=== PATIENT | female | born 1965 | race Caucasian/White ===

== ENCOUNTER → 2016-02-25 | Outpatient (CLI) | payer MEDICARE, MEDICAID ==
[~2016-02-25] MED LIST: /AMIT10TA PO; /AMIT25TA NG; /CLON1TA PO; /FEXO18TA OR; /MELO7TA PO; /METH500TA OR; ACET65TA OR; AMIT10TA PO; B COCAP5 PO; CALC600T10 OR; CLAR1TAB2 PO; CLOT10TR PO; CYCL10TA3 PO; CYMB1CAP5 PO; CYMB60CA3 PO; FISH1000 OR; FISH1000 PO; FLON0.054; FLUO10CA8 PO; IBUP60TA PO; IRON28TA OR; LEVO75TA2 OR; LEXA1TAB2 PO; MAGN250T OR; MAGN400C2 PO; MARI5CAP PO; MELOPOW OR; METH750T PO; METH75TA PO; MOBI15TA PO; MULTIVIT OR; MULTIVIT PO; OMEP20TA7 OR; PREG50CA OR; PROZ10CA7 PO; SENN8.6T5 OR; SOMA350T PO; SUDA30TA OR; TOPA25TA PO; TRAM50TA2 OR; TUMERIC PO; ULTRTA OR; VALI5TAB OR; VICO5TAB PO; VIT D 2000 OR; VITACAP31 PO; [UNRECOGNIZED DRUG - OTHER] PO; emla cream TOP; melatonin PO; osteo matrix PO; vit D2 PO
--- NOTE | 2016-03-18 00:55 | ECWPNPC ---
PATIENT NAME: PATRIZIA DICKEY : 1965 GENDER: FEMALE VISIT DATE: 02/25/2016 DISCHARGE DATE: 02/25/16 1046 VISIT LOCKED DATE TIME: PHYSICIAN: DARBY MCCLOUD PHYSICIAN PAGER NO: INACTIVE RESOURCE: DARBY MCCLOUD REASON FOR APPOINTMENT 1. BACK HISTORY OF PRESENT ILLNESS HISTORY OF PRESENT ILLNESS: PAIN THE PATIENT DESCRIBES THE PAIN... FALL RISK SCREENING: SCREENING :NO FALLS IN THE PAST YEAR TODAY'S VISIT: NOTES: RATES PAIN TODAY 6/10. HAS BEEN EXERCISING ON A DAILY BASIS. HAS NEEDED TO TAKE PAIN MEDS HAS FOUND THIS HELPFUL. IS SLEEPING BUT HAS BEEN HAVING VIVID DREAMS. IS HAVING NEAR DAILY HEADACHES. HEADACHE TENDS TO BE OCCIPITAL. STATES ON DATE OF INJECTION HAD MIGRAINE WHICH WAS GONE IMMEDIATELY AFTER TREATMENT. [place] HAS HAD NO MIGRAINES SINCE THE INJECTION BUT HAS HAD A PRESURE SENSE WHICH IS USUALLY PART OF THE MIGRAINE EXPERIENCE. DID HAVE TOOTH REMOVED AND THIS HAS BEEN VERY PAINFUL. BLADDER HAS CONTINUED TO EMPTY WELL AND IS HAVING SOME PAIN AT END OF URINATION WHICH IS GOING TO BE EVALUATED. . CURRENT MEDICATIONS TAKING ARIPIPRAZOLE 2 MG TABLET 1 TABLET ORALLY ONCE A DAY, NOTES: 2100 LAST NIGHT TAKING SENNA S 8.6-50 MG TABLET 1 TABLET IN THE EVENING NEEDED ORALLY ONCE A DAY NEEDED, NOTES: 2100 LAST NIGHT TAKING ABIGAIL ALLERGY 180 MG TABLET 1 TABLET ORALLY ONCE A DAY, NOTES: YESTERDAY AM TAKING MAGNESIUM 400 MG CAPSULE 1 TABLET WITH A MEAL ORALLY ONCE A DAY, NOTES: YESTERDAY AM TAKING FISH OIL 1200 MG CAPSULE 2 CAPSULES ORALLY ONCE A DAY, NOTES: YESTERDAY AM TAKING MULTIVITAMINS OTC TABLET 1 TAB(S) ORALLY DAILY, NOTES: YESTERDAY AM TAKING VITAMIN B COMPLEX OTC TABLET 1 TAB(S) ORALLY DAILY, NOTES: YESTERDAY AM TAKING CALCIUM 500 MG TABLET CHEWABLE 2 TABLET ORALLY ONCE A DAY, NOTES: YESTERDAY AM TAKING VITAMIN D-3 1000 UNITS TABLET 1 TAB(S) ORALLY DAILY, NOTES: YESTERDAY AM TAKING SYNTHROID 100 MCG TABLET 1 TABLET ON AN EMPTY STOMACH IN THE MORNING ORALLY ONCE A DAY (DR. PABLO), NOTES: 0730 TODAY TAKING PROZAC 10 40 MG TABLET 1 TAB(S) ORAL ONCE A DAY, NOTES: 2100 LAST NIGHT TAKING OSTEO COMPLEX CAPSULE 1 CAP(S) ORALLY DAILY, NOTES: YESTERDAY AM TAKING FLONASE 50 MCG/DOSE INHALER 1 SPRAY IN EACH NOSTRIL NASALLY ONCE A DAY, NOTES: 3 DAYS TAKING NORCO 5-325 MG TABLET 1 TABLET ORALLY EVERY 4 HRS PRN PAIN MDD=6 CHRONIC PAIN, NOTES: TODAY 0830 TAKING MAPROTILINE HCL 50 MG TABLET 1 TABLET ORALLY ONCE A DAY, NOTES: 2100 TAKING LYRICA 25 MG CAPSULE 1 CAPSULE ORALLY Q 8 HRS MDD=3, NOTES: 1500 YESTERDAY NOT-TAKING DIAZEPAM 5 MG TABLET 1 TABLET ORALLY ONCE A DAY NEEDED ([facility]), NOTES: 09-22-15 0845 NOT-TAKING METHOCARBAMOL 750 MG TABLET 2 TABLETS ORALLY EVERY 4 HRS ([facility]), NOTES: 09-21-152099 NOT-TAKING TURMERIC 1 TAB(S) ORALLY DAILY NOT-TAKING LIDOCAINE 5 % OINTMENT 1 APPLICATION TO AFFECTED AREA NEEDED EXTERNALLY FOUR TIMES A DAY TO PAINFUL AREAS OF NECK/SACRUM NOT-TAKING BENADRYL 25 MG CAPSULE 1 CAPSULE NEEDED ORALLY EVERY 6 HRS, NOTES: NONE NOT-TAKING SUDAFED 30 MG TABLET 1 TABLET NEEDED ORALLY EVERY 6 HRS, NOTES: NONE NOT-TAKING NASONEX 50 MCG/ACT SUSPENSION 2 SPRAYS IN EACH NOSTRIL NASALLY ONCE A DAY, NOTES: 2 DAYS NOT-TAKING CLONIDINE HCL 0.1 MG TABLET 1 TABLET ORALLY TID PRN, NOTES: NONE NOT-TAKING MARINOL 2.5 MG CAPSULE 1 CAPSULE ORALLY BID NOT-TAKING MOBIC 15 MG TABLET 1 TABLET ORALLY ONCE A DAY WITH FOOD NOT-TAKING LIDOCAINE 4 % CREAM DIRECTED EXTERNALLY APPLY TO PAINFUL AREA TAILBONE 4 X PER DAY NEEDED NOT-TAKING VICODIN HP 7.5-325 MG TABLET 1 TAB(S) ORALLY EVERY 4 HOURS NEEDED ([facility]) MEDICATION LIST REVIEWED AND RECONCILED WITH THE PATIENT PAST MEDICAL HISTORY CERVALGIA- C5-6 DISC HERNIATION WITH C6 IMPINGEMENT-DR DAY/ [facility]UF[facility]- DR PABLO SEASONAL ALLERGY/SINUSITIS ENDOMETRIAL POLYP- DR YBARRA DYSPHAGIA-ENT IN [place]- DR MORATAYA BASAL CELL TO RIGHT NOSE - DR. CASTAÑEDA SACRAL PAIN ALLERGIES NEURONTIN 300: DEPRESSION: SIDE EFFECTS BACLOFEN: HEAD ACHES: ALLERGY CYCLOBENZAPRINE HCL: DECREASED MENTAL ALERTNESS: ALLERGY GABAPENTIN: DEPRESSION: ALLERGY TIZANIDINE HCL: HEADACHES: ALLERGY TOPIRAMATE: ALTERED MENTAL STATUS: ALLERGY SOCIAL HISTORY GENERAL: TOBACCO USE ARE YOU A:NONSMOKER LEARNING BARRIERS / SPECIAL NEEDS ORIENTED TO PLAN OF CARE: PATIENT, PAIN MANAGEMENT PATIENT, ORIENTED TO PLAN OF CARE: PATIENT, PAIN MANAGEMENT PATIENT. NEW PATIENT PAIN DIARY TODAY'S VISITNOTES FROM 0-10, WHAT LEVEL IS YOUR PAIN TODAY?0 PAIN CLINIC PFS, CLERGY, PUBLIC HEALTH REFERRALS PFS REFERRAL NEEDED?NO CLERGY REFERRAL NEEDED?NO PUBLIC HEALTH REFERRAL NEEDED?NO WAS THE PROVIDER NOTIFIED OF ANY PERTINENT INFO?NO PFS REFERRAL NEEDED?NO CLERGY REFERRAL NEEDED?NO PUBLIC HEALTH REFERRAL NEEDED?NO WAS THE PROVIDER NOTIFIED OF ANY PERTINENT INFO?NO REVIEW OF SYSTEMS CONSTITUTIONAL: ANY CHANGE IN YOUR MEDICAL CONDITION? YES HEADACHES HAVE BECOME MORE FREQUENT . CHILLS NO . FEVER NO . INFECTION: DO YOU HAVE NEW INFECTIONS? NO . DO YOU HAVE HISTORY OF MRSA? NO . MUSCULOSKELETAL: ANY NEW PATTERNS OF PAIN OR NUMBNESS? NO . GASTROENTEROLOGY: ANY NEW CHANGE IN BOWEL CONTROL? NO . GENITOURINARY: ANY NEW CHANGE IN BLADDER CONTROL? NO . IS THERE A CHANCE YOU COULD BE ? NO . HEMATOLOGY/LYMPH: DO YOU TAKE ANY BLOOD THINNERS? (FOR EXAMPLE- COUMADIN, PLAVIX, AGGRENOX, PLATEL, PRADAXA, OR XARELTO) NO . WHEN WAS YOUR LAST DOSE? DATE: TIME: . NEUROLOGY: HAVE YOU FALLEN IN THE PAST 6 MONTHS? NO . ANY NEW EXTREMITY NUMBNESS OR WEAKNESS? NO . CARDIOLOGY: DO YOU HAVE A PACEMAKER OR DEFIBRILLATOR? NO . RESPIRATORY: HAVE YOU BEEN SICK IN THE PAST WEEK? NO . FEVER NO . FLU LIKE SYMPTOMS? NO . COUGH NO . INTEGUMENTARY: DO YOU HAVE ANY RASHES OR OPEN SORES? NO . ALLERGIC/IMMUNO: ARE YOU ALLERGIC TO SHELLFISH OR IV DYE? NO . ANY NEW ALLERGIES? NO . PSYCHIATRIC: DO YOU HAVE THOUGHTS OF HURTING YOURSELF OR SOMEONE ELSE? NO . ARE YOU ABUSED, NEGLECTED, OR IN AN UNSAFE ENVIRONMENT? NO . ENDOCRINOLOGY: ARE YOU DIABETIC? NO . OTHER: DO YOU NEED ANY PRESCRIPTIONS? NO . IF YES, PLEASE LIST: ____ . ANY NEW PROBLEMS WITH YOUR MEDICATIONS? NO . WHEN DID YOU LAST EAT? ____ . WHEN DID YOU LAST DRINK? ____ . WHAT DID YOU LAST DRINK? ____ . NAME OF PERSON DRIVING YOU HOME? ____ . DO YOU HAVE ANY OTHER QUESTIONS OR CONCERNS NO . REVIEWED BY: PROVIDER: DARBY DALE . VITAL SIGNS WT 165 LBS, HT 70 IN, BMI 23.67 INDEX, BP 114/69 MM HG, HR 98 /MIN, RR 18 /MIN, TEMP 96.7 F, OXYGEN SAT % 99, REVIEWED BY: AD. EXAMINATION GENERAL EXAMINATION: PSYCHALERT , ORIENTED X 3 , APPROPRIATE MOOD AND AFFECT STANDS THROUGHOUT VISIT TODAY. LUNGS:CLEAR TO AUSCULTATION BILATERALLY. HEART:HEART RATE REGULAR. MUSCULOSKELETAL:TENDER OVER TRAPEZIUS MUSCLES AND OVER CERVICAL PARASPINOUS MUSCLES. MILD TENDERNESS OVER SACRUM. POSTURE UPRIGHT, GAIT NONANTALGIC. POINT TENDERNESS OVER SACRUM AND NEAR COCCYX. SPECIFIC TENDERNESS TO PALPATION OVER BILATERAL SACRAL ILIAC JOINTS. POSITIVE SARWAT SIGN. ASSESSMENTS CERVICAL POST-LAMINECTOMY SYNDROME - M96.1 (PRIMARY) MYALGIA - M79.1 COCCYDYNIA - M53.3 TREATMENT CERVICAL POST-LAMINECTOMY SYNDROME INJECTION ANESTHETIC SACROILIAC JOINTDARBY MCCLOUD 02/25/2016 10:29:09 AM > LEFT NOTES: DO SHOULDER ROLLS. LOOK TO START PHYSICAL THERAPY. CONSIDER TRIGGER POINT INJECTION/OCCIPITAL BLOCKS IN THE FUTURE. PREVENTIVE MEDICINE PAIN CLINIC TEACHING: PROCEDURE TEACHING PAT. DECLINED PRINTED INFORMATION ON SIJ INJECTIONS DUE TO HAVING IT PREVIOUSLY. PRE-PROCEJURE INSTRUCTIONS REVIEWED WITH PAT.. PROCEDURE CODES FA211 ESTABILISHED PATIENT [facility] CHARGE G8783 BP SCR PRFRM RCMDD DEFIND SCR INTVL G8730 PAIN ASSESS POS TOOL F/U PLAN DOC 3016F PT SCRND UNHLTHY [place] USE 1123F ACP DISCUSS/DSCN MKR DOCD 1036F TOBACCO NON-USER 0518F FALL PLAN OF CARE DOCD G8427 DOC MEDS VERIFIED W/PT OR RE G8420 BMI<30 AND >=22 CALC & DOCU FOLLOW UP AFTER INJECTION (REASON: CHECK AUTH FOR SIJ) ELECTRONICALLY SIGNED BY LIZA MERINO ON 03/17/2016 AT 08:46 AM EST DISCLAIMER : THIS IS A VISIT SUMMARY EXTRACTED FROM THE [employer] CHART. IT IS NOT A COPY OF THE [employer] PROGRESS NOTE. MTDD
== END ==
LOC: M PAIN 10:00
PROVIDERS: ATTEND Nurse Practitioner Family
DX: M96.1 Postlaminectomy syndrome, not elsewhere classified (principal); M79.1 Myalgia; M53.3 Sacrococcygeal disorders, not elsewhere classified; Z79.891 Long term (current) use of opiate analgesic; E03.9 Hypothyroidism, unspecified; Z79.899 Other long term (current) drug therapy; Z88.8 Allergy status to other drugs, medicaments and biological substances; Z88.1 Allergy status to other antibiotic agents

== ENCOUNTER → 2016-03-10 | Outpatient (CLI) | payer MEDICARE, MEDICAID ==
[~2016-03-10] MED LIST changes: +BUPIVACAINE HCL 0.25% 30 ML VIAL As Ordered ONE; +ISOVUE-M 300 61% 15ML VIAL (Q9967) As Ordered ONE; +LIDOCAINE 1% SDV INJ 30 ML VIAL As Ordered ONE; +TRIAMCINOLONE ACETONIDE SUSP 40 MG/ML VIAL (J3301) As Ordered ONE; +diazePAM 5 MG TAB As Ordered ONE
--- NOTE | 2016-03-11 10:52 | REP ---
PARTIAL SI JOINT SERIES: Five views. HISTORY: Injection procedure for pain. 25 seconds of fluoroscopy time is reported. FINDINGS: A sequence of five fluoroscopically obtained intraprocedural spot radiographs of the SI joints document needle positions and contrast injections associated with SI joint injection procedure. Signed by Luis Vincent MD 03/11/2016 02:54 P
--- NOTE | 2016-03-16 00:39 | ECWPNPC ---
PATIENT NAME: PATRIZIA DICKEY : 1965 GENDER: FEMALE VISIT DATE: 03/10/2016 DISCHARGE DATE: 03/10/16 1144 VISIT LOCKED DATE TIME: PHYSICIAN: KEISHA ENCARNACION PHYSICIAN PAGER NO: INACTIVE RESOURCE: KEISHA ENCARNACION REASON FOR APPOINTMENT 1. SIJ HISTORY OF PRESENT ILLNESS HISTORY OF PRESENT ILLNESS: PAIN THE PATIENT DESCRIBES THE PAIN... FALL RISK SCREENING: SCREENING :NO FALLS IN THE PAST YEAR CURRENT MEDICATIONS TAKING ARIPIPRAZOLE 2 MG TABLET 1 TABLET ORALLY ONCE A DAY, NOTES: 03/09/16@1900 TAKING SENNA S 8.6-50 MG TABLET 1 TABLET IN THE EVENING NEEDED ORALLY ONCE A DAY NEEDED, NOTES: 03/09/16 TAKING ABIGAIL ALLERGY 180 MG TABLET 1 TABLET ORALLY ONCE A DAY, NOTES: 03/09/16 TAKING MAGNESIUM 400 MG CAPSULE 1 TABLET WITH A MEAL ORALLY ONCE A DAY, NOTES: 03/09/16 TAKING FISH OIL 1200 MG CAPSULE 2 CAPSULES ORALLY ONCE A DAY, NOTES: 03/09/16 TAKING MULTIVITAMINS OTC TABLET 1 TAB(S) ORALLY DAILY, NOTES: 03/09/16 TAKING VITAMIN B COMPLEX OTC TABLET 1 TAB(S) ORALLY DAILY, NOTES: 03/09/16 TAKING CALCIUM 500 MG TABLET CHEWABLE 2 TABLET ORALLY ONCE A DAY, NOTES: 03/09/16 TAKING VITAMIN D-3 1000 UNITS TABLET 1 TAB(S) ORALLY DAILY, NOTES: 03/09/16 TAKING SYNTHROID 100 MCG TABLET 1 TABLET ON AN EMPTY STOMACH IN THE MORNING ORALLY ONCE A DAY (DR. PABLO), NOTES: 03/10/16@0500 TAKING PROZAC 10 40 MG TABLET 1 TAB(S) ORAL ONCE A DAY, NOTES: 03/09/16@190 TAKING OSTEO COMPLEX CAPSULE 1 CAP(S) ORALLY DAILY, NOTES: 03/09/16 TAKING FLONASE 50 MCG/DOSE INHALER 1 SPRAY IN EACH NOSTRIL NASALLY ONCE A DAY, NOTES: 2 WEEKS AGO TAKING NORCO 5-325 MG TABLET 1 TABLET ORALLY EVERY 4 HRS PRN PAIN MDD=6 CHRONIC PAIN, NOTES: 03/10/16@0800 TAKING MAPROTILINE HCL 50 MG TABLET 1 TABLET ORALLY ONCE A DAY, NOTES: 03/09/16@1900 TAKING LYRICA 25 MG CAPSULE 1 CAPSULE ORALLY Q 8 HRS MDD=3, NOTES: 03/10/16@0500 NOT-TAKING DIAZEPAM 5 MG TABLET 1 TABLET ORALLY ONCE A DAY NEEDED ([facility]), NOTES: 09-22-15 0845 NOT-TAKING METHOCARBAMOL 750 MG TABLET 2 TABLETS ORALLY EVERY 4 HRS ([facility]), NOTES: 09-21-15 2100 NOT-TAKING TURMERIC 1 TAB(S) ORALLY DAILY NOT-TAKING LIDOCAINE 5 % OINTMENT 1 APPLICATION TO AFFECTED AREA NEEDED EXTERNALLY FOUR TIMES A DAY TO PAINFUL AREAS OF NECK/SACRUM NOT-TAKING BENADRYL 25 MG CAPSULE 1 CAPSULE NEEDED ORALLY EVERY 6 HRS, NOTES: NONE NOT-TAKING SUDAFED 30 MG TABLET 1 TABLET NEEDED ORALLY EVERY 6 HRS, NOTES: NONE NOT-TAKING NASONEX 50 MCG/ACT SUSPENSION 2 SPRAYS IN EACH NOSTRIL NASALLY ONCE A DAY, NOTES: 2 DAYS NOT-TAKING CLONIDINE HCL 0.1 MG TABLET 1 TABLET ORALLY TID PRN, NOTES: NONE NOT-TAKING MARINOL 2.5 MG CAPSULE 1 CAPSULE ORALLY BID NOT-TAKING MOBIC 15 MG TABLET 1 TABLET ORALLY ONCE A DAY WITH FOOD NOT-TAKING LIDOCAINE 4 % CREAM DIRECTED EXTERNALLY APPLY TO PAINFUL AREA TAILBONE 4 X PER DAY NEEDED NOT-TAKING VICODIN HP 7.5-325 MG TABLET 1 TAB(S) ORALLY EVERY 4 HOURS NEEDED ([facility]) MEDICATION LIST REVIEWED AND RECONCILED WITH THE PATIENT PAST MEDICAL HISTORY CERVALGIA- C5-6 DISC HERNIATION WITH C6 IMPINGEMENT-DR DAY/ DR YUSUF- [facility]- DR PABLO SEASONAL ALLERGY/SINUSITIS ENDOMETRIAL POLYP- DR YBARRA DYSPHAGIA-ENT IN [place]- DR MORATAYA BASAL CELL TO RIGHT NOSE - DR. CASTAÑEDA SACRAL PAIN ALLERGIES NEURONTIN 300: DEPRESSION: SIDE EFFECTS BACLOFEN: HEAD ACHES: ALLERGY CYCLOBENZAPRINE HCL: DECREASED MENTAL ALERTNESS: ALLERGY GABAPENTIN: DEPRESSION: ALLERGY TIZANIDINE HCL: HEADACHES: ALLERGY TOPIRAMATE: ALTERED MENTAL STATUS: ALLERGY SOCIAL HISTORY GENERAL: TOBACCO USE ARE YOU A:NONSMOKER LEARNING BARRIERS / SPECIAL NEEDS ORIENTED TO PLAN OF CARE: PATIENT, PAIN MANAGEMENT PATIENT, ORIENTED TO PLAN OF CARE: PATIENT, PAIN MANAGEMENT PATIENT. NEW PATIENT PAIN DIARY TODAY'S VISITNOTES FROM 0-10, WHAT LEVEL IS YOUR PAIN TODAY?0 PAIN CLINIC PFS, CLERGY, PUBLIC HEALTH REFERRALS PFS REFERRAL NEEDED?NO CLERGY REFERRAL NEEDED?NO PUBLIC HEALTH REFERRAL NEEDED?NO WAS THE PROVIDER NOTIFIED OF ANY PERTINENT INFO?NO PFS REFERRAL NEEDED?NO CLERGY REFERRAL NEEDED?NO PUBLIC HEALTH REFERRAL NEEDED?NO WAS THE PROVIDER NOTIFIED OF ANY PERTINENT INFO?NO REVIEW OF SYSTEMS CONSTITUTIONAL: ANY CHANGE IN YOUR MEDICAL CONDITION? NO . CHILLS NO . FEVER NO . INFECTION: DO YOU HAVE NEW INFECTIONS? NO . DO YOU HAVE HISTORY OF MRSA? NO . MUSCULOSKELETAL: ANY NEW PATTERNS OF PAIN OR NUMBNESS? NO . GASTROENTEROLOGY: ANY NEW CHANGE IN BOWEL CONTROL? NO . GENITOURINARY: ANY NEW CHANGE IN BLADDER CONTROL? NO . IS THERE A CHANCE YOU COULD BE ? NO . HEMATOLOGY/LYMPH: DO YOU TAKE ANY BLOOD THINNERS? (FOR EXAMPLE- COUMADIN, PLAVIX, AGGRENOX, PLATEL, PRADAXA, OR XARELTO) NO . WHEN WAS YOUR LAST DOSE? DATE: TIME: . NEUROLOGY: HAVE YOU FALLEN IN THE PAST 6 MONTHS? NO . ANY NEW EXTREMITY NUMBNESS OR WEAKNESS? NO . CARDIOLOGY: DO YOU HAVE A PACEMAKER OR DEFIBRILLATOR? NO . RESPIRATORY: HAVE YOU BEEN SICK IN THE PAST WEEK? NO . FEVER NO . FLU LIKE SYMPTOMS? NO . COUGH NO . INTEGUMENTARY: DO YOU HAVE ANY RASHES OR OPEN SORES? NO . ALLERGIC/IMMUNO: ARE YOU ALLERGIC TO SHELLFISH OR IV DYE? NO . ANY NEW ALLERGIES? NO . PSYCHIATRIC: DO YOU HAVE THOUGHTS OF HURTING YOURSELF OR SOMEONE ELSE? NO . ARE YOU ABUSED, NEGLECTED, OR IN AN UNSAFE ENVIRONMENT? NO . ENDOCRINOLOGY: ARE YOU DIABETIC? NO . OTHER: DO YOU NEED ANY PRESCRIPTIONS? NO . IF YES, PLEASE LIST: ____ . ANY NEW PROBLEMS WITH YOUR MEDICATIONS? NO . WHEN DID YOU LAST EAT? ____03/09/15@1700 <____02/27/15@1700> . WHEN DID YOU LAST DRINK? ____03/10/16@0800 . WHAT DID YOU LAST DRINK? ____WATER . NAME OF PERSON DRIVING YOU HOME? ____JEN CAM . DO YOU HAVE ANY OTHER QUESTIONS OR CONCERNS NO . REVIEWED BY: PROVIDER: . VITAL SIGNS WT 160 LBS, HT 70 IN, BMI 22.96 INDEX, BP 108/65 MM HG, HR 84 /MIN, RR 16 /MIN, TEMP 96.4 F, OXYGEN SAT % 98%, NA INITIALS SC 09:43, REVIEWED BY: ERIN. ASSESSMENTS SACROILIITIS, NOT ELSEWHERE CLASSIFIED - M46.1 (PRIMARY) PROCEDURES PN SI PRE PROCEDURE DIAGNOSIS SACROILIITIS, SACROILIAC JOINT DYSFUNCTION POST PROCEDURE DIAGNOSIS SACROILIITIS, SACROILIAC JOINT DYSFUNCTION PROCEDURE BILATERAL SACROILIAC JOINT BLOCK SURGEON DR. KEISHA ENCARNACION SENIOR JAVA UI DEVELOPER NONE ANESTHESIA LOCAL PRE PROCEDURE NOTE PATIENT WITH HISTORY OF CHRONIC LOW BACK PAIN. I EVALUATED THE PATIENT AND REVIEWED THE CHART. I WENT OVER THE RISKS, ALTERNATIVES, AND BENEFITS ASSOCIATED WITH THIS PROCEDURE. THE PATIENT WOULD LIKE TO PROCEED AND GAVE CONSENT TO PERFORM THE PROCEDURE. THE PATIENT DENIES UNEXPLAINABLE WEIGHT LOSS, FEVER, CHILLS, OR NEW CHANGES IN URINARY OR BOWEL CONTROL DESCRIPTION OF PROCEDURE THE PATIENT WAS BROUGHT TO THE PROCEDURE ROOM AND PLACED IN THE PRONE POSITION. THE LUMBOSACRAL AREA WAS CLEANED WITH CHLORAPREP SOLUTION AND DRAPED ASEPTICALLY. THE PROCEDURE WAS DONE UNDER STERILE CONDITIONS. I CHECKED LATERALITY AND THE LEVEL WHERE THE PROCEDURE WAS GOING TO BE PERFORMED WITH THE PATIENT AND THE SUPPORTING STAFF AT THE MOMENT OF THE TIME OUT IN THE PROCEDURE ROOM. UNDER FLUOROSCOPIC GUIDANCE, TARGET POINT WAS SELECTED AT THE LOWER BORDER OF THE RIGHT AND LEFT SACROILIAC JOINT. TARGET POINT WAS SELECTED AFTER MEDIAL ROTATION AND TILT OF THE MAGNIFIER OF THE C-ARM. LIDOCAINE WAS USED TO NUMB THE SKIN AND SUBCUTANEOUS TISSUE BELOW IT. A SPINAL NEEDLE, 22-GAUGE, WAS ADVANCED UNDER FLUOROSCOPIC GUIDANCE AND FOLLOWING PATIENT FEEDBACK UNTIL THE TARGET AREA WAS TOUCHED. THE POSITION OF THE NEEDLE WAS VERIFIED WITH AP AND LATERAL VIEWS. AFTER PROPER POSITION OF THE NEEDLE WAS ACHIEVED, ISOVUE M DYE 30%, 0.25 ML, WAS INJECTED SHOWING SPREAD OF THE DYE. THEN, A SOLUTION OF 20 MG OF KENALOG WAS INJECTED IN RIGHT JOINT WITH 3 ML OF BUPIVACAINE 0.125%. THERE WAS NO EVIDENCE OF BLOOD, PARESTHESIA OR CEREBROSPINAL FLUID DURING THE PROCEDURE. THE PATIENT WAS SENT TO THE RECOVERY ROOM. THE PATIENT WAS MOVING THE EXTREMITIES AND DOING WELL. THERE WAS NO COMPLICATION DURING THE PROCEDURE. FLUOROSCOPY TIME WAS 25 SECONDS POST PROCEDURE NOTE THE PATIENT WILL BE SEEN IN A FOLLOW UP IN THE NEXT FEW WEEKS. INSTRUCTIONS WERE GIVEN, QUESTIONS WERE ANSWERED, AND THE PATIENT EXPRESSED UNDERSTANDING AND AGREED WITH THE PLAN. I, MERCEDEZ HUNT, DOCUMENTED THE ABOVE INFORMATION ACTING A SCRIBE FOR DR. ENCARNACION. I, DR. ENCARNACION, HAVE REVIEWED THE ABOVE DOCUMENT, SCRIBED BY MERCEDEZ HUNT, AND I VERIFY THAT IT IS [facility] FLUORO GUIDANCE (PAIN)[id number] PROCEDURE CODES 99525 INJECT SACROILIAC JOINT 6045F RADXPS IN END [id number] PXD FOLLOW UP 3 WEEKS ELECTRONICALLY SIGNED BY KEISHA ENCARNACION MD ON 03/15/2016 AT 08:55 PM EST DISCLAIMER : THIS IS A VISIT SUMMARY EXTRACTED FROM THE [employer] CHART. IT IS NOT A COPY OF THE [employer] PROGRESS NOTE. MTDD
== END ==
LOC: M PAIN 09:40
PROVIDERS: ATTEND Anesthesiology
DX: G89.29 Other chronic pain (principal); M46.1 Sacroiliitis, not elsewhere classified; M53.88 Other specified dorsopathies, sacral and sacrococcygeal region; M50.222 Other cervical disc displacement at C5-C6 level; E03.9 Hypothyroidism, unspecified; J30.2 Other seasonal allergic rhinitis; R13.10 Dysphagia, unspecified; Z88.8 Allergy status to other drugs, medicaments and biological substances; Z79.891 Long term (current) use of opiate analgesic; Z79.899 Other long term (current) drug therapy
CPT/HCPCS: G0260; J3301; Q9967

== ENCOUNTER → 2016-03-31 | Outpatient (CLI) | payer MEDICARE, MEDICAID ==
[~2016-03-31] MED LIST changes: -BUPIVACAINE HCL 0.25% 30 ML VIAL As Ordered ONE; -ISOVUE-M 300 61% 15ML VIAL (Q9967) As Ordered ONE; -LIDOCAINE 1% SDV INJ 30 ML VIAL As Ordered ONE; -TRIAMCINOLONE ACETONIDE SUSP 40 MG/ML VIAL (J3301) As Ordered ONE; -diazePAM 5 MG TAB As Ordered ONE
--- NOTE | 2016-04-09 00:34 | ECWPNPC ---
PATIENT NAME: PATRIZIA DICKEY : 1965 GENDER: FEMALE VISIT DATE: 03/31/2016 DISCHARGE DATE: 03/31/16 0953 VISIT LOCKED DATE TIME: PHYSICIAN: DARBY MCCLOUD PHYSICIAN PAGER NO: INACTIVE RESOURCE: DARBY MCCLOUD REASON FOR APPOINTMENT 1. POST SIJ HISTORY OF PRESENT ILLNESS HISTORY OF PRESENT ILLNESS: PAIN THE PATIENT DESCRIBES THE PAIN... FALL RISK SCREENING: SCREENING :NO FALLS IN THE PAST YEAR TODAY'S VISIT: NOTES: STATUS POST BILATERAL SACROILIAC JOINT INJECTION COMPLETED ON 03/10/2016. IS NOTING THE LEFT SIDE SIJ NOT QUITE EFFECTIVE, BUT THAT OVERALL PAIN LEVEL HAS DECREASED BY AT LEAST 50%. REPORTS THAT SHE HAS BEEN ABLE TO SIT WITH SOME DEGREE OF COMFORT.. HAS BEEN DOING PHYSICAL ACTIVITY ON A DAILY BASIS. TAILBONE AREA IS TENDER. IS TO START PT 04/06/16. HAS BEEN WORKING ON DEEP BREATHS WHILE ON TREADMILL. . CURRENT MEDICATIONS TAKING ARIPIPRAZOLE 2 MG TABLET 1 TABLET ORALLY ONCE A DAY, NOTES: 03/09/16@1900 TAKING SENNA S 8.6-50 MG TABLET 1 TABLET IN THE EVENING NEEDED ORALLY ONCE A DAY NEEDED, NOTES: 03/09/16@1900 TAKING ABIGAIL ALLERGY 180 MG TABLET 1 TABLET ORALLY ONCE A DAY, NOTES: 03/09/16@1100 TAKING MAGNESIUM 400 MG CAPSULE 1 TABLET WITH A MEAL ORALLY ONCE A DAY, NOTES: 03/09/16 TAKING FISH OIL 1200 MG CAPSULE 2 CAPSULES ORALLY ONCE A DAY, NOTES: 03/09/16 TAKING MULTIVITAMINS OTC TABLET 1 TAB(S) ORALLY DAILY, NOTES: 03/09/16 TAKING VITAMIN B COMPLEX OTC TABLET 1 TAB(S) ORALLY DAILY, NOTES: 03/09/16 TAKING CALCIUM 500 MG TABLET CHEWABLE 2 TABLET ORALLY ONCE A DAY, NOTES: 03/09/16 TAKING VITAMIN D-3 1000 UNITS TABLET 1 TAB(S) ORALLY DAILY, NOTES: 03/09/161100 TAKING SYNTHROID 100 MCG TABLET 1 TABLET ON AN EMPTY STOMACH IN THE MORNING ORALLY ONCE A DAY (DR. PABLO), NOTES: 03/10/16@0500 TAKING PROZAC 10 40 MG TABLET 1 TAB(S) ORAL ONCE A DAY, NOTES: 03/09/16@1900 TAKING OSTEO COMPLEX CAPSULE 1 CAP(S) ORALLY DAILY, NOTES: 03/09/16@1100 TAKING FLONASE 50 MCG/DOSE INHALER 1 SPRAY IN EACH NOSTRIL NASALLY ONCE A DAY, NOTES: 2 WEEKS AGO TAKING NORCO 5-325 MG TABLET 1 TABLET ORALLY EVERY 4 HRS PRN PAIN MDD=6 CHRONIC PAIN, NOTES: 03/10/16@0800 TAKING MAPROTILINE HCL 50 MG TABLET 1 TABLET ORALLY ONCE A DAY, NOTES: 03/09/16@1900 TAKING LYRICA 25 MG CAPSULE 1 CAPSULE ORALLY Q 8 HRS MDD=3, NOTES: 03/10/16@0500 TAKING DIAZEPAM 5 MG TABLET 1 TABLET ORALLY ONCE A DAY NEEDED ([facility]), NOTES: 09-22-15 0845 TAKING METHOCARBAMOL 750 MG TABLET 2 TABLETS ORALLY EVERY 4 HRS ([facility]), NOTES: 09-21-15 2100 TAKING TURMERIC 1 TAB(S) ORALLY DAILY TAKING LIDOCAINE 5 % OINTMENT 1 APPLICATION TO AFFECTED AREA NEEDED EXTERNALLY FOUR TIMES A DAY TO PAINFUL AREAS OF NECK/SACRUM TAKING BENADRYL 25 MG CAPSULE 1 CAPSULE NEEDED ORALLY EVERY 6 HRS, NOTES: NONE TAKING SUDAFED 30 MG TABLET 1 TABLET NEEDED ORALLY EVERY 6 HRS, NOTES: NONE TAKING NASONEX 50 MCG/ACT SUSPENSION 2 SPRAYS IN EACH NOSTRIL NASALLY ONCE A DAY, NOTES: 2 DAYS TAKING CLONIDINE HCL 0.1 MG TABLET 1 TABLET ORALLY TID PRN, NOTES: NONE TAKING MARINOL 2.5 MG CAPSULE 1 CAPSULE ORALLY BID TAKING MOBIC 15 MG TABLET 1 TABLET ORALLY ONCE A DAY WITH FOOD TAKING LIDOCAINE 4 % CREAM DIRECTED EXTERNALLY APPLY TO PAINFUL AREA TAILBONE 4 X PER DAY NEEDED TAKING VICODIN HP 7.5-325 MG TABLET 1 TAB(S) ORALLY EVERY 4 HOURS NEEDED ([facility]) MEDICATION LIST REVIEWED AND RECONCILED WITH THE PATIENT PAST MEDICAL HISTORY CERVALGIA- C5-6 DISC HERNIATION WITH C6 IMPINGEMENT-DR DAY/ DR YUSUF- [facility] 2007- DR PABLO SEASONAL ALLERGY/SINUSITIS ENDOMETRIAL POLYP- DR YBARRA DYSPHAGIA-ENT IN [place]- DR MORATAYA BASAL CELL TO RIGHT NOSE - DR. CASTAÑEDA SACRAL PAIN ALLERGIES NEURONTIN 300: DEPRESSION: SIDE EFFECTS BACLOFEN: HEAD ACHES: ALLERGY CYCLOBENZAPRINE HCL: DECREASED MENTAL ALERTNESS: ALLERGY GABAPENTIN: DEPRESSION: ALLERGY TIZANIDINE HCL: HEADACHES: ALLERGY TOPIRAMATE: ALTERED MENTAL STATUS: ALLERGY SOCIAL HISTORY GENERAL: TOBACCO USE ARE YOU A:NONSMOKER LEARNING BARRIERS / SPECIAL NEEDS ORIENTED TO PLAN OF CARE: PATIENT, PAIN MANAGEMENT PATIENT, ORIENTED TO PLAN OF CARE: PATIENT, PAIN MANAGEMENT PATIENT. NEW PATIENT PAIN DIARY TODAY'S VISITNOTES FROM 0-10, WHAT LEVEL IS YOUR PAIN TODAY?0 PAIN CLINIC PFS, CLERGY, PUBLIC HEALTH REFERRALS PFS REFERRAL NEEDED?NO CLERGY REFERRAL NEEDED?NO PUBLIC HEALTH REFERRAL NEEDED?NO WAS THE PROVIDER NOTIFIED OF ANY PERTINENT INFO?NO PFS REFERRAL NEEDED?NO CLERGY REFERRAL NEEDED?NO PUBLIC HEALTH REFERRAL NEEDED?NO WAS THE PROVIDER NOTIFIED OF ANY PERTINENT INFO?NO REVIEW OF SYSTEMS CONSTITUTIONAL: ANY CHANGE IN YOUR MEDICAL CONDITION? NO . CHILLS NO . FEVER NO . INFECTION: DO YOU HAVE NEW INFECTIONS? NO . DO YOU HAVE HISTORY OF MRSA? NO . MUSCULOSKELETAL: ANY NEW PATTERNS OF PAIN OR NUMBNESS? NO . GASTROENTEROLOGY: ANY NEW CHANGE IN BOWEL CONTROL? NO . GENITOURINARY: ANY NEW CHANGE IN BLADDER CONTROL? NO . IS THERE A CHANCE YOU COULD BE ? NO . HEMATOLOGY/LYMPH: DO YOU TAKE ANY BLOOD THINNERS? (FOR EXAMPLE- COUMADIN, PLAVIX, AGGRENOX, PLATEL, PRADAXA, OR XARELTO) NO . WHEN WAS YOUR LAST DOSE? DATE: TIME: . NEUROLOGY: HAVE YOU FALLEN IN THE PAST 6 MONTHS? NO . ANY NEW EXTREMITY NUMBNESS OR WEAKNESS? NO . CARDIOLOGY: DO YOU HAVE A PACEMAKER OR DEFIBRILLATOR? NO . RESPIRATORY: HAVE YOU BEEN SICK IN THE PAST WEEK? NO . FEVER NO . FLU LIKE SYMPTOMS? NO . COUGH NO . INTEGUMENTARY: DO YOU HAVE ANY RASHES OR OPEN SORES? NO . ALLERGIC/IMMUNO: ARE YOU ALLERGIC TO SHELLFISH OR IV DYE? NO . ANY NEW ALLERGIES? NO . PSYCHIATRIC: DO YOU HAVE THOUGHTS OF HURTING YOURSELF OR SOMEONE ELSE? NO . ARE YOU ABUSED, NEGLECTED, OR IN AN UNSAFE ENVIRONMENT? NO . ENDOCRINOLOGY: ARE YOU DIABETIC? NO . OTHER: DO YOU NEED ANY PRESCRIPTIONS? YES . IF YES, PLEASE LIST: VICODIN, METHOCARBAMOL . ANY NEW PROBLEMS WITH YOUR MEDICATIONS? NO . WHEN DID YOU LAST EAT? ____ . WHEN DID YOU LAST DRINK? ____ . WHAT DID YOU LAST DRINK? ____ . NAME OF PERSON DRIVING YOU HOME? ____ . DO YOU HAVE ANY OTHER QUESTIONS OR CONCERNS NO . PSYCHOLOGY: SLEEP DISTURBANCES VERY FATIQUED BY 6 PM. NOTES SLEEP SOME IMPROVED OVERALL. . REVIEWED BY: PROVIDER: DARBY DALE . VITAL SIGNS WT 161 LBS, HT 70 IN, BMI 23.10 INDEX, BP 119/76 MM HG, HR 94 /MIN, RR 16 /MIN, TEMP 96.7 F, OXYGEN SAT % 97%, NA INITIALS SC 08:52, REVIEWED BY: CM. EXAMINATION GENERAL EXAMINATION: PSYCHALERT , ORIENTED X 3 , APPROPRIATE MOOD AND AFFECT STANDS THROUGHOUT VISIT TODAY. LUNGS:CLEAR TO AUSCULTATION BILATERALLY. HEART:HEART RATE REGULAR. MUSCULOSKELETAL:TENDER OVER TRAPEZIUS MUSCLES AND OVER CERVICAL PARASPINOUS MUSCLES. MILD TENDERNESS OVER SACRUM. POSTURE UPRIGHT, GAIT NONANTALGIC. MODERATE POINT TENDERNESS OVER SACRUM AND NEAR COCCYX. TRIGGER POINTS AND TIGHT FIBROUS BANDS IDENTIFIED OVER THE SACRUM. ASSESSMENTS SACROILIITIS, NOT ELSEWHERE CLASSIFIED - M46.1 (PRIMARY) MYALGIA - M79.1 COCCYDYNIA - M53.3 TREATMENT SACROILIITIS, NOT ELSEWHERE CLASSIFIED REFILL METHOCARBAMOL TABLET, 750 MG, 1 TAB, ORALLY, BID, 30 DAY(S), 60 TABLET, REFILLS 1 START NORCO TABLET, 5-325 MG, 1 TABLET NEEDED, ORALLY, EVERY 6 HRS PRN PAIN MDD=2, 30 DAY(S), 45, REFILLS 0 NOTES: DISCUSSED WITH PATIENT THAT WE WILL NOT BE USING OPIATES MORE THAT INTERMITTENTLY CONTINUE WITH EXERCISES STRETCHES AND USE OF TREADMILL. CONTINUE MINDFULNESS ACTIVITIES. CLINICAL NOTES: ISTOP REGISTRY REVIEWED AND DEMNOSTRATES COMPLLIANCE. BRINGS IN MEDICATIONS WHICH IS APPROPRIATE FOR WHAT WAS DISPENSED. RECENT URINE TOXICOLOGY REVIEWED. NO UNAUTHORIZED MEDICATIONS. NO ILLICIT SUBSTANCES AND PRESCRIBED MEDICATIONS WERE PRESENT. PROCEDURE CODES FA211 ESTABILISHED PATIENT [facility] CHARGE G8728 BP SCR PRFRM RCMDD DEFIND SCR INTVL G8730 PAIN ASSESS POS TOOL F/U PLAN DOC 3016F PT SCRND UNHLTHY OH USE 1123F ACP DISCUSS/DSCN MKR DOCD 1036F TOBACCO NON-USER G8427 DOC MEDS VERIFIED W/PT OR RE G8420 BMI<30 AND >=22 CALC & DOCU 3288F FALL RISK ASSESSMENT DOCD DISPOSITION & COMMUNICATION FOLLOW UP 1 MONTH ELECTRONICALLY SIGNED BY LIZA MERINO ON 04/08/2016 AT 08:42 AM EST DISCLAIMER : THIS IS A VISIT SUMMARY EXTRACTED FROM THE [employer] [facility] CHART. IT IS NOT A COPY OF THE [employer] PROGRESS NOTE. MARTA
== END ==
LOC: M PAIN 08:40
PROVIDERS: ATTEND Nurse Practitioner Family
DX: Z09 Encounter for follow-up examination after completed treatment for conditions other than malignant neoplasm (principal); G89.29 Other chronic pain; M46.1 Sacroiliitis, not elsewhere classified; M79.1 Myalgia; M53.3 Sacrococcygeal disorders, not elsewhere classified; E03.9 Hypothyroidism, unspecified; J30.2 Other seasonal allergic rhinitis; R13.10 Dysphagia, unspecified; Z88.8 Allergy status to other drugs, medicaments and biological substances; Z79.891 Long term (current) use of opiate analgesic; Z79.899 Other long term (current) drug therapy

== ENCOUNTER → 2016-04-23 | Outpatient (CLI) | payer MEDICARE, MEDICAID ==
[~2016-04-23] MED LIST changes: +BUPIVACAINE HCL 0.25% 30 ML VIAL As Ordered ONE; +ISOVUE-M 300 61% 15ML VIAL (Q9967) As Ordered ONE; +LIDOCAINE 1% SDV INJ 30 ML VIAL As Ordered ONE; +TRIAMCINOLONE ACETONIDE SUSP 40 MG/ML VIAL (J3301) As Ordered ONE; +diazePAM 5 MG TAB As Ordered ONE
--- NOTE | 2016-04-23 18:57 | REP ---
FLUOROSCOPIC GUIDANCE: REASON: Pain. Radiographic contrast material seen in the sacral region. Four images were obtained. Fluoroscopy time is 24 seconds. Signed by Reece Francis DO 04/23/2016 07:05 P
--- NOTE | 2016-05-01 23:17 | ECWPNPC ---
PATIENT NAME: PATRIZIA DICKEY : 1965 GENDER: FEMALE VISIT DATE: 04/23/2016 DISCHARGE DATE: 04/23/16 174 VISIT LOCKED DATE TIME: PHYSICIAN: KEISHA ENCARNACION PHYSICIAN PAGER NO: INACTIVE RESOURCE: KEISHA ENCARNACION REASON FOR APPOINTMENT 1. SACRALCOCCYGEAL HISTORY OF PRESENT ILLNESS HISTORY OF PRESENT ILLNESS: PAIN THE PATIENT DESCRIBES THE PAIN... FALL RISK SCREENING: SCREENING :NO FALLS IN THE PAST YEAR CURRENT MEDICATIONS TAKING METHOCARBAMOL 750 MG TABLET 1 TAB ORALLY BID, NOTES: 04-23-16599 TAKING NORCO 5-325 MG TABLET 1 TABLET NEEDED ORALLY EVERY 6 HRS PRN PAIN MDD=2, NOTES: 04-23-16599 TAKING ARIPIPRAZOLE 2 MG TABLET 1 TABLET ORALLY ONCE A DAY, NOTES: 04-22-161899 TAKING SENNA S 8.6-50 MG TABLET 1 TABLET IN THE EVENING NEEDED ORALLY ONCE A DAY NEEDED, NOTES: 04-22-16 TAKING ABIGAIL ALLERGY 180 MG TABLET 1 TABLET ORALLY ONCE A DAY, NOTES: 04-22-16 TAKING MAGNESIUM 400 MG CAPSULE 1 TABLET WITH A MEAL ORALLY ONCE A DAY, NOTES: 04-22-16899 TAKING FISH OIL 1200 MG CAPSULE 2 CAPSULES ORALLY ONCE A DAY, NOTES: 04-22-16899 TAKING MULTIVITAMINS OTC TABLET 1 TAB(S) ORALLY DAILY, NOTES: 04-22-16899 TAKING VITAMIN B COMPLEX OTC TABLET 1 TAB(S) ORALLY DAILY, NOTES: 04-22-16899 TAKING CALCIUM 500 MG TABLET CHEWABLE 2 TABLET ORALLY ONCE A DAY, NOTES: 04-22-16899 TAKING VITAMIN D-3 1000 UNITS TABLET 1 TAB(S) ORALLY DAILY, NOTES: 04-22-16899 TAKING SYNTHROID 100 MCG TABLET 1 TABLET ON AN EMPTY STOMACH IN THE MORNING ORALLY ONCE A DAY (DR. PABLO), NOTES: 04-23-16599 TAKING PROZAC 10 40 MG TABLET 1 TAB(S) ORAL ONCE A DAY, NOTES: 04-22-161899 TAKING OSTEO COMPLEX CAPSULE 1 CAP(S) ORALLY DAILY, NOTES: 04-22-16899 TAKING FLONASE 50 MCG/DOSE INHALER 1 SPRAY IN EACH NOSTRIL NASALLY ONCE A DAY, NOTES: 2 WEEKS AGO TAKING MAPROTILINE HCL 50 MG TABLET 1 TABLET ORALLY ONCE A DAY, NOTES: 04-22-16 1900 TAKING LYRICA 25 MG CAPSULE 1 CAPSULE ORALLY Q 8 HRS MDD=3, NOTES: 04-23-16 0900 TAKING BENADRYL 25 MG CAPSULE 1 CAPSULE NEEDED ORALLY EVERY 6 HRS, NOTES: NONE TAKING SUDAFED 30 MG TABLET 1 TABLET NEEDED ORALLY EVERY 6 HRS, NOTES: NONE TAKING NASONEX 50 MCG/ACT SUSPENSION 2 SPRAYS IN EACH NOSTRIL NASALLY ONCE A DAY, NOTES: 2 DAYS NOT-TAKING NORCO 5-325 MG TABLET 1 TABLET ORALLY EVERY 4 HRS PRN PAIN MDD=6 CHRONIC PAIN, NOTES: 03/10/16@0800 NOT-TAKING DIAZEPAM 5 MG TABLET 1 TABLET ORALLY ONCE A DAY NEEDED ([facility]), NOTES: 09-22-15 0845 NOT-TAKING TURMERIC 1 TAB(S) ORALLY DAILY NOT-TAKING LIDOCAINE 5 % OINTMENT 1 APPLICATION TO AFFECTED AREA NEEDED EXTERNALLY FOUR TIMES A DAY TO PAINFUL AREAS OF NECK/SACRUM NOT-TAKING CLONIDINE HCL 0.1 MG TABLET 1 TABLET ORALLY TID PRN, NOTES: NONE NOT-TAKING MARINOL 2.5 MG CAPSULE 1 CAPSULE ORALLY BID NOT-TAKING MOBIC 15 MG TABLET 1 TABLET ORALLY ONCE A DAY WITH FOOD NOT-TAKING LIDOCAINE 4 % CREAM DIRECTED EXTERNALLY APPLY TO PAINFUL AREA TAILBONE 4 X PER DAY NEEDED NOT-TAKING VICODIN HP 7.5-325 MG TABLET 1 TAB(S) ORALLY EVERY 4 HOURS NEEDED ([facility]) MEDICATION LIST REVIEWED AND RECONCILED WITH THE PATIENT PAST MEDICAL HISTORY CERVALGIA- C5-6 DISC HERNIATION WITH C6 IMPINGEMENT-DR DAY/ DR YUSUF- [facility]- [facility] 2007- DR PABLO SEASONAL ALLERGY/SINUSITIS ENDOMETRIAL POLYP- DR YBARRA DYSPHAGIA-ENT IN [place]- DR MORATAYA BASAL CELL TO RIGHT NOSE - DR. CASTAÑEDA SACRAL PAIN ALLERGIES NEURONTIN 300: DEPRESSION: SIDE EFFECTS BACLOFEN: HEAD ACHES: ALLERGY CYCLOBENZAPRINE HCL: DECREASED MENTAL ALERTNESS: ALLERGY GABAPENTIN: DEPRESSION: ALLERGY TIZANIDINE HCL: HEADACHES: ALLERGY TOPIRAMATE: ALTERED MENTAL STATUS: ALLERGY SOCIAL HISTORY GENERAL: TOBACCO USE ARE YOU A:NONSMOKER LEARNING BARRIERS / SPECIAL NEEDS ORIENTED TO PLAN OF CARE: PATIENT, PAIN MANAGEMENT PATIENT, ORIENTED TO PLAN OF CARE: PATIENT, PAIN MANAGEMENT PATIENT. NEW PATIENT PAIN DIARY TODAY'S VISITNOTES FROM 0-10, WHAT LEVEL IS YOUR PAIN TODAY?0 PAIN CLINIC PFS, CLERGY, PUBLIC HEALTH REFERRALS PFS REFERRAL NEEDED?NO CLERGY REFERRAL NEEDED?NO PUBLIC HEALTH REFERRAL NEEDED?NO WAS THE PROVIDER NOTIFIED OF ANY PERTINENT INFO?NO PFS REFERRAL NEEDED?NO CLERGY REFERRAL NEEDED?NO PUBLIC HEALTH REFERRAL NEEDED?NO WAS THE PROVIDER NOTIFIED OF ANY PERTINENT INFO?NO REVIEW OF SYSTEMS CONSTITUTIONAL: ANY CHANGE IN YOUR MEDICAL CONDITION? NO . CHILLS NO . FEVER NO . INFECTION: DO YOU HAVE NEW INFECTIONS? NO . DO YOU HAVE HISTORY OF MRSA? NO . MUSCULOSKELETAL: ANY NEW PATTERNS OF PAIN OR NUMBNESS? NO . GASTROENTEROLOGY: ANY NEW CHANGE IN BOWEL CONTROL? NO . GENITOURINARY: ANY NEW CHANGE IN BLADDER CONTROL? NO . IS THERE A CHANCE YOU COULD BE ? NO . HEMATOLOGY/LYMPH: DO YOU TAKE ANY BLOOD THINNERS? (FOR EXAMPLE- COUMADIN, PLAVIX, AGGRENOX, PLATEL, PRADAXA, OR XARELTO) NO . WHEN WAS YOUR LAST DOSE? DATE: TIME: . NEUROLOGY: HAVE YOU FALLEN IN THE PAST 6 MONTHS? NO . ANY NEW EXTREMITY NUMBNESS OR WEAKNESS? NO . CARDIOLOGY: DO YOU HAVE A PACEMAKER OR DEFIBRILLATOR? NO . RESPIRATORY: HAVE YOU BEEN SICK IN THE PAST WEEK? NO . FEVER NO . FLU LIKE SYMPTOMS? NO . COUGH NO . INTEGUMENTARY: DO YOU HAVE ANY RASHES OR OPEN SORES? NO . ALLERGIC/IMMUNO: ARE YOU ALLERGIC TO SHELLFISH OR IV DYE? NO . ANY NEW ALLERGIES? NO . PSYCHIATRIC: DO YOU HAVE THOUGHTS OF HURTING YOURSELF OR SOMEONE ELSE? NO . ARE YOU ABUSED, NEGLECTED, OR IN AN UNSAFE ENVIRONMENT? NO . ENDOCRINOLOGY: ARE YOU DIABETIC? NO . OTHER: DO YOU NEED ANY PRESCRIPTIONS? NO . IF YES, PLEASE LIST: ____ . ANY NEW PROBLEMS WITH YOUR MEDICATIONS? NO . WHEN DID YOU LAST EAT? ____0745 AM TODAY 04-23-16 . WHEN DID YOU LAST DRINK? ____1030 AM TODAY 04-23-16 . WHAT DID YOU LAST DRINK? ____WATER . NAME OF PERSON DRIVING YOU HOME? ____ . DO YOU HAVE ANY OTHER QUESTIONS OR CONCERNS NO . REVIEWED BY: PROVIDER: . VITAL SIGNS WT 160 LBS, HT 70 IN, BMI 22.96 INDEX, BP 133/77 MM HG, HR 74 /MIN, RR 16 /MIN, TEMP 97.4 F, OXYGEN SAT % 98, SAFE IN ENV? (Y/N) YES, NA INITIALS TL 1527, REVIEWED BY: KG. 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 COCCYDYNIA.POSTPROCEDURE DIAGNOSIS:INFLAMMATION OF THE SACROCOCCYGEAL LIGAMENT. COCCYDYNIA.PROCEDURE: INJECTION OF THE RIGHT AND LEFT SACROCOCCYGEAL LIGAMENT. SURGEON: DR. KEISHA ENCARNACIONSCOTLAND COUNTY MEM[facility]IAL [facility]ITALANESTHESIA: LOCAL.PREOPERATIVE NOTE: THE PATIENT HAS HISTORY OF LOW BACK PAIN. I EVALUATED THE PATIENT AND REVIEWED THE CHART. WE BOTH AGREE ON INJECTING OVER THE SACROCOCCYGEAL LIGAMENT. THE PATIENT IS AWARE OF THE POTENTIAL COMPLICATIONS WHICH INCLUDE INFECTIONS, VISCERAL PUNCTURE, INCLUDING RECTAL PUNCTURE AMONG OTHERS. I DISCUSSED ALTERNATIVES AND THE PATIENT EXPRESSED THAT SHE WOULD LIKE TO MOVE FORWARD. THE PATIENT DENIES UNEXPLAINABLE, WEIGHT LOSS, FEVER, CHILLS, OR CHANGES IN URINARY OR BOWEL CONTROL. DESCRIPTION OF PROCEDURE: AFTER CONSENT WAS TAKEN, THE PATIENT WAS BROUGHT TO THE PROCEDURE ROOM AND PLACED IN THE PRONE POSITION. THE LUMBOSACRAL AREA WAS CLEANED WITH CHLORAPREP SOLUTION AND DRAPED ASEPTICALLY. THE PROCEDURE WAS DONE UNDER STERILE CONDITIONS. UNDER FLUOROSCOPIC GUIDANCE, THE TARGET WAS SELECTED AT THE RIGHT AND LEFT SACROCOCCYGEAL LIGAMENT. LIDOCAINE WAS USED TO NUMB THE SKIN AND THE SUBCUTANEOUS TISSUE BELOW IT. A 25 NEEDLE WAS ADVANCED UNTIL WE REACHED THE RIGHT AND LEFT SACROCOCCYGEAL LIGAMENT. I DID AP AND LATERAL VIEWS. ISOVUE M DYE 30%, 1/4 ML, WAS INJECTED SHOWING ADEQUATE SPREAD OF THE DYE. THEN A SOLUTION OF 30 ML OF BUPIVACAINE 0.125% WITH KENALOG 30 MG WAS INJECTED OVER THE AFFECTED STRUCTURE. THERE WAS NO EVIDENCE OF BLOOD, PARESTHESIA OR CEREBROSPINAL FLUID. NO EVIDENCE OF VACUUM PHENOMENON OR VISCERAL PUNCTURE. THE PATIENT WAS SENT TO THE RECOVERY ROOM WHERE SHE WAS MOVING HER EXTREMITIES AND DOING WELL. THERE WERE NO COMPLICATIONS DURING THE PROCEDURE. FLUOROSCOPY TIME WAS 24 SECONDS.POSTOPERATIVE NOTE: I DISCUSSED ALTERNATIVES WITH THE PATIENT. I AM LOOKING FOR LONG LASTING PAIN RELIEF WITH THIS INTERVENTION. INSTRUCTIONS WERE GIVEN. QUESTIONS WERE ANSWERED. THE PATIENT REPORTS UNDERSTANDING AND AGREES WITH THE PLAN. THERE WERE NO COMPLICATIONS DURING THE PROCEDURE. INSTRUCTIONS WERE GIVEN, QUESTIONS WERE ANSWERED, PATIENT REPORTS UNDERSTANDING AND AGREES WITH THE PLAN. I, JAKUB RODAS, DOCUMENTED THE ABOVE INFORMATION ACTING A SCRIBE FOR DR. ENCARNACION. I HAVE REVIEWED THE ABOVE DOCUMENT, WRITTEN BY JAKUB RODAS SCRIBE AND I VERIFY THAT IT IS ACCURATE. [facility] FLUORO GUIDANCE (PAIN)[id number] PROCEDURE CODES 82472 INJ TENDON SHEATH/LIGAMENT 60217 FLUOROGUIDE FOR SPINE INJECT 6045F RADXPS IN END [id number] PXD DISPOSITION & COMMUNICATION FOLLOW UP 3 WEEKS ELECTRONICALLY SIGNED BY KEISHA ENCARNACION MD ON 05/01/2016 AT 08:49 PM EDT DISCLAIMER : THIS IS A VISIT SUMMARY EXTRACTED FROM THE [employer] CHART. IT IS NOT A COPY OF THE [employer] PROGRESS NOTE. MTDD
== END ==
LOC: M PAIN 14:20
PROVIDERS: ATTEND Anesthesiology
DX: M46.08 Spinal enthesopathy, sacral and sacrococcygeal region (principal); M54.5 Low back pain; M79.1 Myalgia; M46.1 Sacroiliitis, not elsewhere classified; M53.3 Sacrococcygeal disorders, not elsewhere classified; Z79.891 Long term (current) use of opiate analgesic; Z79.899 Other long term (current) drug therapy; E03.9 Hypothyroidism, unspecified; F41.9 Anxiety disorder, unspecified; Z88.6 Allergy status to analgesic agent; Z88.8 Allergy status to other drugs, medicaments and biological substances
CPT/HCPCS: 20550; 77002; J3301; Q9967

== ENCOUNTER → 2016-04-29 | Outpatient (CLI) | payer MEDICARE, MEDICAID ==
[~2016-04-29] MED LIST changes: -BUPIVACAINE HCL 0.25% 30 ML VIAL As Ordered ONE; -ISOVUE-M 300 61% 15ML VIAL (Q9967) As Ordered ONE; -LIDOCAINE 1% SDV INJ 30 ML VIAL As Ordered ONE; -TRIAMCINOLONE ACETONIDE SUSP 40 MG/ML VIAL (J3301) As Ordered ONE; -diazePAM 5 MG TAB As Ordered ONE
--- NOTE | 2016-05-03 23:33 | ECWPNPC ---
PATIENT NAME: PATRIZIA DICKEY : 1965 GENDER: FEMALE VISIT DATE: 04/29/2016 DISCHARGE DATE: 04/29/16 1045 VISIT LOCKED DATE TIME: PHYSICIAN: DARBY MCCLOUD PHYSICIAN PAGER NO: INACTIVE RESOURCE: DARBY MCCLOUD REASON FOR APPOINTMENT 1. TAILBONE/FOLLOW UP HISTORY OF PRESENT ILLNESS HISTORY OF PRESENT ILLNESS: PAIN THE PATIENT DESCRIBES THE PAIN... FALL RISK SCREENING: SCREENING :NO FALLS IN THE PAST YEAR TODAY'S VISIT: NOTES: RATES PAIN TODAY 6/10. WAS AT [facility] X 4 VISITS. THEY TRIED TREATMENTS WHICH INCREASED THE PELVIC PAIN. THEN HAD SACRALCOCCYGEAL LIGMENT INJECTION WHICH WAS PAINFUL BUT DID HELP THE TAILBONE AREA PAIN. PAIN LEVEL TODAY IN THIS AREA IS 2-3/10. HAS FOUND A NEW CHAIR WHICH CAN TAKE THE PRESSURE OFF THE COCCYX. . CURRENT MEDICATIONS TAKING METHOCARBAMOL 750 MG TABLET 1 TAB ORALLY BID, NOTES: 04-23-16599 TAKING NORCO 5-325 MG TABLET 1 TABLET NEEDED ORALLY EVERY 6 HRS PRN PAIN MDD=2, NOTES: 04-23-16599 TAKING ARIPIPRAZOLE 2 MG TABLET 1 TABLET ORALLY ONCE A DAY, NOTES: 04-22-161899 TAKING SENNA S 8.6-50 MG TABLET 1 TABLET IN THE EVENING NEEDED ORALLY ONCE A DAY NEEDED, NOTES: 04-22-16 TAKING ABIGAIL ALLERGY 180 MG TABLET 1 TABLET ORALLY ONCE A DAY, NOTES: 04-22-16 TAKING MAGNESIUM 400 MG CAPSULE 1 TABLET WITH A MEAL ORALLY ONCE A DAY, NOTES: 04-22-16899 TAKING FISH OIL 1200 MG CAPSULE 2 CAPSULES ORALLY ONCE A DAY, NOTES: 04-22-16899 TAKING MULTIVITAMINS OTC TABLET 1 TAB(S) ORALLY DAILY, NOTES: 04-22-16899 TAKING VITAMIN B COMPLEX OTC TABLET 1 TAB(S) ORALLY DAILY, NOTES: 04-22-16899 TAKING CALCIUM 500 MG TABLET CHEWABLE 2 TABLET ORALLY ONCE A DAY, NOTES: 04-22-16899 TAKING VITAMIN D-3 1000 UNITS TABLET 1 TAB(S) ORALLY DAILY, NOTES: 04-22-16899 TAKING SYNTHROID 100 MCG TABLET 1 TABLET ON AN EMPTY STOMACH IN THE MORNING ORALLY ONCE A DAY (DR. PABLO), NOTES: 3-10-17 0600 TAKING PROZAC 10 40 MG TABLET 1 TAB(S) ORAL ONCE A DAY, NOTES: 04-22-161899 TAKING OSTEO COMPLEX CAPSULE 1 CAP(S) ORALLY DAILY, NOTES: 04-22-16 09 TAKING FLONASE 50 MCG/DOSE INHALER 1 SPRAY IN EACH NOSTRIL NASALLY ONCE A DAY, NOTES: 2 WEEKS AGO TAKING MAPROTILINE HCL 50 MG TABLET 1 TABLET ORALLY ONCE A DAY, NOTES: 04-22-161899 TAKING LYRICA 25 MG CAPSULE 1 CAPSULE ORALLY Q8 HRS NEEDED, NOTES: 04-23-16 09 TAKING BENADRYL 25 MG CAPSULE 1 CAPSULE NEEDED ORALLY EVERY 6 HRS, NOTES: NONE TAKING SUDAFED 30 MG TABLET 1 TABLET NEEDED ORALLY EVERY 6 HRS, NOTES: NONE TAKING NASONEX 50 MCG/ACT SUSPENSION 2 SPRAYS IN EACH NOSTRIL NASALLY ONCE A DAY, NOTES: 2 DAYS NOT-TAKING NORCO 5-325 MG TABLET 1 TABLET ORALLY EVERY 4 HRS PRN PAIN MDD=6 CHRONIC PAIN, NOTES: 03/10/16@0800 NOT-TAKING DIAZEPAM 5 MG TABLET 1 TABLET ORALLY ONCE A DAY NEEDED ([facility]), NOTES: 09-22-15 0845 NOT-TAKING TURMERIC 1 TAB(S) ORALLY DAILY NOT-TAKING LIDOCAINE 5 % OINTMENT 1 APPLICATION TO AFFECTED AREA NEEDED EXTERNALLY FOUR TIMES A DAY TO PAINFUL AREAS OF NECK/SACRUM NOT-TAKING CLONIDINE HCL 0.1 MG TABLET 1 TABLET ORALLY TID PRN, NOTES: NONE NOT-TAKING MARINOL 2.5 MG CAPSULE 1 CAPSULE ORALLY BID NOT-TAKING MOBIC 15 MG TABLET 1 TABLET ORALLY ONCE A DAY WITH FOOD NOT-TAKING LIDOCAINE 4 % CREAM DIRECTED EXTERNALLY APPLY TO PAINFUL AREA TAILBONE 4 X PER DAY NEEDED NOT-TAKING VICODIN HP 7.5-325 MG TABLET 1 TAB(S) ORALLY EVERY 4 HOURS NEEDED ([facility]) MEDICATION LIST REVIEWED AND RECONCILED WITH THE PATIENT PAST MEDICAL HISTORY CERVALGIA- C5-6 DISC HERNIATION WITH C6 IMPINGEMENT-DR DAY/ DR YUSUF- [facility]- HYPOTHYROIDISM 2007- DR PABLO SEASONAL ALLERGY/SINUSITIS ENDOMETRIAL POLYP- DR YBARRA DYSPHAGIA-ENT IN [place]- DR MORATAYA BASAL CELL TO RIGHT NOSE - DR. CASTAÑEDA SACRAL PAIN ALLERGIES NEURONTIN 300: DEPRESSION: SIDE EFFECTS BACLOFEN: HEAD ACHES: ALLERGY CYCLOBENZAPRINE HCL: DECREASED MENTAL ALERTNESS: ALLERGY GABAPENTIN: DEPRESSION: ALLERGY TIZANIDINE HCL: HEADACHES: ALLERGY TOPIRAMATE: ALTERED MENTAL STATUS: ALLERGY SOCIAL HISTORY GENERAL: TOBACCO USE ARE YOU A:NONSMOKER LEARNING BARRIERS / SPECIAL NEEDS ORIENTED TO PLAN OF CARE: PATIENT, PAIN MANAGEMENT PATIENT, ORIENTED TO PLAN OF CARE: PATIENT, PAIN MANAGEMENT PATIENT. NEW PATIENT PAIN DIARY TODAY'S VISITNOTES FROM 0-10, WHAT LEVEL IS YOUR PAIN TODAY?0 PAIN CLINIC PFS, CLERGY, PUBLIC HEALTH REFERRALS PFS REFERRAL NEEDED?NO CLERGY REFERRAL NEEDED?NO PUBLIC HEALTH REFERRAL NEEDED?NO WAS THE PROVIDER NOTIFIED OF ANY PERTINENT INFO?NO PFS REFERRAL NEEDED?NO CLERGY REFERRAL NEEDED?NO PUBLIC HEALTH REFERRAL NEEDED?NO WAS THE PROVIDER NOTIFIED OF ANY PERTINENT INFO?NO REVIEW OF SYSTEMS CONSTITUTIONAL: ANY CHANGE IN YOUR MEDICAL CONDITION? NO . CHILLS NO . FEVER NO . INFECTION: DO YOU HAVE NEW INFECTIONS? NO . DO YOU HAVE HISTORY OF MRSA? NO . MUSCULOSKELETAL: ANY NEW PATTERNS OF PAIN OR NUMBNESS? NO . GASTROENTEROLOGY: ANY NEW CHANGE IN BOWEL CONTROL? NO . GENITOURINARY: ANY NEW CHANGE IN BLADDER CONTROL? NO . IS THERE A CHANCE YOU COULD BE ? NO . HEMATOLOGY/LYMPH: DO YOU TAKE ANY BLOOD THINNERS? (FOR EXAMPLE- COUMADIN, PLAVIX, AGGRENOX, PLATEL, PRADAXA, OR XARELTO) NO . WHEN WAS YOUR LAST DOSE? DATE: TIME: . NEUROLOGY: HAVE YOU FALLEN IN THE PAST 6 MONTHS? NO . ANY NEW EXTREMITY NUMBNESS OR WEAKNESS? NO . CARDIOLOGY: DO YOU HAVE A PACEMAKER OR DEFIBRILLATOR? NO . RESPIRATORY: HAVE YOU BEEN SICK IN THE PAST WEEK? NO . FEVER NO . FLU LIKE SYMPTOMS? NO . COUGH NO . INTEGUMENTARY: DO YOU HAVE ANY RASHES OR OPEN SORES? NO . ALLERGIC/IMMUNO: ARE YOU ALLERGIC TO SHELLFISH OR IV DYE? NO . ANY NEW ALLERGIES? NO . PSYCHIATRIC: DO YOU HAVE THOUGHTS OF HURTING YOURSELF OR SOMEONE ELSE? NO . ARE YOU ABUSED, NEGLECTED, OR IN AN UNSAFE ENVIRONMENT? NO . ENDOCRINOLOGY: ARE YOU DIABETIC? NO . OTHER: DO YOU NEED ANY PRESCRIPTIONS? YES VICODIN . IF YES, PLEASE LIST: ____ . ANY NEW PROBLEMS WITH YOUR MEDICATIONS? NO . WHEN DID YOU LAST EAT? ____ . WHEN DID YOU LAST DRINK? ____ . WHAT DID YOU LAST DRINK? ____ . NAME OF PERSON DRIVING YOU HOME? ____ . DO YOU HAVE ANY OTHER QUESTIONS OR CONCERNS NO . REVIEWED BY: PROVIDER: DARBY DALE . VITAL SIGNS WT 160 LBS, HT 70 IN, BMI 22.96 INDEX, BP 124/72 MM HG, HR 82 /MIN, RR 16 /MIN, TEMP 97.7 F, OXYGEN SAT % 99%, NA INITIALS SC 09:44, REVIEWED BY: MLF. EXAMINATION GENERAL EXAMINATION: PSYCHALERT , ORIENTED X 3 , APPROPRIATE MOOD AND AFFECT STANDS THROUGHOUT VISIT TODAY. LUNGS:CLEAR TO AUSCULTATION BILATERALLY. HEART:HEART RATE REGULAR. MUSCULOSKELETAL:TENDER OVER TRAPEZIUS MUSCLES AND OVER CERVICAL PARASPINOUS MUSCLES. MILD TENDERNESS OVER SACRUM. POSTURE UPRIGHT, GAIT NONANTALGIC. MODERATE POINT TENDERNESS OVER SACRUM AND NEAR COCCYX. TRIGGER POINTS AND TIGHT FIBROUS BANDS IDENTIFIED OVER THE SACRUM. ASSESSMENTS COCCYDYNIA - M53.3 (PRIMARY) MYALGIA - M79.1 SPINAL ENTHESOPATHY, SACRAL AND SACROCOCCYGEAL REGION - M46.08 TREATMENT COCCYDYNIA START NORCO TABLET, 5-325 MG, 1 TABLET NEEDED, ORALLY, EVERY 6 -8 HOURS PRN PAIN MDD=2, 30 DAY(S), 45, REFILLS 0 NOTES: HOT PACK TO PECTORAL MUSCLES FOR 5-10 MINUTES THEN DO SHOULDER ROLLS. KEEP WALKING AND BREATHING. CLINICAL NOTES: ISTOP REGISTRY REVIEWED AND DEMNOSTRATES COMPLLIANCE. BRINGS IN MEDICATIONS WHICH IS APPROPRIATE FOR WHAT WAS DISPENSED. RECENT URINE TOXICOLOGY REVIEWED. NO UNAUTHORIZED MEDICATIONS. NO ILLICIT SUBSTANCES AND PRESCRIBED MEDICATIONS WERE PRESENT. PROCEDURE CODES FA211 ESTABILISHED PATIENT [facility] FACILITY CHARGE G8730 PAIN ASSESS POS TOOL F/U PLAN DOC G8427 DOC MEDS VERIFIED W/PT OR RE DISPOSITION & COMMUNICATION FOLLOW UP 1 MONTH ELECTRONICALLY SIGNED BY LIZA MERINO ON 05/03/2016 AT 05:16 PM EDT DISCLAIMER : THIS IS A VISIT SUMMARY EXTRACTED FROM THE [employer] CHART. IT IS NOT A COPY OF THE [employer] PROGRESS NOTE. ACED
== END ==
LOC: M PAIN 09:40
PROVIDERS: ATTEND Nurse Practitioner Family
DX: Z09 Encounter for follow-up examination after completed treatment for conditions other than malignant neoplasm (principal); G89.29 Other chronic pain; M53.3 Sacrococcygeal disorders, not elsewhere classified; M79.1 Myalgia; M46.08 Spinal enthesopathy, sacral and sacrococcygeal region; E03.9 Hypothyroidism, unspecified; R13.10 Dysphagia, unspecified; J30.89 Other allergic rhinitis; Z88.8 Allergy status to other drugs, medicaments and biological substances; Z79.899 Other long term (current) drug therapy

== ENCOUNTER → 2016-05-27 | Outpatient (CLI) | payer MEDICARE, MEDICAID ==
--- NOTE | 2016-06-11 01:34 | ECWPNPC ---
PATIENT NAME: PATRIZIA DICKEY : 1965 GENDER: FEMALE VISIT DATE: 05/27/2016 DISCHARGE DATE: 05/27/16 1004 VISIT LOCKED DATE TIME: PHYSICIAN: DARBY MCCLOUD PHYSICIAN PAGER NO: INACTIVE RESOURCE: DABRY MCCLOUD REASON FOR APPOINTMENT 1. FOLLOWUP HISTORY OF PRESENT ILLNESS HISTORY OF PRESENT ILLNESS: PAIN THE PATIENT DESCRIBES THE PAIN... FALL RISK SCREENING: SCREENING :NO FALLS IN THE PAST YEAR TODAY'S VISIT: NOTES: S/P BILATERAL SACROCOCCYGEAL LIGAMENT BLOCK COMPLETED ON 04/1016 WITH EXCELLANT RELIEF OF PAIN. RTAES PAIN TODAY 7/10 WHICH INCLUDES ALL THE PAIN AREAS. NOTES PHYSICAL THERAPY /OMT TYPE HAS AGGRAVATED PAIN AREAS. HAS FOUND NEW CHAIRS WHICH ARE MUCH MORE COMFORTABLE. IS NOTING A SENSE OF WHOLE BODY TINGLING UPON AWAKENING. HAS NEEDED TO USE HER HYDROCODONE MORE FREQUENTLY AND THE VALIUM X 1. PAIN IS WORST AT NECK AND SHOULDERS AND IS HAVING FREQUENT HEADACHES. AT NIGHT HIPS JOIN IN. NO RECENT FALLS. . CURRENT MEDICATIONS TAKING METHOCARBAMOL 750 MG TABLET 1 TAB ORALLY BID, NOTES: 04-23-16599 TAKING NORCO 5-325 MG TABLET 1 TABLET NEEDED ORALLY EVERY 6 HRS PRN PAIN MDD=2, NOTES: 04-23-16599 TAKING ARIPIPRAZOLE 2 MG TABLET 1 TABLET ORALLY ONCE A DAY, NOTES: 04-22-161899 TAKING SENNA S 8.6-50 MG TABLET 1 TABLET IN THE EVENING NEEDED ORALLY ONCE A DAY NEEDED, NOTES: 04-22-16 TAKING ABIGAIL ALLERGY 180 MG TABLET 1 TABLET ORALLY ONCE A DAY, NOTES: 04-22-16 TAKING MAGNESIUM 400 MG CAPSULE 1 TABLET WITH A MEAL ORALLY ONCE A DAY, NOTES: 04-22-16899 TAKING FISH OIL 1200 MG CAPSULE 2 CAPSULES ORALLY ONCE A DAY, NOTES: 04-22-16899 TAKING MULTIVITAMINS OTC TABLET 1 TAB(S) ORALLY DAILY, NOTES: 04-22-16899 TAKING VITAMIN B COMPLEX OTC TABLET 1 TAB(S) ORALLY DAILY, NOTES: 04-22-16899 TAKING CALCIUM 500 MG TABLET CHEWABLE 2 TABLET ORALLY ONCE A DAY, NOTES: 04-22-16899 TAKING VITAMIN D-3 1000 UNITS TABLET 1 TAB(S) ORALLY DAILY, NOTES: 04-22-16899 TAKING SYNTHROID 100 MCG TABLET 1 TABLET ON AN EMPTY STOMACH IN THE MORNING ORALLY ONCE A DAY (DR. PABLO), NOTES: 04-23-16 06 TAKING PROZAC 10 40 MG TABLET 1 TAB(S) ORAL ONCE A DAY, NOTES: 04-22-161899 TAKING OSTEO COMPLEX CAPSULE 1 CAP(S) ORALLY DAILY, NOTES: 04-22-16899 TAKING FLONASE 50 MCG/DOSE INHALER 1 SPRAY IN EACH NOSTRIL NASALLY ONCE A DAY, NOTES: 2 WEEKS AGO TAKING MAPROTILINE HCL 50 MG TABLET 1 TABLET ORALLY ONCE A DAY, NOTES: 04-22-161899 TAKING LYRICA 25 MG CAPSULE 1 CAPSULE ORALLY Q8 HRS NEEDED, NOTES: 04-23-16899 TAKING BENADRYL 25 MG CAPSULE 1 CAPSULE NEEDED ORALLY EVERY 6 HRS, NOTES: NONE TAKING SUDAFED 30 MG TABLET 1 TABLET NEEDED ORALLY EVERY 6 HRS, NOTES: NONE TAKING NASONEX 50 MCG/ACT SUSPENSION 2 SPRAYS IN EACH NOSTRIL NASALLY ONCE A DAY, NOTES: 2 DAYS TAKING NORCO 5-325 MG TABLET 1 TABLET NEEDED ORALLY EVERY 6 -8 HOURS PRN PAIN MDD=2 TAKING DIAZEPAM 5 MG TABLET 1 TABLET ORALLY ONCE A DAY NEEDED ([facility]), NOTES: 09-22-15 0845 NOT-TAKING NORCO 5-325 MG TABLET 1 TABLET ORALLY EVERY 4 HRS PRN PAIN MDD=6 CHRONIC PAIN, NOTES: 03/10/16@0800 NOT-TAKING TURMERIC 1 TAB(S) ORALLY DAILY NOT-TAKING LIDOCAINE 5 % OINTMENT 1 APPLICATION TO AFFECTED AREA NEEDED EXTERNALLY FOUR TIMES A DAY TO PAINFUL AREAS OF NECK/SACRUM NOT-TAKING CLONIDINE HCL 0.1 MG TABLET 1 TABLET ORALLY TID PRN, NOTES: NONE NOT-TAKING MARINOL 2.5 MG CAPSULE 1 CAPSULE ORALLY BID NOT-TAKING MOBIC 15 MG TABLET 1 TABLET ORALLY ONCE A DAY WITH FOOD NOT-TAKING LIDOCAINE 4 % CREAM DIRECTED EXTERNALLY APPLY TO PAINFUL AREA TAILBONE 4 X PER DAY NEEDED NOT-TAKING VICODIN HP 7.5-325 MG TABLET 1 TAB(S) ORALLY EVERY 4 HOURS NEEDED ([facility]) MEDICATION LIST REVIEWED AND RECONCILED WITH THE PATIENT PAST MEDICAL HISTORY CERVALGIA- C5-6 DISC HERNIATION WITH C6 [facility] DR PABLO SEASONAL ALLERGY/SINUSITIS ENDOMETRIAL POLYP- DR YBARRA DYSPHAGIA-ENT IN [place]- DR MORATAYA BASAL CELL TO RIGHT NOSE - DR. CASTAÑEDA SACRAL PAIN ALLERGIES NEURONTIN 300: DEPRESSION: SIDE EFFECTS BACLOFEN: HEAD ACHES: ALLERGY CYCLOBENZAPRINE HCL: DECREASED MENTAL ALERTNESS: ALLERGY GABAPENTIN: DEPRESSION: ALLERGY TIZANIDINE HCL: HEADACHES: ALLERGY TOPIRAMATE: ALTERED MENTAL STATUS: ALLERGY SOCIAL HISTORY GENERAL: PAIN CLINIC PFS, CLERGY, PUBLIC HEALTH REFERRALS CLERGY REFERRAL NEEDED?NO WAS THE PROVIDER NOTIFIED OF ANY PERTINENT INFO?NO PFS REFERRAL NEEDED?NO PUBLIC HEALTH REFERRAL NEEDED?NO PATIENT: ____. REVIEW OF SYSTEMS CONSTITUTIONAL: ANY CHANGE IN YOUR MEDICAL CONDITION? NO . CHILLS NO . FEVER NO . INFECTION: DO YOU HAVE NEW INFECTIONS? NO . DO YOU HAVE HISTORY OF MRSA? NO . MUSCULOSKELETAL: ANY NEW PATTERNS OF PAIN OR NUMBNESS? NO . GASTROENTEROLOGY: ANY NEW CHANGE IN BOWEL CONTROL? NO . GENITOURINARY: ANY NEW CHANGE IN BLADDER CONTROL? NO . IS THERE A CHANCE YOU COULD BE ? NO . HEMATOLOGY/LYMPH: DO YOU TAKE ANY BLOOD THINNERS? (FOR EXAMPLE- COUMADIN, PLAVIX, AGGRENOX, PLATEL, PRADAXA, OR XARELTO) NO . WHEN WAS YOUR LAST DOSE? DATE: TIME: . NEUROLOGY: HAVE YOU FALLEN IN THE PAST 6 MONTHS? NO . ANY NEW EXTREMITY NUMBNESS OR WEAKNESS? NO . CARDIOLOGY: DO YOU HAVE A PACEMAKER OR DEFIBRILLATOR? NO . RESPIRATORY: HAVE YOU BEEN SICK IN THE PAST WEEK? NO . FEVER NO . FLU LIKE SYMPTOMS? NO . COUGH NO . INTEGUMENTARY: DO YOU HAVE ANY RASHES OR OPEN SORES? NO . ALLERGIC/IMMUNO: ARE YOU ALLERGIC TO SHELLFISH OR IV DYE? NO . ANY NEW ALLERGIES? NO . PSYCHIATRIC: DO YOU HAVE THOUGHTS OF HURTING YOURSELF OR SOMEONE ELSE? NO . ARE YOU ABUSED, NEGLECTED, OR IN AN UNSAFE ENVIRONMENT? NO . ENDOCRINOLOGY: ARE YOU DIABETIC? NO . OTHER: DO YOU NEED ANY PRESCRIPTIONS? YES . IF YES, PLEASE LIST: ____VICODIN . ANY NEW PROBLEMS WITH YOUR MEDICATIONS? NO . WHEN DID YOU LAST EAT? ____ . WHEN DID YOU LAST DRINK? ____ . WHAT DID YOU LAST DRINK? ____ . NAME OF PERSON DRIVING YOU HOME? ____ . DO YOU HAVE ANY OTHER QUESTIONS OR CONCERNS NO . REVIEWED BY: PROVIDER: DARBY DALE . VITAL SIGNS WT 163.4 LBS, HT 70 IN, BMI 23.44 INDEX, BP 124/74 MM HG, HR 88 /MIN, RR 16 /MIN, TEMP 97.4 F, OXYGEN SAT % 98%, SAFE IN ENV? (Y/N) YES, NA INITIALS AW 0921, REVIEWED BY: COLE. EXAMINATION GENERAL EXAMINATION: PSYCHALERT , ORIENTED X 3 , APPROPRIATE MOOD AND AFFECT STANDS THROUGHOUT VISIT TODAY. LUNGS:CLEAR TO AUSCULTATION BILATERALLY. HEART:HEART RATE REGULAR. MUSCULOSKELETAL:TENDER OVER TRAPEZIUS MUSCLES AND OVER CERVICAL PARASPINOUS MUSCLES. MILD TENDERNESS OVER SACRUM. POSTURE UPRIGHT, GAIT NONANTALGIC. MINIMAL POINT TENDERNESS OVER SACRUM AND NEAR COCCYX. . ASSESSMENTS COCCYDYNIA - M53.3 (PRIMARY) MYALGIA - M79.1 SPINAL ENTHESOPATHY, SACRAL AND SACROCOCCYGEAL REGION - M46.08 TREATMENT COCCYDYNIA START BUSPIRONE HCL TABLET, 5 MG, 1 TABLET, ORALLY, BID, 30 DAY(S), 60 TABLET, REFILLS 1 REFILL NORCO TABLET, 5-325 MG, 1 TABLET NEEDED, ORALLY, EVERY 6 HRS PRN PAIN MDD=2, 30 DAY(S), 45, REFILLS 0 NOTES: CONTINUE WALKING, DOING EXERCISES AND STRETCHES. PROCEDURE CODES FA211 ESTABILISHED PATIENT [facility] CHARGE G8730 PAIN ASSESS POS TOOL F/U PLAN DOC G8427 DOC MEDS VERIFIED W/PT OR RE DISPOSITION & COMMUNICATION FOLLOW UP 1 MONTH ELECTRONICALLY SIGNED BY LIZA MERINO ON 06/10/2016 AT 08:47 AM EDT DISCLAIMER : THIS IS A VISIT SUMMARY EXTRACTED FROM THE [employer] CHART. IT IS NOT A COPY OF THE [employer] PROGRESS NOTE. MARTA
== END ==
LOC: M PAIN 09:20
PROVIDERS: ATTEND Nurse Practitioner Family
DX: M53.3 Sacrococcygeal disorders, not elsewhere classified (principal); M79.1 Myalgia; M46.08 Spinal enthesopathy, sacral and sacrococcygeal region; Z79.891 Long term (current) use of opiate analgesic; Z79.899 Other long term (current) drug therapy; E03.9 Hypothyroidism, unspecified

== ENCOUNTER → 2016-06-24 | Outpatient (CLI) | payer MEDICARE, MEDICAID ==
--- NOTE | 2016-07-07 02:49 | ECWPNPC ---
PATIENT NAME: PATRIZIA DICKEY : 1965 GENDER: FEMALE VISIT DATE: 06/24/2016 DISCHARGE DATE: 06/24/16 1034 VISIT LOCKED DATE TIME: PHYSICIAN: DARBY MCCLOUD PHYSICIAN PAGER NO: INACTIVE RESOURCE: DARBY MCCLOUD REASON FOR APPOINTMENT 1. FOLLOWUP HISTORY OF PRESENT ILLNESS HISTORY OF PRESENT ILLNESS: PAIN THE PATIENT DESCRIBES THE PAIN... FALL RISK SCREENING: SCREENING :NO FALLS IN THE PAST YEAR TODAY'S VISIT: NOTES: RATES PAIN TODAY 6/10. DESCRIBES PAIN CONSTANT, ACHING, BURNING, TENDER, THROBBING, AND SORE. NOTES PAIN CENTERED ACROSS THE NECK AND SHOULDERS. HAS SOME SOME DISCOMFORT ACROSS SACRUM. NOTES TAILBONE AREA QUITE COMFORTABLE.. CURRENT MEDICATIONS TAKING METHOCARBAMOL 750 MG TABLET 1 TAB ORALLY BID, NOTES: 04-23-16599 TAKING ARIPIPRAZOLE 2 MG TABLET 1 TABLET ORALLY ONCE A DAY, NOTES: 04-22-161899 TAKING SENNA S 8.6-50 MG TABLET 1 TABLET IN THE EVENING NEEDED ORALLY ONCE A DAY NEEDED, NOTES: 04-22-16 TAKING ABIGAIL ALLERGY 180 MG TABLET 1 TABLET ORALLY ONCE A DAY, NOTES: 04-22-16 TAKING MAGNESIUM 400 MG CAPSULE 1 TABLET WITH A MEAL ORALLY ONCE A DAY, NOTES: 04-22-16899 TAKING FISH OIL 1200 MG CAPSULE 2 CAPSULES ORALLY ONCE A DAY, NOTES: 04-22-16899 TAKING MULTIVITAMINS OTC TABLET 1 TAB(S) ORALLY DAILY, NOTES: 04-22-16899 TAKING VITAMIN B COMPLEX OTC TABLET 1 TAB(S) ORALLY DAILY, NOTES: 04-22-16899 TAKING CALCIUM 500 MG TABLET CHEWABLE 2 TABLET ORALLY ONCE A DAY, NOTES: 04-22-16899 TAKING VITAMIN D-3 1000 UNITS TABLET 1 TAB(S) ORALLY DAILY, NOTES: 04-22-16899 TAKING SYNTHROID 100 MCG TABLET 1 TABLET ON AN EMPTY STOMACH IN THE MORNING ORALLY ONCE A DAY (DR. PABLO), NOTES: 04-23-16599 TAKING PROZAC 10 40 MG TABLET 1 TAB(S) ORAL ONCE A DAY, NOTES: 04-22-161899 TAKING OSTEO COMPLEX CAPSULE 1 CAP(S) ORALLY DAILY, NOTES: 3-9-17 0900 TAKING FLONASE 50 MCG/DOSE INHALER 1 SPRAY IN EACH NOSTRIL NASALLY ONCE A DAY, NOTES: 2 WEEKS AGO TAKING MAPROTILINE HCL 50 MG TABLET 1 TABLET ORALLY ONCE A DAY, NOTES: 04-22-16 1900 TAKING LYRICA 25 MG CAPSULE 1 CAPSULE ORALLY Q8 HRS NEEDED, NOTES: 04-23-16 0900 TAKING BENADRYL 25 MG CAPSULE 1 CAPSULE NEEDED ORALLY EVERY 6 HRS, NOTES: NONE TAKING SUDAFED 30 MG TABLET 1 TABLET NEEDED ORALLY EVERY 6 HRS, NOTES: NONE TAKING NASONEX 50 MCG/ACT SUSPENSION 2 SPRAYS IN EACH NOSTRIL NASALLY ONCE A DAY, NOTES: 2 DAYS TAKING NORCO 5-325 MG TABLET 1 TABLET NEEDED ORALLY EVERY 6 -8 HOURS PRN PAIN MDD=2 TAKING DIAZEPAM 5 MG TABLET 1 TABLET ORALLY ONCE A DAY NEEDED ([facility]), NOTES: 09-22-15 0845 TAKING BUSPIRONE HCL 5 MG TABLET 1 TABLET ORALLY BID NOT-TAKING NORCO 5-325 MG TABLET 1 TABLET ORALLY EVERY 4 HRS PRN PAIN MDD=6 CHRONIC PAIN, NOTES: 03/10/16@0800 NOT-TAKING TURMERIC 1 TAB(S) ORALLY DAILY NOT-TAKING LIDOCAINE 5 % OINTMENT 1 APPLICATION TO AFFECTED AREA NEEDED EXTERNALLY FOUR TIMES A DAY TO PAINFUL AREAS OF NECK/SACRUM NOT-TAKING CLONIDINE HCL 0.1 MG TABLET 1 TABLET ORALLY TID PRN, NOTES: NONE NOT-TAKING MARINOL 2.5 MG CAPSULE 1 CAPSULE ORALLY BID NOT-TAKING MOBIC 15 MG TABLET 1 TABLET ORALLY ONCE A DAY WITH FOOD NOT-TAKING LIDOCAINE 4 % CREAM DIRECTED EXTERNALLY APPLY TO PAINFUL AREA TAILBONE 4 X PER DAY NEEDED NOT-TAKING VICODIN HP 7.5-325 MG TABLET 1 TAB(S) ORALLY EVERY 4 HOURS NEEDED ([facility]) DISCONTINUED NORCO 5-325 MG TABLET 1 TABLET NEEDED ORALLY EVERY 6 HRS PRN PAIN MDD=2 MEDICATION LIST REVIEWED AND RECONCILED WITH THE PATIENT PAST MEDICAL HISTORY CERVALGIA- C5-6 DISC HERNIATION WITH C6 IMPINGEMENT-DR DAY/ DR YUSUF- [facility]- HYPOTHYROIDISM 2007- DR PABLO SEASONAL ALLERGY/SINUSITIS ENDOMETRIAL POLYP- DR YBARRA DYSPHAGIA-ENT IN [place]- DR MORATAYA BASAL CELL TO RIGHT NOSE - DR. CASTAÑEDA SACRAL PAIN ALLERGIES NEURONTIN 300: DEPRESSION: SIDE EFFECTS BACLOFEN: HEAD ACHES: ALLERGY CYCLOBENZAPRINE HCL: DECREASED MENTAL ALERTNESS: ALLERGY GABAPENTIN: DEPRESSION: ALLERGY TIZANIDINE HCL: HEADACHES: ALLERGY TOPIRAMATE: ALTERED MENTAL STATUS: ALLERGY SURGICAL HISTORY NO PERSONAL OR FHX OF SEVERE REACTION TO ANESTHESIA POLYPECTOMY 2010 ANT CERVI 2011 C-SPINE FUSION _ 03/2011 SKIN CANCER REMOVED FROM NOSE AUGUST 2015 HOSPITALIZATION/MAJOR DIAGNOSTIC PROCEDURE SURGERY RELATED REVIEW OF SYSTEMS CONSTITUTIONAL: ANY CHANGE IN YOUR MEDICAL CONDITION? NO. PT STATES PAIN 6/10. PT STATES SHE HAD INJECTIONS TO SACRAL AREA WHICH HELPED WITH PAIN, BROUGHT PAIN DOWN TO 3/10. PT STATES SHE GETS INJECTIONS EVERY 3 MONTHS. . CHILLS NO . FEVER NO . INFECTION: DO YOU HAVE NEW INFECTIONS? NO . DO YOU HAVE HISTORY OF MRSA? NO . MUSCULOSKELETAL: ANY NEW PATTERNS OF PAIN OR NUMBNESS? NO . GASTROENTEROLOGY: ANY NEW CHANGE IN BOWEL CONTROL? NO . GENITOURINARY: ANY NEW CHANGE IN BLADDER CONTROL? NO . IS THERE A CHANCE YOU COULD BE ? NO . HEMATOLOGY/LYMPH: DO YOU TAKE ANY BLOOD THINNERS? (FOR EXAMPLE- COUMADIN, PLAVIX, AGGRENOX, PLATEL, PRADAXA, OR XARELTO) NO . WHEN WAS YOUR LAST DOSE? DATE: TIME: . NEUROLOGY: HAVE YOU FALLEN IN THE PAST 6 MONTHS? NO . ANY NEW EXTREMITY NUMBNESS OR WEAKNESS? NO . CARDIOLOGY: DO YOU HAVE A PACEMAKER OR DEFIBRILLATOR? NO . RESPIRATORY: HAVE YOU BEEN SICK IN THE PAST WEEK? NO . FEVER NO . FLU LIKE SYMPTOMS? NO . COUGH NO . INTEGUMENTARY: DO YOU HAVE ANY RASHES OR OPEN SORES? NO . ALLERGIC/IMMUNO: ARE YOU ALLERGIC TO SHELLFISH OR IV DYE? NO . ANY NEW ALLERGIES? NO . PSYCHIATRIC: DO YOU HAVE THOUGHTS OF HURTING YOURSELF OR SOMEONE ELSE? NO . ARE YOU ABUSED, NEGLECTED, OR IN AN UNSAFE ENVIRONMENT? NO . ENDOCRINOLOGY: ARE YOU DIABETIC? NO . OTHER: DO YOU NEED ANY PRESCRIPTIONS? NO . IF YES, PLEASE LIST: ____ . ANY NEW PROBLEMS WITH YOUR MEDICATIONS? NO . WHEN DID YOU LAST EAT? ____ . WHEN DID YOU LAST DRINK? ____ . WHAT DID YOU LAST DRINK? ____ . NAME OF PERSON DRIVING YOU HOME? ____ . DO YOU HAVE ANY OTHER QUESTIONS OR CONCERNS NO . REVIEWED BY: PROVIDER: DARBY DALE . VITAL SIGNS WT 163.4 LBS, HT 70 IN, BMI 23.44 INDEX, BP 115/75 MM HG, HR 81 /MIN, RR 16 /MIN, TEMP 98.3 F, OXYGEN SAT % 97%, SAFE IN ENV? (Y/N) Y, NA INITIALS AR 09:01, REVIEWED BY: EM. EXAMINATION GENERAL EXAMINATION: PSYCHALERT , ORIENTED X 3 , APPROPRIATE MOOD AND AFFECT STANDS THROUGHOUT VISIT TODAY. LUNGS:CLEAR TO AUSCULTATION BILATERALLY. HEART:HEART RATE REGULAR. MUSCULOSKELETAL:TENDER OVER TRAPEZIUS MUSCLES AND OVER CERVICAL PARASPINOUS MUSCLES. MILD TENDERNESS OVER SACRUM. POSTURE UPRIGHT, GAIT NONANTALGIC. MINIMAL POINT TENDERNESS OVER SACRUM AND NEAR COCCYX. . 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 RESEARCH MEDICAL MARIJUANA. UTOX TODAY. UPDATE NARCOTIC AGREEMENT. CONTINUE CURRENT MEDS. CLINICAL NOTES: ISTOP REGISTRY REVIEWED AND DEMNOSTRATES COMPLLIANCE. BRINGS IN MEDICATIONS WHICH IS APPROPRIATE FOR WHAT WAS DISPENSED. RECENT URINE TOXICOLOGY REVIEWED. NO UNAUTHORIZED MEDICATIONS. NO ILLICIT SUBSTANCES AND PRESCRIBED MEDICATIONS WERE PRESENT. CERVICAL POST-LAMINECTOMY SYNDROME [facility] MRI SPINE, CERVICAL WITH [id number] PROCEDURE CODES FA211 ESTABILISHED PATIENT [facility] FACILITY CHARGE G8730 PAIN ASSESS POS TOOL F/U PLAN DOC G8427 DOC MEDS VERIFIED W/PT OR RE DISPOSITION & COMMUNICATION FOLLOW UP 1 MONTH FOR MED MANAGEMENT (REASON: CHECK AUTH ON MRI) ELECTRONICALLY SIGNED BY LIZA MERINO ON 07/06/2016 AT 08:45 AM EDT DISCLAIMER : THIS IS A VISIT SUMMARY EXTRACTED FROM THE [employer] CHART. IT IS NOT A COPY OF THE [employer] PROGRESS NOTE. MTDD
== END ==
LOC: M PAIN 09:00
PROVIDERS: ATTEND Nurse Practitioner Family
DX: G89.29 Other chronic pain (principal); M53.3 Sacrococcygeal disorders, not elsewhere classified; M79.1 Myalgia; M46.08 Spinal enthesopathy, sacral and sacrococcygeal region; M96.1 Postlaminectomy syndrome, not elsewhere classified; M54.2 Cervicalgia; E03.9 Hypothyroidism, unspecified; J30.2 Other seasonal allergic rhinitis; R13.10 Dysphagia, unspecified; Z88.8 Allergy status to other drugs, medicaments and biological substances; Z79.899 Other long term (current) drug therapy

== ENCOUNTER → 2016-07-02 | Outpatient (CLI) | payer MEDICARE, MEDICAID ==
--- NOTE | 2016-07-02 15:14 | REP ---
MRI CERVICAL SPINE WITHOUT AND WITH CONTRAST: 07/02/2016. Comparison: MRI without contrast 07/21/2012, x-ray 05/19/2011. Clinical history: Post cervical fusion syndrome. Patient with neck and bilateral shoulder pain radiating down arms with tingling. Technique: Sagittal T1, T2, STIR images with axial T1 and T2 sequences. After infusion of 14 mL of ProHance, axial and sagittal T1 sequences were then performed. Findings: Sagittal images show slight loss of the cervical lordosis. Anterior cervical plate and fusion hardware with discectomy changes from C4-C6 again seen. I do not see prevertebral swelling. No marrow edema at C2, C3 or C7. The upper thoracic levels were grossly intact as well. Minimal degenerative disc change with some loss of disc water signal at most levels and slight narrowing of those discs at C2-3, C3-4, C6-7 and C7-T1. There is no intrinsic cord signal abnormality, syrinx, atrophy or mass. At C2-3, there is no disc bulge or herniation and no spinal or foraminal stenosis. At C3-4, there is a mild broad-based disc bulge thinning ventral subarachnoid space, but not causing any significant spinal or foraminal stenosis. At C4-5 and C5-6, no disc bulge or herniation, spinal or foraminal stenosis. At C6-7, minimal disc bulge without central canal stenosis. Foramina ample. At C7-T1 and at T12, there is no disc bulge or herniation and no spinal or foraminal stenosis. Craniocervical junction shows ample subarachnoid space without cerebellar tonsillar ectopia. No myelomalacia, syrinx, atrophy or cervical cord mass. After infusion of gadolinium, sagittal and axial T1 images show no evidence of abnormal enhancement of the dura, vertebral bodies, cord or any other visible structures. Impression: 1. Status post C4-C6 anterior cervical discectomy and fusion. Hardware grossly intact. 2. No other significant finding. Signed by Orlin Power MD 07/02/2016 03:42 P
== END ==
LOC: M PLARAD 12:40
PROVIDERS: ATTEND Nurse Practitioner Family
DX: M96.1 Postlaminectomy syndrome, not elsewhere classified (principal); Z96.9 Presence of functional implant, unspecified
CPT/HCPCS: 72156; A9576

== ENCOUNTER → 2016-07-07 | Outpatient (REF) | payer MEDICARE, MEDICAID ==
[2016-07-07 12:50] LABS: ALBUMIN 3.7 GM/DL (3.2-5.2); ANION GAP 7 MEQ/L (8-16); BLOOD UREA NITROGEN 10 MG/DL (7-18); CALCIUM LEVEL 8.8 MG/DL (8.5-10.1); CARBON DIOXIDE LEVEL 28 MEQ/L (21-32); CHLORIDE LEVEL 104 MEQ/L (98-107); CREATININE FOR GFR 0.72 MG/DL (0.55-1.02); GLOMERULAR FILTRATION RATE > 60.0 (>51); GLUCOSE, FASTING 91 MG/DL (70-105); PHOSPHORUS LEVEL 3.6 MG/DL (2.5-4.9); SODIUM LEVEL 139 MEQ/L (136-145)
== END ==
LOC: M LABDRWAD 12:16
PROVIDERS: ATTEND Nurse Practitioner Family
DX: M53.3 Sacrococcygeal disorders, not elsewhere classified (principal)

== ENCOUNTER → 2016-07-08 | Outpatient (CLI) | payer MEDICARE, MEDICAID ==
[~2016-07-08] MED LIST changes: +BUPIVACAINE HCL 0.25% 30 ML VIAL As Ordered ONE; +ISOVUE-M 300 61% 15ML VIAL (Q9967) As Ordered ONE; +LIDOCAINE 1% SDV INJ 30 ML VIAL As Ordered ONE; +TRIAMCINOLONE ACETONIDE SUSP 40 MG/ML VIAL (J3301) As Ordered ONE; +diazePAM 5 MG TAB As Ordered ONE
--- NOTE | 2016-07-08 13:28 | REP ---
Bilateral SI joint series: Three views. History: Bilateral SI joint injection for pain. 22 seconds of fluoroscopy time is reported. Findings: A sequence of three fluoroscopically obtained intraprocedural spot radiographs of the SI joints document various needle positions and contrast injections associated with SI joint injection procedure. Signed by Luis Vincent MD 07/08/2016 02:50 P
--- NOTE | 2016-07-08 23:36 | ECWPNPC ---
PATIENT NAME: PATRIZIA DICKEY : 1965 GENDER: FEMALE VISIT DATE: 07/08/2016 DISCHARGE DATE: 07/08/16 153 VISIT LOCKED DATE TIME: PHYSICIAN: KEISHA ENCARNACION PHYSICIAN PAGER NO: INACTIVE RESOURCE: KEISHA ENCARNACION REASON FOR APPOINTMENT 1. SIJ BILATERAL HISTORY OF PRESENT ILLNESS HISTORY OF PRESENT ILLNESS: PAIN THE PATIENT DESCRIBES THE PAIN... FALL RISK SCREENING: SCREENING :NO FALLS IN THE PAST YEAR CURRENT MEDICATIONS TAKING ARIPIPRAZOLE 2 MG TABLET 1 TABLET ORALLY ONCE A DAY, NOTES: 07-07-16 7PM TAKING SENNA S 8.6-50 MG TABLET 1 TABLET IN THE EVENING NEEDED ORALLY ONCE A DAY NEEDED, NOTES: 07-07-16 1100 PM TAKING ABIGAIL ALLERGY 180 MG TABLET 1 TABLET ORALLY ONCE A DAY, NOTES: 07-07-16 0900 TAKING MAGNESIUM 400 MG CAPSULE 1 TABLET WITH A MEAL ORALLY ONCE A DAY, NOTES: 07-07-16899 TAKING FISH OIL 1200 MG CAPSULE 2 CAPSULES ORALLY ONCE A DAY, NOTES: 07-07-16899 TAKING MULTIVITAMINS OTC TABLET 1 TAB(S) ORALLY DAILY, NOTES: 07-07-16899 TAKING VITAMIN B COMPLEX OTC TABLET 1 TAB(S) ORALLY DAILY, NOTES: 07-07-16899 TAKING CALCIUM 500 MG TABLET CHEWABLE 2 TABLET ORALLY ONCE A DAY, NOTES: 07-07-16899 TAKING VITAMIN D-3 1000 UNITS TABLET 1 TAB(S) ORALLY DAILY, NOTES: 07-07-16899 TAKING SYNTHROID 100 MCG TABLET 1 TABLET ON AN EMPTY STOMACH IN THE MORNING ORALLY ONCE A DAY (DR. PABLO), NOTES: 07-08-16 0400 TAKING PROZAC 10 40 MG TABLET 1 TAB(S) ORAL ONCE A DAY, NOTES: 07-07-16 7 PM TAKING OSTEO COMPLEX CAPSULE 1 CAP(S) ORALLY DAILY, NOTES: 07-07-16 0900 TAKING FLONASE 50 MCG/DOSE INHALER 1 SPRAY IN EACH NOSTRIL NASALLY ONCE A DAY, NOTES: 07-07-16 090 TAKING MAPROTILINE HCL 50 MG TABLET 1 TABLET ORALLY ONCE A DAY, NOTES: 07-07-16 7 PM TAKING BENADRYL 25 MG CAPSULE 1 CAPSULE NEEDED ORALLY EVERY 6 HRS, NOTES: NONE TAKING SUDAFED 30 MG TABLET 1 TABLET NEEDED ORALLY EVERY 6 HRS, NOTES: NONE TAKING NORCO 5-325 MG TABLET 1 TABLET NEEDED ORALLY EVERY 6 -8 HOURS PRN PAIN MDD=2, NOTES: 07-08-16 0930 TAKING DIAZEPAM 5 MG TABLET 1 TABLET ORALLY ONCE A DAY NEEDED ([facility]), NOTES: WEEK AGO TAKING BUSPIRONE HCL 5 MG TABLET 1 TABLET ORALLY BID, NOTES: 07-07-16 7 PM TAKING METHOCARBAMOL 750 MG TABLET 1 TAB ORALLY BID, NOTES: 07-07-16 7 PM NOT-TAKING LYRICA 25 MG CAPSULE 1 CAPSULE ORALLY Q8 HRS NEEDED, NOTES: NONE NOT-TAKING NASONEX 50 MCG/ACT SUSPENSION 2 SPRAYS IN EACH NOSTRIL NASALLY ONCE A DAY NOT-TAKING NORCO 5-325 MG TABLET 1 TABLET ORALLY EVERY 4 HRS PRN PAIN MDD=6 CHRONIC PAIN, NOTES: 03/10/16@0800 NOT-TAKING TURMERIC 1 TAB(S) ORALLY DAILY NOT-TAKING LIDOCAINE 5 % OINTMENT 1 APPLICATION TO AFFECTED AREA NEEDED EXTERNALLY FOUR TIMES A DAY TO PAINFUL AREAS OF NECK/SACRUM NOT-TAKING CLONIDINE HCL 0.1 MG TABLET 1 TABLET ORALLY TID PRN, NOTES: NONE NOT-TAKING MARINOL 2.5 MG CAPSULE 1 CAPSULE ORALLY BID NOT-TAKING MOBIC 15 MG TABLET 1 TABLET ORALLY ONCE A DAY WITH FOOD NOT-TAKING LIDOCAINE 4 % CREAM DIRECTED EXTERNALLY APPLY TO PAINFUL AREA TAILBONE 4 X PER DAY NEEDED NOT-TAKING VICODIN HP 7.5-325 MG TABLET 1 TAB(S) ORALLY EVERY 4 HOURS NEEDED ([facility]) DISCONTINUED NORCO 5-325 MG TABLET 1 TABLET NEEDED ORALLY EVERY 6 HRSPRN PAIN MDD=2 MEDICATION LIST REVIEWED AND RECONCILED WITH THE PATIENT PAST MEDICAL HISTORY CERVALGIA- C5-6 DISC HERNIATION WITH C6 IMPINGEMENT-DR DAY/ DR YUSUF- [facility]- HYPOTHYROIDISM 2007- DR PABLO SEASONAL ALLERGY/SINUSITIS ENDOMETRIAL POLYP- DR YBARRA DYSPHAGIA-ENT IN [place]- DR MORATAYA BASAL CELL TO RIGHT NOSE - DR. CASTAÑEDA SACRAL PAIN ALLERGIES NEURONTIN 300: DEPRESSION: SIDE EFFECTS BACLOFEN: HEAD ACHES: ALLERGY CYCLOBENZAPRINE HCL: DECREASED MENTAL ALERTNESS: ALLERGY GABAPENTIN: DEPRESSION: ALLERGY TIZANIDINE HCL: HEADACHES: ALLERGY TOPIRAMATE: ALTERED MENTAL STATUS: ALLERGY REVIEW OF SYSTEMS CONSTITUTIONAL: ANY CHANGE IN YOUR MEDICAL CONDITION? NO . CHILLS NO . FEVER NO . INFECTION: DO YOU HAVE NEW INFECTIONS? NO . DO YOU HAVE HISTORY OF MRSA? NO . MUSCULOSKELETAL: ANY NEW PATTERNS OF PAIN OR NUMBNESS? NO . GASTROENTEROLOGY: ANY NEW CHANGE IN BOWEL CONTROL? NO . GENITOURINARY: ANY NEW CHANGE IN BLADDER CONTROL? NO . IS THERE A CHANCE YOU COULD BE ? NO . HEMATOLOGY/LYMPH: DO YOU TAKE ANY BLOOD THINNERS? (FOR EXAMPLE- COUMADIN, PLAVIX, AGGRENOX, PLATEL, PRADAXA, OR XARELTO) NO . WHEN WAS YOUR LAST DOSE? DATE: TIME: . NEUROLOGY: HAVE YOU FALLEN IN THE PAST 6 MONTHS? NO . ANY NEW EXTREMITY NUMBNESS OR WEAKNESS? NO . CARDIOLOGY: DO YOU HAVE A PACEMAKER OR DEFIBRILLATOR? NO . RESPIRATORY: HAVE YOU BEEN SICK IN THE PAST WEEK? NO . FEVER NO . FLU LIKE SYMPTOMS? NO . COUGH NO . INTEGUMENTARY: DO YOU HAVE ANY RASHES OR OPEN SORES? NO . ALLERGIC/IMMUNO: ARE YOU ALLERGIC TO SHELLFISH OR IV DYE? NO . ANY NEW ALLERGIES? NO . PSYCHIATRIC: DO YOU HAVE THOUGHTS OF HURTING YOURSELF OR SOMEONE ELSE? NO . ARE YOU ABUSED, NEGLECTED, OR IN AN UNSAFE ENVIRONMENT? NO . ENDOCRINOLOGY: ARE YOU DIABETIC? NO . OTHER: DO YOU NEED ANY PRESCRIPTIONS? NO . IF YES, PLEASE LIST: ____ . ANY NEW PROBLEMS WITH YOUR MEDICATIONS? NO . WHEN DID YOU LAST EAT? 07-08-16 0500 . WHEN DID YOU LAST DRINK? 0950 07-08-16 . WHAT DID YOU LAST DRINK? WATER . NAME OF PERSON DRIVING YOU HOME? SISTER . DO YOU HAVE ANY OTHER QUESTIONS OR CONCERNS NO . REVIEWED BY: PROVIDER: . VITAL SIGNS WT 163.0 LBS, HT 70 IN, BMI 23.39 INDEX, BP 126/70 MM HG, HR 82 /MIN, RR 16 /MIN, TEMP 97.8 F, OXYGEN SAT % 98%, NA INITIALS TL 1146, REVIEWED BY: CM. ASSESSMENTS SACROILIITIS, NOT ELSEWHERE CLASSIFIED - M46.1 (PRIMARY) PROCEDURES PN SI PRE PROCEDURE DIAGNOSIS SACROILIITIS, SACROILIAC JOINT DYSFUNCTION POST PROCEDURE DIAGNOSIS SACROILIITIS, SACROILIAC JOINT DYSFUNCTION PROCEDURE BILATERAL SACROILIAC JOINT BLOCK SURGEON DR. KEISHA ENCARNACION EVIDENCE SPECIALIST NONE ANESTHESIA LOCAL PRE PROCEDURE NOTE PATIENT WITH HISTORY OF CHRONIC LOW BACK PAIN. I EVALUATED THE PATIENT AND REVIEWED THE CHART. I WENT OVER THE RISKS, ALTERNATIVES, AND BENEFITS ASSOCIATED WITH THIS PROCEDURE. THE PATIENT WOULD LIKE TO PROCEED AND GAVE CONSENT TO PERFORM THE PROCEDURE. THE PATIENT DENIES UNEXPLAINABLE WEIGHT LOSS, FEVER, CHILLS, OR NEW CHANGES IN URINARY OR BOWEL CONTROL DESCRIPTION OF PROCEDURE THE PATIENT WAS BROUGHT TO THE PROCEDURE ROOM AND PLACED IN THE PRONE POSITION. THE LUMBOSACRAL AREA WAS CLEANED WITH CHLORAPREP SOLUTION AND DRAPED ASEPTICALLY. THE PROCEDURE WAS DONE UNDER STERILE CONDITIONS. I CHECKED LATERALITY AND THE LEVEL WHERE THE PROCEDURE WAS GOING TO BE PERFORMED WITH THE PATIENT AND THE SUPPORTING STAFF AT THE MOMENT OF THE TIME OUT IN THE PROCEDURE ROOM. UNDER FLUOROSCOPIC GUIDANCE, TARGET POINT WAS SELECTED AT THE LOWER BORDER OF THE RIGHT AND LEFT SACROILIAC JOINT. TARGET POINT WAS SELECTED AFTER MEDIAL ROTATION AND TILT OF THE MAGNIFIER OF THE C-ARM. LIDOCAINE WAS USED TO NUMB THE SKIN AND SUBCUTANEOUS TISSUE BELOW IT. A SPINAL NEEDLE, 22-GAUGE, WAS ADVANCED UNDER FLUOROSCOPIC GUIDANCE AND FOLLOWING PATIENT FEEDBACK UNTIL THE TARGET AREA WAS TOUCHED. THE POSITION OF THE NEEDLE WAS VERIFIED WITH AP AND LATERAL VIEWS. AFTER PROPER POSITION OF THE NEEDLE WAS ACHIEVED, ISOVUE M DYE 30%, 0.25 ML, WAS INJECTED SHOWING SPREAD OF THE DYE. THEN, A SOLUTION OF 20 MG OF KENALOG WAS INJECTED IN RIGHT JOINT WITH 3 ML OF BUPIVACAINE 0.125%. THERE WAS NO EVIDENCE OF BLOOD, PARESTHESIA OR CEREBROSPINAL FLUID DURING THE PROCEDURE. THE PATIENT WAS SENT TO THE RECOVERY ROOM. THE PATIENT WAS MOVING THE EXTREMITIES AND DOING WELL. THERE WAS NO COMPLICATION DURING THE PROCEDURE. FLUOROSCOPY TIME WAS 22 SECONDS POST PROCEDURE NOTE THE PATIENT WILL BE SEEN IN A FOLLOW UP IN THE NEXT FEW WEEKS. INSTRUCTIONS WERE GIVEN, QUESTIONS WERE ANSWERED, AND THE PATIENT EXPRESSED UNDERSTANDING AND AGREED WITH THE PLAN. I, JAKUB RODAS, DOCUMENTED THE ABOVE INFORMATION ACTING A SCRIBE FOR DR. ENCARNACION. I HAVE REVIEWED THE ABOVE DOCUMENT, WRITTEN BY JAKUB RODAS SCRIBAnnabelle AND I VERIFY THAT IT IS ACCURATE. DIAGNOSTIC IMAGING [facility] FLUORO GUIDANCE (PAIN)[id number] PROCEDURE CODES 77695 INJECT SACROILIAC JOINT 6045F RADXPS IN END [id number] PXD DISPOSITION & COMMUNICATION FOLLOW UP 3 WEEKS ELECTRONICALLY SIGNED BY KEISHA ENCARNACION MD ON 07/08/2016 AT 08:05 PM EDT DISCLAIMER : THIS IS A VISIT SUMMARY EXTRACTED FROM THE [employer] CHART. IT IS NOT A COPY OF THE [employer] PROGRESS NOTE. MARTA
== END ==
LOC: M PAIN 11:40
PROVIDERS: ATTEND Anesthesiology
DX: G89.29 Other chronic pain (principal); M46.1 Sacroiliitis, not elsewhere classified; M54.5 Low back pain; Z79.891 Long term (current) use of opiate analgesic; Z79.899 Other long term (current) drug therapy; Z88.8 Allergy status to other drugs, medicaments and biological substances; Z88.5 Allergy status to narcotic agent
CPT/HCPCS: G0260; J3301; Q9967

== ENCOUNTER → 2016-07-22 | Outpatient (CLI) | payer MEDICARE, MEDICAID ==
[~2016-07-22] MED LIST changes: -BUPIVACAINE HCL 0.25% 30 ML VIAL As Ordered ONE; -ISOVUE-M 300 61% 15ML VIAL (Q9967) As Ordered ONE; -LIDOCAINE 1% SDV INJ 30 ML VIAL As Ordered ONE; -TRIAMCINOLONE ACETONIDE SUSP 40 MG/ML VIAL (J3301) As Ordered ONE; -diazePAM 5 MG TAB As Ordered ONE
--- NOTE | 2016-08-11 01:44 | ECWPNPC ---
PATIENT NAME: PATRIZIA DICKEY : 1965 GENDER: FEMALE VISIT DATE: 07/22/2016 DISCHARGE DATE: 07/22/16 1112 VISIT LOCKED DATE TIME: PHYSICIAN: DARBY MCCLOUD PHYSICIAN PAGER NO: INACTIVE RESOURCE: DARBY MCCLOUD REASON FOR APPOINTMENT 1. MEDS HISTORY OF PRESENT ILLNESS HISTORY OF PRESENT ILLNESS: PAIN THE PATIENT DESCRIBES THE PAIN... FALL RISK SCREENING: SCREENING :NO FALLS IN THE PAST YEAR TODAY'S VISIT: NOTES: RATES PAIN LEVEL TODAY 06/23. IS S/P BILATERAL SIJ INJECTION ON 07/08/16. NOTES A 60-75% IMPROVEMENT IN PAIN AND FUNCTION. NOTES SOME DISCOMFORT ON LEFT SIDE WHEN LYING ON THE AREA.. CURRENT MEDICATIONS TAKING ARIPIPRAZOLE 2 MG TABLET 1 TABLET ORALLY ONCE A DAY TAKING SENNA S 8.6-50 MG TABLET 1 TABLET IN THE EVENING NEEDED ORALLY ONCE A DAY NEEDED TAKING ABIGAIL ALLERGY 180 MG TABLET 1 TABLET ORALLY ONCE A DAY TAKING MAGNESIUM 400 MG CAPSULE 1 TABLET WITH A MEAL ORALLY ONCE A DAY TAKING FISH OIL 1200 MG CAPSULE 2 CAPSULES ORALLY ONCE A DAY TAKING MULTIVITAMINS OTC TABLET 1 TAB(S) ORALLY DAILY TAKING VITAMIN B COMPLEX OTC TABLET 1 TAB(S) ORALLY DAILY TAKING CALCIUM 500 MG TABLET CHEWABLE 2 TABLET ORALLY ONCE A DAY TAKING VITAMIN D-3 1000 UNITS TABLET 1 TAB(S) ORALLY DAILY TAKING SYNTHROID 100 MCG TABLET 1 TABLET ON AN EMPTY STOMACH IN THE MORNING ORALLY ONCE A DAY (DR. PABLO) TAKING PROZAC 10 40 MG TABLET 1 TAB(S) ORAL ONCE A DAY TAKING OSTEO COMPLEX CAPSULE 1 CAP(S) ORALLY DAILY TAKING FLONASE 50 MCG/DOSE INHALER 1 SPRAY IN EACH NOSTRIL NASALLY ONCE A DAY TAKING MAPROTILINE HCL 50 MG TABLET 1 TABLET ORALLY ONCE A DAY TAKING BENADRYL 25 MG CAPSULE 1 CAPSULE NEEDED ORALLY EVERY 6 HRS, NOTES: NONE TAKING SUDAFED 30 MG TABLET 1 TABLET NEEDED ORALLY EVERY 6 HRS, NOTES: NONE TAKING NORCO 5-325 MG TABLET 1 TABLET NEEDED ORALLY EVERY 6 -8 HOURS PRN PAIN MDD=2 TAKING DIAZEPAM 5 MG TABLET 1 TABLET ORALLY ONCE A DAY NEEDED ([facility]), NOTES: WEEK AGO TAKING BUSPIRONE HCL 5 MG TABLET 1 TABLET ORALLY BID TAKING METHOCARBAMOL 750 MG TABLET 1 TAB ORALLY BID NOT-TAKING LYRICA 25 MG CAPSULE 1 CAPSULE ORALLY Q8 HRS NEEDED, NOTES: NONE NOT-TAKING NASONEX 50 MCG/ACT SUSPENSION 2 SPRAYS IN EACH NOSTRIL NASALLY ONCE A DAY NOT-TAKING NORCO 5-325 MG TABLET 1 TABLET ORALLY EVERY 4 HRS PRN PAIN MDD=6 CHRONIC PAIN, NOTES: 03/10/16@0800 NOT-TAKING TURMERIC 1 TAB(S) ORALLY DAILY NOT-TAKING LIDOCAINE 5 % OINTMENT 1 APPLICATION TO AFFECTED AREA NEEDED EXTERNALLY FOUR TIMES A DAY TO PAINFUL AREAS OF NECK/SACRUM NOT-TAKING CLONIDINE HCL 0.1 MG TABLET 1 TABLET ORALLY TID PRN, NOTES: NONE NOT-TAKING MARINOL 2.5 MG CAPSULE 1 CAPSULE ORALLY BID NOT-TAKING MOBIC 15 MG TABLET 1 TABLET ORALLY ONCE A DAY WITH FOOD NOT-TAKING LIDOCAINE 4 % CREAM DIRECTED EXTERNALLY APPLY TO PAINFUL AREA TAILBONE 4 X PER DAY NEEDED NOT-TAKING VICODIN HP 7.5-325 MG TABLET 1 TAB(S) ORALLY EVERY 4 HOURS NEEDED ([facility]) MEDICATION LIST REVIEWED AND RECONCILED WITH THE PATIENT PAST MEDICAL HISTORY CERVALGIA- C5-6 DISC HERNIATION WITH C6 IMPINGEMENT-DR DAY/ [facility]USUF- [facility]- DR PABLO SEASONAL ALLERGY/SINUSITIS ENDOMETRIAL POLYP- DR YBARRA DYSPHAGIA-ENT IN [place]- DR MORATAYA BASAL CELL TO RIGHT NOSE - DR. CASTAÑEDA SACRAL PAIN ALLERGIES NEURONTIN 300: DEPRESSION: SIDE EFFECTS BACLOFEN: HEAD ACHES: ALLERGY CYCLOBENZAPRINE HCL: DECREASED MENTAL ALERTNESS: ALLERGY GABAPENTIN: DEPRESSION: ALLERGY TIZANIDINE HCL: HEADACHES: ALLERGY TOPIRAMATE: ALTERED MENTAL STATUS: ALLERGY REVIEW OF SYSTEMS REVIEWED BY: PROVIDER: DARBY DALE . CONSTITUTIONAL: ANY CHANGE IN YOUR MEDICAL CONDITION? NO . CHILLS NO . FEVER NO . INFECTION: DO YOU HAVE NEW INFECTIONS? NO . DO YOU HAVE HISTORY OF MRSA? NO . MUSCULOSKELETAL: ANY NEW PATTERNS OF PAIN OR NUMBNESS? NO . GASTROENTEROLOGY: ANY NEW CHANGE IN BOWEL CONTROL? NO . GENITOURINARY: ANY NEW CHANGE IN BLADDER CONTROL? NO . IS THERE A CHANCE YOU COULD BE ? NO . HEMATOLOGY/LYMPH: DO YOU TAKE ANY BLOOD THINNERS? (FOR EXAMPLE- COUMADIN, PLAVIX, AGGRENOX, PLATEL, PRADAXA, OR XARELTO) NO . WHEN WAS YOUR LAST DOSE? DATE: TIME: . NEUROLOGY: HAVE YOU FALLEN IN THE PAST 6 MONTHS? NO . ANY NEW EXTREMITY NUMBNESS OR WEAKNESS? NO . CARDIOLOGY: DO YOU HAVE A PACEMAKER OR DEFIBRILLATOR? NO . RESPIRATORY: HAVE YOU BEEN SICK IN THE PAST WEEK? NO . FEVER NO . FLU LIKE SYMPTOMS? NO . COUGH NO . INTEGUMENTARY: DO YOU HAVE ANY RASHES OR OPEN SORES? NO . ALLERGIC/IMMUNO: ARE YOU ALLERGIC TO SHELLFISH OR IV DYE? NO . ANY NEW ALLERGIES? NO . PSYCHIATRIC: DO YOU HAVE THOUGHTS OF HURTING YOURSELF OR SOMEONE ELSE? NO . ARE YOU ABUSED, NEGLECTED, OR IN AN UNSAFE ENVIRONMENT? NO . ENDOCRINOLOGY: ARE YOU DIABETIC? NO . OTHER: DO YOU NEED ANY PRESCRIPTIONS? YES . IF YES, PLEASE LIST: VICODIN . ANY NEW PROBLEMS WITH YOUR MEDICATIONS? NO . WHEN DID YOU LAST EAT? ____ . WHEN DID YOU LAST DRINK? ____ . WHAT DID YOU LAST DRINK? ____ . NAME OF PERSON DRIVING YOU HOME? ____ . DO YOU HAVE ANY OTHER QUESTIONS OR CONCERNS NO . VITAL SIGNS WT 165.6 LBS, HT 70 IN, BMI 23.76 INDEX, BP 139/74 MM HG, HR 96 /MIN, RR 16 /MIN, TEMP 97.5 F, OXYGEN SAT % 97%, NA INITIALS TL 1013, REVIEWED BY: AD. EXAMINATION GENERAL EXAMINATION: PSYCHALERT , ORIENTED X 3 , GOOD EYE CONTACT. LUNGS:CLEAR TO AUSCULTATION BILATERALLY. HEART:HEART RATE REGULAR. MUSCULOSKELETAL:TRIGGER POINTS AND TIGHT FIBROUS BANDS OVER TRAP AND LEFT SACRUM/SIJ. POINT TENDERNESS OVER COCCYX AND LOWERR SACRUM. POSTURE UPRIGHT, STIFF . 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 PROCEDURE CODES FA211 ESTABILISHED PATIENT [facility] CHARGE G8730 PAIN ASSESS POS TOOL F/U PLAN DOC G8427 DOC MEDS VERIFIED W/PT OR RE DISPOSITION & COMMUNICATION FOLLOW UP SCHEDULE FOR INJECTION EARLY AUGUST AND MED FOLLOWUP WITH ME IN 4-6 WEEKS (REASON: CHECK AUTH FOR SACCRALCOCCYGEAL LIGAMENT INJECTION) ELECTRONICALLY SIGNED BY LIZA MERINO ON 08/10/2016 AT 05:32 PM EDT DISCLAIMER : THIS IS A VISIT SUMMARY EXTRACTED FROM THE [employer] CHART. IT IS NOT A COPY OF THE [employer] PROGRESS NOTE. ACED
== END ==
LOC: M PAIN 10:00
PROVIDERS: ATTEND Nurse Practitioner Family
DX: M46.08 Spinal enthesopathy, sacral and sacrococcygeal region (principal); M53.3 Sacrococcygeal disorders, not elsewhere classified; M79.1 Myalgia; M96.1 Postlaminectomy syndrome, not elsewhere classified; Z79.899 Other long term (current) drug therapy; Z88.5 Allergy status to narcotic agent; Z88.8 Allergy status to other drugs, medicaments and biological substances

== ENCOUNTER → 2016-08-13 | Outpatient (CLI) | payer MEDICARE, MEDICAID ==
[~2016-08-13] MED LIST changes: +BRIN1TAB3; +BUPIVACAINE HCL 0.25% 30 ML VIAL As Ordered ONE; +ISOVUE-M 300 61% 15ML VIAL (Q9967) As Ordered ONE; +LIDOCAINE 1% SDV INJ 30 ML VIAL As Ordered ONE; +NORCOTAB PO; +TRIAMCINOLONE ACETONIDE SUSP 40 MG/ML VIAL (J3301) As Ordered ONE; +diazePAM 5 MG TAB As Ordered ONE
--- NOTE | 2016-08-13 17:24 | REP ---
Limited sacral coccygeal views: Two views. History: Joint block for pain. 16 seconds of fluoroscopy time is reported. Findings: A sequence of two fluoroscopically obtained last image hold spot radiographs of the coccyx document needle position and contrast injection associated with injection procedure. Signed by Luis Vincent MD 08/18/2016 10:08 A
--- NOTE | 2016-08-22 23:59 | ECWPNPC ---
PATIENT NAME: PATRIZIA DICKEY : 1965 GENDER: FEMALE VISIT DATE: 08/13/2016 DISCHARGE DATE: 08/13/16 1356 VISIT LOCKED DATE TIME: PHYSICIAN: KEISHA ENCARNACION PHYSICIAN PAGER NO: INACTIVE RESOURCE: KEISHA ENCARNACION REASON FOR APPOINTMENT 1. SACRAL COCCYGEAL LIGAMENT INJ HISTORY OF PRESENT ILLNESS HISTORY OF PRESENT ILLNESS: PAIN THE PATIENT DESCRIBES THE PAIN... FALL RISK SCREENING: SCREENING :NO FALLS IN THE PAST YEAR CURRENT MEDICATIONS TAKING ARIPIPRAZOLE 2 MG TABLET 1 TABLET ORALLY ONCE A DAY, NOTES: 08-12-16 7PM TAKING SENNA S 8.6-50 MG TABLET 1 TABLET IN THE EVENING NEEDED ORALLY ONCE A DAY NEEDED, NOTES: 08-12-16 7PM TAKING ABIGAIL ALLERGY 180 MG TABLET 1 TABLET ORALLY ONCE A DAY, NOTES: 08-12-16 0900 TAKING MAGNESIUM 400 MG CAPSULE 1 TABLET WITH A MEAL ORALLY ONCE A DAY, NOTES: 08-12-16 0900 TAKING FISH OIL 1200 MG CAPSULE 2 CAPSULES ORALLY ONCE A DAY, NOTES: 08-12-16 09 TAKING MULTIVITAMINS OTC TABLET 1 TAB(S) ORALLY DAILY, NOTES: 08-12-16899 TAKING VITAMIN B COMPLEX OTC TABLET 1 TAB(S) ORALLY DAILY, NOTES: 08-12-16 0900 TAKING CALCIUM 500 MG TABLET CHEWABLE 2 TABLET ORALLY ONCE A DAY, NOTES: 08-12-16 09 TAKING VITAMIN D-3 1000 UNITS TABLET 1 TAB(S) ORALLY DAILY, NOTES: 08-12-16 090 TAKING SYNTHROID 100 MCG TABLET 1 TABLET ON AN EMPTY STOMACH IN THE MORNING ORALLY ONCE A DAY (DR. PABLO), NOTES: 08-13-16 0400 TAKING PROZAC 10 40 MG TABLET 1 TAB(S) ORAL ONCE A DAY, NOTES: 08-12-16 7PM TAKING OSTEO COMPLEX CAPSULE 1 CAP(S) ORALLY DAILY, NOTES: 08-12-16 0900 TAKING FLONASE 50 MCG/DOSE INHALER 1 SPRAY IN EACH NOSTRIL NASALLY ONCE A DAY, NOTES: 08-13-16 TAKING MAPROTILINE HCL 50 MG TABLET 1 TABLET ORALLY ONCE A DAY, NOTES: 08-12-16 7 PM TAKING BENADRYL 25 MG CAPSULE 1 CAPSULE NEEDED ORALLY EVERY 6 HRS, NOTES: NONE TAKING SUDAFED 30 MG TABLET 1 TABLET NEEDED ORALLY EVERY 6 HRS, NOTES: NONE TAKING DIAZEPAM 5 MG TABLET 1 TABLET ORALLY ONCE A DAY NEEDED ([facility]), NOTES: WEEK AGO TAKING BUSPIRONE HCL 5 MG TABLET 1 TABLET ORALLY BID, NOTES: NONE TAKING METHOCARBAMOL 750 MG TABLET 1 TAB ORALLY BID, NOTES: 08-13-16929 TAKING NORCO 5-325 MG TABLET 1 TABLET NEEDED ORALLY EVERY 6 -8 HOURS PRN PAIN MDD=2, NOTES: 08-13-16929 NOT-TAKING NASONEX 50 MCG/ACT SUSPENSION 2 SPRAYS IN EACH NOSTRIL NASALLY ONCE A DAY NOT-TAKING NORCO 5-325 MG TABLET 1 TABLET ORALLY EVERY 4 HRS PRN PAIN MDD=6 CHRONIC PAIN, NOTES: 03/10/16@0800 NOT-TAKING TURMERIC 1 TAB(S) ORALLY DAILY NOT-TAKING LIDOCAINE 5 % OINTMENT 1 APPLICATION TO AFFECTED AREA NEEDED EXTERNALLY FOUR TIMES A DAY TO PAINFUL AREAS OF NECK/SACRUM NOT-TAKING CLONIDINE HCL 0.1 MG TABLET 1 TABLET ORALLY TID PRN, NOTES: NONE NOT-TAKING MARINOL 2.5 MG CAPSULE 1 CAPSULE ORALLY BID NOT-TAKING MOBIC 15 MG TABLET 1 TABLET ORALLY ONCE A DAY WITH FOOD NOT-TAKING LIDOCAINE 4 % CREAM DIRECTED EXTERNALLY APPLY TO PAINFUL AREA TAILBONE 4 X PER DAY NEEDED NOT-TAKING VICODIN HP 7.5-325 MG TABLET 1 TAB(S) ORALLY EVERY 4 HOURS NEEDED ([facility]) DISCONTINUED LYRICA 25 MG CAPSULE 1 CAPSULE ORALLY Q8 HRS NEEDED, NOTES: NONE MEDICATION LIST REVIEWED AND RECONCILED WITH THE PATIENT PAST MEDICAL HISTORY CERVALGIA- C5-6 DISC HERNIATION WITH C6 IMPINGEMENT-DR DAY/ DR YUSUF- [facility]- HYPOTHYROIDISM 2007- DR PABLO SEASONAL ALLERGY/SINUSITIS ENDOMETRIAL POLYP- DR YBARRA DYSPHAGIA-ENT IN [place]- DR MORATAYA BASAL CELL TO RIGHT NOSE - DR. CASTAÑEDA SACRAL PAIN ALLERGIES NEURONTIN 300: DEPRESSION: SIDE EFFECTS BACLOFEN: HEAD ACHES: ALLERGY CYCLOBENZAPRINE HCL: DECREASED MENTAL ALERTNESS: ALLERGY GABAPENTIN: DEPRESSION: ALLERGY TIZANIDINE HCL: HEADACHES: ALLERGY TOPIRAMATE: ALTERED MENTAL STATUS: ALLERGY REVIEW OF SYSTEMS REVIEWED BY: PROVIDER: . CONSTITUTIONAL: ANY CHANGE IN YOUR MEDICAL CONDITION? NO . CHILLS NO . FEVER NO . INFECTION: DO YOU HAVE NEW INFECTIONS? NO . DO YOU HAVE HISTORY OF MRSA? NO . MUSCULOSKELETAL: ANY NEW PATTERNS OF PAIN OR NUMBNESS? NO . GASTROENTEROLOGY: ANY NEW CHANGE IN BOWEL CONTROL? NO . GENITOURINARY: ANY NEW CHANGE IN BLADDER CONTROL? NO . IS THERE A CHANCE YOU COULD BE ? NO . HEMATOLOGY/LYMPH: DO YOU TAKE ANY BLOOD THINNERS? (FOR EXAMPLE- COUMADIN, PLAVIX, AGGRENOX, PLATEL, PRADAXA, OR XARELTO) NO . WHEN WAS YOUR LAST DOSE? DATE: TIME: . NEUROLOGY: HAVE YOU FALLEN IN THE PAST 6 MONTHS? NO . ANY NEW EXTREMITY NUMBNESS OR WEAKNESS? NO . CARDIOLOGY: DO YOU HAVE A PACEMAKER OR DEFIBRILLATOR? NO . RESPIRATORY: HAVE YOU BEEN SICK IN THE PAST WEEK? NO . FEVER NO . FLU LIKE SYMPTOMS? NO . COUGH NO . INTEGUMENTARY: DO YOU HAVE ANY RASHES OR OPEN SORES? NO . ALLERGIC/IMMUNO: ARE YOU ALLERGIC TO SHELLFISH OR IV DYE? NO . ANY NEW ALLERGIES? NO . PSYCHIATRIC: DO YOU HAVE THOUGHTS OF HURTING YOURSELF OR SOMEONE ELSE? NO . ARE YOU ABUSED, NEGLECTED, OR IN AN UNSAFE ENVIRONMENT? NO . ENDOCRINOLOGY: ARE YOU DIABETIC? NO . OTHER: DO YOU NEED ANY PRESCRIPTIONS? NO . IF YES, PLEASE LIST: ____ . ANY NEW PROBLEMS WITH YOUR MEDICATIONS? NO . WHEN DID YOU LAST EAT? 08-13-16 0500 . WHEN DID YOU LAST DRINK? 08-13-16 0930 . WHAT DID YOU LAST DRINK? WATER . NAME OF PERSON DRIVING YOU HOME? JAHAIRA WADE . DO YOU HAVE ANY OTHER QUESTIONS OR CONCERNS NO . VITAL SIGNS WT 165.0 LBS, HT 70 IN, BMI 23.67 INDEX, BP 127/70 MM HG, HR 81 /MIN, RR 16 /MIN, TEMP 98.0 F, OXYGEN SAT % 99%, NA INITIALS TL 1134, REVIEWED BY: CM. ASSESSMENTS SPINAL ENTHESOPATHY, SACRAL AND SACROCOCCYGEAL REGION - M46.08 (PRIMARY) TREATMENT OTHERS NOTES: PREPROCEDURE DIAGNOSIS:INFLAMMATION OF THE SACROCOCCYGEAL LIGAMENT.COCCYDYNIA.POSTPROCEDURE DIAGNOSIS:INFLAMMATION OF THE SACROCOCCYGEAL LIGAMENT.COCCYDYNIA.PROCEDURE: INJECTION OF THE RIGHT AND LEFT SACROCOCCYGEAL LIGAMENT. SURGEON: DR. KEISHA ENCARNACION-OTANOANESTHESIA: LOCAL.PREOPERATIVE NOTE: THE PATIENT HAS HISTORY OF LOW BACK PAIN. I EVALUATED THE PATIENT AND REVIEWED THE CHART. WE BOTH AGREE ON INJECTING OVER THE SACROCOCCYGEAL LIGAMENT. THE PATIENT IS AWARE OF THE POTENTIAL COMPLICATIONS WHICH INCLUDE INFECTIONS, VISCERAL PUNCTURE, INCLUDING RECTAL PUNCTURE AMONG OTHERS. I DISCUSSED ALTERNATIVES AND THE PATIENT EXPRESSED THAT SHE WOULD LIKE TO MOVE FORWARD. THE PATIENT DENIES UNEXPLAINABLE, WEIGHT LOSS, FEVER, CHILLS, OR CHANGES IN URINARY OR BOWEL CONTROL. DESCRIPTION OF PROCEDURE: AFTER CONSENT WAS TAKEN, THE PATIENT WAS BROUGHT TO THE PROCEDURE ROOM AND PLACED IN THE PRONE POSITION. THE LUMBOSACRAL AREA WAS CLEANED WITH CHLORAPREP SOLUTION AND DRAPED ASEPTICALLY. THE PROCEDURE WAS DONE UNDER STERILE CONDITIONS. UNDER FLUOROSCOPIC GUIDANCE, THE TARGET WAS SELECTED AT THE RIGHT AND LEFT SACROCOCCYGEAL LIGAMENT. LIDOCAINE WAS USED TO NUMB THE SKIN AND THE SUBCUTANEOUS TISSUE BELOW IT. A 25 NEEDLE WAS ADVANCED UNTIL WE REACHED THE RIGHT AND LEFT SACROCOCCYGEAL LIGAMENT. I DID AP AND LATERAL VIEWS. ISOVUE M DYE 30%, 1/4 ML, WAS INJECTED SHOWING ADEQUATE SPREAD OF THE DYE. THEN A SOLUTION OF 30 ML OF BUPIVACAINE 0.125% WITH KENALOG 30 MG WAS INJECTED OVER THE AFFECTED STRUCTURE. THERE WAS NO EVIDENCE OF BLOOD, PARESTHESIA OR CEREBROSPINAL FLUID. NO EVIDENCE OF VACUUM PHENOMENON OR VISCERAL PUNCTURE. THE PATIENT WAS SENT TO THE RECOVERY ROOM WHERE SHE WAS MOVING HER EXTREMITIES AND DOING WELL. THERE WERE NO COMPLICATIONS DURING THE PROCEDURE. FLUOROSCOPY TIME WAS 16 SECONDS. POSTOPERATIVE NOTE: I DISCUSSED ALTERNATIVES WITH THE PATIENT. I AM LOOKING FOR LONG LASTING PAIN RELIEF WITH THIS INTERVENTION. INSTRUCTIONS WERE GIVEN. QUESTIONS WERE ANSWERED. THE PATIENT REPORTS UNDERSTANDING AND AGREES WITH THE PLAN. THERE WERE NO COMPLICATIONS DURING THE PROCEDURE. I, MERCEDEZ HUNT, DOCUMENTED THE ABOVE INFORMATION ACTING A SCRIBE FOR DR. ENCARNACION. I HAVE REVIEWED THE ABOVE DOCUMENT, WRITTEN BY MERCEDEZ RENEE AND I VERIFY THAT IT IS ACCURATE. DIAGNOSTIC IMAGING [facility] FLUORO GUIDANCE (PAIN)[id number] PROCEDURE CODES 79746 INJ TENDON SHEATH/LIGAMENT 6045F RADXPS IN END [id number] PXD 43631 FLUOROGUIDE FOR SPINE INJECT DISPOSITION & COMMUNICATION FOLLOW UP 3 WEEKS ELECTRONICALLY SIGNED BY KEISHA ENCARNACION MD ON 08/22/2016 AT 07:57 PM EDT DISCLAIMER : THIS IS A VISIT SUMMARY EXTRACTED FROM THE [employer] CHART. IT IS NOT A COPY OF THE [facility] PRO[facility]ESS [facility]. MTDD
== END ==
LOC: M PAIN 11:40
PROVIDERS: ATTEND Anesthesiology
DX: G89.29 Other chronic pain (principal); M46.08 Spinal enthesopathy, sacral and sacrococcygeal region; M54.5 Low back pain; Z79.891 Long term (current) use of opiate analgesic; Z79.899 Other long term (current) drug therapy; Z88.6 Allergy status to analgesic agent; Z88.8 Allergy status to other drugs, medicaments and biological substances
CPT/HCPCS: 20550; 77002; J3301; Q9967

== ENCOUNTER → 2016-08-23 | Outpatient (CLI) | payer MEDICARE, MEDICAID ==
[~2016-08-23] MED LIST changes: -BUPIVACAINE HCL 0.25% 30 ML VIAL As Ordered ONE; -ISOVUE-M 300 61% 15ML VIAL (Q9967) As Ordered ONE; -LIDOCAINE 1% SDV INJ 30 ML VIAL As Ordered ONE; -TRIAMCINOLONE ACETONIDE SUSP 40 MG/ML VIAL (J3301) As Ordered ONE; -diazePAM 5 MG TAB As Ordered ONE
--- NOTE | 2016-09-17 01:07 | ECWPNPC ---
PATIENT NAME: PATRIZIA DICKEY : 1965 GENDER: FEMALE VISIT DATE: 08/23/2016 DISCHARGE DATE: 08/23/16 0932 VISIT LOCKED DATE TIME: PHYSICIAN: DARBY MCCLOUD PHYSICIAN PAGER NO: INACTIVE RESOURCE: DARBY MCCLOUD REASON FOR APPOINTMENT 1. POST PROCEDURE HISTORY OF PRESENT ILLNESS HISTORY OF PRESENT ILLNESS: PAIN THE PATIENT DESCRIBES THE PAIN... FALL RISK SCREENING: SCREENING :NO FALLS IN THE PAST YEAR TODAY'S VISIT: NOTES: S/P BILATERAL SACCROCOCCYGEAL LIGAMENT BLOCK COMPLETED ON 08/13/16. PAIN LEVEL PRIOR 07/24, POST - WITH LEVEL AT 3/10 ON RTC TODAY. STARTED ON MEDICAL MARIJUANA 0N 08/19/16. ACTUALLY SLEPT WELL LAST NIGHT. . CURRENT MEDICATIONS TAKING ARIPIPRAZOLE 2 MG TABLET 1 TABLET ORALLY ONCE A DAY TAKING SENNA S 8.6-50 MG TABLET 1 TABLET IN THE EVENING NEEDED ORALLY ONCE A DAY NEEDED TAKING ABIGAIL ALLERGY 180 MG TABLET 1 TABLET ORALLY ONCE A DAY TAKING MAGNESIUM 400 MG CAPSULE 1 TABLET WITH A MEAL ORALLY ONCE A DAY TAKING FISH OIL 1200 MG CAPSULE 2 CAPSULES ORALLY ONCE A DAY TAKING MULTIVITAMINS OTC TABLET 1 TAB(S) ORALLY DAILY TAKING VITAMIN B COMPLEX OTC TABLET 1 TAB(S) ORALLY DAILY TAKING CALCIUM 500 MG TABLET CHEWABLE 2 TABLET ORALLY ONCE A DAY TAKING VITAMIN D-3 1000 UNITS TABLET 1 TAB(S) ORALLY DAILY TAKING SYNTHROID 100 MCG TABLET 1 TABLET ON AN EMPTY STOMACH IN THE MORNING ORALLY ONCE A DAY (DR. PABLO) TAKING PROZAC 10 40 MG TABLET 1 TAB(S) ORAL ONCE A DAY TAKING OSTEO COMPLEX CAPSULE 1 CAP(S) ORALLY DAILY TAKING FLONASE 50 MCG/DOSE INHALER 1 SPRAY IN EACH NOSTRIL NASALLY ONCE A DAY TAKING MAPROTILINE HCL 50 MG TABLET 1 TABLET ORALLY ONCE A DAY TAKING BENADRYL 25 MG CAPSULE 1 CAPSULE NEEDED ORALLY EVERY 6 HRS, NOTES: NONE TAKING SUDAFED 30 MG TABLET 1 TABLET NEEDED ORALLY EVERY 6 HRS, NOTES: NONE TAKING DIAZEPAM 5 MG TABLET 1 TABLET ORALLY ONCE A DAY NEEDED ([facility]) TAKING BUSPIRONE HCL 5 MG TABLET 1 TABLET ORALLY BID TAKING METHOCARBAMOL 750 MG TABLET 1 TAB ORALLY BID TAKING NORCO 5-325 MG TABLET 1 TABLET NEEDED ORALLY EVERY 6 -8 HOURS PRN PAIN MDD=2 NOT-TAKING NASONEX 50 MCG/ACT SUSPENSION 2 SPRAYS IN EACH NOSTRIL NASALLY ONCE A DAY NOT-TAKING NORCO 5-325 MG TABLET 1 TABLET ORALLY EVERY 4 HRS PRN PAIN MDD=6 CHRONIC PAIN, NOTES: 03/10/16@0800 NOT-TAKING TURMERIC 1 TAB(S) ORALLY DAILY NOT-TAKING LIDOCAINE 5 % OINTMENT 1 APPLICATION TO AFFECTED AREA NEEDED EXTERNALLY FOUR TIMES A DAY TO PAINFUL AREAS OF NECK/SACRUM NOT-TAKING CLONIDINE HCL 0.1 MG TABLET 1 TABLET ORALLY TID PRN, NOTES: NONE NOT-TAKING MARINOL 2.5 MG CAPSULE 1 CAPSULE ORALLY BID NOT-TAKING MOBIC 15 MG TABLET 1 TABLET ORALLY ONCE A DAY WITH FOOD NOT-TAKING LIDOCAINE 4 % CREAM DIRECTED EXTERNALLY APPLY TO PAINFUL AREA TAILBONE 4 X PER DAY NEEDED NOT-TAKING VICODIN HP 7.5-325 MG TABLET 1 TAB(S) ORALLY EVERY 4 HOURS NEEDED ([facility]) PAST MEDICAL HISTORY CERVALGIA- C5-6 DISC HERNIATION WITH C6 IMPINGEMENT-DR DAY/ DR YUSUF- [facility]- HYPOTHYROIDISM 2007- DR PABLO SEASONAL ALLERGY/SINUSITIS ENDOMETRIAL POLYP- DR YBARRA DYSPHAGIA-ENT IN [place]- DR MORATAYA BASAL CELL TO RIGHT NOSE - DR. CASTAÑEDA SACRAL PAIN ALLERGIES NEURONTIN 300: DEPRESSION: SIDE EFFECTS BACLOFEN: HEAD ACHES: ALLERGY CYCLOBENZAPRINE HCL: DECREASED MENTAL ALERTNESS: ALLERGY GABAPENTIN: DEPRESSION: ALLERGY TIZANIDINE HCL: HEADACHES: ALLERGY TOPIRAMATE: ALTERED MENTAL STATUS: ALLERGY REVIEW OF SYSTEMS REVIEWED BY: PROVIDER: DARBY DALE . CONSTITUTIONAL: ANY CHANGE IN YOUR MEDICAL CONDITION? NO . CHILLS NO . FEVER NO . INFECTION: DO YOU HAVE NEW INFECTIONS? NO . DO YOU HAVE HISTORY OF MRSA? NO . MUSCULOSKELETAL: ANY NEW PATTERNS OF PAIN OR NUMBNESS? NO . GASTROENTEROLOGY: ANY NEW CHANGE IN BOWEL CONTROL? NO . GENITOURINARY: ANY NEW CHANGE IN BLADDER CONTROL? NO . IS THERE A CHANCE YOU COULD BE ? NO . HEMATOLOGY/LYMPH: DO YOU TAKE ANY BLOOD THINNERS? (FOR EXAMPLE- COUMADIN, PLAVIX, AGGRENOX, PLATEL, PRADAXA, OR XARELTO) NO . WHEN WAS YOUR LAST DOSE? DATE: TIME: . NEUROLOGY: HAVE YOU FALLEN IN THE PAST 6 MONTHS? NO . ANY NEW EXTREMITY NUMBNESS OR WEAKNESS? NO . CARDIOLOGY: DO YOU HAVE A PACEMAKER OR DEFIBRILLATOR? NO . RESPIRATORY: HAVE YOU BEEN SICK IN THE PAST WEEK? NO . FEVER NO . FLU LIKE SYMPTOMS? NO . COUGH NO . INTEGUMENTARY: DO YOU HAVE ANY RASHES OR OPEN SORES? NO . ALLERGIC/IMMUNO: ARE YOU ALLERGIC TO SHELLFISH OR IV DYE? NO . ANY NEW ALLERGIES? NO . PSYCHIATRIC: DO YOU HAVE THOUGHTS OF HURTING YOURSELF OR SOMEONE ELSE? NO . ARE YOU ABUSED, NEGLECTED, OR IN AN UNSAFE ENVIRONMENT? NO . ENDOCRINOLOGY: ARE YOU DIABETIC? NO . OTHER: DO YOU NEED ANY PRESCRIPTIONS? YES . IF YES, PLEASE LIST: VICODIN . ANY NEW PROBLEMS WITH YOUR MEDICATIONS? NO . WHEN DID YOU LAST EAT? ____ . WHEN DID YOU LAST DRINK? ____ . WHAT DID YOU LAST DRINK? ____ . NAME OF PERSON DRIVING YOU HOME? ____ . DO YOU HAVE ANY OTHER QUESTIONS OR CONCERNS NO . VITAL SIGNS WT 165.0 LBS, HT 70 IN, BMI 23.67 INDEX, BP 128/71 MM HG, HR 82 /MIN, RR 16 /MIN, TEMP 97.4 F, OXYGEN SAT % 99%, NA INITIALS TL 0847, REVIEWED BY: CS. EXAMINATION GENERAL EXAMINATION: PSYCHALERT , ORIENTED X 3 , GOOD EYE CONTACT. LUNGS:CLEAR TO AUSCULTATION BILATERALLY. HEART:HEART RATE REGULAR. MUSCULOSKELETAL:TRIGGER POINTS AND TIGHT FIBROUS BANDS OVER TRAP AND LEFT SACRUM/SIJ. POINT TENDERNESS OVER COCCYX AND LOWERR SACRUM. . ASSESSMENTS SPINAL ENTHESOPATHY, SACRAL AND SACROCOCCYGEAL REGION - M46.08 (PRIMARY) COCCYDYNIA - M53.3 MYALGIA - M79.1 CERVICAL POST-LAMINECTOMY SYNDROME - M96.1 TREATMENT SPINAL ENTHESOPATHY, SACRAL AND SACROCOCCYGEAL REGION REFILL NORCO TABLET, 5-325 MG, 1 TABLET NEEDED, ORALLY, EVERY 6 -8 HOURS PRN PAIN MDD=2, 30 DAY(S), 45, REFILLS 0 NOTES: CONTINUE CURRENT MEDS. CLINICAL NOTES: ISTOP REGISTRY REVIEWED AND DEMNOSTRATES COMPLLIANCE. BRINGS IN MEDICATIONS WHICH IS APPROPRIATE FOR WHAT WAS DISPENSED. RECENT URINE TOXICOLOGY REVIEWED. NO UNAUTHORIZED MEDICATIONS. NO ILLICIT SUBSTANCES AND PRESCRIBED MEDICATIONS WERE PRESENT. PROCEDURE CODES FA211 ESTABILISHED PATIENT [facility] CHARGE G8730 PAIN ASSESS POS TOOL F/U PLAN DOC G8427 DOC MEDS VERIFIED W/PT OR RE DISPOSITION & COMMUNICATION FOLLOW UP 1 MONTH (REASON: COCCYX PAIN) ELECTRONICALLY SIGNED BY LIZA MERINO ON 09/16/2016 AT 09:01 AM EDT DISCLAIMER : THIS IS A VISIT SUMMARY EXTRACTED FROM THE [employer] CHART. IT IS NOT A COPY OF THE [employer] PROGRESS NOTE. MTDD
== END ==
LOC: M PAIN 08:40
PROVIDERS: ATTEND Nurse Practitioner Family
DX: M46.08 Spinal enthesopathy, sacral and sacrococcygeal region (principal); M53.3 Sacrococcygeal disorders, not elsewhere classified; M79.1 Myalgia; M96.1 Postlaminectomy syndrome, not elsewhere classified; Z79.891 Long term (current) use of opiate analgesic; Z79.899 Other long term (current) drug therapy; Z88.8 Allergy status to other drugs, medicaments and biological substances

== ENCOUNTER → 2016-09-20 | Outpatient (CLI) | payer MEDICARE, MEDICAID ==
--- NOTE | 2016-10-09 23:34 | ECWPNPC ---
PATIENT NAME: PATRIZIA DICKEY : 1965 GENDER: FEMALE VISIT DATE: 09/20/2016 DISCHARGE DATE: 09/20/16 1008 VISIT LOCKED DATE TIME: PHYSICIAN: DARBY MCCLOUD PHYSICIAN PAGER NO: INACTIVE RESOURCE: DARBY MCCLOUD REASON FOR APPOINTMENT 1. COCCYX PAIN HISTORY OF PRESENT ILLNESS HISTORY OF PRESENT ILLNESS: PAIN THE PATIENT DESCRIBES THE PAIN... FALL RISK SCREENING: SCREENING :NO FALLS IN THE PAST YEAR TODAY'S VISIT: NOTES: S/P BILATERAL SACCRALCOCCYGEAL LIGAMENT BLOCK COMPLETED ON 08/13/16. RATES PAIN TODAY CONSTANT, ACHING, TENDER AND SORE AND OCCASIONALLY THROBBING. HAS NOTED A RETUN OF THE COCCYX AREA PAIN. HAS CONTINUED WITH MEDICAL MARIJUANA BUT NEEDS A FURTHER ADJUSTMENT. SLEEP HAS NOT SIGNIFICANTLY IMPROVED YET - STILL AWAKE 3-4 TIMES PER NITE. IS EXPECTING AN ADJUSTMENT. CURRENT MEDICATIONS TAKING ARIPIPRAZOLE 2 MG TABLET 1 TABLET ORALLY ONCE A DAY TAKING SENNA S 8.6-50 MG TABLET 1 TABLET IN THE EVENING NEEDED ORALLY ONCE A DAY NEEDED TAKING ABIGAIL ALLERGY 180 MG TABLET 1 TABLET ORALLY ONCE A DAY TAKING MAGNESIUM 400 MG CAPSULE 1 TABLET WITH A MEAL ORALLY ONCE A DAY TAKING FISH OIL 1200 MG CAPSULE 2 CAPSULES ORALLY ONCE A DAY TAKING MULTIVITAMINS OTC TABLET 1 TAB(S) ORALLY DAILY TAKING VITAMIN B COMPLEX OTC TABLET 1 TAB(S) ORALLY DAILY TAKING CALCIUM 500 MG TABLET CHEWABLE 2 TABLET ORALLY ONCE A DAY TAKING VITAMIN D-3 1000 UNITS TABLET 1 TAB(S) ORALLY DAILY TAKING SYNTHROID 100 MCG TABLET 1 TABLET ON AN EMPTY STOMACH IN THE MORNING ORALLY ONCE A DAY (DR. PABLO) TAKING PROZAC 10 40 MG TABLET 1 TAB(S) ORAL ONCE A DAY TAKING OSTEO COMPLEX CAPSULE 1 CAP(S) ORALLY DAILY TAKING FLONASE 50 MCG/DOSE INHALER 1 SPRAY IN EACH NOSTRIL NASALLY ONCE A DAY TAKING MAPROTILINE HCL 50 MG TABLET 1 TABLET ORALLY ONCE A DAY TAKING BENADRYL 25 MG CAPSULE 1 CAPSULE NEEDED ORALLY EVERY 6 HRS, NOTES: NONE TAKING SUDAFED 30 MG TABLET 1 TABLET NEEDED ORALLY EVERY 6 HRS, NOTES: NONE TAKING DIAZEPAM 5 MG TABLET 1 TABLET ORALLY ONCE A DAY NEEDED ([facility]) TAKING BUSPIRONE HCL 5 MG TABLET 1 TABLET ORALLY BID TAKING METHOCARBAMOL 750 MG TABLET 1 TAB ORALLY BID TAKING NORCO 5-325 MG TABLET 1 TABLET NEEDED ORALLY EVERY 6 -8 HOURS PRN PAIN MDD=2 NOT-TAKING NASONEX 50 MCG/ACT SUSPENSION 2 SPRAYS IN EACH NOSTRIL NASALLY ONCE A DAY NOT-TAKING NORCO 5-325 MG TABLET 1 TABLET ORALLY EVERY 4 HRS PRN PAIN MDD=6 CHRONIC PAIN, NOTES: 03/10/16@0800 NOT-TAKING TURMERIC 1 TAB(S) ORALLY DAILY NOT-TAKING LIDOCAINE 5 % OINTMENT 1 APPLICATION TO AFFECTED AREA NEEDED EXTERNALLY FOUR TIMES A DAY TO PAINFUL AREAS OF NECK/SACRUM NOT-TAKING CLONIDINE HCL 0.1 MG TABLET 1 TABLET ORALLY TID PRN, NOTES: NONE NOT-TAKING MARINOL 2.5 MG CAPSULE 1 CAPSULE ORALLY BID NOT-TAKING MOBIC 15 MG TABLET 1 TABLET ORALLY ONCE A DAY WITH FOOD NOT-TAKING LIDOCAINE 4 % CREAM DIRECTED EXTERNALLY APPLY TO PAINFUL AREA TAILBONE 4 X PER DAY NEEDED NOT-TAKING VICODIN HP 7.5-325 MG TABLET 1 TAB(S) ORALLY EVERY 4 HOURS NEEDED ([facility]) MEDICATION LIST REVIEWED AND RECONCILED WITH THE PATIENT PAST MEDICAL HISTORY CERVALGIA- C5-6 DISC HERNIATION WITH C6 IMPINGEMENT-DR DAY/ DR YUSUF- [facility]- HYPOTHYROIDISM 2007- DR PABLO SEASONAL ALLERGY/SINUSITIS ENDOMETRIAL POLYP- DR YBARRA DYSPHAGIA-ENT IN [place]- DR MORATAYA BASAL CELL TO RIGHT NOSE - DR. CASTAÑEDA SACRAL PAIN ALLERGIES NEURONTIN 300: DEPRESSION: SIDE EFFECTS BACLOFEN: HEAD ACHES: ALLERGY CYCLOBENZAPRINE HCL: DECREASED MENTAL ALERTNESS: ALLERGY GABAPENTIN: DEPRESSION: ALLERGY TIZANIDINE HCL: HEADACHES: ALLERGY TOPIRAMATE: ALTERED MENTAL STATUS: ALLERGY SURGICAL HISTORY NO PERSONAL OR FHX OF SEVERE REACTION TO ANESTHESIA POLYPECTOMY 2010 ANT CERVI 2011 C-SPINE FUSION _ 03/2011 SKIN CANCER REMOVED FROM NOSE AUGUST 2015 HOSPITALIZATION/MAJOR DIAGNOSTIC PROCEDURE SURGERY RELATED REVIEW OF SYSTEMS REVIEWED BY: PROVIDER: DARBY DALE . CONSTITUTIONAL: ANY CHANGE IN YOUR MEDICAL CONDITION? NO . CHILLS NO . FEVER NO . INFECTION: DO YOU HAVE NEW INFECTIONS? NO . DO YOU HAVE HISTORY OF MRSA? NO . MUSCULOSKELETAL: ANY NEW PATTERNS OF PAIN OR NUMBNESS? NO . GASTROENTEROLOGY: ANY NEW CHANGE IN BOWEL CONTROL? NO . GENITOURINARY: ANY NEW CHANGE IN BLADDER CONTROL? NO . IS THERE A CHANCE YOU COULD BE ? NO . HEMATOLOGY/LYMPH: DO YOU TAKE ANY BLOOD THINNERS? (FOR EXAMPLE- COUMADIN, PLAVIX, AGGRENOX, PLATEL, PRADAXA, OR XARELTO) NO . WHEN WAS YOUR LAST DOSE? DATE: TIME: . NEUROLOGY: HAVE YOU FALLEN IN THE PAST 6 MONTHS? NO . ANY NEW EXTREMITY NUMBNESS OR WEAKNESS? NO . CARDIOLOGY: DO YOU HAVE A PACEMAKER OR DEFIBRILLATOR? NO . RESPIRATORY: HAVE YOU BEEN SICK IN THE PAST WEEK? NO . FEVER NO . FLU LIKE SYMPTOMS? NO . COUGH NO . INTEGUMENTARY: DO YOU HAVE ANY RASHES OR OPEN SORES? NO . ALLERGIC/IMMUNO: ARE YOU ALLERGIC TO SHELLFISH OR IV DYE? NO . ANY NEW ALLERGIES? NO . PSYCHIATRIC: DO YOU HAVE THOUGHTS OF HURTING YOURSELF OR SOMEONE ELSE? NO . ARE YOU ABUSED, NEGLECTED, OR IN AN UNSAFE ENVIRONMENT? NO . ENDOCRINOLOGY: ARE YOU DIABETIC? NO . OTHER: DO YOU NEED ANY PRESCRIPTIONS? YES, METHOCARBAMOL, VICODIN . IF YES, PLEASE LIST: ____ . ANY NEW PROBLEMS WITH YOUR MEDICATIONS? NO . WHEN DID YOU LAST EAT? ____ . WHEN DID YOU LAST DRINK? ____ . WHAT DID YOU LAST DRINK? ____ . NAME OF PERSON DRIVING YOU HOME? ____ . DO YOU HAVE ANY OTHER QUESTIONS OR CONCERNS NO . VITAL SIGNS WT 170 LBS, HT 70 IN, BMI 24.39 INDEX, BP 122/71 MM HG, HR 95 /MIN, RR 16 /MIN, TEMP 98.4 F, OXYGEN SAT % 96%, NA INITIALS SC 09:29, REVIEWED BY: EM. EXAMINATION GENERAL EXAMINATION: PSYCHALERT , ORIENTED X 3 , GOOD EYE CONTACT. LUNGS:CLEAR TO AUSCULTATION BILATERALLY. HEART:HEART RATE REGULAR. MUSCULOSKELETAL:TRIGGER POINTS AND TIGHT FIBROUS BANDS OVER TRAP AND LEFT SACRUM/SIJ. POINT TENDERNESS OVER COCCYX AND LOWERR SACRUM. . ASSESSMENTS SPINAL ENTHESOPATHY, SACRAL AND SACROCOCCYGEAL REGION - M46.08 (PRIMARY) COCCYDYNIA - M53.3 MYALGIA - M79.1 CERVICAL POST-LAMINECTOMY SYNDROME - M96.1 TREATMENT SPINAL ENTHESOPATHY, SACRAL AND SACROCOCCYGEAL REGION REFILL NORCO TABLET, 5-325 MG, 1 TABLET NEEDED, ORALLY, EVERY 6 -8 HOURS PRN PAIN MDD=2, 30 DAY(S), 45, REFILLS 0 REFILL METHOCARBAMOL TABLET, 750 MG, 1 TAB, ORALLY, BID, 30 DAY(S), 60 TABLET, REFILLS 1 NOTES: GANGLION IMPAIR BLOCK TO COCCYXCONTINUE WITH DR CISNEROSDISCUSSED THAT GOAL IS TO WEAN AND DISCONTINUE OPIATES. CLINICAL NOTES: ISTOP REGISTRY REVIEWED AND DEMNOSTRATES COMPLLIANCE. BRINGS IN MEDICATIONS WHICH IS APPROPRIATE FOR WHAT WAS DISPENSED. RECENT URINE TOXICOLOGY REVIEWED. NO UNAUTHORIZED MEDICATIONS. NO ILLICIT SUBSTANCES AND PRESCRIBED MEDICATIONS WERE PRESENT. PROCEDURE CODES [id number] ESTABILISHED PATIENT [facility] FACILITY CHARGE [id number] PAIN ASSESS POS TOOL F/U PLAN DOC [id number] DOC MEDS VERIFIED W/PT OR RE DISPOSITION & COMMUNICATION FOLLOW UP AFTER INJECTION (REASON: CHECK AUTH GANGLION IMPAIR BLOCK TO COCCYX) ELECTRONICALLY SIGNED BY LIZA MERINO ON 10/09/2016 AT 03:06 PM EDT DISCLAIMER : THIS IS A VISIT SUMMARY EXTRACTED FROM THE [employer] CHART. IT IS NOT A COPY OF THE [employer] PROGRESS NOTE. MTDD
== END ==
LOC: M PAIN 09:20
PROVIDERS: ATTEND Nurse Practitioner Family
DX: M46.08 Spinal enthesopathy, sacral and sacrococcygeal region (principal); M53.3 Sacrococcygeal disorders, not elsewhere classified; M79.1 Myalgia; M96.1 Postlaminectomy syndrome, not elsewhere classified; Z79.891 Long term (current) use of opiate analgesic; Z79.899 Other long term (current) drug therapy; Z88.8 Allergy status to other drugs, medicaments and biological substances

== ENCOUNTER → 2016-10-04 | Outpatient (CLI) | payer MEDICARE, MEDICAID ==
[~2016-10-04] MED LIST changes: +BUPIVACAINE HCL 0.25% 30 ML VIAL As Ordered ONE; +ISOVUE-M 300 61% 15ML VIAL (Q9967) As Ordered ONE; +LIDOCAINE 1% SDV INJ 30 ML VIAL As Ordered ONE; +TRIAMCINOLONE ACETONIDE SUSP 40 MG/ML VIAL (J3301) As Ordered ONE; +diazePAM 5 MG TAB As Ordered ONE
--- NOTE | 2016-10-04 13:08 | REP ---
Partial sacrum and coccyx series: Five views. History: Ganglion block for pain. 36 seconds of fluoroscopy time is reported. Findings: A sequence of five last image hold fluoroscopic spot radiographs of the coccyx document needle positions and contrast injections associated with injection procedure. Signed by Luis Vincent MD 10/04/2016 03:02 P
--- NOTE | 2016-10-18 23:37 | ECWPNPC ---
PATIENT NAME: PATRIZIA DICKEY : 1965 GENDER: FEMALE VISIT DATE: 10/04/2016 DISCHARGE DATE: 10/04/16 1233 VISIT LOCKED DATE TIME: PHYSICIAN: KEISHA ENCARNACION PHYSICIAN PAGER NO: INACTIVE RESOURCE: KEISHA ENCARNACION REASON FOR APPOINTMENT 1. GANG IMPAR INJECTION HISTORY OF PRESENT ILLNESS HISTORY OF PRESENT ILLNESS: PAIN THE PATIENT DESCRIBES THE PAIN... FALL RISK SCREENING: SCREENING :NO FALLS IN THE PAST YEAR CURRENT MEDICATIONS TAKING ARIPIPRAZOLE 2 MG TABLET 1 TABLET ORALLY ONCE A DAY, NOTES: 10-03-162099 TAKING SENNA S 8.6-50 MG TABLET 1 TABLET IN THE EVENING NEEDED ORALLY ONCE A DAY NEEDED, NOTES: 10-03-162099 TAKING ABIGAIL ALLERGY 180 MG TABLET 1 TABLET ORALLY ONCE A DAY, NOTES: 10-03-16799 TAKING MAGNESIUM 400 MG CAPSULE 1 TABLET WITH A MEAL ORALLY ONCE A DAY, NOTES: 10-03-16899 TAKING FISH OIL 1200 MG CAPSULE 2 CAPSULES ORALLY ONCE A DAY, NOTES: 10-03-16899 TAKING MULTIVITAMINS OTC TABLET 1 TAB(S) ORALLY DAILY, NOTES: 10-03-16899 TAKING VITAMIN B COMPLEX OTC TABLET 1 TAB(S) ORALLY DAILY, NOTES: 10-03-16899 TAKING CALCIUM 500 MG TABLET CHEWABLE 2 TABLET ORALLY ONCE A DAY, NOTES: 10-03-16899 TAKING VITAMIN D-3 1000 UNITS TABLET 1 TAB(S) ORALLY DAILY, NOTES: 10-03-16899 TAKING SYNTHROID 100 MCG TABLET 1 TABLET ON AN EMPTY STOMACH IN THE MORNING ORALLY ONCE A DAY (DR. PABLO), NOTES: 10-04-16299 TAKING PROZAC 10 40 MG TABLET 1 TAB(S) ORAL ONCE A DAY, NOTES: 10-03-162099 TAKING OSTEO COMPLEX CAPSULE 1 CAP(S) ORALLY DAILY, NOTES: 10-03-16899 TAKING FLONASE 50 MCG/DOSE INHALER 1 SPRAY IN EACH NOSTRIL NASALLY ONCE A DAY, NOTES: 10-04-16299 TAKING MAPROTILINE HCL 50 MG TABLET 1 TABLET ORALLY ONCE A DAY, NOTES: 2099 TAKING BENADRYL 25 MG CAPSULE 1 CAPSULE NEEDED ORALLY EVERY 6 HRS, NOTES: NOT LATEL TAKING SUDAFED 30 MG TABLET 1 TABLET NEEDED ORALLY EVERY 6 HRS, NOTES: NOT LATELY TAKING DIAZEPAM 5 MG TABLET 1 TABLET ORALLY ONCE A DAY NEEDED ([facility]), NOTES: NOT LATELY TAKING NORCO 5-325 MG TABLET 1 TABLET NEEDED ORALLY EVERY 6 -8 HOURS PRN PAIN MDD=2, NOTES: 1000 TAKING METHOCARBAMOL 750 MG TABLET 1 TAB ORALLY BID, NOTES: 10-03-16 2100 NOT-TAKING BUSPIRONE HCL 5 MG TABLET 1 TABLET ORALLY BID NOT-TAKING NASONEX 50 MCG/ACT SUSPENSION 2 SPRAYS IN EACH NOSTRIL NASALLY ONCE A DAY NOT-TAKING NORCO 5-325 MG TABLET 1 TABLET ORALLY EVERY 4 HRS PRN PAIN MDD=6 CHRONIC PAIN, NOTES: 03/10/16@0800 NOT-TAKING TURMERIC 1 TAB(S) ORALLY DAILY NOT-TAKING LIDOCAINE 5 % OINTMENT 1 APPLICATION TO AFFECTED AREA NEEDED EXTERNALLY FOUR TIMES A DAY TO PAINFUL AREAS OF NECK/SACRUM NOT-TAKING CLONIDINE HCL 0.1 MG TABLET 1 TABLET ORALLY TID PRN, NOTES: NONE NOT-TAKING MARINOL 2.5 MG CAPSULE 1 CAPSULE ORALLY BID NOT-TAKING MOBIC 15 MG TABLET 1 TABLET ORALLY ONCE A DAY WITH FOOD NOT-TAKING LIDOCAINE 4 % CREAM DIRECTED EXTERNALLY APPLY TO PAINFUL AREA TAILBONE 4 X PER DAY NEEDED NOT-TAKING VICODIN HP 7.5-325 MG TABLET 1 TAB(S) ORALLY EVERY 4 HOURS NEEDED ([facility]) MEDICATION LIST REVIEWED AND RECONCILED WITH THE PATIENT PAST MEDICAL HISTORY CERVALGIA- C5-6 DISC HERNIATION WITH C6 IMPINGEMENT-DR DAY/ DR YUSUF- [facility]- HYPOTHYROIDISM 2007- DR PABLO SEASONAL ALLERGY/SINUSITIS ENDOMETRIAL POLYP- DR YBARRA DYSPHAGIA-ENT IN [place]- DR MORATAYA BASAL CELL TO RIGHT NOSE - DR. CASTAÑEDA SACRAL PAIN ALLERGIES NEURONTIN 300: DEPRESSION: SIDE EFFECTS BACLOFEN: HEAD ACHES: ALLERGY CYCLOBENZAPRINE HCL: DECREASED MENTAL ALERTNESS: ALLERGY GABAPENTIN: DEPRESSION: ALLERGY TIZANIDINE HCL: HEADACHES: ALLERGY TOPIRAMATE: ALTERED MENTAL STATUS: ALLERGY REVIEW OF SYSTEMS REVIEWED BY: PROVIDER: . CONSTITUTIONAL: ANY CHANGE IN YOUR MEDICAL CONDITION? NO . CHILLS NO . FEVER NO . INFECTION: DO YOU HAVE NEW INFECTIONS? NO . DO YOU HAVE HISTORY OF MRSA? NO . MUSCULOSKELETAL: ANY NEW PATTERNS OF PAIN OR NUMBNESS? NO . GASTROENTEROLOGY: ANY NEW CHANGE IN BOWEL CONTROL? NO . GENITOURINARY: ANY NEW CHANGE IN BLADDER CONTROL? NO . IS THERE A CHANCE YOU COULD BE ? NO . HEMATOLOGY/LYMPH: DO YOU TAKE ANY BLOOD THINNERS? (FOR EXAMPLE- COUMADIN, PLAVIX, AGGRENOX, PLATEL, PRADAXA, OR XARELTO) NO . WHEN WAS YOUR LAST DOSE? DATE: TIME: . NEUROLOGY: HAVE YOU FALLEN IN THE PAST 6 MONTHS? NO . ANY NEW EXTREMITY NUMBNESS OR WEAKNESS? NO . CARDIOLOGY: DO YOU HAVE A PACEMAKER OR DEFIBRILLATOR? NO . RESPIRATORY: HAVE YOU BEEN SICK IN THE PAST WEEK? NO . FEVER NO . FLU LIKE SYMPTOMS? NO . COUGH NO . INTEGUMENTARY: DO YOU HAVE ANY RASHES OR OPEN SORES? NO . ALLERGIC/IMMUNO: ARE YOU ALLERGIC TO SHELLFISH OR IV DYE? NO . ANY NEW ALLERGIES? NO . PSYCHIATRIC: DO YOU HAVE THOUGHTS OF HURTING YOURSELF OR SOMEONE ELSE? NO . ARE YOU ABUSED, NEGLECTED, OR IN AN UNSAFE ENVIRONMENT? NO . ENDOCRINOLOGY: ARE YOU DIABETIC? NO . OTHER: DO YOU NEED ANY PRESCRIPTIONS? NO . IF YES, PLEASE LIST: ____ . ANY NEW PROBLEMS WITH YOUR MEDICATIONS? NO . WHEN DID YOU LAST EAT? ____445 THIS MORNING . WHEN DID YOU LAST DRINK? ____10 1M THIS MORNING . WHAT DID YOU LAST DRINK? ____SIP OF WATER FOR MED . NAME OF PERSON DRIVING YOU HOME? ____RUSSELL CAMPONINGS . DO YOU HAVE ANY OTHER QUESTIONS OR CONCERNS NO . VITAL SIGNS WT 170 LBS, HT 70 IN, BMI 24.39 INDEX, BP 117/67 MM HG, HR 81 /MIN, RR 16 /MIN, TEMP 98.5 F, OXYGEN SAT % 96%, NA INITIALS SC 11:19, REVIEWED BY: KG. ASSESSMENTS NEURALGIA AND NEURITIS, UNSPECIFIED - M79.2 (PRIMARY) PELVIC NEURALGIA. TREATMENT OTHERS NOTES: PRE-PROCEDURE DIAGNOSIS: PELVIC PAIN, PELVIC NEURALGIAPOST-PROCEDURE DIAGNOSIS: PELVIC PAIN, PELVIC NEURALGIAPROCEDURE: GANGLION IMPAR BLOCK WITH FLUOROSCOPIC GUIDANCESURGEON: KEISHA ENCARNACION MDANESTHESIA: LOCALCOMPLICATIONS: NONEPRE-PROCEDURE NOTE: THE PATIENT HAS BEEN SUFFERING OF PELVIC PAIN. WE HAVE USE MEDICATIONS AND OTHER MODALITIES AND THE PAIN HAS PERSISTED. AFTER DISCUSSING ALTERNATIVES WE HAVE AGREED ON DOING A GANGLION IMPAR BLOCK LOOKING FOR LONG LASTING PAIN RELIEF. PROCEDURE NOTE: AFTER CONSENT WAS REVIEWED WITH THE PATIENT WE TOOK THE PATIENT TO THE PROCEDURE ROOM AND PLACED IT IN THE PRONE POSITION. LUMBOSACRAL AREA WAS CLEANED WITH BETHADINE SOLUTION AND DRAPED ASEPTICALLY. PROCEDURE WAS DONE UNDER STERILE CONDITIONS. THE SACRAL AREA WAS IDENTIFIED UNDER FLUOROSCOPY. THEN THE SACROCOCCYGEAL LIGAMENT WAS IDENTIFIED IN AP AND LATERAL VIEWS. THEN USING A 22 G NEEDLE WE ADVANCED THROUGH THE LIGAMENT SLOWLY UNTIL THE ANTERIOR BORDER OF THE LIGAMENT WAS REACHED. THE NEEDLE WAS ADVANCED SLOWLY WITH A LOSS OF RESISTANCE TECHNIQUE AND MULTIPLE LATERAL VIEWS. ISOVIEW DYE 30% 0.25 CC WAS INJECTED SHOWING ADEQUATE SPREAD OF THE DYE. THEN A SOLUTION OF 5 CC OF BUPIVACAINE .125% WITH KENALOG 30 MG WAS INJECTED. THERE WAS NO EVIDENCE OF VISCERAL OR BLADDER PUNCTURE. THERE WAS NO EVIDENCE OF PARESTHESIA OR VASCULAR UPTAKE. THE PATIENT WAS SEND TO THE RECOVERY ROOM. THERE WERE NO COMPLICATIONS. FLUORO TIME WAS 36 SECONDSPOST-PROCEDURE NOTE: THE PATIENT WILL BE SEEN IN A FOLLOW UP IN THE NEXT FEW WEEKS. THERE WERE NO COMPLICATIONS.I, MERCEDEZ HUNT, DOCUMENTED THE ABOVE INFORMATION ACTING A SCRIBE FOR DR. ENCARNACION.I, DR. ENCARNACION, HAVE REVIEWED THE ABOVE DOCUMENT, SCRIBED BY MERCEDEZ HUNT, AND I VERIFY THAT IT IS ACCURATE. DIAGNOSTIC IMAGING [facility] FLUORO GUIDANCE (PAIN)[id number] PROCEDURE CODES 78052 NERVOUS SYSTEM SURGERY 6045F RADXPS IN END [id number] PXD 73914 NEEDLE LOCALIZATION BY XRAY DISPOSITION & COMMUNICATION FOLLOW UP 3 WEEKS ELECTRONICALLY SIGNED BY KEISHA ENCARNACION MD ON 10/18/2016 AT 08:22 PM EDT DISCLAIMER : THIS IS A VISIT SUMMARY EXTRACTED FROM THE [employer] CHART. IT IS NOT A COPY OF THE [employer] PROGRESS NOTE. MARTA
== END ==
LOC: M PAIN 11:00
PROVIDERS: ATTEND Anesthesiology
DX: M79.2 Neuralgia and neuritis, unspecified (principal); G89.29 Other chronic pain; M54.2 Cervicalgia; F41.9 Anxiety disorder, unspecified; F32.9 Major depressive disorder, single episode, unspecified; Z79.891 Long term (current) use of opiate analgesic; Z79.899 Other long term (current) drug therapy; Z88.8 Allergy status to other drugs, medicaments and biological substances
CPT/HCPCS: 64520; 77003; J3301; Q9967

== ENCOUNTER → 2016-10-20 | Outpatient (CLI) | payer MEDICARE, MEDICAID ==
[~2016-10-20] MED LIST changes: -BUPIVACAINE HCL 0.25% 30 ML VIAL As Ordered ONE; -ISOVUE-M 300 61% 15ML VIAL (Q9967) As Ordered ONE; -LIDOCAINE 1% SDV INJ 30 ML VIAL As Ordered ONE; -TRIAMCINOLONE ACETONIDE SUSP 40 MG/ML VIAL (J3301) As Ordered ONE; -diazePAM 5 MG TAB As Ordered ONE
--- NOTE | 2016-11-09 02:10 | ECWPNPC ---
PATIENT NAME: PATRIZIA DICKEY : 1965 GENDER: FEMALE VISIT DATE: 10/20/2016 DISCHARGE DATE: 10/20/16932 VISIT LOCKED DATE TIME: PHYSICIAN: DARBY MCCLOUD PHYSICIAN PAGER NO: INACTIVE RESOURCE: DARBY MCCLOUD REASON FOR APPOINTMENT 1. POST GANG IMPAR HISTORY OF PRESENT ILLNESS HISTORY OF PRESENT ILLNESS: PAIN THE PATIENT DESCRIBES THE PAIN... FALL RISK SCREENING: SCREENING :NO FALLS IN THE PAST YEAR TODAY'S VISIT: NOTES: S/P IMPAIR GANGLION BLOCK COMPLETED ON 10/04/16. PAIN LEVEL PRIOR TO TREATMENT 6/10 - IN THE IMMEDIATE POST TREATMENT PERIOD OF THE 1ST DAY PAIN LEVEL AT 0/10 AND THEN RETURNED TO 5/10. NOTES INTENSE DISCOMFORT OVER TOP OF THE COCCYX, AND HAS GOOD RELIEF ON THE UNDER SIDE OF THE COCCYX. CURRENTLY HAVING INCREASED SIJ PAIN BILATERALLY. CURRENT MEDICATIONS TAKING ARIPIPRAZOLE 2 MG TABLET 1 TABLET ORALLY ONCE A DAY TAKING SENNA S 8.6-50 MG TABLET 1 TABLET IN THE EVENING NEEDED ORALLY ONCE A DAY NEEDED TAKING ABIGAIL ALLERGY 180 MG TABLET 1 TABLET ORALLY ONCE A DAY TAKING MAGNESIUM 400 MG CAPSULE 1 TABLET WITH A MEAL ORALLY ONCE A DAY TAKING FISH OIL 1200 MG CAPSULE 2 CAPSULES ORALLY ONCE A DAY TAKING MULTIVITAMINS OTC TABLET 1 TAB(S) ORALLY DAILY TAKING VITAMIN B COMPLEX OTC TABLET 1 TAB(S) ORALLY DAILY TAKING CALCIUM 500 MG TABLET CHEWABLE 2 TABLET ORALLY ONCE A DAY TAKING VITAMIN D-3 1000 UNITS TABLET 1 TAB(S) ORALLY DAILY TAKING SYNTHROID 100 MCG TABLET 1 TABLET ON AN EMPTY STOMACH IN THE MORNING ORALLY ONCE A DAY (DR. PABLO) TAKING PROZAC 10 40 MG TABLET 1 TAB(S) ORAL ONCE A DAY TAKING OSTEO COMPLEX CAPSULE 1 CAP(S) ORALLY DAILY TAKING FLONASE 50 MCG/DOSE INHALER 1 SPRAY IN EACH NOSTRIL NASALLY ONCE A DAY TAKING MAPROTILINE HCL 50 MG TABLET 1 TABLET ORALLY ONCE A DAY TAKING BENADRYL 25 MG CAPSULE 1 CAPSULE NEEDED ORALLY EVERY 6 HRS TAKING SUDAFED 30 MG TABLET 1 TABLET NEEDED ORALLY EVERY 6 HRS TAKING DIAZEPAM 5 MG TABLET 1 TABLET ORALLY ONCE A DAY NEEDED ([facility]) TAKING NORCO 5-325 MG TABLET 1 TABLET NEEDED ORALLY EVERY 6 -8 HOURS PRN PAIN MDD=2 TAKING METHOCARBAMOL 750 MG TABLET 1 TAB ORALLY BID NOT-TAKING BUSPIRONE HCL 5 MG TABLET 1 TABLET ORALLY BID NOT-TAKING NASONEX 50 MCG/ACT SUSPENSION 2 SPRAYS IN EACH NOSTRIL NASALLY ONCE A DAY NOT-TAKING NORCO 5-325 MG TABLET 1 TABLET ORALLY EVERY 4 HRS PRN PAIN MDD=6 CHRONIC PAIN, NOTES: 03/10/16@0800 NOT-TAKING TURMERIC 1 TAB(S) ORALLY DAILY NOT-TAKING LIDOCAINE 5 % OINTMENT 1 APPLICATION TO AFFECTED AREA NEEDED EXTERNALLY FOUR TIMES A DAY TO PAINFUL AREAS OF NECK/SACRUM NOT-TAKING CLONIDINE HCL 0.1 MG TABLET 1 TABLET ORALLY TID PRN, NOTES: NONE NOT-TAKING MARINOL 2.5 MG CAPSULE 1 CAPSULE ORALLY BID NOT-TAKING MOBIC 15 MG TABLET 1 TABLET ORALLY ONCE A DAY WITH FOOD NOT-TAKING LIDOCAINE 4 % CREAM DIRECTED EXTERNALLY APPLY TO PAINFUL AREA TAILBONE 4 X PER DAY NEEDED NOT-TAKING VICODIN HP 7.5-325 MG TABLET 1 TAB(S) ORALLY EVERY 4 HOURS NEEDED ([facility]) MEDICATION LIST REVIEWED AND RECONCILED WITH THE PATIENT PAST MEDICAL HISTORY CERVALGIA- C5-6 DISC HERNIATION WITH C6 IMPINGEMENT-DR DAY/ DR YUSUF- [facility]- HYPOTHYROIDISM 2007- DR PABLO SEASONAL ALLERGY/SINUSITIS ENDOMETRIAL POLYP- DR YBARRA DYSPHAGIA-ENT IN [place]- DR MORATAYA BASAL CELL TO RIGHT NOSE - DR. CASTAÑEDA SACRAL PAIN ALLERGIES NEURONTIN 300: DEPRESSION: SIDE EFFECTS BACLOFEN: HEAD ACHES: ALLERGY CYCLOBENZAPRINE HCL: DECREASED MENTAL ALERTNESS: ALLERGY GABAPENTIN: DEPRESSION: ALLERGY TIZANIDINE HCL: HEADACHES: ALLERGY TOPIRAMATE: ALTERED MENTAL STATUS: ALLERGY REVIEW OF SYSTEMS REVIEWED BY: PROVIDER: DARBY DALE . CONSTITUTIONAL: ANY CHANGE IN YOUR MEDICAL CONDITION? NO . CHILLS NO . FEVER NO . INFECTION: DO YOU HAVE NEW INFECTIONS? NO . DO YOU HAVE HISTORY OF MRSA? NO . MUSCULOSKELETAL: ANY NEW PATTERNS OF PAIN OR NUMBNESS? NO . GASTROENTEROLOGY: ANY NEW CHANGE IN BOWEL CONTROL? NO . GENITOURINARY: ANY NEW CHANGE IN BLADDER CONTROL? NO . IS THERE A CHANCE YOU COULD BE ? NO . HEMATOLOGY/LYMPH: DO YOU TAKE ANY BLOOD THINNERS? (FOR EXAMPLE- COUMADIN, PLAVIX, AGGRENOX, PLATEL, PRADAXA, OR XARELTO) NO . WHEN WAS YOUR LAST DOSE? DATE: TIME: . NEUROLOGY: HAVE YOU FALLEN IN THE PAST 6 MONTHS? NO . ANY NEW EXTREMITY NUMBNESS OR WEAKNESS? NO . CARDIOLOGY: DO YOU HAVE A PACEMAKER OR DEFIBRILLATOR? NO . RESPIRATORY: HAVE YOU BEEN SICK IN THE PAST WEEK? NO . FEVER NO . FLU LIKE SYMPTOMS? NO . COUGH NO . INTEGUMENTARY: DO YOU HAVE ANY RASHES OR OPEN SORES? NO . ALLERGIC/IMMUNO: ARE YOU ALLERGIC TO SHELLFISH OR IV DYE? NO . ANY NEW ALLERGIES? NO . PSYCHIATRIC: DO YOU HAVE THOUGHTS OF HURTING YOURSELF OR SOMEONE ELSE? NO . ARE YOU ABUSED, NEGLECTED, OR IN AN UNSAFE ENVIRONMENT? NO . ENDOCRINOLOGY: ARE YOU DIABETIC? NO . OTHER: DO YOU NEED ANY PRESCRIPTIONS? YES . IF YES, PLEASE LIST: VICODIN . ANY NEW PROBLEMS WITH YOUR MEDICATIONS? NO . WHEN DID YOU LAST EAT? ____ . WHEN DID YOU LAST DRINK? ____ . WHAT DID YOU LAST DRINK? ____ . NAME OF PERSON DRIVING YOU HOME? ____ . DO YOU HAVE ANY OTHER QUESTIONS OR CONCERNS NO . VITAL SIGNS WT 170 LBS, HT 70 IN, BMI 24.39 INDEX, BP 116/69 MM HG, HR 82 /MIN, RR 16 /MIN, TEMP 97 F,7 F, OXYGEN SAT % 97, REVIEWED BY: NL. EXAMINATION GENERAL EXAMINATION: PSYCHALERT , ORIENTED X 3 , GOOD EYE CONTACT. LUNGS:CLEAR TO AUSCULTATION BILATERALLY. HEART:HEART RATE REGULAR. MUSCULOSKELETAL:TRIGGER POINTS AND TIGHT FIBROUS BANDS OVER TRAP AND LEFT SACRUM/SIJ. POINT TENDERNESS OVER COCCYX AND LOWERR SACRUM. POINT TENDERNESS OF=JUDAH BILATERAL SACRAL ILIAC JOINTS. POSITIVE SARWAT SIGN BILATERALLY. SLOW TO RISE TO STANDING POSITION. POSTURE STIFF. ASSESSMENTS SPINAL ENTHESOPATHY, SACRAL AND SACROCOCCYGEAL REGION - M46.08 (PRIMARY) COCCYDYNIA - M53.3 MYALGIA - M79.1 CERVICAL POST-LAMINECTOMY SYNDROME - M96.1 SACROILIITIS - M46.1 TREATMENT SPINAL ENTHESOPATHY, SACRAL AND SACROCOCCYGEAL REGION REFILL NORCO TABLET, 5-325 MG, 1 TABLET NEEDED, ORALLY, EVERY 6 -8 HOURS PRN PAIN MDD=2, 30 DAY(S), 45, REFILLS 0 INJECTION ANESTHETIC SACROILIAC JOINTDARBY MCCLOUD 10/20/2016 9:19:10 AM > BILATERAL NOTES: TALK TO PRIMARY ABOUT BEING TESTED FOR SLEEP APNEA . CLINICAL NOTES: ISTOP REGISTRY REVIEWED AND DEMNOSTRATES COMPLLIANCE. (#[id number]) BRINGS IN MEDICATIONS WHICH IS APPROPRIATE FOR WHAT WAS DISPENSED. RECENT URINE TOXICOLOGY REVIEWED. NO UNAUTHORIZED MEDICATIONS. NO ILLICIT SUBSTANCES AND PRESCRIBED MEDICATIONS WERE PRESENT. PREVENTIVE MEDICINE DISCUSSED PROCEDURE AND PRE PROCEDURE CARE WITH UNDERSTANDING EXPRESSED. PROCEDURE CODES FA211 ESTABILISHED PATIENT [facility] FACILITY CHARGE G8730 PAIN ASSESS POS TOOL F/U PLAN DOC G8427 DOC MEDS VERIFIED W/PT OR RE DISPOSITION & COMMUNICATION FOLLOW UP AFTER INJECTION (REASON: CHECK AUTH FOR [facility]) ELECTRONICALLY SIGNED BY LIZA MERINO ON 11/08/2016 AT 07:25 PM EDT DISCLAIMER : THIS IS A VISIT SUMMARY EXTRACTED FROM THE [employer] CHART. IT IS NOT A COPY OF THE [employer] PROGRESS NOTE. [facility]
== END ==
LOC: M PAIN 08:30
PROVIDERS: ATTEND Nurse Practitioner Family
DX: M46.08 Spinal enthesopathy, sacral and sacrococcygeal region (principal); M53.3 Sacrococcygeal disorders, not elsewhere classified; M79.1 Myalgia; M96.1 Postlaminectomy syndrome, not elsewhere classified; M46.1 Sacroiliitis, not elsewhere classified; Z79.891 Long term (current) use of opiate analgesic; Z79.899 Other long term (current) drug therapy; Z88.5 Allergy status to narcotic agent; Z88.8 Allergy status to other drugs, medicaments and biological substances

== ENCOUNTER → 2016-11-01 | Outpatient (CLI) | payer MEDICARE, MEDICAID ==
[~2016-11-01] MED LIST changes: +BUPIVACAINE HCL 0.25% 30 ML VIAL As Ordered ONE; +ISOVUE-M 300 61% 15ML VIAL (Q9967) As Ordered ONE; +LIDOCAINE 1% SDV INJ 30 ML VIAL As Ordered ONE; +TRIAMCINOLONE ACETONIDE SUSP 40 MG/ML VIAL (J3301) As Ordered ONE; +diazePAM 5 MG TAB As Ordered ONE
== END ==
LOC: M PAIN 14:15
PROVIDERS: ATTEND Anesthesiology
DX: Z53.29 Procedure and treatment not carried out because of patient's decision for other reasons (principal)

== ENCOUNTER → 2016-11-03 | Outpatient (CLI) | payer MEDICARE, MEDICAID ==
[~2016-11-03] MED LIST changes: -BUPIVACAINE HCL 0.25% 30 ML VIAL As Ordered ONE; -ISOVUE-M 300 61% 15ML VIAL (Q9967) As Ordered ONE; -LIDOCAINE 1% SDV INJ 30 ML VIAL As Ordered ONE; -TRIAMCINOLONE ACETONIDE SUSP 40 MG/ML VIAL (J3301) As Ordered ONE; -diazePAM 5 MG TAB As Ordered ONE
== END ==
LOC: M PAIN 11:07
PROVIDERS: ATTEND Anesthesiology
DX: Z53.8 Procedure and treatment not carried out for other reasons (principal)

== ENCOUNTER → 2016-11-03 | Outpatient (CLI) | payer MEDICARE, MEDICAID ==
--- NOTE | 2016-11-03 13:31 | REP ---
Partial SI joint series: Two views. History: Injection procedure for pain. 22 seconds of fluoroscopy time is reported. Findings: A sequence of two last image hold fluoroscopic spot radiographs of the SI joints document needle position and contrast injection associated with SI joint injection procedure. Signed by Luis Vincent MD 11/03/2016 05:24 P
--- NOTE | 2016-11-03 23:02 | ECWPNPC ---
PATIENT NAME: PATRIZIA DICKEY : 1965 GENDER: FEMALE VISIT DATE: 11/03/2016 DISCHARGE DATE: 11/03/16 1121 VISIT LOCKED DATE TIME: PHYSICIAN: KEISHA ENCARNACION PHYSICIAN PAGER NO: INACTIVE RESOURCE: KEISHA ENCARNACION REASON FOR APPOINTMENT 1. MALCOM SIJ HISTORY OF PRESENT ILLNESS HISTORY OF PRESENT ILLNESS: PAIN THE PATIENT DESCRIBES THE PAIN... FALL RISK SCREENING: SCREENING :NO FALLS IN THE PAST YEAR CURRENT MEDICATIONS TAKING ARIPIPRAZOLE 2 MG TABLET 1 TABLET ORALLY ONCE A DAY, NOTES: 11/02/16@1899 TAKING SENNA S 8.6-50 MG TABLET 1 TABLET IN THE EVENING NEEDED ORALLY ONCE A DAY NEEDED, NOTES: 11/02/16@2099 TAKING ABIGAIL ALLERGY 180 MG TABLET 1 TABLET ORALLY ONCE A DAY, NOTES: 11/02/16 TAKING MAGNESIUM 400 MG CAPSULE 1 TABLET WITH A MEAL ORALLY ONCE A DAY, NOTES: 11/02/16 TAKING FISH OIL 1200 MG CAPSULE 2 CAPSULES ORALLY ONCE A DAY, NOTES: 11/02/16 TAKING MULTIVITAMINS OTC TABLET 1 TAB(S) ORALLY DAILY, NOTES: 11/02/16 TAKING VITAMIN B COMPLEX OTC TABLET 1 TAB(S) ORALLY DAILY, NOTES: 11/02/16 TAKING CALCIUM 500 MG TABLET CHEWABLE 2 TABLET ORALLY ONCE A DAY, NOTES: 11/02/16 TAKING VITAMIN D-3 1000 UNITS TABLET 1 TAB(S) ORALLY DAILY, NOTES: 11/02/16 TAKING SYNTHROID 100 MCG TABLET 1 TABLET ON AN EMPTY STOMACH IN THE MORNING ORALLY ONCE A DAY (DR. PABLO), NOTES: 644 TAKING PROZAC 10 40 MG TABLET 1 TAB(S) ORAL ONCE A DAY, NOTES: TAKING OSTEO COMPLEX CAPSULE 1 CAP(S) ORALLY DAILY, NOTES: 11/02/18 TAKING FLONASE 50 MCG/DOSE INHALER 1 SPRAY IN EACH NOSTRIL NASALLY ONCE A DAY, NOTES: 0645 TAKING MAPROTILINE HCL 50 MG TABLET 1 TABLET ORALLY ONCE A DAY, NOTES: 11/02/160 TAKING BENADRYL 25 MG CAPSULE 1 CAPSULE NEEDED ORALLY EVERY 6 HRS, NOTES: 1 MONTH AGO TAKING SUDAFED 30 MG TABLET 1 TABLET NEEDED ORALLY EVERY 6 HRS, NOTES: 1 MONTH AGO TAKING DIAZEPAM 5 MG TABLET 1 TABLET ORALLY ONCE A DAY NEEDED ([facility]), NOTES: 2 WEEKS AGO TAKING METHOCARBAMOL 750 MG TABLET 1 TAB ORALLY BID, NOTES: 11/02/16@1900 TAKING NORCO 5-325 MG TABLET 1 TABLET NEEDED ORALLY EVERY 6 -8 HOURS PRN PAIN MDD=2, NOTES: 0645 NOT-TAKING BUSPIRONE HCL 5 MG TABLET 1 TABLET ORALLY BID NOT-TAKING NASONEX 50 MCG/ACT SUSPENSION 2 SPRAYS IN EACH NOSTRIL NASALLY ONCE A DAY NOT-TAKING NORCO 5-325 MG TABLET 1 TABLET ORALLY EVERY 4 HRS PRN PAIN MDD=6 CHRONIC PAIN, NOTES: 03/10/16@0800 NOT-TAKING TURMERIC 1 TAB(S) ORALLY DAILY NOT-TAKING LIDOCAINE 5 % OINTMENT 1 APPLICATION TO AFFECTED AREA NEEDED EXTERNALLY FOUR TIMES A DAY TO PAINFUL AREAS OF NECK/SACRUM NOT-TAKING CLONIDINE HCL 0.1 MG TABLET 1 TABLET ORALLY TID PRN, NOTES: NONE NOT-TAKING MARINOL 2.5 MG CAPSULE 1 CAPSULE ORALLY BID NOT-TAKING MOBIC 15 MG TABLET 1 TABLET ORALLY ONCE A DAY WITH FOOD NOT-TAKING LIDOCAINE 4 % CREAM DIRECTED EXTERNALLY APPLY TO PAINFUL AREA TAILBONE 4 X PER DAY NEEDED NOT-TAKING VICODIN HP 7.5-325 MG TABLET 1 TAB(S) ORALLY EVERY 4 HOURS NEEDED ([facility]) MEDICATION LIST REVIEWED AND RECONCILED WITH THE PATIENT PAST MEDICAL HISTORY CERVALGIA- C5-6 DISC HERNIATION WITH C6 IMPINGEMENT-DR DAY/ DR YUSUF- [facility] 2007- DR PABLO SEASONAL ALLERGY/SINUSITIS ENDOMETRIAL POLYP- DR YBARRA DYSPHAGIA-ENT IN [place]- DR MORATAYA BASAL CELL TO RIGHT NOSE - DR. CASTAÑEDA SACRAL PAIN ALLERGIES NEURONTIN 300: DEPRESSION: SIDE EFFECTS BACLOFEN: HEAD ACHES: ALLERGY CYCLOBENZAPRINE HCL: DECREASED MENTAL ALERTNESS: ALLERGY GABAPENTIN: DEPRESSION: ALLERGY TIZANIDINE HCL: HEADACHES: ALLERGY TOPIRAMATE: ALTERED MENTAL STATUS: ALLERGY SOCIAL HISTORY GENERAL: PAIN CLINIC PFS, CLERGY, PUBLIC HEALTH REFERRALS PFS REFERRAL NEEDED?NO CLERGY REFERRAL NEEDED?NO PUBLIC HEALTH REFERRAL NEEDED?NO WAS THE PROVIDER NOTIFIED OF ANY PERTINENT INFO?NO HAS THE PATIENT BEEN EDUCATED REGARDING HIS/HER PLAN OF CARE?YES HAS THE PATIENT BEEN EDUCATED REGARDING PAIN, THE RISK FOR PAIN, THE IMPORTANCE OF EFFECTIVE PAIN MANAGEMENT, AND THE PAIN ASSESSMENT PROCESS?YES PATIENT: ____. REVIEW OF SYSTEMS REVIEWED BY: PROVIDER: . CONSTITUTIONAL: ANY CHANGE IN YOUR MEDICAL CONDITION? NO . CHILLS NO . FEVER NO . INFECTION: DO YOU HAVE NEW INFECTIONS? NO . DO YOU HAVE HISTORY OF MRSA? NO . MUSCULOSKELETAL: ANY NEW PATTERNS OF PAIN OR NUMBNESS? NO . GASTROENTEROLOGY: ANY NEW CHANGE IN BOWEL CONTROL? NO . GENITOURINARY: ANY NEW CHANGE IN BLADDER CONTROL? NO . IS THERE A CHANCE YOU COULD BE ? NO . HEMATOLOGY/LYMPH: DO YOU TAKE ANY BLOOD THINNERS? (FOR EXAMPLE- COUMADIN, PLAVIX, AGGRENOX, PLATEL, PRADAXA, OR XARELTO) NO . WHEN WAS YOUR LAST DOSE? DATE: TIME: . NEUROLOGY: HAVE YOU FALLEN IN THE PAST 6 MONTHS? NO . ANY NEW EXTREMITY NUMBNESS OR WEAKNESS? NO . CARDIOLOGY: DO YOU HAVE A PACEMAKER OR DEFIBRILLATOR? NO . RESPIRATORY: HAVE YOU BEEN SICK IN THE PAST WEEK? NO . FEVER NO . FLU LIKE SYMPTOMS? NO . COUGH NO . INTEGUMENTARY: DO YOU HAVE ANY RASHES OR OPEN SORES? NO . ALLERGIC/IMMUNO: ARE YOU ALLERGIC TO SHELLFISH OR IV DYE? NO . ANY NEW ALLERGIES? NO . PSYCHIATRIC: DO YOU HAVE THOUGHTS OF HURTING YOURSELF OR SOMEONE ELSE? NO . ARE YOU ABUSED, NEGLECTED, OR IN AN UNSAFE ENVIRONMENT? NO . ENDOCRINOLOGY: ARE YOU DIABETIC? NO . OTHER: DO YOU NEED ANY PRESCRIPTIONS? NO . IF YES, PLEASE LIST: ____ . ANY NEW PROBLEMS WITH YOUR MEDICATIONS? NO . WHEN DID YOU LAST EAT? ____11/02/16 . WHEN DID YOU LAST DRINK? ____0645 . WHAT DID YOU LAST DRINK? ____WATER . NAME OF PERSON DRIVING YOU HOME? ____RUSSELL DICKEY . DO YOU HAVE ANY OTHER QUESTIONS OR CONCERNS NO . VITAL SIGNS WT 170 LBS, HT 70 IN, BMI 24.39 INDEX, BP 112/75 MM HG, HR 72 /MIN, RR 16 /MIN, TEMP 97.3 F, OXYGEN SAT % 98%, NA INITIALS SC 09:00, REVIEWED BY: [employer]. ASSESSMENTS SACROILIITIS, NOT ELSEWHERE CLASSIFIED - M46.1 (PRIMARY) PROCEDURES PN SI PRE PROCEDURE DIAGNOSIS SACROILIITIS, SACROILIAC JOINT DYSFUNCTION POST PROCEDURE DIAGNOSIS SACROILIITIS, SACROILIAC JOINT DYSFUNCTION PROCEDURE BILATERAL SACROILIAC JOINT BLOCK SURGEON DR. KEISHA ENCARNACION WARRANT SERVER NONE ANESTHESIA LOCAL PRE PROCEDURE NOTE PATIENT WITH HISTORY OF CHRONIC LOW BACK PAIN. I EVALUATED THE PATIENT AND REVIEWED THE CHART. I WENT OVER THE RISKS, ALTERNATIVES, AND BENEFITS ASSOCIATED WITH THIS PROCEDURE. THE PATIENT WOULD LIKE TO PROCEED AND GAVE CONSENT TO PERFORM THE PROCEDURE. THE PATIENT DENIES UNEXPLAINABLE WEIGHT LOSS, FEVER, CHILLS, OR NEW CHANGES IN URINARY OR BOWEL CONTROL DESCRIPTION OF PROCEDURE THE PATIENT WAS BROUGHT TO THE PROCEDURE ROOM AND PLACED IN THE PRONE POSITION. THE LUMBOSACRAL AREA WAS CLEANED WITH CHLORAPREP SOLUTION AND DRAPED ASEPTICALLY. THE PROCEDURE WAS DONE UNDER STERILE CONDITIONS. I CHECKED LATERALITY AND THE LEVEL WHERE THE PROCEDURE WAS GOING TO BE PERFORMED WITH THE PATIENT AND THE SUPPORTING STAFF AT THE MOMENT OF THE TIME OUT IN THE PROCEDURE ROOM. UNDER FLUOROSCOPIC GUIDANCE, TARGET POINT WAS SELECTED AT THE LOWER BORDER OF THE RIGHT AND LEFT SACROILIAC JOINT. TARGET POINT WAS SELECTED AFTER MEDIAL ROTATION AND TILT OF THE MAGNIFIER OF THE C-ARM. LIDOCAINE WAS USED TO NUMB THE SKIN AND SUBCUTANEOUS TISSUE BELOW IT. A SPINAL NEEDLE, 22-GAUGE, WAS ADVANCED UNDER FLUOROSCOPIC GUIDANCE AND FOLLOWING PATIENT FEEDBACK UNTIL THE TARGET AREA WAS TOUCHED. THE POSITION OF THE NEEDLE WAS VERIFIED WITH AP AND LATERAL VIEWS. AFTER PROPER POSITION OF THE NEEDLE WAS ACHIEVED, ISOVUE M DYE 30%, 0.25 ML, WAS INJECTED SHOWING SPREAD OF THE DYE. THEN, A SOLUTION OF 20 MG OF KENALOG WAS INJECTED IN RIGHT JOINT WITH 3 ML OF BUPIVACAINE 0.125%. THERE WAS NO EVIDENCE OF BLOOD, PARESTHESIA OR CEREBROSPINAL FLUID DURING THE PROCEDURE. THE PATIENT WAS SENT TO THE RECOVERY ROOM. THE PATIENT WAS MOVING THE EXTREMITIES AND DOING WELL. THERE WAS NO COMPLICATION DURING THE PROCEDURE. FLUOROSCOPY TIME WAS 22 SECONDS POST PROCEDURE NOTE THE PATIENT WILL BE SEEN IN A FOLLOW UP IN THE NEXT FEW WEEKS. INSTRUCTIONS WERE GIVEN, QUESTIONS WERE ANSWERED, AND THE PATIENT EXPRESSED UNDERSTANDING AND AGREED WITH THE PLAN. I, MERCEDEZ HUNT, DOCUMENTED THE ABOVE INFORMATION ACTING A SCRIBE FOR DR. ENCARNACION. I HAVE REVIEWED THE ABOVE DOCUMENT, WRITTEN BY MERCEDEZ RENEE AND I VERIFY THAT IT IS ACCURATE DIAGNOSTIC IMAGING [facility] FLUORO GUIDANCE (PAIN)[id number] PROCEDURE CODES 78364 INJECT SACROILIAC JOINT 6045F RADXPS IN END [id number] PXD DISPOSITION & COMMUNICATION FOLLOW UP 3 WEEKS ELECTRONICALLY SIGNED BY KEISHA ENCARNACION MD ON 11/03/2016 AT 12:55 PM EDT DISCLAIMER : THIS IS A VISIT SUMMARY EXTRACTED FROM THE [employer] CHART. IT IS NOT A COPY OF THE [employer] PROGRESS NOTE. MARTA
== END ==
LOC: M PAIN 08:30
PROVIDERS: ATTEND Anesthesiology
DX: G89.29 Other chronic pain (principal); M46.1 Sacroiliitis, not elsewhere classified; Z79.891 Long term (current) use of opiate analgesic; Z79.899 Other long term (current) drug therapy; Z88.8 Allergy status to other drugs, medicaments and biological substances
CPT/HCPCS: G0260; J3301; Q9967

== ENCOUNTER 2016-12-05 14:44 | Emergency (ER) | payer MEDICARE, MEDICAID ==
[~2016-12-05] VITALS: Ht 177.8 cm; Wt 79.5 kg
[~2016-12-05 14:44] MED LIST changes: -BRIN1TAB3; -NORCOTAB PO
[2016-12-05] MEDS ORDERED: BRIN1TAB3 (14:54)
[2016-12-05] MEDS ORDERED: MORPHINE 4 MG/ML 1ML SYRINGE IM ONE (19:15)
[2016-12-05] MEDS ORDERED: ONDANSETRON 4 MG ORAL DISINTEGRATING TAB (S0181) PO ONE (19:15)
--- NOTE | 2016-12-05 19:20 | REPUSA ---
CLINICAL HISTORY: Headaches. TECHNIQUE: Multiple axial brain CT scan sections were obtained from base to vertex without contrast a dministration. COMMENTS: The study shows normal configuration of sella turcica. There are no intra or extra-axial collections. There is no mass effect or midline shift. There is no evidence of hematoma formation. No hydrocephal us is present. No abnormal calcifications are noted. No significant abnormalities are seen either in the posterior fossa or supratentorial compartment. The sinuses and mastoid air cells are patent. IMPRESSION: No evidence of acute intracranial pathology. Thank you for your kind referral of this patient.
--- NOTE | 2016-12-05 19:40 | REPUSA ---
CLINICAL HISTORY: Neck pain. TECHNIQUE: Multiple axial images were obtained through the cervical spine. Images were also reconstru cted in coronal and sagittal planes. The study was performed without IV contrast. COMMENTS: Patient is status post anterior cervical fusion at C4-C6. Interbody fusion cages are present at both levels There is no fracture or spondylolisthesis visualized. The paraspinal soft tissues are unremarkable. T here are no lytic or blastic lesions. Straightening of cervical lordosis is seen, suggesting muscular spasm. There is evidence of minimal m ultilevel disk disease, demonstrated by minimal osteophytosis and endplate sclerosis. No significant disk herniation is noted at any level. Canal and foramina remain patent. IMPRESSION: 1. No fracture or spondylolisthesis. 2. Straightening of cervical lordosis is seen, suggesting muscular spasm. 3. Multilevel spondylosis. 4. Status post anterior cervical fusion at C4-C6. Thank you for your kind referral of this patient.
[2016-12-05] MEDS ORDERED: NORCOTAB PO (20:00)
[2016-12-05 20:05] VITALS: BP 149/86
== END 2016-12-05 20:15 | disposition home or self-care (01) ==
LOC: M ED 14:44
DX: S16.1XXA Strain of muscle, fascia and tendon at neck level, initial encounter (principal); X58.XXXA Exposure to other specified factors, initial encounter; Y92.89 Other specified places as the place of occurrence of the external cause; Y93.89 Activity, other specified; Y99.9 Unspecified external cause status

== ENCOUNTER → 2016-12-13 | Outpatient (CLI) | payer MEDICARE, MEDICAID ==
[~2016-12-13] MED LIST changes: +BRIN1TAB3; +NORCOTAB PO
--- NOTE | 2016-12-14 01:01 | ECWPNPC ---
PATIENT NAME: PATRIZIA DICKEY : 1965 GENDER: FEMALE VISIT DATE: 12/13/2016 DISCHARGE DATE: 12/13/16 1109 VISIT LOCKED DATE TIME: PHYSICIAN: DARBY MCCLOUD PHYSICIAN PAGER NO: INACTIVE RESOURCE: DARBY MCCLOUD REASON FOR APPOINTMENT 1. BACK HISTORY OF PRESENT ILLNESS HISTORY OF PRESENT ILLNESS: PAIN THE PATIENT DESCRIBES THE PAIN... FALL RISK SCREENING: SCREENING :NO FALLS IN THE PAST YEAR TODAY'S VISIT: NOTES: RATES PAIN LEVEL TODAY 7/10. HAD EPISODE OF SEVERE NECK AND HEAD PAIN ONE WEEK AGO WHICH TOOK HER TO THE ER. IMAGING WAS DONE. STILL HAS THIS HEADACHE. IS S/P BILATERAL SIJ INJECTIONS COMPLETED ON 11/03/16 AND GANGLIAN IMPAIN BLOCK COMLETED 10/03/16. NOTES THE LATTER DECREASED PAIN IN TAILBONE BUTTUCK AREA BU 50% AND THE SIJ INJECTIONS BY 75%. HAD TERRIBLE MONTH. WAS WEANED OFF ABILIFY, AND SWITCHED OFF PROZAC AND STARTED ON TRINTILLEX. . CURRENT MEDICATIONS TAKING TRINTELLIX 20 MG TABLET 1 TABLET ORALLY ONCE A DAY TAKING SENNA S 8.6-50 MG TABLET 1 TABLET IN THE EVENING NEEDED ORALLY ONCE A DAY NEEDED TAKING ABIGAIL ALLERGY 180 MG TABLET 1 TABLET ORALLY ONCE A DAY TAKING MAGNESIUM 400 MG CAPSULE 1 TABLET WITH A MEAL ORALLY ONCE A DAY TAKING FISH OIL 1200 MG CAPSULE 2 CAPSULES ORALLY ONCE A DAY TAKING MULTIVITAMINS OTC TABLET 1 TAB(S) ORALLY DAILY TAKING VITAMIN B COMPLEX OTC TABLET 1 TAB(S) ORALLY DAILY TAKING CALCIUM 500 MG TABLET CHEWABLE 2 TABLET ORALLY ONCE A DAY TAKING VITAMIN D-3 1000 UNITS TABLET 1 TAB(S) ORALLY DAILY TAKING OSTEO COMPLEX CAPSULE 1 CAP(S) ORALLY DAILY TAKING FLONASE 50 MCG/DOSE INHALER 1 SPRAY IN EACH NOSTRIL NASALLY ONCE A DAY TAKING MAPROTILINE HCL 50 MG TABLET 1 TABLET ORALLY ONCE A DAY TAKING BENADRYL 25 MG CAPSULE 1 CAPSULE NEEDED ORALLY EVERY 6 HRS TAKING SUDAFED 30 MG TABLET 1 TABLET NEEDED ORALLY EVERY 6 HRS TAKING DIAZEPAM 5 MG TABLET 1 TABLET ORALLY ONCE A DAY NEEDED ([facility]) TAKING METHOCARBAMOL 750 MG TABLET 1 TAB ORALLY BID TAKING NORCO 5-325 MG TABLET 1 TABLET NEEDED ORALLY EVERY 6 -8 HOURS PRN PAIN MDD=2 TAKING NASONEX 50 MCG/ACT SUSPENSION 2 SPRAYS IN EACH NOSTRIL NASALLY ONCE A DAY NOT-TAKING LIDOCAINE 5 % OINTMENT 1 APPLICATION TO AFFECTED AREA NEEDED EXTERNALLY FOUR TIMES A DAY TO PAINFUL AREAS OF NECK/SACRUM NOT-TAKING CLONIDINE HCL 0.1 MG TABLET 1 TABLET ORALLY TID PRN, NOTES: NONE DISCONTINUED ARIPIPRAZOLE 2 MG TABLET 1 TABLET ORALLY ONCE A DAY DISCONTINUED PROZAC 10 40 MG TABLET 1 TAB(S) ORAL ONCE A DAY, NOTES: 11/02@1900 DISCONTINUED BUSPIRONE HCL 5 MG TABLET 1 TABLET ORALLY BID DISCONTINUED NORCO 5-325 MG TABLET 1 TABLET ORALLY EVERY 4 HRS PRN PAIN MDD=6 CHRONIC PAIN, NOTES: 03/10/16@0800 DISCONTINUED TURMERIC 1 TAB(S) ORALLY DAILY DISCONTINUED MARINOL 2.5 MG CAPSULE 1 CAPSULE ORALLY BID DISCONTINUED MOBIC 15 MG TABLET 1 TABLET ORALLY ONCE A DAY WITH FOOD DISCONTINUED LIDOCAINE 4 % CREAM DIRECTED EXTERNALLY APPLY TO PAINFUL AREA TAILBONE 4 X PER DAY NEEDED DISCONTINUED VICODIN HP 7.5-325 MG TABLET 1 TAB(S) ORALLY EVERY 4 HOURS NEEDED ([facility]) UNKNOWN SYNTHROID 100 MCG TABLET 1 TABLET ON AN EMPTY STOMACH IN THE MORNING ORALLY ONCE A DAY (DR. PABLO) MEDICATION LIST REVIEWED AND RECONCILED WITH THE PATIENT PAST MEDICAL HISTORY CERVALGIA- C5-6 DISC HERNIATION WITH C6 IMPINGEMENT-DR DAY/ DR YUSUF- [facility]- HYPOTHYROIDISM 2007- DR PABLO SEASONAL ALLERGY/SINUSITIS ENDOMETRIAL POLYP- DR YBARRA DYSPHAGIA-ENT IN [place]- DR MORATAYA BASAL CELL TO RIGHT NOSE - DR. CASTAÑEDA SACRAL PAIN ALLERGIES NEURONTIN 300: DEPRESSION: SIDE EFFECTS BACLOFEN: HEAD ACHES: ALLERGY CYCLOBENZAPRINE HCL: DECREASED MENTAL ALERTNESS: ALLERGY GABAPENTIN: DEPRESSION: ALLERGY TIZANIDINE HCL: HEADACHES: ALLERGY TOPIRAMATE: ALTERED MENTAL STATUS: ALLERGY SOCIAL HISTORY GENERAL: TOBACCO USE ARE YOU A:NONSMOKER ALCOHOL SCREENING POINTS0 INTERPRETATIONNEGATIVE RECREATIONAL DRUG USE DRUG USE?NO PATIENT IS PERSCRIBED MEDICAL MARIJUANA CAFFEINE CAFFEINE USE?YES HOW OFTEN AND HOW MUCH? DAILY BASIS LEARNING BARRIERS / SPECIAL NEEDS BARRIERS TO LEARNING?NO HEARING IMPAIRED?NO VISION IMPAIRED?YES : CORRECTIVE LENSES READINESS TO LEARN?YES LEARNING PREFERENCES?NO SPECIAL DEVICES?NO PAIN CLINIC PFS, CLERGY, PUBLIC HEALTH REFERRALS PFS REFERRAL NEEDED?NO CLERGY REFERRAL NEEDED?NO PUBLIC HEALTH REFERRAL NEEDED?NO WAS THE PROVIDER NOTIFIED OF ANY PERTINENT INFO?NO HAS THE PATIENT BEEN EDUCATED REGARDING HIS/HER PLAN OF CARE?YES HAS THE PATIENT BEEN EDUCATED REGARDING PAIN, THE RISK FOR PAIN, THE IMPORTANCE OF EFFECTIVE PAIN MANAGEMENT, AND THE PAIN ASSESSMENT PROCESS?YES PATIENT: ____. ADVANCE DIRECTIVES HEALTH CARE PROXY?YES REVIEW OF SYSTEMS REVIEWED BY: PROVIDER: DARBY DALE . CONSTITUTIONAL: ANY CHANGE IN YOUR MEDICAL CONDITION? NO . CHILLS NO . FEVER NO . INFECTION: DO YOU HAVE NEW INFECTIONS? NO . DO YOU HAVE HISTORY OF MRSA? NO . MUSCULOSKELETAL: ANY NEW PATTERNS OF PAIN OR NUMBNESS? YES, PAST WEEK, GETS SHARP PAIN IN HER NECK, SHOT INTO HER HEAD, ENDED UP IN ED. LAST TUESDAY. HAD CT SCAN. GOT PAIN MEDS AND DISCHARGED HOME. PAIN IS NOT THE SAME. HAS A HEADACHE STILL. MOSTLY ON THE RIGHT SIDE. . GASTROENTEROLOGY: ANY NEW CHANGE IN BOWEL CONTROL? NO . GENITOURINARY: ANY NEW CHANGE IN BLADDER CONTROL? NO . IS THERE A CHANCE YOU COULD BE ? NO . HEMATOLOGY/LYMPH: DO YOU TAKE ANY BLOOD THINNERS? (FOR EXAMPLE- COUMADIN, PLAVIX, AGGRENOX, PLATEL, PRADAXA, OR XARELTO) NO . WHEN WAS YOUR LAST DOSE? DATE: TIME: . NEUROLOGY: HAVE YOU FALLEN IN THE PAST 6 MONTHS? NO . ANY NEW EXTREMITY NUMBNESS OR WEAKNESS? NO . CARDIOLOGY: DO YOU HAVE A PACEMAKER OR DEFIBRILLATOR? NO . RESPIRATORY: HAVE YOU BEEN SICK IN THE PAST WEEK? NO . FEVER NO . FLU LIKE SYMPTOMS? NO . COUGH NO . INTEGUMENTARY: DO YOU HAVE ANY RASHES OR OPEN SORES? NO . ALLERGIC/IMMUNO: ARE YOU ALLERGIC TO SHELLFISH OR IV DYE? NO . ANY NEW ALLERGIES? NO . PSYCHIATRIC: DO YOU HAVE THOUGHTS OF HURTING YOURSELF OR SOMEONE ELSE? NO . ARE YOU ABUSED, NEGLECTED, OR IN AN UNSAFE ENVIRONMENT? NO . ENDOCRINOLOGY: ARE YOU DIABETIC? NO . OTHER: DO YOU NEED ANY PRESCRIPTIONS? YES, METHOCARBAMOL, VICODIN . IF YES, PLEASE LIST: ____ . ANY NEW PROBLEMS WITH YOUR MEDICATIONS? NO . WHEN DID YOU LAST EAT? ____ . WHEN DID YOU LAST DRINK? ____ . WHAT DID YOU LAST DRINK? ____ . NAME OF PERSON DRIVING YOU HOME? ____ . DO YOU HAVE ANY OTHER QUESTIONS OR CONCERNS NO . VITAL SIGNS WT 175.0 LBS, HT 70 IN, BMI 25.11 INDEX, BP 135/80 MM HG, HR 97 /MIN, RR 16 /MIN, TEMP 97.4 F, OXYGEN SAT % 99%, NA INITIALS TL 1004, REVIEWED BY: SHAY. EXAMINATION GENERAL EXAMINATION: PSYCHALERT , ORIENTED X 3 , [facility] CONTACT. APPEARS SAD. . HEENT:TENDER RIGHT TMJ AND ALONG RIGHT ANTERIOR CERVICAL LYMPH NODE TRACT. NO SPECIFIC LYMPH NODES PALPATED. LUNGS:CLEAR TO AUSCULTATION BILATERALLY . HEART:HEART RATE REGULAR . MUSCULOSKELETAL:TRIGGER POINTS AND TIGHT FIBROUS BANDS OVER TRAPEZIUS MUSCLES AND LEFT > RIGHT OCCIPITAL NERVES. DECREASED ROM WITH NECK FLEXION/EXTENSION AND ROTATION. TENDER OVER LUMBOSACRAL AXIS. RISES EASILY TO STANDING POSITION . ASSESSMENTS CERVICAL POST-LAMINECTOMY SYNDROME - M96.1 (PRIMARY) SACROILIITIS - M46.1 FACET ARTHROPATHY, CERVICAL - M12.88 CHRONIC PRESCRIPTION OPIATE USE - Z79.891 TREATMENT OTHERS REFILL METHOCARBAMOL TABLET, 750 MG, 1 TAB, ORALLY, BID, 30 DAY(S), 60 TABLET, REFILLS 1 REFILL NORCO TABLET, 5-325 MG, 1 TABLET NEEDED, ORALLY, EVERY 6 -8 HOURS PRN PAIN MDD=2, 30 DAY(S), 45, REFILLS 0 NOTES: FACET JOINT INJECTION MATERIAL WAS PRINTED. PROCEDURE CODES FA211 ESTABILISHED PATIENT [facility] FACILITY CHARGE G8730 PAIN ASSESS POS TOOL F/U PLAN DOC G8427 DOC MEDS VERIFIED W/PT OR RE DISPOSITION & COMMUNICATION FOLLOW UP 1 MONTH (REASON: NECK/BACK PAIN RIGHT CERRVICAL FACET BLOCK) ELECTRONICALLY SIGNED BY LIZA MERINO ON 12/13/2016 AT 10:26 PM EDT DISCLAIMER : THIS IS A VISIT SUMMARY EXTRACTED FROM THE [facility] CHART. IT IS NOT A COPY OF THE [facility] PROGRESS NOTE. MARTA
== END ==
LOC: M PAIN 09:45
PROVIDERS: ATTEND Nurse Practitioner Family
DX: M96.1 Postlaminectomy syndrome, not elsewhere classified (principal); M46.1 Sacroiliitis, not elsewhere classified; M12.88 Other specific arthropathies, not elsewhere classified, other specified site; E03.9 Hypothyroidism, unspecified; J30.2 Other seasonal allergic rhinitis; Z88.8 Allergy status to other drugs, medicaments and biological substances; Z79.899 Other long term (current) drug therapy

== ENCOUNTER → 2016-12-21 | Outpatient (CLI) | payer MEDICARE, MEDICAID ==
[~2016-12-21] MED LIST changes: +BUPIVACAINE HCL 0.25% 30 ML VIAL As Ordered ONE; +ISOVUE-M 300 61% 15ML VIAL (Q9967) As Ordered ONE; +LIDOCAINE 1% SDV INJ 30 ML VIAL As Ordered ONE; +TRIAMCINOLONE ACETONIDE SUSP 40 MG/ML VIAL (J3301) As Ordered ONE; +diazePAM 5 MG TAB As Ordered ONE; +oxyCODONE 5MG TAB As Ordered ONE
--- NOTE | 2016-12-21 12:00 | REP ---
FLUOROSCOPIC GUIDANCE FOR CERVICAL FACET BLOCK: 12/21/2016. Clinical history: Neck pain. Findings: Fluoroscopic guidance provided to Dr. Cantor of the pain clinic for bilateral cervical facet injections. Two images from that study were provided. Steward are seen on each side with both needles showing contrast adjacent to them at the facets. There is a plate and screw fixation from cervical discectomy C5-C7. Fluoroscopy time: 10 seconds. Signed by Orlin Power MD 12/21/2016 01:12 P
--- NOTE | 2016-12-28 00:05 | ECWPNPC ---
PATIENT NAME: PATRIZIA DICKEY : 1965 GENDER: FEMALE VISIT DATE: 12/21/2016 DISCHARGE DATE: 12/21/16 1046 VISIT LOCKED DATE TIME: PHYSICIAN: KEISHA ENCARNACION PHYSICIAN PAGER NO: INACTIVE RESOURCE: KEISHA ENCARNACION REASON FOR APPOINTMENT 1. CERVICAL FACET- WITH SEDATION HISTORY OF PRESENT ILLNESS HISTORY OF PRESENT ILLNESS: PAIN THE PATIENT DESCRIBES THE PAIN... FALL RISK SCREENING: SCREENING :NO FALLS IN THE PAST YEAR CURRENT MEDICATIONS TAKING TRINTELLIX 20 MG TABLET 1 TABLET ORALLY ONCE A DAY, NOTES: 12/20 1899 TAKING SENNA S 8.6-50 MG TABLET 1 TABLET IN THE EVENING NEEDED ORALLY ONCE A DAY NEEDED, NOTES: 12/20 1899 TAKING ABIGAIL ALLERGY 180 MG TABLET 1 TABLET ORALLY ONCE A DAY, NOTES: 12/21 1199 TAKING MAGNESIUM 400 MG CAPSULE 1 TABLET WITH A MEAL ORALLY ONCE A DAY, NOTES: 12/21 1199 TAKING FISH OIL 1200 MG CAPSULE 2 CAPSULES ORALLY ONCE A DAY, NOTES: 12/21 1199 TAKING MULTIVITAMINS OTC TABLET 1 TAB(S) ORALLY DAILY, NOTES: 12/20 TAKING VITAMIN B COMPLEX OTC TABLET 1 TAB(S) ORALLY DAILY, NOTES: 12/21 1199 TAKING MAPROTILINE HCL 50 MG TABLET 1 TABLET ORALLY ONCE A DAY, NOTES: 12/20 1899 TAKING CALCIUM 500 MG TABLET CHEWABLE 2 TABLET ORALLY ONCE A DAY, NOTES: 12/21 1199 TAKING VITAMIN D-3 1000 UNITS TABLET 1 TAB(S) ORALLY DAILY, NOTES: 12/21 1199 TAKING OSTEO COMPLEX CAPSULE 1 CAP(S) ORALLY DAILY, NOTES: 12/21 1199 TAKING FLONASE 50 MCG/DOSE INHALER 1 SPRAY IN EACH NOSTRIL NASALLY ONCE A DAY, NOTES: NONE RECENT TAKING BENADRYL 25 MG CAPSULE 1 CAPSULE NEEDED ORALLY EVERY 6 HRS, NOTES: NONE RECNT TAKING SUDAFED 30 MG TABLET 1 TABLET NEEDED ORALLY EVERY 6 HRS, NOTES: NONE RECENT TAKING DIAZEPAM 5 MG TABLET 1 TABLET ORALLY ONCE A DAY NEEDED ([facility]), NOTES: 12/18 TAKING NASONEX 50 MCG/ACT SUSPENSION 2 SPRAYS IN EACH NOSTRIL NASALLY ONCE A DAY, NOTES: NONE RECENT TAKING METHOCARBAMOL 750 MG TABLET 1 TAB ORALLY BID, NOTES: 12/21 714 TAKING NORCO 5-325 MG TABLET 1 TABLET NEEDED ORALLY EVERY 6 -8 HOURS PRN PAIN MDD=2, NOTES: 12/21 714 TAKING SYNTHROID 100 MCG TABLET 1 TABLET ON AN EMPTY STOMACH IN THE MORNING ORALLY ONCE A DAY (DR. PABLO), NOTES: 12/21 714 TAKING LIDOCAINE 5 % OINTMENT 1 APPLICATION TO AFFECTED AREA NEEDED EXTERNALLY FOUR TIMES A DAY TO PAINFUL AREAS OF NECK/SACRUM, NOTES: NONE RECENT TAKING CLONIDINE HCL 0.1 MG TABLET 1 TABLET ORALLY TID PRN, NOTES: NONE RECENT MEDICATION LIST REVIEWED AND RECONCILED WITH THE PATIENT PAST MEDICAL HISTORY CERVALGIA- C5-6 DISC HERNIATION WITH C6 IMPINGEMENT-DR DAY/ DR YUSUF- [facility]- HYPOTHYROIDISM 2008- DR PABLO SEASONAL ALLERGY/SINUSITIS ENDOMETRIAL POLYP- DR YBARRA DYSPHAGIA-ENT IN [place]- DR MORATAYA BASAL CELL TO RIGHT NOSE - DR. CASTAÑEDA SACRAL PAIN ALLERGIES NEURONTIN 300: DEPRESSION: SIDE EFFECTS BACLOFEN: HEAD ACHES: ALLERGY CYCLOBENZAPRINE HCL: DECREASED MENTAL ALERTNESS: ALLERGY GABAPENTIN: DEPRESSION: ALLERGY TIZANIDINE HCL: HEADACHES: ALLERGY TOPIRAMATE: ALTERED MENTAL STATUS: ALLERGY SOCIAL HISTORY GENERAL: TOBACCO USE ARE YOU A:NONSMOKER ALCOHOL SCREENING DID YOU HAVE A DRINK CONTAINING ALCOHOL IN THE PAST YEAR?NO POINTS0 INTERPRETATIONNEGATIVE RECREATIONAL DRUG USE DRUG USE?NO PATIENT IS PERSCRIBED MEDICAL MARIJUANA CAFFEINE CAFFEINE USE?YES HOW OFTEN AND HOW MUCH? DAILY BASIS UATSDIN [id number] HOAHAOISM LANGUAGE LANGUAGES SPOKEN:KYRGYZ LEARNING BARRIERS / SPECIAL NEEDS BARRIERS TO LEARNING?NO HEARING IMPAIRED?NO VISION IMPAIRED?YES : CORRECTIVE LENSES READINESS TO LEARN?YES LEARNING PREFERENCES?NO SPECIAL DEVICES?NO PAIN CLINIC PFS, CLERGY, PUBLIC HEALTH REFERRALS PFS REFERRAL NEEDED?NO CLERGY REFERRAL NEEDED?NO PUBLIC HEALTH REFERRAL NEEDED?NO WAS THE PROVIDER NOTIFIED OF ANY PERTINENT INFO?NO HAS THE PATIENT BEEN EDUCATED REGARDING HIS/HER PLAN OF CARE?YES HAS THE PATIENT BEEN EDUCATED REGARDING PAIN, THE RISK FOR PAIN, THE IMPORTANCE OF EFFECTIVE PAIN MANAGEMENT, AND THE PAIN ASSESSMENT PROCESS?YES PATIENT: ____. ADVANCE DIRECTIVES HEALTH CARE PROXY?YES NAME OF HCP SISTER--[facility] CONTACT # FOR HCP [phone] (C) DOMESTIC VIOLENCE DO YOU FEEL SAFE IN YOUR ENVIRONMENT?YES REVIEW OF SYSTEMS REVIEWED BY: PROVIDER: . CONSTITUTIONAL: ANY CHANGE IN YOUR MEDICAL CONDITION? NO . CHILLS NO . FEVER NO . INFECTION: DO YOU HAVE NEW INFECTIONS? NO . DO YOU HAVE HISTORY OF MRSA? NO . MUSCULOSKELETAL: ANY NEW PATTERNS OF PAIN OR NUMBNESS? NO . GASTROENTEROLOGY: ANY NEW CHANGE IN BOWEL CONTROL? NO . GENITOURINARY: ANY NEW CHANGE IN BLADDER CONTROL? NO . IS THERE A CHANCE YOU COULD BE ? NO . HEMATOLOGY/LYMPH: DO YOU TAKE ANY BLOOD THINNERS? (FOR EXAMPLE- COUMADIN, PLAVIX, AGGRENOX, PLATEL, PRADAXA, OR XARELTO) NO . WHEN WAS YOUR LAST DOSE? DATE: TIME: . NEUROLOGY: HAVE YOU FALLEN IN THE PAST 6 MONTHS? NO . ANY NEW EXTREMITY NUMBNESS OR WEAKNESS? NO . CARDIOLOGY: DO YOU HAVE A PACEMAKER OR DEFIBRILLATOR? NO . RESPIRATORY: HAVE YOU BEEN SICK IN THE PAST WEEK? NO . FEVER NO . FLU LIKE SYMPTOMS? NO . COUGH NO . INTEGUMENTARY: DO YOU HAVE ANY RASHES OR OPEN SORES? NO . ALLERGIC/IMMUNO: ARE YOU ALLERGIC TO SHELLFISH OR IV DYE? NO . ANY NEW ALLERGIES? NO . PSYCHIATRIC: DO YOU HAVE THOUGHTS OF HURTING YOURSELF OR SOMEONE ELSE? NO . ARE YOU ABUSED, NEGLECTED, OR IN AN UNSAFE ENVIRONMENT? NO . ENDOCRINOLOGY: ARE YOU DIABETIC? NO . OTHER: DO YOU NEED ANY PRESCRIPTIONS? NO . IF YES, PLEASE LIST: ____ . ANY NEW PROBLEMS WITH YOUR MEDICATIONS? NO . WHEN DID YOU LAST EAT? 12/210 . WHEN DID YOU LAST DRINK? 12/21 07 . WHAT DID YOU LAST DRINK? WATER . NAME OF PERSON DRIVING YOU HOME? MOM, RUSSELL . DO YOU HAVE ANY OTHER QUESTIONS OR CONCERNS NO . VITAL SIGNS WT 175.0 LBS, HT 70 IN, BMI 25.11 INDEX, BP 128/74 MM HG, HR 90 /MIN, RR 16 /MIN, TEMP 97.4 F, OXYGEN SAT % 98%, SAFE IN ENV? (Y/N) Y, NA INITIALS TL 6143, REVIEWED BY: AD. ASSESSMENTS SPONDYLOSIS OF CERVICAL REGION WITHOUT MYELOPATHY OR RADICULOPATHY - M47.812 (PRIMARY) PROCEDURES PN CERVICAL FACET BLOCK LOW BILATERAL CERVICAL PRE PROCEDURE DIAGNOSIS CERVICAL SPONDYLOSIS POST PROCEDURE DIAGNOSIS CERVICAL SPONDYLOSIS, PROCEDURE BILATERAL C3-C4 AND BILATERAL C4-C5 CERVICAL FACET BLOCK SURGEON DR. KEISHA ENCARNACION PIPE AND TEST SUPERVISOR NONE ANESTHESIA LOCAL PRE PROCEDURE NOTE THE PATIENT HAS HISTORY OF CHRONIC CERVICAL PAIN. I EVALUATE THE PATIENT AND REVIEWED THE CHART. I WENT OVER THE RISKS, ALTERNATIVES, AND BENEFITS ASSOCIATED WITH THIS PROCEDURE. THE PATIENT WOULD LIKE TO PROCEED AND GIVE CONSENT TO PERFORMED THE PROCEDURE. THE PATIENT DENIES UNEXPLAINABLE WEIGHT LOSS, FEVER, CHILLS, OR NEW CHANGES IN URINARY OR BOWEL CONTROL. DESCRIPTION OF PROCEDURE THE PATIENT WAS BROUGHT TO THE PROCEDURE ROOM AND PLACED IN THE PRONE POSITION. THE CERVICOTHORACIC AREA WAS CLEANED WITH CHLORAPREP SOLUTION AND DRAPED ASEPTICALLY. THE PROCEDURE WAS DONE UNDER STERILE CONDITIONS. I CHECKED LATERALITY AND THE LEVEL WHERE THE PROCEDURE WAS GOING TO BE PERFORMED WITH THE PATIENT AND THE SUPPORTING STAFF AT THE MOMENT OF THE TIME OUT IN THE PROCEDURE ROOM. UNDER FLUOROSCOPIC GUIDANCE, TARGET POINT WAS SELECTED AT THE RIGHT AND LEFT C3-C4 AND RIGHT AND LEFT C4-C5 CERVICAL FACET JOINT. TARGET POINTS WERE SELECTED AFTER LATERAL ROTATION AND TILT OF THE MAGNIFIER OF THE C-ARM. LIDOCAINE 0.5% WAS USED TO NUMB THE SKIN AND THE SUBCUTANEOUS TISSUE BELOW IT. SPINAL NEEDLES, 22-GAUGE, WERE ADVANCED UNDER FLUOROSCOPIC GUIDANCE AND FOLLOWING PATIENT FEEDBACK UNTIL THE TARGETS WERE TOUCHED. THE POSITION OF THE NEEDLES WAS VERIFIED WITH AP AND LATERAL VIEWS. AFTER PROPER POSITION OF THE NEEDLES WAS ACHIEVED, ISOVUE M DYE 30, 0.1 ML WAS INJECTED SHOWING SPREAD OF THE DYE. THEN A SOLUTION OF 0.9 ML OF BUPIVACAINE 0.125% AND KENALOG 10 MG WAS INJECTED AT EACH SITE. THERE WAS NO EVIDENCE OF BLOOD, PARESTHESIA OR CEREBROSPINAL FLUID DURING THE PROCEDURE. THE PATIENT WAS SENT TO THE RECOVERY ROOM. THE PATIENT WAS MOVING THE EXTREMITIES AND DOING WELL. THERE WAS NO COMPLICATION DURING THE PROCEDURE. FLUOROSCOPY TIME WAS 10 SECONDS POST PROCEDURE NOTE THE PATIENT WILL BE SEEN IN A FOLLOW UP IN THE NEXT FEW WEEKS. INSTRUCTIONS WERE GIVEN, QUESTIONS WERE ANSWERED, AND THE PATIENT EXPRESSED UNDERSTANDING AND AGREES WITH THE PLAN. I, MERCEDEZ HUNT, DOCUMENTED THE ABOVE INFORMATION ACTING A SCRIBE FOR DR. ENCARNACION. I HAVE REVIEWED THE ABOVE DOCUMENT, WRITTEN BY MERCEDEZ RENEE AND I VERIFY THAT IT IS [facility] FACET BLOCK (PAIN)[id number] PROCEDURE CODES 21645 INJ PARAVERT F JNT C/T 1 LEV, MODIFIERS: 50 [id number] INJ PARAVERT F JNT C/T 2 LEV, MODIFIERS: 50 [id number] RADXPS IN END [id number] PXD DISPOSITION & COMMUNICATION FOLLOW UP 3 WEEKS ELECTRONICALLY SIGNED BY KEISHA ENCARNACION MD ON 12/27/2016 AT 09:43 AM EST DISCLAIMER : THIS IS A VISIT SUMMARY EXTRACTED FROM THE [place] [employer] CHART. IT IS NOT A COPY OF THE [place] [employer] PROGRESS NOTE. MTDD
== END ==
LOC: M PAIN 08:45
PROVIDERS: ATTEND Anesthesiology
DX: G89.29 Other chronic pain (principal); M47.812 Spondylosis without myelopathy or radiculopathy, cervical region; E03.9 Hypothyroidism, unspecified; J30.2 Other seasonal allergic rhinitis; Z88.8 Allergy status to other drugs, medicaments and biological substances; Z79.899 Other long term (current) drug therapy
CPT/HCPCS: 64490; 64491; J3301; Q9967

== ENCOUNTER → 2016-12-29 | Outpatient (REF) | payer MEDICARE, MEDICAID ==
[~2016-12-29] MED LIST changes: -BUPIVACAINE HCL 0.25% 30 ML VIAL As Ordered ONE; -ISOVUE-M 300 61% 15ML VIAL (Q9967) As Ordered ONE; -LIDOCAINE 1% SDV INJ 30 ML VIAL As Ordered ONE; -TRIAMCINOLONE ACETONIDE SUSP 40 MG/ML VIAL (J3301) As Ordered ONE; -diazePAM 5 MG TAB As Ordered ONE; -oxyCODONE 5MG TAB As Ordered ONE
[2016-12-29 14:12] LABS: BASO % 0.6 % (0.0-1.0); EOS # 0.1 10^3/uL (0.0-0.50); EOS % 1.6 % (0.0-3.0); IMMATURE GRANULOCYTE % 1.6 % (0-0); LYMPH # 1.8 10^3/uL (1.5-4.5); LYMPH % 28.3 % (24.0-44.0); MEAN CORPUSCULAR HEMOGLOBIN 31.3 pg (27.0-33.0); MEAN CORPUSCULAR HGB CONC 33.2 g/dl (32.0-36.5); MEAN CORPUSCULAR VOLUME 94.3 fl (80.0-96.0); MONO # 0.5 10^3/uL (0.0-0.8); NEUTROPHILS # 3.8 10^3/uL (1.8-7.7); NEUTROPHILS % 59.9 % (36.0-66.0); PLATELET COUNT, AUTOMATED 369 10^3/uL (150-450); RED CELL DISTRIBUTION WIDTH 13.5 % (11.5-14.5); WHITE BLOOD COUNT 6.4 10^3/uL (4.0-10.0)
[2016-12-29 14:26] LABS: ALBUMIN 3.7 GM/DL (3.2-5.2); ALKALINE PHOSPHATASE 59 U/L (45-117); ALT/SGPT 34 U/L (12-78); ANION GAP 6 MEQ/L (8-16); AST/SGOT 22 U/L (7-37); BILIRUBIN,TOTAL 0.4 MG/DL (0.2-1.0); BLOOD UREA NITROGEN 11 MG/DL (7-18); CARBON DIOXIDE LEVEL 31 MEQ/L (21-32); CHLORIDE LEVEL 103 MEQ/L (98-107); CHOLESTEROL LEVEL 389 MG/DL (<200); CREATININE FOR GFR 0.72 MG/DL (0.55-1.02); GLOMERULAR FILTRATION RATE > 60.0 (>51); GLUCOSE, FASTING 92 MG/DL (70-105); POTASSIUM SERUM 4.2 MEQ/L (3.5-5.1); SODIUM LEVEL 140 MEQ/L (136-145); TOTAL PROTEIN 7.4 GM/DL (6.4-8.2); TRIGLYCERIDES LEVEL 88 MG/DL (<150)
== END ==
LOC: M LAB REF 13:06
PROVIDERS: ATTEND Family Medicine
DX: Z13.29 Encounter for screening for other suspected endocrine disorder (principal); Z13.220 Encounter for screening for lipoid disorders; Z13.0 Encounter for screening for diseases of the blood and blood-forming organs and certain disorders involving the immune mechanism; Z79.899 Other long term (current) drug therapy

== ENCOUNTER → 2017-01-10 | Outpatient (CLI) | payer MEDICARE, MEDICAID ==
--- NOTE | 2017-01-29 00:41 | ECWPNPC ---
PATIENT NAME: PATRIZIA DICKEY : 1965 GENDER: FEMALE VISIT DATE: 01/10/2017 DISCHARGE DATE: 01/10/17 1153 VISIT LOCKED DATE TIME: PHYSICIAN: DARBY MCCLOUD PHYSICIAN PAGER NO: INACTIVE RESOURCE: DARBY MCCLOUD REASON FOR APPOINTMENT 1. NECK/BACK PAIN HISTORY OF PRESENT ILLNESS HISTORY OF PRESENT ILLNESS: PAIN THE PATIENT DESCRIBES THE PAIN... FALL RISK SCREENING: SCREENING :NO FALLS IN THE PAST YEAR TODAY'S VISIT: NOTES: RATES PAIN TODAY 07/24.IS S/P 12/21/16 CERVICAL THERAPEUTIC FACET WITH SOME DECREASE IN PAIN AND HEAACHE INTENSITY BUT ALSO NOTES INCREASE IN LOWER NECK AND SHOULDER PAIN. DID HAVE ONE OCCULAR MIGRAINE WITH DIZINESS, N/V AND DIAPHORESIS. DURATION WAS ABOUT 3 HOURS. . CURRENT MEDICATIONS TAKING TRINTELLIX 20 MG TABLET 1 TABLET ORALLY ONCE A DAY TAKING SENNA S 8.6-50 MG TABLET 1 TABLET IN THE EVENING NEEDED ORALLY ONCE A DAY NEEDED TAKING ABIGAIL ALLERGY 180 MG TABLET 1 TABLET ORALLY ONCE A DAY TAKING MAGNESIUM 400 MG CAPSULE 1 TABLET WITH A MEAL ORALLY ONCE A DAY TAKING FISH OIL 1200 MG CAPSULE 2 CAPSULES ORALLY ONCE A DAY TAKING MULTIVITAMINS OTC TABLET 1 TAB(S) ORALLY DAILY TAKING VITAMIN B COMPLEX OTC TABLET 1 TAB(S) ORALLY DAILY TAKING MAPROTILINE HCL 50 MG TABLET 1 TABLET ORALLY ONCE A DAY TAKING CALCIUM 500 MG TABLET CHEWABLE 2 TABLET ORALLY ONCE A DAY TAKING VITAMIN D-3 1000 UNITS TABLET 1 TAB(S) ORALLY DAILY TAKING OSTEO COMPLEX CAPSULE 1 CAP(S) ORALLY DAILY TAKING FLONASE 50 MCG/DOSE INHALER 1 SPRAY IN EACH NOSTRIL NASALLY ONCE A DAY, NOTES: NONE RECENT TAKING BENADRYL 25 MG CAPSULE 1 CAPSULE NEEDED ORALLY EVERY 6 HRS, NOTES: NONE RECNT TAKING SUDAFED 30 MG TABLET 1 TABLET NEEDED ORALLY EVERY 6 HRS, NOTES: NONE RECENT TAKING DIAZEPAM 5 MG TABLET 1 TABLET ORALLY ONCE A DAY NEEDED ([facility]) TAKING NASONEX 50 MCG/ACT SUSPENSION 2 SPRAYS IN EACH NOSTRIL NASALLY ONCE A DAY, NOTES: NONE RECENT TAKING METHOCARBAMOL 750 MG TABLET 1 TAB ORALLY BID TAKING NORCO 5-325 MG TABLET 1 TABLET NEEDED ORALLY EVERY 6 -8 HOURS PRN PAIN MDD=2 TAKING SYNTHROID 100 MCG TABLET 1 TABLET ON AN EMPTY STOMACH IN THE MORNING ORALLY ONCE A DAY (DR. PABLO) TAKING LIDOCAINE 5 % OINTMENT 1 APPLICATION TO AFFECTED AREA NEEDED EXTERNALLY FOUR TIMES A DAY TO PAINFUL AREAS OF NECK/SACRUM, NOTES: NONE RECENT TAKING CLONIDINE HCL 0.1 MG TABLET 1 TABLET ORALLY TID PRN, NOTES: NONE RECENT MEDICATION LIST REVIEWED AND RECONCILED WITH THE PATIENT PAST MEDICAL HISTORY CERVALGIA- C5-6 DISC HERNIATION WITH C6 IMPINGEMENT-DR DAY/ DR YUSUF- [facility]- HYPOTHYROIDISM 2007- DR PABLO SEASONAL ALLERGY/SINUSITIS ENDOMETRIAL POLYP- DR YBARRA DYSPHAGIA-ENT IN [place]- DR MORATAYA BASAL CELL TO RIGHT NOSE - DR. CASTAÑEDA SACRAL PAIN ALLERGIES NEURONTIN 300: DEPRESSION: SIDE EFFECTS BACLOFEN: HEAD ACHES: ALLERGY CYCLOBENZAPRINE HCL: DECREASED MENTAL ALERTNESS: ALLERGY GABAPENTIN: DEPRESSION: ALLERGY TIZANIDINE HCL: HEADACHES: ALLERGY TOPIRAMATE: ALTERED MENTAL STATUS: ALLERGY SOCIAL HISTORY GENERAL: TOBACCO USE ARE YOU A:NONSMOKER ALCOHOL SCREENING DID YOU HAVE A DRINK CONTAINING ALCOHOL IN THE PAST YEAR?NO POINTS0 INTERPRETATIONNEGATIVE RECREATIONAL DRUG USE DRUG USE?NO PATIENT IS PERSCRIBED MEDICAL MARIJUA[employer] CAFFEINE CAFFEINE USE?YES HOW OFTEN AND HOW MUCH? DAILY BASIS EVANGELICAL [id number] [employer]TH[employer]OX LANGUAGE LANGUAGES SPOKEN:TURKMEN LEARNING BARRIERS / SPECIAL NEEDS BARRIERS TO LEARNING?NO HEARING IMPAIRED?NO VISION IMPAIRED?YES : CORRECTIVE LENSES READINESS TO LEARN?YES LEARNING PREFERENCES?NO SPECIAL DEVICES?NO PAIN CLINIC PFS, CLERGY, PUBLIC HEALTH REFERRALS PFS REFERRAL NEEDED?NO CLERGY REFERRAL NEEDED?NO PUBLIC HEALTH REFERRAL NEEDED?NO WAS THE PROVIDER NOTIFIED OF ANY PERTINENT INFO?NO HAS THE PATIENT BEEN EDUCATED REGARDING HIS/HER PLAN OF CARE?YES HAS THE PATIENT BEEN EDUCATED REGARDING PAIN, THE RISK FOR PAIN, THE IMPORTANCE OF EFFECTIVE PAIN MANAGEMENT, AND THE PAIN ASSESSMENT PROCESS?YES PATIENT: ____. ADVANCE DIRECTIVES HEALTH CARE PROXY?YES NAME OF HCP SISTER--[facility] CONTACT # FOR HCP [phone] (C) DOMESTIC VIOLENCE DO YOU FEEL SAFE IN YOUR ENVIRONMENT?YES REVIEW OF SYSTEMS REVIEWED BY: PROVIDER: . CONSTITUTIONAL: ANY CHANGE IN YOUR MEDICAL CONDITION? NO . CHILLS NO . FEVER NO . INFECTION: DO YOU HAVE NEW INFECTIONS? NO . DO YOU HAVE HISTORY OF MRSA? NO . MUSCULOSKELETAL: ANY NEW PATTERNS OF PAIN OR NUMBNESS? NO . GASTROENTEROLOGY: ANY NEW CHANGE IN BOWEL CONTROL? NO . GENITOURINARY: ANY NEW CHANGE IN BLADDER CONTROL? NO . IS THERE A CHANCE YOU COULD BE ? NO . HEMATOLOGY/LYMPH: DO YOU TAKE ANY BLOOD THINNERS? (FOR EXAMPLE- COUMADIN, PLAVIX, AGGRENOX, PLATEL, PRADAXA, OR XARELTO) NO . WHEN WAS YOUR LAST DOSE? DATE: TIME: . NEUROLOGY: HAVE YOU FALLEN IN THE PAST 6 MONTHS? NO . ANY NEW EXTREMITY NUMBNESS OR WEAKNESS? NO . CARDIOLOGY: DO YOU HAVE A PACEMAKER OR DEFIBRILLATOR? NO . RESPIRATORY: HAVE YOU BEEN SICK IN THE PAST WEEK? NO . FEVER NO . FLU LIKE SYMPTOMS? NO . COUGH NO . INTEGUMENTARY: DO YOU HAVE ANY RASHES OR OPEN SORES? NO . ALLERGIC/IMMUNO: ARE YOU ALLERGIC TO SHELLFISH OR IV DYE? NO . ANY NEW ALLERGIES? NO . PSYCHIATRIC: DO YOU HAVE THOUGHTS OF HURTING YOURSELF OR SOMEONE ELSE? NO . ARE YOU ABUSED, NEGLECTED, OR IN AN UNSAFE ENVIRONMENT? NO . ENDOCRINOLOGY: ARE YOU DIABETIC? NO . OTHER: DO YOU NEED ANY PRESCRIPTIONS? YES . IF YES, PLEASE LIST: VICODIN . ANY NEW PROBLEMS WITH YOUR MEDICATIONS? NO . WHEN DID YOU LAST EAT? ____ . WHEN DID YOU LAST DRINK? ____ . WHAT DID YOU LAST DRINK? ____ . NAME OF PERSON DRIVING YOU HOME? ____ . DO YOU HAVE ANY OTHER QUESTIONS OR CONCERNS NO . VITAL SIGNS WT 175 LBS, HT 70 IN, BMI 25.11 INDEX, BP 148/75 MM HG, HR 97 /MIN, RR 16 /MIN, TEMP 97.8 F, OXYGEN SAT % 98%, NA INITIALS SC 10:56, REVIEWED BY: NL. EXAMINATION GENERAL EXAMINATION: PSYCHALERT , ORIENTED X 3 , [facility] CONTACT. APPEARS SAD. . HEENT:TENDER RIGHT TMJ AND ALONG RIGHT ANTERIOR CERVICAL LYMPH NODE TRACT. NO SPECIFIC LYMPH NODES PALPATED. LUNGS:CLEAR TO AUSCULTATION BILATERALLY . HEART:HEART RATE REGULAR . MUSCULOSKELETAL:TRIGGER POINTS AND TIGHT FIBROUS BANDS OVER TRAPEZIUS MUSCLES AND LEFT > RIGHT OCCIPITAL NERVES. DECREASED ROM WITH NECK FLEXION/EXTENSION AND ROTATION. TENDER OVER LUMBOSACRAL AXIS. RISES EASILY TO STANDING POSITION . ASSESSMENTS SPONDYLOSIS OF CERVICAL REGION WITHOUT MYELOPATHY OR RADICULOPATHY - M47.812 (PRIMARY) CERVICAL POST-LAMINECTOMY SYNDROME - M96.1 (PRIMARY) CHRONIC PRESCRIPTION OPIATE USE - Z79.891 MYALGIA - M79.1 TREATMENT SPONDYLOSIS OF CERVICAL REGION WITHOUT MYELOPATHY OR RADICULOPATHY REFILL NORCO TABLET, 5-325 MG, 1 TABLET NEEDED, ORALLY, EVERY 6 -8 HOURS PRN PAIN MDD=3, 30 DAY(S), 90, REFILLS 0 TRIGGER POINT 3 + DARBY SMALL 01/10/2017 11:29:39 AM > NECK AND SHOULDERS NOTES: WILL CONSIDER BOTOX AFTER VACATIONDO HEADACHE DIARY. PROCEDURE CODES FA211 ESTABILISHED PATIENT [facility] CHARGE G8730 PAIN ASSESS POS TOOL F/U PLAN DOC G8427 DOC MEDS VERIFIED W/PT OR RE DISPOSITION & COMMUNICATION FOLLOW UP AFTER INJECTION (REASON: CHECK AUTH FOR TPI/DO THIS WEEK) ELECTRONICALLY SIGNED BY LIZA MERINO ON 01/28/2017 AT 07:33 PM EST DISCLAIMER : THIS IS A VISIT SUMMARY EXTRACTED FROM THE [employer] CHART. IT IS NOT A COPY OF THE [employer] PROGRESS NOTE. MARTA
== END ==
LOC: M PAIN 10:30
PROVIDERS: ATTEND Nurse Practitioner Family
DX: M96.1 Postlaminectomy syndrome, not elsewhere classified (principal); M47.812 Spondylosis without myelopathy or radiculopathy, cervical region; M79.1 Myalgia; E03.9 Hypothyroidism, unspecified; J30.2 Other seasonal allergic rhinitis; Z88.8 Allergy status to other drugs, medicaments and biological substances; Z79.891 Long term (current) use of opiate analgesic; Z79.899 Other long term (current) drug therapy

== ENCOUNTER → 2017-01-11 | Outpatient (CLI) | payer MEDICARE, MEDICAID ==
[~2017-01-11] MED LIST changes: +BUPIVACAINE HCL 0.25% 10 ML VIAL As Ordered ONE; +BUPIVACAINE HCL 0.25% 30 ML VIAL As Ordered ONE; +TRIAMCINOLONE ACETONIDE SUSP 40 MG/ML VIAL (J3301) As Ordered ONE; +diazePAM 5 MG TAB As Ordered ONE; +oxyCODONE 5MG TAB As Ordered ONE
--- NOTE | 2017-01-26 00:08 | ECWPNPC ---
PATIENT NAME: PATRIZIA DICKEY : 1965 GENDER: FEMALE VISIT DATE: 01/11/2017 DISCHARGE DATE: 01/11/17 1015 VISIT LOCKED DATE TIME: PHYSICIAN: KEISHA ENCARNACION PHYSICIAN PAGER NO: INACTIVE RESOURCE: KEISHA ENCARNACION REASON FOR APPOINTMENT 1. TPI- NEEDS TO BE DONE THIS WEEK HISTORY OF PRESENT ILLNESS HISTORY OF PRESENT ILLNESS: PAIN THE PATIENT DESCRIBES THE PAIN... FALL RISK SCREENING: SCREENING :NO FALLS IN THE PAST YEAR CURRENT MEDICATIONS TAKING TRINTELLIX 20 MG TABLET 1 TABLET ORALLY ONCE A DAY, NOTES: 01/10/171999 TAKING SENNA S 8.6-50 MG TABLET 1 TABLET IN THE EVENING NEEDED ORALLY ONCE A DAY NEEDED, NOTES: 01/10/171999 TAKING ABIGAIL ALLERGY 180 MG TABLET 1 TABLET ORALLY ONCE A DAY, NOTES: 01/10/17999 TAKING MAGNESIUM 400 MG CAPSULE 1 TABLET WITH A MEAL ORALLY ONCE A DAY, NOTES: 01/10/17999 TAKING FISH OIL 1200 MG CAPSULE 2 CAPSULES ORALLY ONCE A DAY, NOTES: 01/10/17999 TAKING MULTIVITAMINS OTC TABLET 1 TAB(S) ORALLY DAILY, NOTES: 01/10/17999 TAKING VITAMIN B COMPLEX OTC TABLET 1 TAB(S) ORALLY DAILY, NOTES: 01/10/17999 TAKING MAPROTILINE HCL 50 MG TABLET 1 TABLET ORALLY ONCE A DAY, NOTES: 01/10/171999 TAKING CALCIUM 500 MG TABLET CHEWABLE 2 TABLET ORALLY ONCE A DAY, NOTES: 01/10/17999 TAKING VITAMIN D-3 1000 UNITS TABLET 1 TAB(S) ORALLY DAILY, NOTES: 01/10/17999 TAKING OSTEO COMPLEX CAPSULE 1 CAP(S) ORALLY DAILY, NOTES: 01/10/17999 TAKING FLONASE 50 MCG/DOSE INHALER 1 SPRAY IN EACH NOSTRIL NASALLY ONCE A DAY, NOTES: NONE RECENT TAKING BENADRYL 25 MG CAPSULE 1 CAPSULE NEEDED ORALLY EVERY 6 HRS, NOTES: NONE RECENT TAKING SUDAFED 30 MG TABLET 1 TABLET NEEDED ORALLY EVERY 6 HRS, NOTES: NONE RECENT TAKING DIAZEPAM 5 MG TABLET 1 TABLET ORALLY ONCE A DAY NEEDED ([facility]), NOTES: 01/08/17 1000 TAKING NASONEX 50 MCG/ACT SUSPENSION 2 SPRAYS IN EACH NOSTRIL NASALLY ONCE A DAY, NOTES: NONE RECENT TAKING METHOCARBAMOL 750 MG TABLET 1 TAB ORALLY BID, NOTES: 01/10/171899 TAKING SYNTHROID 100 MCG TABLET 1 TABLET ON AN EMPTY STOMACH IN THE MORNING ORALLY ONCE A DAY (DR. PABLO), NOTES: 01/11/17 0700 TAKING LIDOCAINE 5 % OINTMENT 1 APPLICATION TO AFFECTED AREA NEEDED EXTERNALLY FOUR TIMES A DAY TO PAINFUL AREAS OF NECK/SACRUM, NOTES: NONE RECENT TAKING CLONIDINE HCL 0.1 MG TABLET 1 TABLET ORALLY TID PRN, NOTES: NONE RECENT TAKING NORCO 5-325 MG TABLET 1 TABLET NEEDED ORALLY EVERY 6 -8 HOURS PRN PAIN MDD=3, NOTES: 01/10/171899 MEDICATION LIST REVIEWED AND RECONCILED WITH THE PATIENT PAST MEDICAL HISTORY CERVALGIA- C5-6 DISC HERNIATION WITH C6 IMPINGEMENT-DR DAY/ DR YUSUF- [facility]- HYPOTHYROIDISM 2007- DR PABLO SEASONAL ALLERGY/SINUSITIS ENDOMETRIAL POLYP- DR YBARRA DYSPHAGIA-ENT IN [place]- DR MORATAYA BASAL CELL TO RIGHT NOSE - DR. CASTAÑEDA SACRAL PAIN ALLERGIES NEURONTIN 300: DEPRESSION: SIDE EFFECTS BACLOFEN: HEAD ACHES: ALLERGY CYCLOBENZAPRINE HCL: DECREASED MENTAL ALERTNESS: ALLERGY GABAPENTIN: DEPRESSION: ALLERGY TIZANIDINE HCL: HEADACHES: ALLERGY TOPIRAMATE: ALTERED MENTAL STATUS: ALLERGY REVIEW OF SYSTEMS REVIEWED BY: PROVIDER: . CONSTITUTIONAL: ANY CHANGE IN YOUR MEDICAL CONDITION? NO . CHILLS NO . FEVER NO . INFECTION: DO YOU HAVE NEW INFECTIONS? NO . DO YOU HAVE HISTORY OF MRSA? NO . MUSCULOSKELETAL: ANY NEW PATTERNS OF PAIN OR NUMBNESS? NO . GASTROENTEROLOGY: ANY NEW CHANGE IN BOWEL CONTROL? NO . GENITOURINARY: ANY NEW CHANGE IN BLADDER CONTROL? NO . IS THERE A CHANCE YOU COULD BE ? NO . HEMATOLOGY/LYMPH: DO YOU TAKE ANY BLOOD THINNERS? (FOR EXAMPLE- COUMADIN, PLAVIX, AGGRENOX, PLATEL, PRADAXA, OR XARELTO) NO . WHEN WAS YOUR LAST DOSE? DATE: TIME: . NEUROLOGY: HAVE YOU FALLEN IN THE PAST 6 MONTHS? NO . ANY NEW EXTREMITY NUMBNESS OR WEAKNESS? NO . CARDIOLOGY: DO YOU HAVE A PACEMAKER OR DEFIBRILLATOR? NO . RESPIRATORY: HAVE YOU BEEN SICK IN THE PAST WEEK? NO . FEVER NO . FLU LIKE SYMPTOMS? NO . COUGH NO . INTEGUMENTARY: DO YOU HAVE ANY RASHES OR OPEN SORES? NO . ALLERGIC/IMMUNO: ARE YOU ALLERGIC TO SHELLFISH OR IV DYE? NO . ANY NEW ALLERGIES? NO . PSYCHIATRIC: DO YOU HAVE THOUGHTS OF HURTING YOURSELF OR SOMEONE ELSE? NO . ARE YOU ABUSED, NEGLECTED, OR IN AN UNSAFE ENVIRONMENT? NO . ENDOCRINOLOGY: ARE YOU DIABETIC? NO . OTHER: DO YOU NEED ANY PRESCRIPTIONS? NO . IF YES, PLEASE LIST: ____ . ANY NEW PROBLEMS WITH YOUR MEDICATIONS? NO . WHEN DID YOU LAST EAT? ____01/10/17 1800 . WHEN DID YOU LAST DRINK? ____01/10/17 0730 . WHAT DID YOU LAST DRINK? ____WATER . NAME OF PERSON DRIVING YOU HOME? ____RUSSELL DICKEY . DO YOU HAVE ANY OTHER QUESTIONS OR CONCERNS NO . VITAL SIGNS WT 175 LBS, HT 70 IN, BMI 25.11 INDEX, BP 133/75 MM HG, HR 88 /MIN, RR 16 /MIN, TEMP 97.8 F, OXYGEN SAT % 96%, SAFE IN ENV? (Y/N) YES, NA INITIALS TX 08:54, REVIEWED BY: ASSESSMENTS MYALGIA - M79.1 (PRIMARY) PROCEDURES PN TRIGGER POINT INJECTION WITH STEROIDS PRE PROCEDURE DIAGNOSIS 1. MYALGIA 2. PAIN AT BILATERAL SHOULDER AREA AND BILATERAL THORACIC AREA POST PROCEDURE DIAGNOSIS 1. MYALGIA 2. PAIN AT BILATERAL SHOULDER AREA AND BILATERAL THORACIC AREA PROCEDURE TRIGGER POINT INJECTION AT BILATERAL SHOULDER AREA AND BILATERAL THORACIC AREA SURGEON DR. KEISHA ENCARNACION ACDS BLOCK 1 OPERATOR NONE ANESTHESIA LOCAL PRE PROCEDURE NOTE THE PATIENT HAS A HISTORY OF CHRONIC PAIN AT THE RIGHT AND LEFT SHOULDER AREA AND RIGHT AND LEFT THORACIC AREA. I EVALUATE THE PATIENT AND REVIEWED THE CHART. THERE IS EVIDENCE OF BANDS OF TISSUE WITH RESTRICTION OF MOVEMENT AND PRESENCE OF TRIGGER POINT AT THE AFFECTED AREA. I WENT OVER THE RISKS, ALTERNATIVES, AND BENEFITS ASSOCIATED WITH THIS PROCEDURE. THE PATIENT WOULD LIKE TO PROCEED AND GIVE CONSENT TO PERFORMED THE PROCEDURE. THE PATIENT DENIES UNEXPLAINABLE WEIGHT LOSS, FEVER, CHILLS, OR NEW CHANGES IN URINARY OR BOWEL CONTROL DESCRIPTION OF PROCEDURE THE PATIENT WAS BROUGHT TO THE PROCEDURE ROOM AND PLACED IN THE SITTING POSITION. THE AREA WAS CLEANED WITH ALCOHOL. THE PROCEDURE WAS DONE USING ASEPTIC STERILE TECHNIQUE. I CHECKED LATERALITY AND THE LEVEL WHERE THE PROCEDURE WAS GOING TO BE PERFORMED WITH THE PATIENT AND THE SUPPORTING STAFF AT THE MOMENT OF THE TIME OUT IN THE PROCEDURE ROOM. USING A 25-GAUGE NEEDLE, TRIGGER POINTS WERE INJECTED AT THE RIGHT AND LEFT SHOULDER AREA AND RIGHT AND LEFT THORACIC AREA WITH A TOTAL OF 40 ML OF BUPIVACAINE 0.25% AND KENALOG 40 MG. THERE WAS NO EVIDENCE OF BLOOD, PARESTHESIA OR CEREBROSPINAL FLUID DURING THE PROCEDURE. THE PATIENT WAS SENT TO THE RECOVERY ROOM. THE PATIENT WAS MOVING THE EXTREMITIES AND DOING WELL. THERE WAS NO COMPLICATION DURING THE PROCEDURE POST PROCEDURE NOTE THE PATIENT WILL BE SEEN IN A FOLLOW UP IN THE NEXT FEW WEEKS. INSTRUCTIONS WERE GIVEN, QUESTIONS WERE ANSWERED, AND THE PATIENT EXPRESSED UNDERSTANDING AND AGREES WITH THE PLAN. I, MERCEDEZ HUNT, DOCUMENTED THE ABOVE INFORMATION ACTING A SCRIBE FOR DR. ENCARNACION. I HAVE REVIEWED THE ABOVE DOCUMENT, WRITTEN BY MERCEDEZ WEAVERIBAnnabelle AND I VERIFY THAT IT IS ACCURATE PROCEDURE CODES 93834 INJECT TRIGGER POINTS 3/> DISPOSITION & COMMUNICATION FOLLOW UP 2 WEEKS ELECTRONICALLY SIGNED BY KEISHA ENCARNACION MD ON 01/25/2017 AT 10:01 PM EST DISCLAIMER : THIS IS A VISIT SUMMARY EXTRACTED FROM THE [employer] CHART. IT IS NOT A COPY OF THE [employer] PROGRESS NOTE. MTDIsaac
== END ==
LOC: M PAIN 08:45
PROVIDERS: ATTEND Anesthesiology
DX: G89.29 Other chronic pain (principal); M79.1 Myalgia; E03.9 Hypothyroidism, unspecified; J30.2 Other seasonal allergic rhinitis; M50.222 Other cervical disc displacement at C5-C6 level; Z85.828 Personal history of other malignant neoplasm of skin; Z79.891 Long term (current) use of opiate analgesic; Z79.899 Other long term (current) drug therapy; Z88.1 Allergy status to other antibiotic agents; Z88.8 Allergy status to other drugs, medicaments and biological substances
CPT/HCPCS: 20553; J3301

== ENCOUNTER → 2017-02-09 | Outpatient (CLI) | payer MEDICARE, MEDICAID | LOC: M PAIN 09:30 | DX: G43.109 Migraine with aura, not intractable, without status migrainosus (principal); M47.812 Spondylosis without myelopathy or radiculopathy, cervical region; M96.1 Postlaminectomy syndrome, not elsewhere classified; M79.1 Myalgia; M46.1 Sacroiliitis, not elsewhere classified; E03.9 Hypothyroidism, unspecified; J30.89 Other allergic rhinitis; Z88.8 Allergy status to other drugs, medicaments and biological substances; Z79.891 Long term (current) use of opiate analgesic; Z79.899 Other long term (current) drug therapy | CPT/HCPCS: G0463 ==

== ENCOUNTER → 2017-03-02 | Outpatient (CLI) | payer MEDICARE, MEDICAID ==
[~2017-03-02] MED LIST changes: -/AMIT10TA PO; -/AMIT25TA NG; -/CLON1TA PO; -/FEXO18TA OR; -/MELO7TA PO; -/METH500TA OR; -ACET65TA OR; -AMIT10TA PO; -B COCAP5 PO; -BRIN1TAB3; -BUPIVACAINE HCL 0.25% 10 ML VIAL As Ordered ONE; +BUPIVACAINE HCL 0.25% 30 ML VIAL As Ordered; -BUPIVACAINE HCL 0.25% 30 ML VIAL As Ordered ONE; -CALC600T10 OR; -CLAR1TAB2 PO; -CLOT10TR PO; -CYCL10TA3 PO; -CYMB1CAP5 PO; -CYMB60CA3 PO; -FISH1000 OR; -FISH1000 PO; -FLON0.054; -FLUO10CA8 PO; -IBUP60TA PO; -IRON28TA OR; +ISOVUE-M 300 61% 15ML VIAL (Q9967) As Ordered; -LEVO75TA2 OR; -LEXA1TAB2 PO; +LIDOCAINE 1% SDV INJ 30 ML VIAL As Ordered; -MAGN250T OR; -MAGN400C2 PO; -MARI5CAP PO; -MELOPOW OR; -METH750T PO; -METH75TA PO; -MOBI15TA PO; -MULTIVIT OR; -MULTIVIT PO; -NORCOTAB PO; -OMEP20TA7 OR; -PREG50CA OR; -PROZ10CA7 PO; -SENN8.6T5 OR; -SOMA350T PO; -SUDA30TA OR; -TOPA25TA PO; -TRAM50TA2 OR; +TRIAMCINOLONE ACETONIDE SUSP 40 MG/ML VIAL (J3301) As Ordered; -TRIAMCINOLONE ACETONIDE SUSP 40 MG/ML VIAL (J3301) As Ordered ONE; -TUMERIC PO; -ULTRTA OR; -VALI5TAB OR; -VICO5TAB PO; -VIT D 2000 OR; -VITACAP31 PO; -[UNRECOGNIZED DRUG - OTHER] PO; +diazePAM 5 MG TAB As Ordered; -diazePAM 5 MG TAB As Ordered ONE; -emla cream TOP; -melatonin PO; -osteo matrix PO; +oxyCODONE 5MG TAB As Ordered; -oxyCODONE 5MG TAB As Ordered ONE; -vit D2 PO
== END ==
LOC: M PAIN 08:30
DX: G89.29 Other chronic pain (principal); M46.1 Sacroiliitis, not elsewhere classified; M53.88 Other specified dorsopathies, sacral and sacrococcygeal region; E03.9 Hypothyroidism, unspecified; J30.2 Other seasonal allergic rhinitis; Z88.8 Allergy status to other drugs, medicaments and biological substances; Z79.899 Other long term (current) drug therapy
CPT/HCPCS: J3301

== ENCOUNTER → 2017-03-11 | Outpatient (CLI) | payer MEDICARE, MEDICAID | LOC: M PAIN 09:15 | DX: M53.3 Sacrococcygeal disorders, not elsewhere classified (principal); M46.1 Sacroiliitis, not elsewhere classified; G43.109 Migraine with aura, not intractable, without status migrainosus; M47.812 Spondylosis without myelopathy or radiculopathy, cervical region; E03.9 Hypothyroidism, unspecified; Z79.891 Long term (current) use of opiate analgesic; Z79.899 Other long term (current) drug therapy; J30.2 Other seasonal allergic rhinitis; Z88.8 Allergy status to other drugs, medicaments and biological substances | CPT/HCPCS: G0463 ==

== ENCOUNTER → 2017-03-22 | Outpatient (CLI) | payer MEDICARE, MEDICAID ==
[~2017-03-22] MED LIST changes: +BOTULINUM INJ 100 UNITS (J0585) IM; -BUPIVACAINE HCL 0.25% 30 ML VIAL As Ordered; -ISOVUE-M 300 61% 15ML VIAL (Q9967) As Ordered; -LIDOCAINE 1% SDV INJ 30 ML VIAL As Ordered; -TRIAMCINOLONE ACETONIDE SUSP 40 MG/ML VIAL (J3301) As Ordered
== END ==
LOC: M PAIN 12:30
DX: G43.709 Chronic migraine without aura, not intractable, without status migrainosus (principal); E03.9 Hypothyroidism, unspecified; J30.2 Other seasonal allergic rhinitis; Z79.899 Other long term (current) drug therapy; Z88.8 Allergy status to other drugs, medicaments and biological substances
CPT/HCPCS: J0585

== ENCOUNTER → 2017-04-05 | Outpatient (CLI) | payer MEDICARE, MEDICAID ==
[~2017-04-05] MED LIST changes: -BOTULINUM INJ 100 UNITS (J0585) IM; +BUPIVACAINE HCL 0.25% 30 ML VIAL As Ordered; +ISOVUE-M 300 61% 15ML VIAL (Q9967) As Ordered; +LIDOCAINE 1% SDV INJ 30 ML VIAL As Ordered; +TRIAMCINOLONE ACETONIDE SUSP 40 MG/ML VIAL (J3301) As Ordered
== END ==
LOC: M PAIN 08:30
DX: M53.3 Sacrococcygeal disorders, not elsewhere classified (principal); E03.9 Hypothyroidism, unspecified; J30.89 Other allergic rhinitis; R13.10 Dysphagia, unspecified; G43.909 Migraine, unspecified, not intractable, without status migrainosus; Z79.899 Other long term (current) drug therapy; Z88.8 Allergy status to other drugs, medicaments and biological substances
CPT/HCPCS: J3301

== ENCOUNTER → 2017-04-11 | Outpatient (CLI) | payer MEDICARE, MEDICAID | LOC: M PAIN 08:30 | DX: G89.29 Other chronic pain (principal); M53.3 Sacrococcygeal disorders, not elsewhere classified; G43.109 Migraine with aura, not intractable, without status migrainosus; M47.812 Spondylosis without myelopathy or radiculopathy, cervical region; Z79.891 Long term (current) use of opiate analgesic; E03.9 Hypothyroidism, unspecified; J30.2 Other seasonal allergic rhinitis; R13.10 Dysphagia, unspecified; Z98.1 Arthrodesis status; Z85.828 Personal history of other malignant neoplasm of skin; Z79.899 Other long term (current) drug therapy; Z88.8 Allergy status to other drugs, medicaments and biological substances | CPT/HCPCS: G0463 ==

== ENCOUNTER → 2017-04-19 | Outpatient (CLI) | payer MEDICARE, MEDICAID ==
[2017-04-19 20:53] LABS: ALBUMIN 3.7 GM/DL (3.2-5.2); ALBUMIN/GLOBULIN RATIO 1.09 (1.00-1.93); ALKALINE PHOSPHATASE 70 U/L (45-117); ALT/SGPT 31 U/L (12-78); ANION GAP 6 MEQ/L (8-16); AST/SGOT 25 U/L (7-37); BILIRUBIN,TOTAL 0.3 MG/DL (0.2-1.0); BLOOD UREA NITROGEN 9 MG/DL (7-18); CALCIUM LEVEL 8.8 MG/DL (8.5-10.1); CARBON DIOXIDE LEVEL 30 MEQ/L (21-32); CHLORIDE LEVEL 106 MEQ/L (98-107); CREATININE FOR GFR 0.68 MG/DL (0.55-1.30); FREE T4 0.95 NG/DL (0.76-1.46); GLOMERULAR FILTRATION RATE > 60.0 (>51); GLUCOSE, FASTING 105 MG/DL (70-100); POTASSIUM SERUM 4.9 MEQ/L (3.5-5.1); SODIUM LEVEL 142 MEQ/L (136-145); TOTAL PROTEIN 7.1 GM/DL (6.4-8.2)
[2017-04-19 21:06] LABS: BASO % 0.5 % (0.0-1.0); EOS # 0.1 10^3/uL (0.0-0.50); EOS % 1.1 % (0.0-3.0); HEMATOCRIT 37.2 % (36.0-47.0); HEMOGLOBIN 12.2 g/dl (12.0-16.0); IMMATURE GRANULOCYTE % 0.8 % (0-3.0); LYMPH # 1.6 10^3/uL (1.5-4.5); LYMPH % 21.3 % (24.0-44.0); MEAN CORPUSCULAR HEMOGLOBIN 30.6 pg (27.0-33.0); MEAN CORPUSCULAR HGB CONC 32.8 g/dl (32.0-36.5); MEAN CORPUSCULAR VOLUME 93.2 fl (80.0-96.0); MONO # 0.5 10^3/uL (0.0-0.8); MONO % 6.9 % (0.0-5.0); NEUTROPHILS # 5.2 10^3/uL (1.8-7.7); NEUTROPHILS % 69.4 % (36.0-66.0); PLATELET COUNT, AUTOMATED 338 10^3/uL (150-450); RED BLOOD COUNT 3.99 10^6/uL (4.00-5.40); RED CELL DISTRIBUTION WIDTH 12.9 % (11.5-14.5); WHITE BLOOD COUNT 7.5 10^3/uL (4.0-10.0)
== END ==
LOC: M WUC 12:24
DX: R03.0 Elevated blood-pressure reading, without diagnosis of hypertension (principal); E03.9 Hypothyroidism, unspecified
CPT/HCPCS: 84443

== ENCOUNTER → 2017-06-14 | Outpatient (CLI) | payer MEDICARE, MEDICAID | LOC: M PAIN 11:00 | DX: G89.29 Other chronic pain (principal); M46.1 Sacroiliitis, not elsewhere classified; E03.9 Hypothyroidism, unspecified; M54.2 Cervicalgia; J30.2 Other seasonal allergic rhinitis; G43.909 Migraine, unspecified, not intractable, without status migrainosus; Z85.828 Personal history of other malignant neoplasm of skin; Z79.899 Other long term (current) drug therapy; Z88.8 Allergy status to other drugs, medicaments and biological substances | CPT/HCPCS: J3301 ==

== ENCOUNTER → 2017-06-23 | Outpatient (CLI) | payer MEDICARE, MEDICAID ==
[~2017-06-23] MED LIST changes: +BOTULINUM INJ 100 UNITS (J0585) IM; -BUPIVACAINE HCL 0.25% 30 ML VIAL As Ordered; -ISOVUE-M 300 61% 15ML VIAL (Q9967) As Ordered; -LIDOCAINE 1% SDV INJ 30 ML VIAL As Ordered; -TRIAMCINOLONE ACETONIDE SUSP 40 MG/ML VIAL (J3301) As Ordered
== END ==
LOC: M PAIN 11:00
DX: G43.709 Chronic migraine without aura, not intractable, without status migrainosus (principal); E03.9 Hypothyroidism, unspecified; J30.2 Other seasonal allergic rhinitis; R13.10 Dysphagia, unspecified; Z79.899 Other long term (current) drug therapy; Z88.8 Allergy status to other drugs, medicaments and biological substances
CPT/HCPCS: J0585

== ENCOUNTER → 2017-07-14 | Outpatient (CLI) | payer MEDICARE, MEDICAID | LOC: M PAIN 09:00 | DX: G43.709 Chronic migraine without aura, not intractable, without status migrainosus (principal); M46.1 Sacroiliitis, not elsewhere classified; E03.9 Hypothyroidism, unspecified; J30.2 Other seasonal allergic rhinitis; G43.909 Migraine, unspecified, not intractable, without status migrainosus; Z79.891 Long term (current) use of opiate analgesic; Z79.899 Other long term (current) drug therapy; Z88.8 Allergy status to other drugs, medicaments and biological substances | CPT/HCPCS: G0463 ==

== ENCOUNTER → 2017-07-26 | Outpatient (CLI) | payer MEDICARE, MEDICAID ==
[~2017-07-26] MED LIST changes: -BOTULINUM INJ 100 UNITS (J0585) IM; +BUPIVACAINE HCL 0.25% 30 ML VIAL As Ordered; +ISOVUE-M 300 61% 15ML VIAL (Q9967) As Ordered; +LIDOCAINE 1% SDV INJ 30 ML VIAL As Ordered; +TRIAMCINOLONE ACETONIDE SUSP 40 MG/ML VIAL (J3301) As Ordered
== END ==
LOC: M PAIN 08:45
DX: M46.08 Spinal enthesopathy, sacral and sacrococcygeal region (principal); E03.9 Hypothyroidism, unspecified; J30.2 Other seasonal allergic rhinitis; Z85.828 Personal history of other malignant neoplasm of skin; G43.909 Migraine, unspecified, not intractable, without status migrainosus; Z98.1 Arthrodesis status; Z79.891 Long term (current) use of opiate analgesic; Z79.899 Other long term (current) drug therapy; Z88.1 Allergy status to other antibiotic agents; Z88.8 Allergy status to other drugs, medicaments and biological substances
CPT/HCPCS: J3301

== ENCOUNTER → 2017-08-22 | Outpatient (CLI) | payer MEDICARE, MEDICAID | LOC: M PAIN 10:45 | DX: G43.709 Chronic migraine without aura, not intractable, without status migrainosus (principal); M46.1 Sacroiliitis, not elsewhere classified; M79.1 Myalgia; M70.62 Trochanteric bursitis, left hip; M70.61 Trochanteric bursitis, right hip; E03.9 Hypothyroidism, unspecified; J30.2 Other seasonal allergic rhinitis; G43.909 Migraine, unspecified, not intractable, without status migrainosus; Z79.899 Other long term (current) drug therapy; Z88.8 Allergy status to other drugs, medicaments and biological substances; Z87.19 Personal history of other diseases of the digestive system; Z79.891 Long term (current) use of opiate analgesic | CPT/HCPCS: G0463 ==

== ENCOUNTER → 2017-09-12 | Outpatient (CLI) | payer MEDICARE, MEDICAID ==
[~2017-09-12] MED LIST changes: -TRIAMCINOLONE ACETONIDE SUSP 40 MG/ML VIAL (J3301) As Ordered; -diazePAM 5 MG TAB As Ordered; -oxyCODONE 5MG TAB As Ordered
== END ==
LOC: M PAIN 08:30
DX: G89.29 Other chronic pain (principal); M47.817 Spondylosis without myelopathy or radiculopathy, lumbosacral region; E03.9 Hypothyroidism, unspecified; J30.2 Other seasonal allergic rhinitis; G43.909 Migraine, unspecified, not intractable, without status migrainosus; Z79.899 Other long term (current) drug therapy; Z88.8 Allergy status to other drugs, medicaments and biological substances; Z87.19 Personal history of other diseases of the digestive system
CPT/HCPCS: Q9967

== ENCOUNTER → 2017-09-15 | Outpatient (REF) | payer MEDICARE, MEDICAID ==
[2017-09-15 19:12] LABS: BASO # 0.1 10^3/uL (0.0-0.2); BASO % 0.8 % (0.0-1.0); EOS # 0.2 10^3/uL (0.0-0.50); EOS % 2.7 % (0.0-3.0); HEMATOCRIT 38.6 % (36.0-47.0); HEMOGLOBIN 12.7 g/dl (12.0-15.5); IMMATURE GRANULOCYTE % 0.5 % (0-3.0); LYMPH # 1.9 10^3/uL (1.5-4.5); LYMPH % 29.9 % (24.0-44.0); MEAN CORPUSCULAR HEMOGLOBIN 30.2 pg (27.0-33.0); MEAN CORPUSCULAR HGB CONC 32.9 g/dl (32.0-36.5); MEAN CORPUSCULAR VOLUME 91.9 fl (80.0-96.0); MONO # 0.5 10^3/uL (0.0-0.8); MONO % 8.1 % (0.0-5.0); NEUTROPHILS # 3.6 10^3/uL (1.8-7.7); PLATELET COUNT, AUTOMATED 330 10^3/uL (150-450); RED CELL DISTRIBUTION WIDTH 13.2 % (11.5-14.5); WHITE BLOOD COUNT 6.3 10^3/uL (4.0-10.0)
[2017-09-15 19:40] LABS: ALBUMIN 3.4 GM/DL (3.2-5.2); ALBUMIN/GLOBULIN RATIO 0.87 (1.00-1.93); ALKALINE PHOSPHATASE 70 U/L (45-117); ALT/SGPT 37 U/L (12-78); ANION GAP 7 MEQ/L (8-16); AST/SGOT 31 U/L (7-37); BILIRUBIN,TOTAL 0.3 MG/DL (0.2-1.0); BLOOD UREA NITROGEN 9 MG/DL (7-18); CALCIUM LEVEL 8.8 MG/DL (8.5-10.1); CARBON DIOXIDE LEVEL 29 MEQ/L (21-32); CHLORIDE LEVEL 106 MEQ/L (98-107); CHOLESTEROL LEVEL 323 MG/DL (<200); CHOLESTEROL RISK RATIO 4.893 (<5); CREATININE FOR GFR 0.64 MG/DL (0.55-1.30); FREE T4 1.06 NG/DL (0.76-1.46); GLOMERULAR FILTRATION RATE > 60.0 (>51); GLUCOSE, FASTING 85 MG/DL (70-100); HDL CHOLESTEROL 66 MG/DL (>40); LDL CHOLESTEROL 229.4 MG/DL (<100); NON-HDL-C 257 MG/DL; SODIUM LEVEL 142 MEQ/L (136-145); TOTAL PROTEIN 7.3 GM/DL (6.4-8.2); TRIGLYCERIDES LEVEL 138 MG/DL (<150)
== END ==
LOC: M LABDRWAD 17:30
DX: E03.9 Hypothyroidism, unspecified (principal); E78.00 Pure hypercholesterolemia, unspecified
CPT/HCPCS: 84443

== ENCOUNTER → 2017-09-21 | Outpatient (REF) | payer MEDICARE, MEDICAID ==
[2017-09-23 14:49] LABS: HPV HYBRID CAPTURE II Negative (Negative)
== END ==
LOC: M SFHCWAGY 10:09
DX: Z12.4 Encounter for screening for malignant neoplasm of cervix (principal); Z12.12 Encounter for screening for malignant neoplasm of rectum
CPT/HCPCS: G0123

== ENCOUNTER → 2017-09-26 | Outpatient (CLI) | payer MEDICARE, MEDICAID | LOC: M PAIN 09:15 | DX: G43.709 Chronic migraine without aura, not intractable, without status migrainosus (principal); M46.1 Sacroiliitis, not elsewhere classified; M79.1 Myalgia; M70.62 Trochanteric bursitis, left hip; M70.61 Trochanteric bursitis, right hip; M50.222 Other cervical disc displacement at C5-C6 level; E03.9 Hypothyroidism, unspecified; J30.2 Other seasonal allergic rhinitis; Z79.891 Long term (current) use of opiate analgesic; Z85.828 Personal history of other malignant neoplasm of skin; Z79.899 Other long term (current) drug therapy; Z88.8 Allergy status to other drugs, medicaments and biological substances | CPT/HCPCS: G0463 ==

== ENCOUNTER → 2017-10-03 | Outpatient (CLI) | payer MEDICARE, MEDICAID ==
[~2017-10-03] MED LIST changes: +BOTULINUM INJ 100 UNITS (J0585) IM; -BUPIVACAINE HCL 0.25% 30 ML VIAL As Ordered; -ISOVUE-M 300 61% 15ML VIAL (Q9967) As Ordered; -LIDOCAINE 1% SDV INJ 30 ML VIAL As Ordered; +diazePAM 5 MG TAB As Ordered; +oxyCODONE 5MG TAB As Ordered
== END ==
LOC: M PAIN 12:30
DX: G43.709 Chronic migraine without aura, not intractable, without status migrainosus (principal); M54.2 Cervicalgia; E03.9 Hypothyroidism, unspecified; J30.2 Other seasonal allergic rhinitis; Z85.828 Personal history of other malignant neoplasm of skin; Z98.1 Arthrodesis status; Z79.891 Long term (current) use of opiate analgesic; Z88.8 Allergy status to other drugs, medicaments and biological substances
CPT/HCPCS: J0585

== ENCOUNTER → 2017-10-11 | Outpatient (CLI) | payer MEDICARE, MEDICAID ==
[~2017-10-11] MED LIST changes: -BOTULINUM INJ 100 UNITS (J0585) IM; +BUPIVACAINE HCL 0.25% 30 ML VIAL As Ordered; +ISOVUE-M 300 61% 15ML VIAL (Q9967) As Ordered; +LIDOCAINE 1% SDV INJ 30 ML VIAL As Ordered; +TRIAMCINOLONE ACETONIDE SUSP 40 MG/ML VIAL (J3301) As Ordered
== END ==
LOC: M PAIN 08:30
DX: M46.1 Sacroiliitis, not elsewhere classified (principal); M50.222 Other cervical disc displacement at C5-C6 level; E03.9 Hypothyroidism, unspecified; J30.2 Other seasonal allergic rhinitis; G43.909 Migraine, unspecified, not intractable, without status migrainosus; Z85.828 Personal history of other malignant neoplasm of skin; Z79.899 Other long term (current) drug therapy; Z88.8 Allergy status to other drugs, medicaments and biological substances; Z88.1 Allergy status to other antibiotic agents
CPT/HCPCS: J3301

== ENCOUNTER → 2017-11-08 | Outpatient (CLI) | payer MEDICARE, MEDICAID | LOC: M PAIN 13:45 | DX: M46.1 Sacroiliitis, not elsewhere classified (principal); M79.1 Myalgia; G43.709 Chronic migraine without aura, not intractable, without status migrainosus; M50.222 Other cervical disc displacement at C5-C6 level; E03.9 Hypothyroidism, unspecified; J30.2 Other seasonal allergic rhinitis; G43.909 Migraine, unspecified, not intractable, without status migrainosus; Z85.828 Personal history of other malignant neoplasm of skin; Z79.891 Long term (current) use of opiate analgesic; Z79.899 Other long term (current) drug therapy; Z88.8 Allergy status to other drugs, medicaments and biological substances | CPT/HCPCS: G0463 ==

== ENCOUNTER → 2017-11-28 | Outpatient (CLI) | payer MEDICARE, MEDICAID ==
[~2017-11-28] MED LIST changes: -TRIAMCINOLONE ACETONIDE SUSP 40 MG/ML VIAL (J3301) As Ordered; -diazePAM 5 MG TAB As Ordered; -oxyCODONE 5MG TAB As Ordered
== END ==
LOC: M PAIN 08:30
DX: G89.29 Other chronic pain (principal); M47.817 Spondylosis without myelopathy or radiculopathy, lumbosacral region; E03.9 Hypothyroidism, unspecified; J30.2 Other seasonal allergic rhinitis; G43.909 Migraine, unspecified, not intractable, without status migrainosus; Z79.899 Other long term (current) drug therapy; Z88.8 Allergy status to other drugs, medicaments and biological substances
CPT/HCPCS: Q9967

== ENCOUNTER → 2017-12-19 | Outpatient (CLI) | payer MEDICARE, MEDICAID | LOC: M PAIN 09:00 | DX: M53.3 Sacrococcygeal disorders, not elsewhere classified (principal); M47.817 Spondylosis without myelopathy or radiculopathy, lumbosacral region; G43.709 Chronic migraine without aura, not intractable, without status migrainosus; M79.18 Myalgia, other site; E03.9 Hypothyroidism, unspecified; J30.2 Other seasonal allergic rhinitis; G43.909 Migraine, unspecified, not intractable, without status migrainosus; Z79.899 Other long term (current) drug therapy; Z88.8 Allergy status to other drugs, medicaments and biological substances | CPT/HCPCS: G0463 ==

== ENCOUNTER → 2017-12-21 | Outpatient (CLI) | payer MEDICARE, MEDICAID ==
[~2017-12-21] MED LIST changes: +TRIAMCINOLONE ACETONIDE SUSP 40 MG/ML VIAL (J3301) As Ordered; +diazePAM 5 MG TAB As Ordered; +oxyCODONE 5MG TAB As Ordered
== END ==
LOC: M PAIN 08:45
DX: M53.3 Sacrococcygeal disorders, not elsewhere classified (principal); R13.10 Dysphagia, unspecified; E03.9 Hypothyroidism, unspecified; M50.223 Other cervical disc displacement at C6-C7 level; M46.08 Spinal enthesopathy, sacral and sacrococcygeal region; G43.909 Migraine, unspecified, not intractable, without status migrainosus; M54.5 Low back pain; J30.2 Other seasonal allergic rhinitis; Z88.8 Allergy status to other drugs, medicaments and biological substances; Z85.828 Personal history of other malignant neoplasm of skin; Z79.891 Long term (current) use of opiate analgesic; Z79.899 Other long term (current) drug therapy
CPT/HCPCS: J3301

== ENCOUNTER → 2018-02-15 | Outpatient (CLI) | payer MEDICARE, MEDICAID ==
[~2018-02-15] MED LIST changes: +/AMIT10TA PO; +/AMIT25TA NG; +/CLON1TA PO; +/FEXO18TA OR; +/MELO7TA PO; +/METH500TA OR; +ACET65TA OR; +AMIT10TA PO; +B COCAP5 PO; +BRIN1TAB3; -BUPIVACAINE HCL 0.25% 30 ML VIAL As Ordered; +CALC600T10 OR; +CLAR1TAB2 PO; +CLOT10TR PO; +CYCL10TA3 PO; +CYMB1CAP5 PO; +CYMB60CA3 PO; +FISH1000 OR; +FISH1000 PO; +FLON0.054; +FLUO10CA8 PO; +IBUP60TA PO; +IRON28TA OR; -ISOVUE-M 300 61% 15ML VIAL (Q9967) As Ordered; +LEVO75TA2 OR; +LEXA1TAB2 PO; -LIDOCAINE 1% SDV INJ 30 ML VIAL As Ordered; +MAGN250T OR; +MAGN400C2 PO; +MARI5CAP PO; +MELOPOW OR; +METH750T PO; +METH75TA PO; +MOBI15TA PO; +MULTIVIT OR; +MULTIVIT PO; +NORCOTAB PO; +OMEP20TA7 OR; +PREG50CA OR; +PROZ10CA7 PO; +SENN8.6T5 OR; +SOMA350T PO; +SUDA30TA OR; +TOPA25TA PO; +TRAM50TA2 OR; -TRIAMCINOLONE ACETONIDE SUSP 40 MG/ML VIAL (J3301) As Ordered; +TUMERIC PO; +ULTRTA OR; +VALI5TAB OR; +VICO5TAB PO; +VIT D 2000 OR; +VITACAP31 PO; +[UNRECOGNIZED DRUG - OTHER] PO; -diazePAM 5 MG TAB As Ordered; +emla cream TOP; +melatonin PO; +osteo matrix PO; -oxyCODONE 5MG TAB As Ordered; +vit D2 PO
--- NOTE | 2018-03-04 02:19 | ECWPNPC ---
PATIENT NAME: PATRIZIA DICKEY : [id number] GENDER: FEMALE VISIT DATE: 02/15/2018 DISCHARGE DATE: 02/15/18 1128 VISIT LOCKED DATE TIME: PHYSICIAN: LY ANTUNEZ RESOURCE: LY ANTUNEZ REASON FOR APPOINTMENT 1. POST SCAROCOCCYGEAL INJECTION HISTORY OF PRESENT ILLNESS HISTORY OF PRESENT ILLNESS: HERE FOR POST PROCEDURE F/U BILAT SACROCOCCYGEAL LIGAMENT INJECTION ON 12-21-17.RESPONDE WELL TO THIS TREATMENT.HAS BEEN HAVING UNRELENTING HEADACHES OVER THE PAST MONTH.HEADACHES ARE CHRONIC BUT HAVE BEEN UNBEARABLE LATELY.HAS TRIALED BOTOX 3X LAST YEAR WITHOUT IMPROVEMENT.HAS BEEN ON MULTIPLE MEDICATIONS TO INCLUDE TRYPTANS,ANTIDEPRESSANTS,NSAIDS AND ACETAMINOPHEN WITHOUT IMPROVEMENT.DESPITE REGULAR USE OF TRYPTANS FREQUENCY OF MIGRAINE HEADACHES HAVE INCREASED. PAIN THE PATIENT DESCRIBES THE PAIN... FALL RISK SCREENING: SCREENING :NO FALLS IN THE PAST YEAR CURRENT MEDICATIONS TAKING SENNA S 8.6-50 MG TABLET 1 TABLET IN THE EVENING NEEDED ORALLY ONCE A DAY NEEDED TAKING MAGNESIUM 400 MG CAPSULE 1 TABLET WITH A MEAL ORALLY ONCE A DAY TAKING FISH OIL 1200 MG CAPSULE 2 CAPSULES ORALLY ONCE A DAY TAKING MULTIVITAMINS OTC TABLET 1 TAB(S) ORALLY DAILY TAKING VITAMIN B COMPLEX OTC TABLET 1 TAB(S) ORALLY DAILY TAKING CALCIUM 500 MG TABLET CHEWABLE 2 TABLET ORALLY ONCE A DAY TAKING VITAMIN D-3 1000 UNITS TABLET 2 CAPSULES ORALLY DAILY TAKING OSTEO COMPLEX CAPSULE 1 CAP(S) ORALLY DAILY TAKING DIAZEPAM 5 MG TABLET 1 TABLET ORALLY ONCE A DAY NEEDED ([facility]) TAKING SYNTHROID 125 MCG TABLET 1 TABLET ON AN EMPTY STOMACH IN THE MORNING ORALLY ONCE A DAY (DR. PABLO) TAKING CLARITIN 10 MG TABLET 1 TABLET ORALLY ONCE A DAY TAKING FLONASE 50 MCG/DOSE INHALER 1 SPRAY IN EACH NOSTRIL NASALLY ONCE A DAY TAKING BENADRYL 25 MG CAPSULE 1 CAPSULE NEEDED ORALLY EVERY 6 HRS TAKING SUDAFED 30 MG TABLET 1 TABLET NEEDED ORALLY EVERY 6 HRS TAKING VALIUM 2 MG TABLET 1 TABLET NEEDED ORALLY BID TAKING CARISOPRODOL 350 MG TABLET 1 TABLET NEEDED ORALLY BID PRN SPAM MDD=2 TAKING CLONIDINE HCL 0.1 MG TABLET 1 TABLET ORALLY TWICE A DAY TAKING VITAMIN B2 TAKING CO ENZYME Q-10 TAKING SERTRALINE HCL 100 MG TABLET 1 TABLET ORALLY ONCE A DAY TAKING METHOCARBAMOL 750 MG TABLET 1 TABLET ORALLY Q 6HRS TAKING RIZATRIPTAN BENZOATE 10 MG TABLET 1 TABLET NEEDED ONE TIME ORALLY BID PRN MIGRAINE TAKING SUMATRIPTAN SUCCINATE 100 MG TABLET 1 TABLET NEEDED ORALLY TWICE A DAY NEEDED FOR MAX 9 MIGRAINES PER MONTH TAKING NORCO 5-325 MG TABLET 1 TABLET NEEDED ORALLY EVERY 4 HOURS PRN PAIN MDD=4 TAKING MAY HAVE MEDICAL MARIJUANA DIRECTED NOT-TAKING ABIGAIL ALLERGY 180 MG TABLET 1 TABLET ORALLY ONCE A DAY PRN, NOTES: NONE LATELY NOT-TAKING FROVATRIPTAN SUCCINATE 2.5 MG TABLET 1 TABLET NEEDED ONE TIME ORALLY ONCE A DAY AT TIME OF MENSES AND WITH MIGRAINES, NOTES: INSURANCE REFUSED MEDICATION LIST REVIEWED AND RECONCILED WITH THE PATIENT PAST MEDICAL HISTORY CERVALGIA- C5-6 DISC HERNIATION WITH C6 IMPINGEMENT-DR DAY/ DR YUSUF- [facility]- DR PABLO SEASONAL ALLERGY/SINUSITIS ENDOMETRIAL POLYP- DR YBARRA DYSPHAGIA-ENT IN [place]- DR MORATAYA BASAL CELL TO RIGHT NOSE - DR. CASTAÑEDA SACRAL PAIN MIGRAINES ALLERGIES NEURONTIN 300: DEPRESSION: SIDE EFFECTS BACLOFEN: HEAD ACHES: ALLERGY CYCLOBENZAPRINE HCL: DECREASED MENTAL ALERTNESS: ALLERGY TIZANIDINE HCL: HEADACHES: ALLERGY TOPIRAMATE: ALTERED MENTAL STATUS: ALLERGY SURGICAL HISTORY NO PERSONAL OR FHX OF SEVERE REACTION TO ANESTHESIA POLYPECTOMY 2010 ANT CERVI 2011 C-SPINE FUSION _ 03/2011 SKIN CANCER REMOVED FROM NOSE AUGUST 2015 FAMILY HISTORY FATHER: MOTHER: ALIVE SIBLINGS: ALIVE, DIAGNOSED WITH OTHER 1 SISTER AND 1 BROTHER-HYPOTHYROIDISM. SOCIAL HISTORY GENERAL: TOBACCO USE ARE YOU A:NONSMOKER ALCOHOL SCREENING DID YOU HAVE A DRINK CONTAINING ALCOHOL IN THE PAST YEAR?NO POINTS0 INTERPRETATIONNEGATIVE RECREATIONAL DRUG USE DRUG USE?NO PATIENT IS PERSCRIBED MEDICAL MARIJUANA CAFFEINE CAFFEINE USE?YES HOW OFTEN AND HOW MUCH? DAILY BASIS SEXUAL HX HAD SEX IN THE LAST 12 MONTHS (VAGINAL, ORAL, OR ANAL)?NO HAVE YOU EVER HAD AN STD?NO LMP:05/2017 HIV / HEP-C SCREENING HIV TEST OFFERED TO PATIENT:YES DATE OFFERED:09/21/2017 TEST ACCEPTED:NO REASON:PATIENT DECLINED BROCHURE PROVIDED TO PATIENTNO RESTORATION [id number] ANGLICAN LANGUAGE LANGUAGES SPOKEN:FIJIAN LEARNING BARRIERS / SPECIAL NEEDS CHANGE FROM LAST VISIT?NO BARRIERS TO LEARNING?NO HEARING IMPAIRED?NO VISION IMPAIRED?YES : CORRECTIVE LENSES COGNITIVELY IMPAIRED?NO READINESS TO LEARN?YES LEARNING PREFERENCES?NO LEARNING CAPABILITIES PRESENT?YES EMOTIONAL BARRIERS?NO SPECIAL DEVICES?NO DOMESTIC VIOLENCE DO YOU FEEL SAFE IN YOUR ENVIRONMENT?YES DIET: REGULAR. EXERCISE: PHYSICAL THERAPY, WALKS. MARITAL STATUS: SINGLE. OTHERS AT HOME: MOM,SISTER. PAIN CLINIC PFS, CLERGY, PUBLIC HEALTH REFERRALS PFS REFERRAL NEEDED?NO CLERGY REFERRAL NEEDED?NO PUBLIC HEALTH REFERRAL NEEDED?NO WAS THE PROVIDER NOTIFIED OF ANY PERTINENT INFO?NO N/A HAS THE PATIENT BEEN EDUCATED REGARDING HIS/HER PLAN OF CARE?YES HAS THE PATIENT BEEN EDUCATED REGARDING PAIN, THE RISK FOR PAIN, THE IMPORTANCE OF EFFECTIVE PAIN MANAGEMENT, AND THE PAIN ASSESSMENT PROCESS?YES ADVANCE DIRECTIVE ADVANCE DIRECTIVE DISCUSSED WITH PATIENT:YES HCP SISTER--DUANE CAM [phone] ALSO HAS POA AND LIVING WILL REVIEWED 12/19/17 NLREVIEWED WITH PATIENT 02/15/18 1037 JS. HOSPITALIZATION/MAJOR DIAGNOSTIC PROCEDURE SURGERY RELATED REVIEW OF SYSTEMS REVIEWED BY: PROVIDER: LY DALE . CONSTITUTIONAL: ANY CHANGE IN YOUR MEDICAL CONDITION? NO . CHILLS NO . FEVER NO . INFECTION: DO YOU HAVE NEW INFECTIONS? NO . DO YOU HAVE HISTORY OF MRSA? NO . MUSCULOSKELETAL: ANY NEW PATTERNS OF PAIN OR NUMBNESS? NO . GASTROENTEROLOGY: ANY NEW CHANGE IN BOWEL CONTROL? NO . GENITOURINARY: ANY NEW CHANGE IN BLADDER CONTROL? NO . IS THERE A CHANCE YOU COULD BE ? NO . HEMATOLOGY/LYMPH: DO YOU TAKE ANY BLOOD THINNERS? (FOR EXAMPLE- COUMADIN, PLAVIX, AGGRENOX, PLATEL, PRADAXA, OR XARELTO) NO . WHEN WAS YOUR LAST DOSE? DATE: TIME: . NEUROLOGY: HAVE YOU FALLEN IN THE PAST 6 MONTHS? NO . ANY NEW EXTREMITY NUMBNESS OR WEAKNESS? NO . CARDIOLOGY: DO YOU HAVE A PACEMAKER OR DEFIBRILLATOR? NO . RESPIRATORY: HAVE YOU BEEN SICK IN THE PAST WEEK? NO . FEVER NO . FLU LIKE SYMPTOMS? NO . COUGH NO . INTEGUMENTARY: DO YOU HAVE ANY RASHES OR OPEN SORES? NO . ALLERGIC/IMMUNO: ARE YOU ALLERGIC TO SHELLFISH OR IV DYE? NO . ANY NEW ALLERGIES? NO . PSYCHIATRIC: DO YOU HAVE THOUGHTS OF HURTING YOURSELF OR SOMEONE ELSE? NO . ARE YOU ABUSED, NEGLECTED, OR IN AN UNSAFE ENVIRONMENT? NO . ENDOCRINOLOGY: ARE YOU DIABETIC? NO . OTHER: DO YOU NEED ANY PRESCRIPTIONS? NO . IF YES, PLEASE LIST: ____ . ANY NEW PROBLEMS WITH YOUR MEDICATIONS? NO . WHEN DID YOU LAST EAT? ____ . WHEN DID YOU LAST DRINK? ____ . WHAT DID YOU LAST DRINK? ____ . NAME OF PERSON DRIVING YOU HOME? ____ . DO YOU HAVE ANY OTHER QUESTIONS OR CONCERNS YES, STATES SHE WOULD LIKE NEW MIGRAINE MEDS, AJOVY OR EMGALITY??? . VITAL SIGNS WT 1821.2 LBS, HT 70 IN, BMI 261.29 INDEX, BP 143/76 MM HG, HR 95 /MIN, RR 18 /MIN, TEMP 97.2 F, OXYGEN SAT % 99%, SAFE IN ENV? (Y/N) YES, NA INITIALS SC 10:26, REVIEWED BY: TANJA. EXAMINATION GENERAL EXAMINATION: GENERAL APPEARANCE:AWAKE,ALERT ,PLEAASANT . PSYCHAFFECT NORMAL . HEENT:BILATERAL OCCIPITAL TENDERNESS WITH PALPATION. LUNGS:LUNG ARIAS ARE CLEAR TO AUSCULTATION BILATERALLY. GOOD MOVEMENT OF AIR . HEART:S1, S2 IN A REGULAR RATE AND RHYTHM. NO SIGNIFICANT MURMURS, RUBS OR GALLOPS NOTED . ASSESSMENTS BILATERAL OCCIPITAL NEURALGIA - M54.81 (PRIMARY) SPONDYLOSIS OF LUMBOSACRAL REGION WITHOUT MYELOPATHY OR RADICULOPATHY - M47.817 CHRONIC MIGRAINE WITHOUT AURA WITHOUT STATUS MIGRAINOSUS, NOT INTRACTABLE - G43.709 TREATMENT BILATERAL OCCIPITAL NEURALGIA REFILL NORCO TABLET, 5-325 MG, 1 TABLET NEEDED, ORALLY, EVERY 4 HOURS PRN PAIN MDD=4, 30 DAY(S), 180, REFILLS 0 START TRAZODONE HCL TABLET, 50 MG, 1 TABLET AT BEDTIME NEEDED, ORALLY, BEFORE BEDTIME, 30 DAY(S), 30, REFILLS 3 START AIMOVIG SOLUTION AUTO-INJECTOR, 70 MG/ML, 1 ML, SUBCUTANEOUS, MONTHLY, 30 DAY(S), 1, REFILLS 2 NOTES: BILAT. OCCIPITAL BLOCKDUE TO UNCONTROLLED MIGRAINE HEADACHE DESPITE BOTOX TRIALS,TRYPTANS,ANTIDEPRESSANTS,NSAIDS AND ACETAMINOPHEN MY PATIENT WOULD BE A GOOD CANDIDATE FOR MONTHLY AIMOVIG TRIAL.ISTOP REGISTRY REVIEWED AND DEMONSTRATES COMPLLIANCE. (REF #[id number] ) BRINGS IN MEDICATIONS WHICH IS APPROPRIATE FOR WHAT WAS DISPENSED. RECENT URINE TOXICOLOGY REVIEWED. NO UNAUTHORIZED MEDICATIONS. NO ILLICIT SUBSTANCES AND PRESCRIBED MEDICATIONS WERE PRESENT. , RISKS AND BENEFITS OF NARCOTIC/OPIOD MEDICATIONS WERE REVIEWED WITH PATIENT - THIS INCLUDES BUT IS NOT LIMITED TO RISK OF DEPENDANCE/DEVELOPMENT OF ADDICTION, MOOD DISTURBANCE AND DEPRESSION, OSTEOPOROSIS, HORMONAL AND LABIDAL CHANGES, RESPIRATORY DEPRESSION AND . PATIENT IS ADVISED NOT TO DRIVE OR DRINK ALCOHOL WHILE ON THESE MEDICATIONS,. PREVENTIVE MEDICINE PAIN CLINIC TEACHING: MEDICATIONS PRINTED AND REVIEWED INFORMATION ON NEW MEDICATION, TRAZODONE. PATIENT VERBALIZED AN UNDERSTANDING. VIANEY BRUNNER 02/15/2018 11:51:54 AM > . PROCEDURE TEACHING REVIEWED OCCIPITAL NERVE BLOCK PROCEDURE INFORMATION WITH PATIENT. ALSO REVIEWED PRE-PROCEDURE INSTRUCTIONS. PATIENT VERBALIZED AN UNDERSTANDING. VIANEY BRUNNER 02/15/2018 11:52:46 AM > . PROCEDURE CODES FA211 ESTABILISHED PATIENT [facility] CHARGE DISPOSITION & COMMUNICATION FOLLOW UP POST (REASON: BILAT. OCCIPITAL BLOCK) ELECTRONICALLY SIGNED BY CHITO PETERSON ON 03/03/2018 AT 09:33 AM EST DISCLAIMER : THIS IS A VISIT SUMMARY EXTRACTED FROM THE [employer] CHART. IT IS NOT A COPY OF THE [employer] PROGRESS NOTE. MARTA
== END ==
LOC: M PAIN 10:15
PROVIDERS: ATTEND Nurse Practitioner Family
DX: M54.81 Occipital neuralgia (principal); M47.817 Spondylosis without myelopathy or radiculopathy, lumbosacral region; G43.709 Chronic migraine without aura, not intractable, without status migrainosus; E03.9 Hypothyroidism, unspecified; J30.2 Other seasonal allergic rhinitis; Z79.899 Other long term (current) drug therapy; Z88.8 Allergy status to other drugs, medicaments and biological substances; Z87.19 Personal history of other diseases of the digestive system

== ENCOUNTER → 2018-03-01 | Outpatient (CLI) | payer MEDICARE, MEDICAID ==
[~2018-03-01] MED LIST changes: +BUPIVACAINE HCL 0.25% 10 ML VIAL As Ordered ONE; +BUPIVACAINE HCL 0.25% 30 ML VIAL As Ordered ONE; +TRIAMCINOLONE ACETONIDE SUSP 40 MG/ML VIAL (J3301) As Ordered ONE; +diazePAM 5 MG TAB As Ordered ONE; +oxyCODONE 5MG TAB As Ordered ONE
--- NOTE | 2018-03-20 00:22 | ECWPNPC ---
PATIENT NAME: PATRIZIA DICKEY : [id number] GENDER: FEMALE VISIT DATE: 03/01/2018 DISCHARGE DATE: 03/01/18 1022 VISIT LOCKED DATE TIME: PHYSICIAN: KEISHA ENCARNACION MD RESOURCE: KEISHA ENCARNACION MD REASON FOR APPOINTMENT 1. BILAT. OCCIPITAL BLOCK HISTORY OF PRESENT ILLNESS HISTORY OF PRESENT ILLNESS: PAIN THE PATIENT DESCRIBES THE PAIN... FALL RISK SCREENING: SCREENING :NO FALLS IN THE PAST YEAR CURRENT MEDICATIONS TAKING SENNA S 8.6-50 MG TABLET 1 TABLET IN THE EVENING NEEDED ORALLY ONCE A DAY NEEDED, NOTES: 02/28/18 TAKING MAGNESIUM 400 MG CAPSULE 1 TABLET WITH A MEAL ORALLY ONCE A DAY, NOTES: 02/28/18 TAKING FISH OIL 1200 MG CAPSULE 2 CAPSULES ORALLY ONCE A DAY, NOTES: 02/28/18 TAKING MULTIVITAMINS OTC TABLET 1 TAB(S) ORALLY DAILY, NOTES: 02/28/18 TAKING VITAMIN B COMPLEX OTC TABLET 1 TAB(S) ORALLY DAILY, NOTES: 02/28/18 TAKING CALCIUM 500 MG TABLET CHEWABLE 2 TABLET ORALLY ONCE A DAY, NOTES: 02/28/18 TAKING VITAMIN D-3 1000 UNITS TABLET 2 CAPSULES ORALLY DAILY, NOTES: 02/28/18 TAKING OSTEO COMPLEX CAPSULE 1 CAP(S) ORALLY DAILY, NOTES: 02/28/18 TAKING DIAZEPAM 5 MG TABLET 1 TABLET ORALLY ONCE A DAY NEEDED ([facility]), NOTES: 02/28/18 TAKING SYNTHROID 125 MCG TABLET 1 TABLET ON AN EMPTY STOMACH IN THE MORNING ORALLY ONCE A DAY (DR. PABLO), NOTES: 03/01/18 0300 TAKING CLARITIN 10 MG TABLET 1 TABLET ORALLY ONCE A DAY, NOTES: 02/28/18 TAKING FLONASE 50 MCG/DOSE INHALER 1 SPRAY IN EACH NOSTRIL NASALLY ONCE A DAY, NOTES: 02/26/18 TAKING BENADRYL 25 MG CAPSULE 1 CAPSULE NEEDED ORALLY EVERY 6 HRS, NOTES: NONE LATELY TAKING SUDAFED 30 MG TABLET 1 TABLET NEEDED ORALLY EVERY 6 HRS, NOTES: NONE LATELY TAKING VALIUM 2 MG TABLET 1 TABLET NEEDED ORALLY BID, NOTES: NONE LATELY TAKING CARISOPRODOL 350 MG TABLET 1 TABLET NEEDED ORALLY BID PRN SPAM MDD=2, NOTES: 02/28/18 TAKING CLONIDINE HCL 0.1 MG TABLET 1 TABLET ORALLY TWICE A DAY, NOTES: 02/28/18 TAKING VITAMIN B2 , NOTES: 02/28/18 TAKING CO ENZYME Q-10 , NOTES: 02/28/18 TAKING SERTRALINE HCL 100 MG TABLET 1 TABLET ORALLY ONCE A DAY, NOTES: 02/28/18 TAKING METHOCARBAMOL 750 MG TABLET 1 TABLET ORALLY Q 6HRS, NOTES: 03/01/18 0300 TAKING RIZATRIPTAN BENZOATE 10 MG TABLET 1 TABLET NEEDED ONE TIME ORALLY BID PRN MIGRAINE, NOTES: 02/28/18 TAKING SUMATRIPTAN SUCCINATE 100 MG TABLET 1 TABLET NEEDED ORALLY TWICE A DAY NEEDED FOR MAX 9 MIGRAINES PER MONTH, NOTES: 02/26/18 TAKING MAY HAVE MEDICAL MARIJUANA DIRECTED, NOTES: 02/28/18 TAKING NORCO 5-325 MG TABLET 1 TABLET NEEDED ORALLY EVERY 4 HOURS PRN PAIN MDD=4, NOTES: 03/01/18 0300 TAKING TRAZODONE HCL 50 MG TABLET 1 TABLET AT BEDTIME NEEDED ORALLY BEFORE BEDTIME, NOTES: 02/27/18 NOT-TAKING ABIGAIL ALLERGY 180 MG TABLET 1 TABLET ORALLY ONCE A DAY PRN, NOTES: NONE LATELY NOT-TAKING FROVATRIPTAN SUCCINATE 2.5 MG TABLET 1 TABLET NEEDED ONE TIME ORALLY ONCE A DAY AT TIME OF MENSES AND WITH MIGRAINES, NOTES: INSURANCE REFUSED MEDICATION LIST REVIEWED AND RECONCILED WITH THE PATIENT PAST MEDICAL HISTORY CERVALGIA- C5-6 DISC HERNIATION WITH C6 IMPINGEMENT-DR DAY/ DR YUSUF- [facility]- HYPOTHYROIDISM 2007- DR PABLO SEASONAL ALLERGY/SINUSITIS ENDOMETRIAL POLYP- DR YBARRA DYSPHAGIA-ENT IN [place]- DR MORATAYA BASAL CELL TO RIGHT NOSE - DR. CASTAÑEDA SACRAL PAIN MIGRAINES ALLERGIES NEURONTIN 300: DEPRESSION: SIDE EFFECTS BACLOFEN: HEAD ACHES: ALLERGY CYCLOBENZAPRINE HCL: DECREASED MENTAL ALERTNESS: ALLERGY TIZANIDINE HCL: HEADACHES: ALLERGY TOPIRAMATE: ALTERED MENTAL STATUS: ALLERGY SURGICAL HISTORY NO PERSONAL OR FHX OF SEVERE REACTION TO ANESTHESIA POLYPECTOMY 2010 ANT CERVI 2011 C-SPINE FUSION _ 03/2011 SKIN CANCER REMOVED FROM NOSE AUGUST 2015 FAMILY HISTORY FATHER: MOTHER: ALIVE SIBLINGS: ALIVE, DIAGNOSED WITH OTHER 1 SISTER AND 1 BROTHER-HYPOTHYROIDISM. SOCIAL HISTORY GENERAL: TOBACCO USE ARE YOU A:NONSMOKER ALCOHOL SCREENING DID YOU HAVE A DRINK CONTAINING ALCOHOL IN THE PAST YEAR?NO POINTS0 INTERPRETATIONNEGATIVE RECREATIONAL DRUG USE DRUG USE?NO PATIENT IS PERSCRIBED MEDICAL MARIJUANA CAFFEINE CAFFEINE USE?YES HOW OFTEN AND HOW MUCH? DAILY BASIS SEXUAL HX HAD SEX IN THE LAST 12 MONTHS (VAGINAL, ORAL, OR ANAL)?NO HAVE YOU EVER HAD AN STD?NO LMP:05/2017 HIV / HEP-C SCREENING HIV TEST OFFERED TO PATIENT:YES DATE OFFERED:09/21/2017 TEST ACCEPTED:NO REASON:PATIENT DECLINED BROCHURE PROVIDED TO PATIENTNO ANGLICAN [id number] CHEONDOISM LANGUAGE LANGUAGES SPOKEN:[place] AND [place] LEARNING BARRIERS / SPECIAL NEEDS CHANGE FROM LAST VISIT?NO BARRIERS TO LEARNING?NO HEARING IMPAIRED?NO VISION IMPAIRED?YES : CORRECTIVE LENSES COGNITIVELY IMPAIRED?NO READINESS TO LEARN?YES LEARNING PREFERENCES?NO LEARNING CAPABILITIES PRESENT?YES EMOTIONAL BARRIERS?NO SPECIAL DEVICES?NO DOMESTIC VIOLENCE DO YOU FEEL SAFE IN YOUR ENVIRONMENT?YES DIET: REGULAR. EXERCISE: PHYSICAL THERAPY, WALKS. MARITAL STATUS: SINGLE. OTHERS AT HOME: MOM,SISTER. PAIN CLINIC PFS, CLERGY, PUBLIC HEALTH REFERRALS PFS REFERRAL NEEDED?NO CLERGY REFERRAL NEEDED?NO PUBLIC HEALTH REFERRAL NEEDED?NO WAS THE PROVIDER NOTIFIED OF ANY PERTINENT INFO?NO N/A HAS THE PATIENT BEEN EDUCATED REGARDING HIS/HER PLAN OF CARE?YES HAS THE PATIENT BEEN EDUCATED REGARDING PAIN, THE RISK FOR PAIN, THE IMPORTANCE OF EFFECTIVE PAIN MANAGEMENT, AND THE PAIN ASSESSMENT PROCESS?YES ADVANCE DIRECTIVE ADVANCE DIRECTIVE DISCUSSED WITH PATIENT:YES HCP SISTER--DUANE CAM [phone] ALSO HAS POA AND LIVING WILL REVIEWED 12/19/17 NLREVIEWED WITH PATIENT 02/15/18 1037 JS. HOSPITALIZATION/MAJOR DIAGNOSTIC PROCEDURE SURGERY RELATED REVIEW OF SYSTEMS REVIEWED BY: PROVIDER: . CONSTITUTIONAL: ANY CHANGE IN YOUR MEDICAL CONDITION? NO . CHILLS NO . FEVER NO . INFECTION: DO YOU HAVE NEW INFECTIONS? NO . DO YOU HAVE HISTORY OF MRSA? NO . MUSCULOSKELETAL: ANY NEW PATTERNS OF PAIN OR NUMBNESS? NO . GASTROENTEROLOGY: ANY NEW CHANGE IN BOWEL CONTROL? NO . GENITOURINARY: ANY NEW CHANGE IN BLADDER CONTROL? NO . IS THERE A CHANCE YOU COULD BE ? NO . HEMATOLOGY/LYMPH: DO YOU TAKE ANY BLOOD THINNERS? (FOR EXAMPLE- COUMADIN, PLAVIX, AGGRENOX, PLATEL, PRADAXA, OR XARELTO) NO . WHEN WAS YOUR LAST DOSE? DATE: TIME: . NEUROLOGY: HAVE YOU FALLEN IN THE PAST 12 MONTHS? NO . ANY NEW EXTREMITY NUMBNESS OR WEAKNESS? NO . CARDIOLOGY: DO YOU HAVE A PACEMAKER OR DEFIBRILLATOR? NO . RESPIRATORY: HAVE YOU BEEN SICK IN THE PAST WEEK? NO . FEVER NO . FLU LIKE SYMPTOMS? NO . COUGH NO . INTEGUMENTARY: DO YOU HAVE ANY RASHES OR OPEN SORES? NO . ALLERGIC/IMMUNO: ARE YOU ALLERGIC TO IV DYE? NO . ANY NEW ALLERGIES? NO . PSYCHIATRIC: DO YOU HAVE THOUGHTS OF HURTING YOURSELF OR SOMEONE ELSE? NO . ARE YOU ABUSED, NEGLECTED, OR IN AN UNSAFE ENVIRONMENT? NO . ENDOCRINOLOGY: ARE YOU DIABETIC? NO . OTHER: DO YOU NEED ANY PRESCRIPTIONS? NO . IF YES, PLEASE LIST: ____ . ANY NEW PROBLEMS WITH YOUR MEDICATIONS? NO . WHEN DID YOU LAST EAT? 02/28/18 2100 . WHEN DID YOU LAST DRINK? 03/01/18 0700 . WHAT DID YOU LAST DRINK? WATER . NAME OF PERSON DRIVING YOU HOME? RUSSELL . DO YOU HAVE ANY OTHER QUESTIONS OR CONCERNS NO, PT STATES TETANUS SHOT RECEIVED 02/16/18. DR ENCARNACION AWARE, OK TO PROCEED. EM . VITAL SIGNS WT 180.2 LBS, HT 70 IN, BMI 25.85 INDEX, BP 146/63 MM HG, HR 84 /MIN, RR 18 /MIN, TEMP 96.9 F, OXYGEN SAT % 96, NA INITIALS MP 0852, REVIEWED BY: EM. 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 POST PROCEDURE DIAGNOSIS OCCIPITAL NEURALGIA. PROCEDURE BILATERAL GREATER AND LESSER OCCIPITAL NERVE BLOCK. SURGEON DR. KEISHA ENCARNACION MANDREL PRESS HAND NONE ANESTHESIA LOCAL PRE PROCEDURE NOTE 52 YEAR-OLD PATIENT WITH HISTORY OF CHRONIC OCCIPITAL PAIN. THE PAIN IS LOCATED OVER THE OCCIPITAL AREA WITH RADIATION TOWARDS THE TEMPORAL AREA AND ALSO TO THE PARIETAL AREA OF THE CRANIUM. I EVALUATED THE PATIENT AND REVIEWED THE CHART. I WENT OVER THE RISKS, ALTERNATIVES, AND BENEFITS ASSOCIATED WITH THIS PROCEDURE. THE PATIENT WOULD LIKE TO PROCEED AND GAVE CONSENT TO PERFORM THE PROCEDURE. THE PATIENT DENIES UNEXPLAINABLE WEIGHT LOSS, FEVER, CHILLS, OR NEW CHANGES IN URINARY OR BOWEL CONTROL. DESCRIPTION OF PROCEDURE THE PATIENT WAS BROUGHT TO THE PROCEDURE ROOM AND PLACED IN THE SITTING POSITION. THE RIGHT AND LEFT OCCIPITAL AREA WAS CLEANED WITH ALCOHOL. THE PROCEDURE WAS DONE USING STERILE TECHNIQUES. I CHECKED LATERALITY AND THE LEVEL WHERE THE PROCEDURE WAS GOING TO BE PERFORMED WITH THE PATIENT AND THE SUPPORTING STAFF AT THE MOMENT OF THE TIME OUT IN THE PROCEDURE ROOM. USING A 25-GAUGE NEEDLE, THE OCCIPITAL NERVES, BOTH THE GREATER AND THE LESSER WERE INJECTED AT THE RIGHT AND LEFT SIDE AT THE NUCHAL LINE, THE GREATER 1-INCH LATERAL OF MIDLINE AND THE LESSER 1-1/2 INCH LATERAL OF THE MIDLINE. I USED A TOTAL OF 10 ML OF BUPIVACAINE 0.25% WITH KENALOG 10 MG AT EACH NERVE. THERE WAS NO EVIDENCE OF BLOOD, PARESTHESIA OR CEREBROSPINAL FLUID DURING THE PROCEDURE. THE PATIENT WAS SENT TO THE RECOVERY ROOM. THE PATIENT WAS MOVING THE EXTREMITIES AND DOING WELL. THERE WAS NO COMPLICATION DURING THE PROCEDURE. POST PROCEDURE NOTE THE PATIENT WILL BE SEEN IN A FOLLOW UP IN THE NEXT FEW WEEKS. INSTRUCTIONS WERE GIVEN, QUESTIONS WERE ANSWERED, AND THE PATIENT EXPRESSED UNDERSTANDING AND AGREED WITH THE PLAN. I, REYES MCBRIDE, DOCUMENTED THE ABOVE INFORMATION ACTING A SCRIBE FOR DR. ENCARNACION. I HAVE REVIEWED THE ABOVE DOCUMENT, WRITTEN BY REYES RENEE AND I VERIFY THAT IT IS ACCURATE. PROCEDURE CODES 28290 N BLOCK INJ OCCIPITAL, UNITS: 2.00 , MODIFIERS: 50 DISPOSITION & COMMUNICATION FOLLOW UP 3 WEEKS ELECTRONICALLY SIGNED BY KEISHA ENCARNACION MD, MD ON 03/19/2018 AT 05:15 PM EST DISCLAIMER : THIS IS A VISIT SUMMARY EXTRACTED FROM THE [employer] CHART. IT IS NOT A COPY OF THE [employer] PROGRESS NOTE. MTDD
== END ==
LOC: M PAIN 08:45
PROVIDERS: ATTEND Anesthesiology
DX: G89.29 Other chronic pain (principal); M54.81 Occipital neuralgia; E03.9 Hypothyroidism, unspecified; J30.2 Other seasonal allergic rhinitis; G43.909 Migraine, unspecified, not intractable, without status migrainosus; Z79.899 Other long term (current) drug therapy; Z88.8 Allergy status to other drugs, medicaments and biological substances
CPT/HCPCS: 64405; J3301

== ENCOUNTER → 2018-03-13 | Outpatient (CLI) | payer MEDICARE, MEDICAID ==
[~2018-03-13] MED LIST changes: -BUPIVACAINE HCL 0.25% 10 ML VIAL As Ordered ONE; -BUPIVACAINE HCL 0.25% 30 ML VIAL As Ordered ONE; -TRIAMCINOLONE ACETONIDE SUSP 40 MG/ML VIAL (J3301) As Ordered ONE; -diazePAM 5 MG TAB As Ordered ONE; -oxyCODONE 5MG TAB As Ordered ONE
[2018-03-13 19:36] LABS: ALBUMIN 3.8 GM/DL (3.2-5.2); ALT/SGPT 26 U/L (12-78); BILIRUBIN,TOTAL 0.4 MG/DL (0.2-1.0); BLOOD UREA NITROGEN 11 MG/DL (7-18); CALCIUM LEVEL 8.6 MG/DL (8.5-10.1); CARBON DIOXIDE LEVEL 28 MEQ/L (21-32); CHLORIDE LEVEL 104 MEQ/L (98-107); CREATININE FOR GFR 0.69 MG/DL (0.55-1.30); FREE T4 1.02 NG/DL (0.76-1.46); GLOMERULAR FILTRATION RATE > 60.0 (>51); GLUCOSE, FASTING 89 MG/DL (70-100); POTASSIUM SERUM 4.7 MEQ/L (3.5-5.1); SODIUM LEVEL 138 MEQ/L (136-145); TOTAL PROTEIN 7.2 GM/DL (6.4-8.2)
== END ==
LOC: M SMT 12:44
PROVIDERS: ATTEND Physician Assistant
DX: E03.9 Hypothyroidism, unspecified (principal); F41.1 Generalized anxiety disorder

== ENCOUNTER → 2018-03-20 | Outpatient (CLI) | payer MEDICARE, MEDICAID ==
--- NOTE | 2018-04-06 00:16 | ECWPNPC ---
PATIENT NAME: PATRIZIA DICKEY : 1965 GENDER: FEMALE VISIT DATE: 03/20/2018 DISCHARGE DATE: 03/20/18 1237 VISIT LOCKED DATE TIME: PHYSICIAN: LY ANTUNEZ RESOURCE: LY ANTUNEZ REASON FOR APPOINTMENT 1. POST BILAT. OCCIPITAL HISTORY OF PRESENT ILLNESS HISTORY OF PRESENT ILLNESS: HERE FOR POSRT PROCEDURE F/U.HAD BILAT. >/< OCCIPITAL BLOCK ON 03/01/18.REPORTING SIGNIFICANT IMPROVEMENT IN OCCIPITAL PAIN SINCE PROCEDURE.CHIEF AREA OF PAIN IS LOW BACK.RATING PAIN VAS 6/10. PAIN THE PATIENT DESCRIBES THE PAIN... FALL RISK SCREENING: SCREENING :NO FALLS IN THE PAST YEAR CURRENT MEDICATIONS TAKING SENNA S 8.6-50 MG TABLET 1 TABLET IN THE EVENING NEEDED ORALLY ONCE A DAY NEEDED TAKING MAGNESIUM 400 MG CAPSULE 1 TABLET WITH A MEAL ORALLY ONCE A DAY TAKING FISH OIL 1200 MG CAPSULE 2 CAPSULES ORALLY ONCE A DAY TAKING MULTIVITAMINS OTC TABLET 1 TAB(S) ORALLY DAILY TAKING VITAMIN B COMPLEX OTC TABLET 1 TAB(S) ORALLY DAILY TAKING CALCIUM 500 MG TABLET CHEWABLE 2 TABLET ORALLY ONCE A DAY TAKING VITAMIN D-3 1000 UNITS TABLET 2 CAPSULES ORALLY DAILY TAKING OSTEO COMPLEX CAPSULE 1 CAP(S) ORALLY DAILY TAKING DIAZEPAM 5 MG TABLET 1 TABLET ORALLY ONCE A DAY NEEDED ([facility]) TAKING SYNTHROID 125 MCG TABLET 1 TABLET ON AN EMPTY STOMACH IN THE MORNING ORALLY ONCE A DAY (DR. PABLO) TAKING CLARITIN 10 MG TABLET 1 TABLET ORALLY ONCE A DAY TAKING FLONASE 50 MCG/DOSE INHALER 1 SPRAY IN EACH NOSTRIL NASALLY ONCE A DAY TAKING BENADRYL 25 MG CAPSULE 1 CAPSULE NEEDED ORALLY EVERY 6 HRS TAKING SUDAFED 30 MG TABLET 1 TABLET NEEDED ORALLY EVERY 6 HRS TAKING VALIUM 2 MG TABLET 1 TABLET NEEDED ORALLY BID TAKING CARISOPRODOL 350 MG TABLET 1 TABLET NEEDED ORALLY BID PRN SPAM MDD=2 TAKING CLONIDINE HCL 0.1 MG TABLET 1 TABLET ORALLY TWICE A DAY TAKING VITAMIN B2 TAKING CO ENZYME Q-10 TAKING SERTRALINE HCL 100 MG TABLET 1 TABLET ORALLY ONCE A DAY TAKING METHOCARBAMOL 750 MG TABLET 1 TABLET ORALLY Q 6HRS TAKING SUMATRIPTAN SUCCINATE 100 MG TABLET 1 TABLET NEEDED ORALLY TWICE A DAY NEEDED FOR MAX 9 MIGRAINES PER MONTH TAKING MAY HAVE MEDICAL MARIJUANA DIRECTED TAKING NORCO 5-325 MG TABLET 1 TABLET NEEDED ORALLY EVERY 4 HOURS PRN PAIN MDD=4 TAKING TRAZODONE HCL 50 MG TABLET 1 TABLET AT BEDTIME NEEDED ORALLY BEFORE BEDTIME TAKING RIZATRIPTAN BENZOATE 10 MG TABLET 1 TABLET NEEDED ONE TIME ORALLY BID PRN MIGRAINE TAKING AIMOVIG 70 MG/ML SOLUTION AUTO-INJECTOR 1 ML SUBCUTANEOUS , NOTES: LAST 03/07/18 NOT-TAKING ABIGAIL ALLERGY 180 MG TABLET 1 TABLET ORALLY ONCE A DAY PRN, NOTES: NONE LATELY NOT-TAKING FROVATRIPTAN SUCCINATE 2.5 MG TABLET 1 TABLET NEEDED ONE TIME ORALLY ONCE A DAY AT TIME OF MENSES AND WITH MIGRAINES, NOTES: INSURANCE REFUSED MEDICATION LIST REVIEWED AND RECONCILED WITH THE PATIENT PAST MEDICAL HISTORY CERVALGIA- C5-6 DISC HERNIATION WITH C6 IMPINGEMENT-DR DAY/ DR YUSUF- [facility]- HYPOTHYROIDISM 2007- DR PABLO SEASONAL ALLERGY/SINUSITIS ENDOMETRIAL POLYP- DR YBARRA DYSPHAGIA-ENT IN [place]- DR MORATAYA BASAL CELL TO RIGHT NOSE - DR. CASTAÑEDA SACRAL PAIN MIGRAINES ALLERGIES NEURONTIN 300: DEPRESSION: SIDE EFFECTS BACLOFEN: HEAD ACHES: ALLERGY CYCLOBENZAPRINE HCL: DECREASED MENTAL ALERTNESS: ALLERGY TIZANIDINE HCL: HEADACHES: ALLERGY TOPIRAMATE: ALTERED MENTAL STATUS: ALLERGY SURGICAL HISTORY NO PERSONAL OR FHX OF SEVERE REACTION TO ANESTHESIA POLYPECTOMY 2010 ANT CERVI 2012 C-SPINE FUSION _ 03/2011 SKIN CANCER REMOVED FROM NOSE AUGUST 2015 FAMILY HISTORY FATHER: MOTHER: ALIVE SIBLINGS: ALIVE, DIAGNOSED WITH OTHER 1 SISTER AND 1 BROTHER-HYPOTHYROIDISM. SOCIAL HISTORY GENERAL: TOBACCO USE ARE YOU A:NONSMOKER ALCOHOL SCREENING DID YOU HAVE A DRINK CONTAINING ALCOHOL IN THE PAST YEAR?NO POINTS0 INTERPRETATIONNEGATIVE RECREATIONAL DRUG USE DRUG USE?NO PATIENT IS PERSCRIBED MEDICAL MARIJUANA CAFFEINE CAFFEINE USE?YES HOW OFTEN AND HOW MUCH? DAILY BASIS SEXUAL HX HAD SEX IN THE LAST 12 MONTHS (VAGINAL, ORAL, OR ANAL)?NO LMP:05/2017 HAVE YOU EVER HAD AN STD?NO HIV / HEP-C SCREENING HIV TEST OFFERED TO PATIENT:YES DATE OFFERED:09/21/2017 TEST ACCEPTED:NO REASON:PATIENT DECLINED BROCHURE PROVIDED TO PATIENTNO JEW [id number] AMISH LANGUAGE LANGUAGES SPOKEN:SLOVENIAN LEARNING BARRIERS / SPECIAL NEEDS CHANGE FROM LAST VISIT?NO BARRIERS TO LEARNING?NO HEARING IMPAIRED?NO VISION IMPAIRED?YES COGNITIVELY IMPAIRED?NO : CORRECTIVE LENSES READINESS TO LEARN?YES LEARNING PREFERENCES?NO LEARNING CAPABILITIES PRESENT?YES EMOTIONAL BARRIERS?NO SPECIAL DEVICES?NO DOMESTIC VIOLENCE DO YOU FEEL SAFE IN YOUR ENVIRONMENT?YES DIET: REGULAR. EXERCISE: PHYSICAL THERAPY, WALKS. MARITAL STATUS: SINGLE. OTHERS AT HOME: MOM,SISTER. PAIN CLINIC PFS, CLERGY, PUBLIC HEALTH REFERRALS PFS REFERRAL NEEDED?NO CLERGY REFERRAL NEEDED?NO PUBLIC HEALTH REFERRAL NEEDED?NO WAS THE PROVIDER NOTIFIED OF ANY PERTINENT INFO?NO N/A HAS THE PATIENT BEEN EDUCATED REGARDING HIS/HER PLAN OF CARE?YES HAS THE PATIENT BEEN EDUCATED REGARDING PAIN, THE RISK FOR PAIN, THE IMPORTANCE OF EFFECTIVE PAIN MANAGEMENT, AND THE PAIN ASSESSMENT PROCESS?YES ADVANCE DIRECTIVE ADVANCE DIRECTIVE DISCUSSED WITH PATIENT:YES HCP SISTER--DUANE CAM [phone] ALSO HAS POA AND LIVING WILL REVIEWED 12/19/17 NLREVIEWED WITH PATIENT 02/15/18 1037 JSREVIEWED WITH PT 03/20/18 1208 BV. HOSPITALIZATION/MAJOR DIAGNOSTIC PROCEDURE SURGERY RELATED REVIEW OF SYSTEMS REVIEWED BY: PROVIDER: LY DALE . CONSTITUTIONAL: ANY CHANGE IN YOUR MEDICAL CONDITION? NO . CHILLS NO . FEVER NO . INFECTION: DO YOU HAVE NEW INFECTIONS? NO . DO YOU HAVE HISTORY OF MRSA? NO . MUSCULOSKELETAL: ANY NEW PATTERNS OF PAIN OR NUMBNESS? NO . GASTROENTEROLOGY: ANY NEW CHANGE IN BOWEL CONTROL? NO . GENITOURINARY: ANY NEW CHANGE IN BLADDER CONTROL? NO . IS THERE A CHANCE YOU COULD BE ? NO . HEMATOLOGY/LYMPH: DO YOU TAKE ANY BLOOD THINNERS? (FOR EXAMPLE- COUMADIN, PLAVIX, AGGRENOX, PLATEL, PRADAXA, OR XARELTO) NO . WHEN WAS YOUR LAST DOSE? DATE: TIME: . NEUROLOGY: HAVE YOU FALLEN IN THE PAST 12 MONTHS? NO . ANY NEW EXTREMITY NUMBNESS OR WEAKNESS? NO . CARDIOLOGY: DO YOU HAVE A PACEMAKER OR DEFIBRILLATOR? NO . RESPIRATORY: HAVE YOU BEEN SICK IN THE PAST WEEK? NO . FEVER NO . FLU LIKE SYMPTOMS? NO . COUGH NO . INTEGUMENTARY: DO YOU HAVE ANY RASHES OR OPEN SORES? NO . ALLERGIC/IMMUNO: ARE YOU ALLERGIC TO IV DYE? NO . ANY NEW ALLERGIES? NO . PSYCHIATRIC: DO YOU HAVE THOUGHTS OF HURTING YOURSELF OR SOMEONE ELSE? NO . ARE YOU ABUSED, NEGLECTED, OR IN AN UNSAFE ENVIRONMENT? NO . ENDOCRINOLOGY: ARE YOU DIABETIC? NO . OTHER: DO YOU NEED ANY PRESCRIPTIONS? YES, NORCO, METHOCARBAMOL . IF YES, PLEASE LIST: ____ . ANY NEW PROBLEMS WITH YOUR MEDICATIONS? NO . WHEN DID YOU LAST EAT? ____ . WHEN DID YOU LAST DRINK? ____ . WHAT DID YOU LAST DRINK? ____ . NAME OF PERSON DRIVING YOU HOME? ____ . DO YOU HAVE ANY OTHER QUESTIONS OR CONCERNS NO . VITAL SIGNS WT 182.2 LBS, HT 70 IN, BMI 26.14 INDEX, BP 135/65 MM HG, HR 90 /MIN, RR 18 /MIN, TEMP 97.7 F, OXYGEN SAT % 97%, NA INITIALS SC 11:54, REVIEWED BY: BV. EXAMINATION GENERAL EXAMINATION: GENERAL APPEARANCE:ALERT,NO DISTRESS . PSYCHAFFECT NORMAL . LUNGS:LUNG SOUNDS ARE CLEAR . HEART:HEART RATE REGULAR . MUSCULOSKELETAL:MST 5/5 BILAT. LOWER EXTREMITIES . LUMBAR SACRAL SPINE TENDERNESS BILAT. SIJ .POSITIVE SARWAT/MARIANO TEST L>R. DIAGNOSTIC TESTS REVIEWEDMRI L/S SPINE- 2010. ASSESSMENTS SACROILIITIS, NOT ELSEWHERE CLASSIFIED - M46.1 (PRIMARY) TREATMENT SACROILIITIS, NOT ELSEWHERE CLASSIFIED REFILL METHOCARBAMOL TABLET, 750 MG, 1 TABLET, ORALLY, Q 6HRS, 30 DAY(S), 120, REFILLS 2 REFILL NORCO TABLET, 5-325 MG, 1 TABLET NEEDED, ORALLY, EVERY 4 HOURS PRN PAIN MDD=4, 30 DAY(S), 180, REFILLS 0 CONTINUE AIMOVIG SOLUTION AUTO-INJECTOR, 70 MG/ML, 1 ML, SUBCUTANEOUS, NOTES: LAST 03/07/18 NOTES: BILAT. SIJ, ISTOP REGISTRY REVIEWED AND DEMONSTRATES COMPLLIANCE. BRINGS IN MEDICATIONS WHICH IS APPROPRIATE FOR WHAT WAS DISPENSED. RECENT URINE TOXICOLOGY REVIEWED. NO UNAUTHORIZED MEDICATIONS. NO ILLICIT SUBSTANCES AND PRESCRIBED MEDICATIONS WERE PRESENT. , RISKS AND BENEFITS OF NARCOTIC/OPIOD MEDICATIONS WERE REVIEWED WITH PATIENT - THIS INCLUDES BUT IS NOT LIMITED TO RISK OF DEPENDANCE/DEVELOPMENT OF ADDICTION, MOOD DISTURBANCE AND DEPRESSION, OSTEOPOROSIS, HORMONAL AND LABIDAL CHANGES, RESPIRATORY DEPRESSION AND . PATIENT IS ADVISED NOT TO DRIVE OR DRINK ALCOHOL WHILE ON THESE MEDICATIONS. PREVENTIVE MEDICINE PAIN CLINIC TEACHING: PROCEDURE TEACHING REVIEWED SACROILIAC JOINT INJECTION PROCEDURE INFORMATION WITH PATIENT. ALSO REVIEWED PRE-PROCEDURE INSTRUCTIONS. PATIENT VERBALIZED AN UNDERSTANDING. MYESHAVIANEY Hernandez 03/20/2018 12:39:09 PM > . PROCEDURE CODES FA211 ESTABILISHED PATIENT [facility] CHARGE DISPOSITION & COMMUNICATION FOLLOW UP POST (REASON: BILAT. SIJ) ELECTRONICALLY SIGNED BY CHITO PETERSON ON 04/05/2018 AT 09:20 AM EST DISCLAIMER : THIS IS A VISIT SUMMARY EXTRACTED FROM THE [email or web address] CHART. IT IS NOT A COPY OF THE [employer] PROGRESS NOTE. MARTA
== END ==
LOC: M PAIN 11:45
PROVIDERS: ATTEND Nurse Practitioner Family
DX: M46.1 Sacroiliitis, not elsewhere classified (principal); M50.223 Other cervical disc displacement at C6-C7 level; E03.9 Hypothyroidism, unspecified; J30.2 Other seasonal allergic rhinitis; R13.10 Dysphagia, unspecified; G43.909 Migraine, unspecified, not intractable, without status migrainosus; Z85.828 Personal history of other malignant neoplasm of skin; Z79.899 Other long term (current) drug therapy; Z88.8 Allergy status to other drugs, medicaments and biological substances

== ENCOUNTER → 2018-03-29 | Outpatient (CLI) | payer MEDICARE, MEDICAID ==
[~2018-03-29] MED LIST changes: +BUPIVACAINE HCL 0.25% 30 ML VIAL As Ordered ONE; +ISOVUE-M 300 61% 15ML VIAL (Q9967) As Ordered ONE; +LIDOCAINE 1% SDV INJ 30 ML VIAL As Ordered ONE; +TRIAMCINOLONE ACETONIDE SUSP 40 MG/ML VIAL (J3301) As Ordered ONE; +diazePAM 5 MG TAB As Ordered ONE; +oxyCODONE 5MG TAB As Ordered ONE
--- NOTE | 2018-03-29 15:16 | REP ---
C-ARM VIEWS SACROILIAC JOINTS: CLINICAL HISTORY: Pain. Multiple C-ARM views of the bilateral sacroiliac joints are performed during injections by Dr. Rincon. A needle is seen in the region of the sacroiliac joint on each side on the obtained images. 24 seconds of fluoroscopy time was utilized. Electronically Signed by Eric Ordonez MD 03/29/2018 08:12 P
--- NOTE | 2018-04-17 00:24 | ECWPNPC ---
PATIENT NAME: PATRIZIA DICKEY : 1965 GENDER: FEMALE VISIT DATE: 03/29/2018 DISCHARGE DATE: 03/29/18 1013 VISIT LOCKED DATE TIME: PHYSICIAN: KEISHA ENCARNACION MD RESOURCE: KEISHA ENCARNACION MD REASON FOR APPOINTMENT 1. MALCOM SIJ HISTORY OF PRESENT ILLNESS HISTORY OF PRESENT ILLNESS: PAIN THE PATIENT DESCRIBES THE PAIN... FALL RISK SCREENING: SCREENING : NO FALLS IN THE PAST YEAR. CURRENT MEDICATIONS TAKING SENNA S 8.6-50 MG TABLET 1 TABLET IN THE EVENING NEEDED ORALLY ONCE A DAY NEEDED, NOTES: [id number] TAKING MAGNESIUM 400 MG CAPSULE 1 TABLET WITH A MEAL ORALLY ONCE A DAY, NOTES: 02-25-18799 TAKING FISH OIL 1200 MG CAPSULE 2 CAPSULES ORALLY ONCE A DAY, NOTES: 02-25-18799 TAKING MULTIVITAMINS OTC TABLET 1 TAB(S) ORALLY DAILY, NOTES: 02-25-18799 TAKING VITAMIN B COMPLEX OTC TABLET 1 TAB(S) ORALLY DAILY, NOTES: 02-25-18799 TAKING CALCIUM 500 MG TABLET CHEWABLE 2 TABLET ORALLY ONCE A DAY, NOTES: 02-25-18799 TAKING VITAMIN D-3 1000 UNITS TABLET 2 CAPSULES ORALLY DAILY, NOTES: 02-25-18799 TAKING OSTEO COMPLEX CAPSULE 1 CAP(S) ORALLY DAILY, NOTES: 799 TAKING DIAZEPAM 5 MG TABLET 1 TABLET ORALLY ONCE A DAY NEEDED ([facility]), NOTES: A COUPLE DAYS TAKING SYNTHROID 125 MCG TABLET 1 TABLET ON AN EMPTY STOMACH IN THE MORNING ORALLY ONCE A DAY (DR. PABLO), NOTES: 699 TAKING CLARITIN 10 MG TABLET 1 TABLET ORALLY ONCE A DAY, NOTES: 02-25-18699 TAKING FLONASE 50 MCG/DOSE INHALER 1 SPRAY IN EACH NOSTRIL NASALLY ONCE A DAY, NOTES: A COUPLE DAYS TAKING BENADRYL 25 MG CAPSULE 1 CAPSULE NEEDED ORALLY EVERY 6 HRS, NOTES: NOT LATELY TAKING SUDAFED 30 MG TABLET 1 TABLET NEEDED ORALLY EVERY 6 HRS, NOTES: NOT LATELY TAKING VALIUM 2 MG TABLET 1 TABLET NEEDED ORALLY BID, NOTES: NOT LATELY TAKING CARISOPRODOL 350 MG TABLET 1 TABLET NEEDED ORALLY BID PRN SPAM MDD=2, NOTES: 02-25-18799 TAKING CLONIDINE HCL 0.1 MG TABLET 1 TABLET ORALLY TWICE A DAY, NOTES: 02-25-182099 TAKING VITAMIN B2 , NOTES: 02-25-18799 TAKING CO ENZYME Q-10 , NOTES: 02-25-18799 TAKING SERTRALINE HCL 100 MG TABLET 1 1/2/ TABLET ORALLY ONCE A DAY, NOTES: 03-28-182099 TAKING SUMATRIPTAN SUCCINATE 100 MG TABLET 1 TABLET NEEDED ORALLY TWICE A DAY NEEDED FOR MAX 9 MIGRAINES PER MONTH, NOTES: A COUPLE DAYS AGO TAKING MAY HAVE MEDICAL MARIJUANA DIRECTED, NOTES: CBD PILL TAKING RIZATRIPTAN BENZOATE 10 MG TABLET 1 TABLET NEEDED ONE TIME ORALLY BID PRN MIGRAINE, NOTES: 03-29-18699 TAKING METHOCARBAMOL 750 MG TABLET 1 TABLET ORALLY Q 6HRS, NOTES: 03-29-18399 TAKING NORCO 5-325 MG TABLET 1 TABLET NEEDED ORALLY EVERY 4 HOURS PRN PAIN MDD=4, NOTES: 03-29-18399 TAKING AIMOVIG 70 MG/ML SOLUTION AUTO-INJECTOR 1 ML SUBCUTANEOUS , NOTES: LAST 03/07/18 NOT-TAKING TRAZODONE HCL 50 MG TABLET 1 TABLET AT BEDTIME NEEDED ORALLY BEFORE BEDTIME UNKNOWN ABIGAIL ALLERGY 180 MG TABLET 1 TABLET ORALLY ONCE A DAY PRN, NOTES: NONE LATELY UNKNOWN FROVATRIPTAN SUCCINATE 2.5 MG TABLET 1 TABLET NEEDED ONE TIME ORALLY ONCE A DAY AT TIME OF MENSES AND WITH MIGRAINES, NOTES: INSURANCE REFUSED MEDICATION LIST REVIEWED AND RECONCILED WITH THE PATIENT PAST MEDICAL HISTORY CERVALGIA- C5-6 DISC HERNIATION WITH C6 IMPINGEMENT-DR DAY/ DR YUSUF- [facility]- HYPOTHYROIDISM 2007- DR PABLO SEASONAL ALLERGY/SINUSITIS ENDOMETRIAL POLYP- [facility]A BASAL CELL TO RIGHT NOSE - DR. CASTAÑEDA SACRAL PAIN MIGRAINES ALLERGIES NEURONTIN 300: DEPRESSION: SIDE EFFECTS BACLOFEN: HEAD ACHES: ALLERGY CYCLOBENZAPRINE HCL: DECREASED MENTAL ALERTNESS: ALLERGY TIZANIDINE HCL: HEADACHES: ALLERGY TOPIRAMATE: ALTERED MENTAL STATUS: ALLERGY SURGICAL HISTORY NO PERSONAL OR FHX OF SEVERE REACTION TO ANESTHESIA POLYPECTOMY 2010 ANT CERV2011 C-SPINE FUSION _ 03/2011 SKIN CANCER REMOVED FROM NOSE AUGUST 2015 FAMILY HISTORY FATHER: MOTHER: ALIVE SIBLINGS: ALIVE, DIAGNOSED WITH OTHER 1 SISTER AND 1 BROTHER-HYPOTHYROIDISM. SOCIAL HISTORY GENERAL: TOBACCO USE ARE YOU A:NONSMOKER ALCOHOL SCREENING DID YOU HAVE A DRINK CONTAINING ALCOHOL IN THE PAST YEAR?NO POINTS0 INTERPRETATIONNEGATIVE RECREATIONAL DRUG USE DRUG USE?NO PATIENT IS PERSCRIBED MEDICAL MARIJUANA CAFFEINE CAFFEINE USE?YES HOW OFTEN AND HOW MUCH? DAILY BASIS SEXUAL HX HAD SEX IN THE LAST 12 MONTHS (VAGINAL, ORAL, OR ANAL)?NO LMP:05/2017 HAVE YOU EVER HAD AN STD?NO HIV / HEP-C SCREENING HIV TEST OFFERED TO PATIENT:YES DATE OFFERED:09/21/2017 TEST ACCEPTED:NO REASON:PATIENT DECLINED BROCHURE PROVIDED TO PATIENTNO ROMAN CATHOLIC CONMIBPP77 SABIANIST LANGUAGE LANGUAGES SPOKEN:URDU LEARNING BARRIERS / SPECIAL NEEDS CHANGE FROM LAST VISIT?NO BARRIERS TO LEARNING?NO HEARING IMPAIRED?NO VISION IMPAIRED?YES COGNITIVELY IMPAIRED?NO : CORRECTIVE LENSES READINESS TO LEARN?YES LEARNING PREFERENCES?NO LEARNING CAPABILITIES PRESENT?YES EMOTIONAL BARRIERS?NO SPECIAL DEVICES?NO DOMESTIC VIOLENCE DO YOU FEEL SAFE IN YOUR ENVIRONMENT?YES DIET: REGULAR. EXERCISE: PHYSICAL THERAPY, WALKS. MARITAL STATUS: SINGLE. OTHERS AT HOME: MOM,SISTER. PAIN CLINIC PFS, CLERGY, PUBLIC HEALTH REFERRALS PFS REFERRAL NEEDED?NO CLERGY REFERRAL NEEDED?NO PUBLIC HEALTH REFERRAL NEEDED?NO WAS THE PROVIDER NOTIFIED OF ANY PERTINENT INFO?NO N/A HAS THE PATIENT BEEN EDUCATED REGARDING HIS/HER PLAN OF CARE?YES HAS THE PATIENT BEEN EDUCATED REGARDING PAIN, THE RISK FOR PAIN, THE IMPORTANCE OF EFFECTIVE PAIN MANAGEMENT, AND THE PAIN ASSESSMENT PROCESS?YES ADVANCE DIRECTIVE ADVANCE DIRECTIVE DISCUSSED WITH PATIENT:YES HCP SISTER--DUANE CAM [phone] ALSO HAS POA AND LIVING WILL REVIEWED 12/19/17 NLREVIEWED WITH PATIENT 02/15/18 1037 JSREVIEWED WITH PT 03/20/18 1208 BV. HOSPITALIZATION/MAJOR DIAGNOSTIC PROCEDURE SURGERY RELATED REVIEW OF SYSTEMS REVIEWED BY: PROVIDER: . CONSTITUTIONAL: ANY CHANGE IN YOUR MEDICAL CONDITION? NO . CHILLS NO . FEVER NO . INFECTION: DO YOU HAVE NEW INFECTIONS? NO . DO YOU HAVE HISTORY OF MRSA? NO . MUSCULOSKELETAL: ANY NEW PATTERNS OF PAIN OR NUMBNESS? NO . GASTROENTEROLOGY: ANY NEW CHANGE IN BOWEL CONTROL? NO . GENITOURINARY: ANY NEW CHANGE IN BLADDER CONTROL? NO . IS THERE A CHANCE YOU COULD BE ? NO . HEMATOLOGY/LYMPH: DO YOU TAKE ANY BLOOD THINNERS? (FOR EXAMPLE- COUMADIN, PLAVIX, AGGRENOX, PLATEL, PRADAXA, OR XARELTO) NO . WHEN WAS YOUR LAST DOSE? DATE: TIME: . NEUROLOGY: HAVE YOU FALLEN IN THE PAST 12 MONTHS? NO . ANY NEW EXTREMITY NUMBNESS OR WEAKNESS? NO . CARDIOLOGY: DO YOU HAVE A PACEMAKER OR DEFIBRILLATOR? NO . RESPIRATORY: HAVE YOU BEEN SICK IN THE PAST WEEK? NO . FEVER NO . FLU LIKE SYMPTOMS? NO . COUGH NO . INTEGUMENTARY: DO YOU HAVE ANY RASHES OR OPEN SORES? NO . ALLERGIC/IMMUNO: ARE YOU ALLERGIC TO IV DYE? NO . ANY NEW ALLERGIES? NO . PSYCHIATRIC: DO YOU HAVE THOUGHTS OF HURTING YOURSELF OR SOMEONE ELSE? NO . ARE YOU ABUSED, NEGLECTED, OR IN AN UNSAFE ENVIRONMENT? NO . ENDOCRINOLOGY: ARE YOU DIABETIC? NO . OTHER: DO YOU NEED ANY PRESCRIPTIONS? NO . IF YES, PLEASE LIST: ____ . ANY NEW PROBLEMS WITH YOUR MEDICATIONS? NO . WHEN DID YOU LAST EAT? ____8 PM LAST NIGHT . WHEN DID YOU LAST DRINK? ____THIS MORNING 0730 . WHAT DID YOU LAST DRINK? ____WATER . NAME OF PERSON DRIVING YOU HOME? ____JEN CAM . DO YOU HAVE ANY OTHER QUESTIONS OR CONCERNS NO . VITAL SIGNS WT 182 LBS, HT 70 IN, BMI 26.11 INDEX, BP 114/70 MM HG, HR 79 /MIN, RR 18 /MIN, TEMP 98.4 F, OXYGEN SAT % 96%, NA INITIALS AW 0839, REVIEWED BY: KG. ASSESSMENTS SACROILIITIS, NOT ELSEWHERE CLASSIFIED - M46.1 (PRIMARY) TREATMENT SACROILIITIS, NOT ELSEWHERE CLASSIFIED [facility] FLUORO GUIDANCE (PAIN)[id number] PROCEDURES PN SI PRE PROCEDURE DIAGNOSIS SACROILIITIS, SACROILIAC JOINT DYSFUNCTION POST PROCEDURE DIAGNOSIS SACROILIITIS, SACROILIAC JOINT DYSFUNCTION PROCEDURE BILATERAL SACROILIAC JOINT BLOCK SURGEON DR. 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 I EVALUATED THE PATIENT AND REVIEWED THE CHART. I WENT OVER THE RISKS, ALTERNATIVES, AND BENEFITS ASSOCIATED WITH THIS PROCEDURE. THE PATIENT WOULD LIKE TO PROCEED AND GAVE CONSENT TO PERFORM THE PROCEDURE. THE PATIENT DENIES UNEXPLAINABLE WEIGHT LOSS, FEVER, CHILLS, OR NEW CHANGES IN URINARY OR BOWEL CONTROL DESCRIPTION OF PROCEDURE THE PATIENT WAS BROUGHT TO THE PROCEDURE ROOM AND PLACED IN THE PRONE POSITION. THE LUMBOSACRAL AREA WAS CLEANED WITH CHLORAPREP SOLUTION AND DRAPED ASEPTICALLY. THE PROCEDURE WAS DONE UNDER STERILE CONDITIONS. I CHECKED LATERALITY AND THE LEVEL WHERE THE PROCEDURE WAS GOING TO BE PERFORMED WITH THE PATIENT AND THE SUPPORTING STAFF AT THE MOMENT OF THE TIME OUT IN THE PROCEDURE ROOM. UNDER FLUOROSCOPIC GUIDANCE, TARGET POINT WAS SELECTED AT THE LOWER BORDER OF THE RIGHT AND LEFT SACROILIAC JOINT. TARGET POINT WAS SELECTED AFTER MEDIAL ROTATION AND TILT OF THE MAGNIFIER OF THE C-ARM. LIDOCAINE WAS USED TO NUMB THE SKIN AND SUBCUTANEOUS TISSUE BELOW IT. A SPINAL NEEDLE, 22-GAUGE, WAS ADVANCED UNDER FLUOROSCOPIC GUIDANCE AND FOLLOWING PATIENT FEEDBACK UNTIL THE TARGET AREA WAS TOUCHED. THE POSITION OF THE NEEDLE WAS VERIFIED WITH AP AND LATERAL VIEWS. AFTER PROPER POSITION OF THE NEEDLE WAS ACHIEVED, ISOVUE M DYE 30%, 0.25 ML, WAS INJECTED SHOWING SPREAD OF THE DYE. THEN, A SOLUTION OF 20 MG OF KENALOG WAS INJECTED IN RIGHT AND LEFT JOINT WITH 3 ML OF BUPIVACAINE 0.125%. THERE WAS NO EVIDENCE OF BLOOD, PARESTHESIA OR CEREBROSPINAL FLUID DURING THE PROCEDURE. THE PATIENT WAS SENT TO THE RECOVERY ROOM. THE PATIENT WAS MOVING THE EXTREMITIES AND DOING WELL. THERE WAS NO COMPLICATION DURING THE PROCEDURE. FLUOROSCOPY TIME WAS 24 SECONDS POST PROCEDURE NOTE THE PATIENT WILL BE SEEN IN A FOLLOW UP IN THE NEXT FEW WEEKS. INSTRUCTIONS WERE GIVEN, QUESTIONS WERE ANSWERED, AND THE PATIENT EXPRESSED UNDERSTANDING AND AGREED WITH THE PLAN. I, REYES MCBRIDE, DOCUMENTED THE ABOVE INFORMATION ACTING A SCRIBE FOR DR. ENCARNACION. I HAVE REVIEWED THE ABOVE DOCUMENT, WRITTEN BY REYES RENEE AND I VERIFY THAT IT IS ACCURATE. PROCEDURE CODES 6045F RADXPS IN END [id number] PXD [id number] INJECT SACROILIAC JOINT, MODIFIERS: 50 DISPOSITION & COMMUNICATION FOLLOW UP 3 WEEKS ELECTRONICALLY SIGNED BY KEISHA ENCARNACION MD, MD ON 04/16/2018 AT 12:46 PM EST DISCLAIMER : THIS IS A VISIT SUMMARY EXTRACTED FROM THE [employer] CHART. IT IS NOT A COPY OF THE [employer] PROGRESS NOTE. MTDD
== END ==
LOC: M PAIN 08:30
PROVIDERS: ATTEND Anesthesiology
DX: G89.29 Other chronic pain (principal); M46.1 Sacroiliitis, not elsewhere classified; M53.88 Other specified dorsopathies, sacral and sacrococcygeal region; E03.9 Hypothyroidism, unspecified; J30.2 Other seasonal allergic rhinitis; G43.909 Migraine, unspecified, not intractable, without status migrainosus; Z79.899 Other long term (current) drug therapy; Z88.8 Allergy status to other drugs, medicaments and biological substances
CPT/HCPCS: G0260; J3301; Q9967

== ENCOUNTER → 2018-04-06 | Outpatient (REF) | payer MEDICARE, MEDICAID ==
[~2018-04-06] MED LIST changes: -BUPIVACAINE HCL 0.25% 30 ML VIAL As Ordered ONE; -ISOVUE-M 300 61% 15ML VIAL (Q9967) As Ordered ONE; -LIDOCAINE 1% SDV INJ 30 ML VIAL As Ordered ONE; -TRIAMCINOLONE ACETONIDE SUSP 40 MG/ML VIAL (J3301) As Ordered ONE; -diazePAM 5 MG TAB As Ordered ONE; -oxyCODONE 5MG TAB As Ordered ONE
[2018-04-06 20:12] LABS: ALBUMIN 3.6 GM/DL (3.2-5.2); ALT/SGPT 26 U/L (12-78); BILIRUBIN,TOTAL 0.3 MG/DL (0.2-1.0); BLOOD UREA NITROGEN 11 MG/DL (7-18); CALCIUM LEVEL 8.7 MG/DL (8.5-10.1); CARBON DIOXIDE LEVEL 29 MEQ/L (21-32); CHLORIDE LEVEL 103 MEQ/L (98-107); CREATININE FOR GFR 0.68 MG/DL (0.55-1.30); FREE T4 0.95 NG/DL (0.76-1.46); GLOMERULAR FILTRATION RATE > 60.0 (>51); GLUCOSE, FASTING 97 MG/DL (70-100); POTASSIUM SERUM 4.1 MEQ/L (3.5-5.1); SODIUM LEVEL 139 MEQ/L (136-145); TOTAL PROTEIN 7.6 GM/DL (6.4-8.2)
== END ==
LOC: M LABDRWAD 19:10
PROVIDERS: ATTEND Physician Assistant
DX: E03.9 Hypothyroidism, unspecified (principal); F41.1 Generalized anxiety disorder

== ENCOUNTER → 2018-04-07 | Outpatient (CLI) | payer MEDICARE, MEDICAID ==
--- NOTE | 2018-04-22 01:53 | ECWPNPC ---
PATIENT NAME: PATRIZIA DICKEY : 1965 GENDER: FEMALE VISIT DATE: 04/07/2018 DISCHARGE DATE: 04/07/18 1500 VISIT LOCKED DATE TIME: PHYSICIAN: LY ANTUNEZ RESOURCE: LY ANTUNEZ REASON FOR APPOINTMENT 1. POST SIJ MAY BE FEW MINS LATE HISTORY OF PRESENT ILLNESS HISTORY OF PRESENT ILLNESS: HERE FOR POST PROCEDURE F/U.HAD BILAT. SIJ 03/29/18.OVERALL DOING WELL.CHIEF AREA OF PAIN IS SACRAL REGION.HAS RESPONDED WELL TO BILAT. SACROCOCCYGEAL BLOCKS IN THE PAST.RATING PAIN VAS 6/10. PAIN THE PATIENT DESCRIBES THE PAIN... FALL RISK SCREENING: SCREENING : NO FALLS IN THE PAST YEAR. CURRENT MEDICATIONS TAKING SENNA S 8.6-50 MG TABLET 1 TABLET IN THE EVENING NEEDED ORALLY ONCE A DAY NEEDED TAKING MAGNESIUM 400 MG CAPSULE 1 TABLET WITH A MEAL ORALLY ONCE A DAY TAKING FISH OIL 1200 MG CAPSULE 2 CAPSULES ORALLY ONCE A DAY TAKING MULTIVITAMINS OTC TABLET 1 TAB(S) ORALLY DAILY TAKING VITAMIN B COMPLEX OTC TABLET 1 TAB(S) ORALLY DAILY TAKING CALCIUM 500 MG TABLET CHEWABLE 2 TABLET ORALLY ONCE A DAY TAKING VITAMIN D-3 1000 UNITS TABLET 2 CAPSULES ORALLY DAILY TAKING OSTEO COMPLEX CAPSULE 1 CAP(S) ORALLY DAILY TAKING DIAZEPAM 5 MG TABLET 1 TABLET ORALLY ONCE A DAY NEEDED ([facility]) TAKING SYNTHROID 150 MCG TABLET 1 TABLET ON AN EMPTY STOMACH IN THE MORNING ORALLY ONCE A DAY (DR. PABLO) TAKING CLARITIN 10 MG TABLET 1 TABLET ORALLY ONCE A DAY TAKING FLONASE 50 MCG/DOSE INHALER 1 SPRAY IN EACH NOSTRIL NASALLY ONCE A DAY TAKING BENADRYL 25 MG CAPSULE 1 CAPSULE NEEDED ORALLY EVERY 6 HRS, NOTES: NOT LATELY TAKING SUDAFED 30 MG TABLET 1 TABLET NEEDED ORALLY EVERY 6 HRS, NOTES: NOT LATELY TAKING VALIUM 2 MG TABLET 1 TABLET NEEDED ORALLY BID, NOTES: NOT LATELY TAKING CLONIDINE HCL 0.1 MG TABLET 1 TABLET ORALLY TWICE A DAY TAKING VITAMIN B2 TAKING CO ENZYME Q-10 TAKING SERTRALINE HCL 100 MG TABLET 1 1/2/ TABLET ORALLY ONCE A DAY TAKING SUMATRIPTAN SUCCINATE 100 MG TABLET 1 TABLET NEEDED ORALLY TWICE A DAY NEEDED FOR MAX 9 MIGRAINES PER MONTH TAKING MAY HAVE MEDICAL MARIJUANA DIRECTED, NOTES: CBD PILL TAKING RIZATRIPTAN BENZOATE 10 MG TABLET 1 TABLET NEEDED ONE TIME ORALLY BID PRN MIGRAINE TAKING METHOCARBAMOL 750 MG TABLET 1 TABLET ORALLY Q 6HRS TAKING NORCO 5-325 MG TABLET 1 TABLET NEEDED ORALLY EVERY 4 HOURS PRN PAIN MDD=4 TAKING AIMOVIG 70 MG/ML SOLUTION AUTO-INJECTOR 1 ML SUBCUTANEOUS TAKING CARISOPRODOL 350 MG TABLET 1 TABLET NEEDED ORALLY BID PRN SPAM MDD=2 NOT-TAKING TRAZODONE HCL 50 MG TABLET 1 TABLET AT BEDTIME NEEDED ORALLY BEFORE BEDTIME NOT-TAKING ABIGAIL ALLERGY 180 MG TABLET 1 TABLET ORALLY ONCE A DAY PRN, NOTES: NONE LATELY NOT-TAKING FROVATRIPTAN SUCCINATE 2.5 MG TABLET 1 TABLET NEEDED ONE TIME ORALLY ONCE A DAY AT TIME OF MENSES AND WITH MIGRAINES, NOTES: INSURANCE REFUSED MEDICATION LIST REVIEWED AND RECONCILED WITH THE PATIENT PAST MEDICAL HISTORY CERVALGIA- C5-6 DISC HERNIATION WITH C6 IMPINGEMENT-DR DAY/ DR YUSUF- [facility]- HYPOTHYROIDISM 2007- DR PABLO SEASONAL ALLERGY/SINUSITIS ENDOMETRIAL POLYP- [facility] BASAL CELL TO RIGHT NOSE - DR. CASTAÑEDA SACRAL PAIN MIGRAINES ALLERGIES NEURONTIN 300: DEPRESSION: SIDE EFFECTS BACLOFEN: HEAD ACHES: ALLERGY CYCLOBENZAPRINE HCL: DECREASED MENTAL ALERTNESS: ALLERGY TIZANIDINE HCL: HEADACHES: ALLERGY TOPIRAMATE: ALTERED MENTAL STATUS: ALLERGY SURGICAL HISTORY NO PERSONAL OR FHX OF SEVERE REACTION TO ANESTHESIA POLYPECTOMY 2010 ANT CERV2011 C-SPINE FUSION _ 03/2011 SKIN CANCER REMOVED FROM NOSE AUGUST 2015 FAMILY HISTORY FATHER: MOTHER: ALIVE SIBLINGS: ALIVE, DIAGNOSED WITH OTHER 1 SISTER AND 1 BROTHER-HYPOTHYROIDISM. SOCIAL HISTORY GENERAL: TOBACCO USE ARE YOU A:NONSMOKER ALCOHOL SCREENING DID YOU HAVE A DRINK CONTAINING ALCOHOL IN THE PAST YEAR?NO POINTS0 INTERPRETATIONNEGATIVE RECREATIONAL DRUG USE DRUG USE?NO PATIENT IS PERSCRIBED MEDICAL MARIJUANA CAFFEINE CAFFEINE USE?YES HOW OFTEN AND HOW MUCH? DAILY BASIS SEXUAL HX HAD SEX IN THE LAST 12 MONTHS (VAGINAL, ORAL, OR ANAL)?NO LMP:05/2017 HAVE YOU EVER HAD AN STD?NO HIV / HEP-C SCREENING HIV TEST OFFERED TO PATIENT:YES DATE OFFERED:09/21/2017 TEST ACCEPTED:NO REASON:PATIENT DECLINED BROCHURE PROVIDED TO PATIENTNO [employer] [id number] L[employer] LANGUAGES SPOKEN:MICRONESIAN LEARNING BARRIERS / SPECIAL NEEDS CHANGE FROM LAST VISIT?NO BARRIERS TO LEARNING?NO HEARING IMPAIRED?NO VISION IMPAIRED?YES COGNITIVELY IMPAIRED?NO : CORRECTIVE LENSES READINESS TO LEARN?YES LEARNING PREFERENCES?NO LEARNING CAPABILITIES PRESENT?YES EMOTIONAL BARRIERS?NO SPECIAL DEVICES?NO DOMESTIC VIOLENCE DO YOU FEEL SAFE IN YOUR ENVIRONMENT?YES DIET: REGULAR. EXERCISE: PHYSICAL THERAPY, WALKS. MARITAL STATUS: SINGLE. OTHERS AT HOME: MOM,SISTER. PAIN CLINIC PFS, CLERGY, PUBLIC HEALTH REFERRALS PFS REFERRAL NEEDED?NO CLERGY REFERRAL NEEDED?NO PUBLIC HEALTH REFERRAL NEEDED?NO WAS THE PROVIDER NOTIFIED OF ANY PERTINENT INFO?NO N/A HAS THE PATIENT BEEN EDUCATED REGARDING HIS/HER PLAN OF CARE?YES HAS THE PATIENT BEEN EDUCATED REGARDING PAIN, THE RISK FOR PAIN, THE IMPORTANCE OF EFFECTIVE PAIN MANAGEMENT, AND THE PAIN ASSESSMENT PROCESS?YES ADVANCE DIRECTIVE ADVANCE DIRECTIVE DISCUSSED WITH PATIENT:YES HCP SISTER--DUANE CAM [phone] ALSO HAS POA AND LIVING WILL REVIEWED 12/19/17 NLREVIEWED WITH PATIENT 02/15/18 1037 JSREVIEWED WITH PT 03/20/18 1208 BV. HOSPITALIZATION/MAJOR DIAGNOSTIC PROCEDURE SURGERY RELATED REVIEW OF SYSTEMS REVIEWED BY: PROVIDER: LY DALE . CONSTITUTIONAL: ANY CHANGE IN YOUR MEDICAL CONDITION? NO . CHILLS NO . FEVER NO . INFECTION: DO YOU HAVE NEW INFECTIONS? NO . DO YOU HAVE HISTORY OF MRSA? NO . MUSCULOSKELETAL: ANY NEW PATTERNS OF PAIN OR NUMBNESS? NO . GASTROENTEROLOGY: ANY NEW CHANGE IN BOWEL CONTROL? NO . GENITOURINARY: ANY NEW CHANGE IN BLADDER CONTROL? NO . IS THERE A CHANCE YOU COULD BE ? NO . HEMATOLOGY/LYMPH: DO YOU TAKE ANY BLOOD THINNERS? (FOR EXAMPLE- COUMADIN, PLAVIX, AGGRENOX, PLATEL, PRADAXA, OR XARELTO) NO . WHEN WAS YOUR LAST DOSE? DATE: TIME: . NEUROLOGY: HAVE YOU FALLEN IN THE PAST 12 MONTHS? NO . ANY NEW EXTREMITY NUMBNESS OR WEAKNESS? NO . CARDIOLOGY: DO YOU HAVE A PACEMAKER OR DEFIBRILLATOR? NO . RESPIRATORY: HAVE YOU BEEN SICK IN THE PAST WEEK? NO . FEVER NO . FLU LIKE SYMPTOMS? NO . COUGH NO . INTEGUMENTARY: DO YOU HAVE ANY RASHES OR OPEN SORES? NO . ALLERGIC/IMMUNO: ARE YOU ALLERGIC TO IV DYE? NO . ANY NEW ALLERGIES? NO . PSYCHIATRIC: DO YOU HAVE THOUGHTS OF HURTING YOURSELF OR SOMEONE ELSE? NO . ARE YOU ABUSED, NEGLECTED, OR IN AN UNSAFE ENVIRONMENT? NO . ENDOCRINOLOGY: ARE YOU DIABETIC? NO . OTHER: DO YOU NEED ANY PRESCRIPTIONS? YES, VICODIN, SUMATRIPTAN . IF YES, PLEASE LIST: ____ . ANY NEW PROBLEMS WITH YOUR MEDICATIONS? NO . WHEN DID YOU LAST EAT? ____ . WHEN DID YOU LAST DRINK? ____ . WHAT DID YOU LAST DRINK? ____ . NAME OF PERSON DRIVING YOU HOME? ____ . DO YOU HAVE ANY OTHER QUESTIONS OR CONCERNS YES, HAVE HAD LOWER ABD PAIN X 9 DAYS, GETTING ULTRASOUND FOR THIS 04/11 . VITAL SIGNS WT 180 LBS, HT 70 IN, BMI 25.82 INDEX, BP 165/76 MM HG, HR 75 /MIN, RR 18 /MIN, TEMP 98.1 F, OXYGEN SAT % 99%, NA INITIALS AW 1422, REVIEWED BY: EM. EXAMINATION GENERAL EXAMINATION: GENERAL APPEARANCE:AWAKE,ALERT ,PLEAASANT . PSYCHAFFECT NORMAL . LUNGS:LUNG ARIAS ARE CLEAR TO AUSCULTATION BILATERALLY. GOOD MOVEMENT OF AIR . HEART:S1, S2 IN A REGULAR RATE AND RHYTHM. NO SIGNIFICANT MURMURS, RUBS OR GALLOPS NOTED . LUMBAR SACRAL SPINEPALPATION: + FOR PAIN OVER L/S SPINE. + FOR PAIN OVER L/S PARASPINALS SPECIFIC POINT TENDERNESS OVER BILAT. SACROCOCCYGEAL REGION . NEUROLOGIC EXAM:NORMAL SENSATION LIGHT TOUCH BILAT. LOWER EXTREMITIES . 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 SACROCOCCYGEAL LIGAMENT INJECTION, ISTOP REGISTRY REVIEWED AND DEMONSTRATES COMPLLIANCE. BRINGS IN MEDICATIONS WHICH IS APPROPRIATE FOR WHAT WAS DISPENSED. RECENT URINE TOXICOLOGY REVIEWED. NO UNAUTHORIZED MEDICATIONS. NO ILLICIT SUBSTANCES AND PRESCRIBED MEDICATIONS WERE PRESENT. , RISKS AND BENEFITS OF NARCOTIC/OPIOD MEDICATIONS WERE REVIEWED WITH PATIENT - THIS INCLUDES BUT IS NOT LIMITED TO RISK OF DEPENDANCE/DEVELOPMENT OF ADDICTION, MOOD DISTURBANCE AND DEPRESSION, OSTEOPOROSIS, HORMONAL AND LABIDAL CHANGES, RESPIRATORY DEPRESSION AND . PATIENT IS ADVISED NOT TO DRIVE OR DRINK ALCOHOL WHILE ON THESE MEDICATIONS. PROCEDURE CODES FA211 ESTABILISHED PATIENT MERGED WITH [facility] CHARGE DISPOSITION & COMMUNICATION FOLLOW UP POST (REASON: BILAT. SACROCOCCYGEAL LIGAMENT INJECTION) ELECTRONICALLY SIGNED BY LY DALE, CHITO ON 04/21/2018 AT 01:34 PM EST DISCLAIMER : THIS IS A VISIT SUMMARY EXTRACTED FROM THE [employer] CHART. IT IS NOT A COPY OF THE [employer] PROGRESS NOTE. MARTA
== END ==
LOC: M PAIN 14:15
PROVIDERS: ATTEND Nurse Practitioner Family
DX: M53.3 Sacrococcygeal disorders, not elsewhere classified (principal); E03.9 Hypothyroidism, unspecified; J30.2 Other seasonal allergic rhinitis; G43.909 Migraine, unspecified, not intractable, without status migrainosus; Z79.899 Other long term (current) drug therapy; Z88.8 Allergy status to other drugs, medicaments and biological substances

== ENCOUNTER → 2018-04-11 | Outpatient (CLI) | payer MEDICARE, MEDICAID ==
--- NOTE | 2018-04-11 10:50 | REP ---
Clinical: Primary dysmenorrhea . Technique: Transabdominal pelvic ultrasound followed by transvaginal examination for better evaluation of the endometrium and adnexa with color Doppler evaluation of the ovaries. Findings: Bladder is unremarkable and measures 9.2 x 6.1 x 11.4 cm . Heterogeneous anteverted uterus measures 7.1 x 3.3 x 4.8 cm . The endometrial complex measures 4.1 mm thickness. No discrete uterine or endometrial abnormalities are appreciated. Subcentimeter Nabothian cyst in the lower uterine segment noted. Bilateral ovaries are normal in appearance and vascularity without evidence for torsion. Right ovary measures 2.1 x 1.7 x 2.4 cm ; R I = 0.56 . Left ovary measures 4.2 x 2.2 x 2.7 cm with 2.3 cm cyst ; R I = 0.58 . No pelvic fluid or adnexal mass lesion . Impression: 1. Essentially normal pelvic ultrasound. 2.3 cm left ovarian cyst likely physiologic. Electronically Signed by Rich Culver MD 04/11/2018 10:41 A
== END ==
LOC: M WHC 09:44
PROVIDERS: ATTEND Physician Assistant
DX: N94.4 Primary dysmenorrhea (principal); N83.202 Unspecified ovarian cyst, left side

== ENCOUNTER → 2018-06-07 | Outpatient (CLI) | payer MEDICARE, MEDICAID ==
[~2018-06-07] MED LIST changes: -/AMIT10TA PO; -/AMIT25TA NG; -/CLON1TA PO; -/MELO7TA PO; -/METH500TA OR; +AMIT1TAB10 PO; +AMIT1TAB11 NG; +BUPIVACAINE HCL 0.25% 30 ML VIAL As Ordered ONE; +CLON-412 PO; +HYDR-3715 PO; +IBUP600T42 PO; -IBUP60TA PO; +ISOVUE-M 300 61% 15ML VIAL (Q9967) As Ordered ONE; +LIDOCAINE 1% SDV INJ 30 ML VIAL As Ordered ONE; +METH1TAB40 OR; +MOBI4TAB PO; -NORCOTAB PO; +TRIAMCINOLONE ACETONIDE SUSP 40 MG/ML VIAL (J3301) As Ordered ONE; +diazePAM 5 MG TAB As Ordered ONE; +oxyCODONE 5MG TAB As Ordered ONE
--- NOTE | 2018-06-07 10:55 | REP ---
Partial sacrum and coccyx: Five views. History: Bilateral sacral coccygeal block for pain. Findings: A sequence of five last image hold fluoroscopically obtained spot radiographs of the sacrum and coccyx document needle position and contrast injection associated with injection procedure. 25 seconds of fluoroscopy time is reported. Electronically Signed by Luis Vincent MD 06/07/2018 10:47 A
--- NOTE | 2018-06-26 00:33 | ECWPNPC ---
PATIENT NAME: PATRIZIA DICKEY : 1965 GENDER: FEMALE VISIT DATE: 06/07/2018 DISCHARGE DATE: 06/07/18 1058 VISIT LOCKED DATE TIME: PHYSICIAN: KEISHA ENCARNACION MD RESOURCE: KEISHA ENCARNACION MD REASON FOR APPOINTMENT 1. BILAT. SACROCOCCYGEAL LIGAMENT INJECTION HISTORY OF PRESENT ILLNESS HISTORY OF PRESENT ILLNESS: PAIN THE PATIENT DESCRIBES THE PAIN... FALL RISK SCREENING: SCREENING :NO FALLS REPORTED IN THE LAST YEAR CURRENT MEDICATIONS TAKING SENNA S 8.6-50 MG TABLET 1 TABLET IN THE EVENING NEEDED ORALLY ONCE A DAY NEEDED, NOTES: 06/06/18 TAKING MAGNESIUM 400 MG CAPSULE 1 TABLET WITH A MEAL ORALLY ONCE A DAY, NOTES: 06/06/18 AM TAKING FISH OIL 1200 MG CAPSULE 2 CAPSULES ORALLY ONCE A DAY, NOTES: 06/06/18 AM TAKING MULTIVITAMINS OTC TABLET 1 TAB(S) ORALLY DAILY, NOTES: AM TAKING VITAMIN B COMPLEX OTC TABLET 1 TAB(S) ORALLY DAILY, NOTES: 06/06/18 AM TAKING CALCIUM 500 MG TABLET CHEWABLE 2 TABLET ORALLY ONCE A DAY, NOTES: 06/06/18 AM TAKING VITAMIN D-3 1000 UNITS TABLET 2 CAPSULES ORALLY DAILY, NOTES: 06/06/18 AM TAKING OSTEO COMPLEX CAPSULE 1 CAP(S) ORALLY DAILY, NOTES: 06/06/18 AM TAKING DIAZEPAM 5 MG TABLET 1 TABLET ORALLY ONCE A DAY NEEDED ([facility]), NOTES: A WEEK AGO TAKING SYNTHROID 150 MCG TABLET 1 TABLET ON AN EMPTY STOMACH IN THE MORNING ORALLY ONCE A DAY (DR. PABLO), NOTES: 06/07/18 0700 TAKING CLARITIN 10 MG TABLET 1 TABLET ORALLY ONCE A DAY, NOTES: 06/06/18 AM TAKING FLONASE 50 MCG/DOSE INHALER 1 SPRAY IN EACH NOSTRIL NASALLY ONCE A DAY, NOTES: 06/07/18 AM TAKING BENADRYL 25 MG CAPSULE 1 CAPSULE NEEDED ORALLY EVERY 6 HRS, NOTES: NOT LATELY TAKING SUDAFED 30 MG TABLET 1 TABLET NEEDED ORALLY EVERY 6 HRS, NOTES: NOT LATELY TAKING CLONIDINE HCL 0.1 MG TABLET 1 TABLET ORALLY TWICE A DAY, NOTES: FEW WEEKS AGO TAKING VITAMIN B2 , NOTES: 06/06/18 AM TAKING CO ENZYME Q-10 , NOTES: 06/06/18 AM TAKING SERTRALINE HCL 100 MG TABLET 1 1/2/ TABLET ORALLY ONCE A DAY, NOTES: 06/06/18 PM TAKING MAY HAVE MEDICAL MARIJUANA DIRECTED, NOTES: CBD PILL 06/06/18 PM TAKING RIZATRIPTAN BENZOATE 10 MG TABLET 1 TABLET NEEDED ONE TIME ORALLY BID PRN MIGRAINE, NOTES: 06/07/18 0700 TAKING METHOCARBAMOL 750 MG TABLET 1 TABLET ORALLY Q 6HRS, NOTES: 06/06/18 PM TAKING CARISOPRODOL 350 MG TABLET 1 TABLET NEEDED ORALLY BID PRN SPAM MDD=2, NOTES: 3 DAYS AGO TAKING SUMATRIPTAN SUCCINATE 100 MG TABLET 1 TABLET NEEDED ORALLY TWICE A DAY NEEDED FOR MAX 9 MIGRAINES PER MONTH, NOTES: 3-4 DAYS AGO TAKING AIMOVIG 70 MG/ML SOLUTION AUTO-INJECTOR TWO INJECTIONS SUBCUTANEOUS MONTHLY, NOTES: 06/04/18 TAKING NORCO 5-325 MG TABLET 1 TABLET NEEDED ORALLY EVERY 4 HOURS PRN PAIN MDD=4, NOTES: 06/06/18 PM NOT-TAKING TRAZODONE HCL 50 MG TABLET 1 TABLET AT BEDTIME NEEDED ORALLY BEFORE BEDTIME NOT-TAKING ABIGAIL ALLERGY 180 MG TABLET 1 TABLET ORALLY ONCE A DAY PRN, NOTES: NONE LATELY NOT-TAKING FROVATRIPTAN SUCCINATE 2.5 MG TABLET 1 TABLET NEEDED ONE TIME ORALLY ONCE A DAY AT TIME OF MENSES AND WITH MIGRAINES, NOTES: INSURANCE REFUSED DISCONTINUED VALIUM 2 MG TABLET 1 TABLET NEEDED ORALLY BID, NOTES: NOT LATELY MEDICATION LIST REVIEWED AND RECONCILED WITH THE PATIENT PAST MEDICAL HISTORY CERVALGIA- C5-6 DISC HERNIATION WITH C6 IMPINGEMENT-DR DAY/ DR YUSUF- [facility]- HYPOTHYROIDISM 2007- DR PABLO SEASONAL ALLERGY/SINUSITIS ENDOMETRIAL POLYP- DR YBARRA DYSPHAGIA-ENT IN [place]- DR MORATAYA BASAL CELL TO RIGHT NOSE - DR. CASTAÑEDA SACRAL PAIN MIGRAINES ALLERGIES NEURONTIN 300: DEPRESSION - SIDE EFFECTS BACLOFEN: HEAD ACHES - ALLERGY CYCLOBENZAPRINE HCL: DECREASED MENTAL ALERTNESS - ALLERGY TIZANIDINE HCL: HEADACHES - ALLERGY TOPIRAMATE: ALTERED MENTAL STATUS - ALLERGY SURGICAL HISTORY NO PERSONAL OR FHX OF SEVERE REACTION TO ANESTHESIA POLYPECTOMY 2010 ANT CERV2011 C-SPINE FUSION _ 03/2011 SKIN CANCER REMOVED FROM NOSE AUGUST 2015 FAMILY HISTORY FATHER: MOTHER: ALIVE SIBLINGS: ALIVE, DIAGNOSED WITH OTHER 1 SISTER AND 1 BROTHER-HYPOTHYROIDISM. SOCIAL HISTORY GENERAL: TOBACCO USE ARE YOU A:NONSMOKER HIV / HEP-C SCREENING HIV TEST OFFERED TO PATIENT:YES DATE OFFERED:09/21/2017 TEST ACCEPTED:NO REASON:PATIENT DECLINED BROCHURE PROVIDED TO PATIENTNO OTHERS AT HOME: MOM,SISTER. DIET: REGULAR. LANGUAGE LANGUAGES SPOKEN:CROATIAN DOMESTIC VIOLENCE DO YOU FEEL SAFE IN YOUR ENVIRONMENT?YES RECREATIONAL DRUG USE DRUG USE?NO PATIENT IS PERSCRIBED MEDICAL MARIJUANA EXERCISE: PHYSICAL THERAPY, WALKS. LEARNING BARRIERS / SPECIAL NEEDS CHANGE FROM LAST VISIT?NO BARRIERS TO LEARNING?NO HEARING IMPAIRED?NO VISION IMPAIRED?YES : CORRECTIVE LENSES COGNITIVELY IMPAIRED?NO READINESS TO LEARN?YES LEARNING PREFERENCES?NO LEARNING CAPABILITIES PRESENT?YES EMOTIONAL BARRIERS?NO SPECIAL DEVICES?NO PAIN CLINIC PFS, CLERGY, PUBLIC HEALTH REFERRALS PFS REFERRAL NEEDED?NO CLERGY REFERRAL NEEDED?NO PUBLIC HEALTH REFERRAL NEEDED?NO WAS THE PROVIDER NOTIFIED OF ANY PERTINENT INFO?NO N/A HAS THE PATIENT BEEN EDUCATED REGARDING HIS/HER PLAN OF CARE?YES HAS THE PATIENT BEEN EDUCATED REGARDING PAIN, THE RISK FOR PAIN, THE IMPORTANCE OF EFFECTIVE PAIN MANAGEMENT, AND THE PAIN ASSESSMENT PROCESS?YES LATEX QUESTIONNAIRE LATEX ALLERGY : HAVE YOU EVER DEVELOPED ANY TYPE OF REACTION AFTER HANDLING LATEX PRODUCTS SUCH RUBBER GLOVES, CONDOMS, DIAPHRAGMS, BALLOONS, SOCKS, OR UNDERWEAR?NO LATEX ALLERGY : HAVE YOU EVER DEVELOPED ANY TYPE OF REACTION DURING OR AFTER DENTAL APPOINTMENT, VAGINAL/RECTAL EXAMINATION, SURGICAL PROCEDURE, OR ANY OTHER EXPOSURE?NO LATEX RISK : HAVE YOU EVER HAD ANY DIFFICULTY BREATHING OR HIVES AFTER EATING OR HANDLING ANY FRUITS, OR VEGETABLES; SUCH KIWI, BANANAS, STONE FRUITS, OR CHESTNUTSNO LATEX RISK : DO YOU HAVE A PREVIOUS PERSONAL HISTORY OF MORE THAN NINE SURGERIES, SPINA BIFIDA, OR REPEATED CATHERTIZATIONS? NO LATEX RISK : ARE YOU FREQUENTLY EXPOSED TO LATEX PRODUCTS IN YOUR OCCUPATION?NO DATE ASKED : 06/07/2018 CAFFEINE CAFFEINE USE?YES HOW OFTEN AND HOW MUCH? DAILY BASIS ADVANCE DIRECTIVE ADVANCE DIRECTIVE DISCUSSED WITH PATIENT:YES HCP SISTER--DUANE CAM [phone] ALSO HAS POA AND LIVING [facility] [id number] JEW MARITAL STATUS: SINGLE. ALCOHOL SCREENING DID YOU HAVE A DRINK CONTAINING ALCOHOL IN THE PAST YEAR?NO POINTS0 INTERPRETATIONNEGATIVE SEXUAL HX HAD SEX IN THE LAST 12 MONTHS (VAGINAL, ORAL, OR ANAL)?NO HAVE YOU EVER HAD AN STD?NO LMP:05/2017 REVIEWED 12/19/17 NLREVIEWED WITH PATIENT 02/15/18 1037 JSREVIEWED WITH PT 03/20/18 1208 BVREVIEWED WITH PATIENT 06/07/18 0905 BV. HOSPITALIZATION/MAJOR DIAGNOSTIC PROCEDURE SURGERY RELATED REVIEW OF SYSTEMS REVIEWED BY: PROVIDER: . CONSTITUTIONAL: ANY CHANGE IN YOUR MEDICAL CONDITION? NO . CHILLS NO . FEVER NO . INFECTION: DO YOU HAVE NEW INFECTIONS? NO . DO YOU HAVE HISTORY OF MRSA? NO . MUSCULOSKELETAL: ANY NEW PATTERNS OF PAIN OR NUMBNESS? NO . GASTROENTEROLOGY: ANY NEW CHANGE IN BOWEL CONTROL? NO . GENITOURINARY: ANY NEW CHANGE IN BLADDER CONTROL? NO . IS THERE A CHANCE YOU COULD BE ? NO . HEMATOLOGY/LYMPH: DO YOU TAKE ANY BLOOD THINNERS? (FOR EXAMPLE- COUMADIN, PLAVIX, AGGRENOX, PLATEL, PRADAXA, OR XARELTO) NO . WHEN WAS YOUR LAST DOSE? DATE: TIME: . NEUROLOGY: HAVE YOU FALLEN IN THE PAST 12 MONTHS? NO . ANY NEW EXTREMITY NUMBNESS OR WEAKNESS? NO . CARDIOLOGY: DO YOU HAVE A PACEMAKER OR DEFIBRILLATOR? NO . RESPIRATORY: HAVE YOU BEEN SICK IN THE PAST WEEK? NO . FEVER NO . FLU LIKE SYMPTOMS? NO . COUGH NO . INTEGUMENTARY: DO YOU HAVE ANY RASHES OR OPEN SORES? NO . ALLERGIC/IMMUNO: ARE YOU ALLERGIC TO IV DYE? NO . ANY NEW ALLERGIES? NO . PSYCHIATRIC: DO YOU HAVE THOUGHTS OF HURTING YOURSELF OR SOMEONE ELSE? NO . ARE YOU ABUSED, NEGLECTED, OR IN AN UNSAFE ENVIRONMENT? NO . ENDOCRINOLOGY: ARE YOU DIABETIC? NO . OTHER: DO YOU NEED ANY PRESCRIPTIONS? NO . IF YES, PLEASE LIST: ____ . ANY NEW PROBLEMS WITH YOUR MEDICATIONS? NO . WHEN DID YOU LAST EAT? YES, 06/06/18 PM . WHEN DID YOU LAST DRINK? 06/07/18 0700 . WHAT DID YOU LAST DRINK? WATER . NAME OF PERSON DRIVING YOU HOME? RUSSELL DICKEY . DO YOU HAVE ANY OTHER QUESTIONS OR CONCERNS NO . VITAL SIGNS WT 180 LBS, HT 70 IN, BMI 25.82 INDEX, BP 133/79 MM HG, HR 85 /MIN, RR 18 /MIN, TEMP 97.6 F, OXYGEN SAT % 97%, NA INITIALS SC 09:09, REVIEWED BY: BV. ASSESSMENTS COCCYDYNIA - M53.3 (PRIMARY) TREATMENT COCCYDYNIA START FLAGYL TABLET, 500 MG, DIRECTED, ORALLY, EVERY 8 HRS, 10 DAYS, 30, REFILLS 0 START CIPRO TABLET, 500 MG, 1 TABLET, ORALLY, EVERY 12 HRS, 10 DAY(S), 20 TABLET, REFILLS 0 [facility] FLUORO GUIDANCE (PAIN)[id number] PROCEDURES PREPROCEDURE DIAGNOSIS: INFLAMMATION OF THE SACROCOCCYGEAL LIGAMENT.COCCYDYNIA.POSTPROCEDURE DIAGNOSIS: INFLAMMATION OF THE SACROCOCCYGEAL LIGAMENT.COCCYDYNIA.PROCEDURE: INJECTION OF THE RIGHT AND LEFT SACROCOCCYGEAL LIGAMENT. SURGEON: DR. KEISHA ENCARNACIONSAINT FRANCIS HOSPITAL & HEALTH SERVICESANESTHESIA: LOCAL.PREOPERATIVE NOTE: THE PATIENT HAS HISTORY OF LOW BACK PAIN. I EVALUATED THE PATIENT AND REVIEWED THE CHART. WE BOTH AGREE ON INJECTING OVER THE SACROCOCCYGEAL LIGAMENT. THE PATIENT IS AWARE OF THE POTENTIAL COMPLICATIONS WHICH INCLUDE INFECTIONS, VISCERAL PUNCTURE, INCLUDING RECTAL PUNCTURE AMONG OTHERS. I DISCUSSED ALTERNATIVES AND THE PATIENT EXPRESSED THAT SHE WOULD LIKE TO MOVE FORWARD. THE PATIENT DENIES UNEXPLAINABLE, WEIGHT LOSS, FEVER, CHILLS, OR CHANGES IN URINARY OR BOWEL CONTROL. DESCRIPTION OF PROCEDURE: AFTER CONSENT WAS TAKEN, THE PATIENT WAS BROUGHT TO THE PROCEDURE ROOM AND PLACED IN THE PRONE POSITION. THE LUMBOSACRAL AREA WAS CLEANED WITH CHLORAPREP SOLUTION AND DRAPED ASEPTICALLY. THE PROCEDURE WAS DONE UNDER STERILE CONDITIONS. UNDER FLUOROSCOPIC GUIDANCE, THE TARGET WAS SELECTED AT THE RIGHT AND LEFT SACROCOCCYGEAL LIGAMENT. LIDOCAINE WAS USED TO NUMB THE SKIN AND THE SUBCUTANEOUS TISSUE BELOW IT. A 25 NEEDLE WAS ADVANCED UNTIL WE REACHED THE RIGHT AND LEFT SACROCOCCYGEAL LIGAMENT. I DID AP AND LATERAL VIEWS. ISOVUE M DYE 30%, 1/4 ML, WAS INJECTED SHOWING ADEQUATE SPREAD OF THE DYE. THEN A SOLUTION OF 30 ML OF BUPIVACAINE 0.125% WITH KENALOG 30 MG WAS INJECTED OVER THE AFFECTED STRUCTURE. THERE WAS NO EVIDENCE OF BLOOD, PARESTHESIA OR CEREBROSPINAL FLUID. NO EVIDENCE OF VACUUM PHENOMENON OR VISCERAL PUNCTURE. THE PATIENT WAS SENT TO THE RECOVERY ROOM WHERE SHE WAS MOVING HER EXTREMITIES AND DOING WELL. THERE WERE NO COMPLICATIONS DURING THE PROCEDURE. FLUROSCOPY TIME WAS 25 SECONDS. POSTOPERATIVE NOTE: I DISCUSSED ALTERNATIVES WITH THE PATIENT. I AM LOOKING FOR LONG LASTING PAIN RELIEF WITH THIS INTERVENTION. INSTRUCTIONS WERE GIVEN. QUESTIONS WERE ANSWERED. THE PATIENT REPORTS UNDERSTANDING AND AGREES WITH THE PLAN. THERE WERE NO COMPLICATIONS DURING THE PROCEDURE. I, ZAINAB GOTTI, DOCUMENTED THE ABOVE INFORMATION ACTING A SCRIBE FOR DR. ENCARNACION. I HAVE REVIEWED THE ABOVE DOCUMENT, WRITTEN BY ZAINAB GOTTI SCRIBE AND I VERIFY THAT IT IS ACCURATE. PROCEDURE CODES 81560 INJ TENDON SHEATH/LIGAMENT, MODIFIERS: 50 [id number] RADXPS IN END [id number] PXD [id number] NEEDLE LOCALIZATION BY XRAY, MODIFIERS: 26 DISPOSITION & COMMUNICATION FOLLOW UP 3 WEEKS ELECTRONICALLY SIGNED BY KEISHA ENCARNACION MD, MD ON 06/25/2018 AT 03:17 PM EDT DISCLAIMER : THIS IS A VISIT SUMMARY EXTRACTED FROM THE [employer] CHART. IT IS NOT A COPY OF THE [employer] PROGRESS NOTE. MTDD
== END ==
LOC: M PAIN 08:30
PROVIDERS: ATTEND Anesthesiology
DX: M46.08 Spinal enthesopathy, sacral and sacrococcygeal region (principal); M53.3 Sacrococcygeal disorders, not elsewhere classified; E03.9 Hypothyroidism, unspecified; J30.2 Other seasonal allergic rhinitis; G43.909 Migraine, unspecified, not intractable, without status migrainosus; Z79.899 Other long term (current) drug therapy; Z88.8 Allergy status to other drugs, medicaments and biological substances
CPT/HCPCS: 20550; 77002; J3301; Q9967

== ENCOUNTER → 2018-06-23 | Outpatient (CLI) | payer MEDICARE, MEDICAID ==
[~2018-06-23] MED LIST changes: -BUPIVACAINE HCL 0.25% 30 ML VIAL As Ordered ONE; -ISOVUE-M 300 61% 15ML VIAL (Q9967) As Ordered ONE; -LIDOCAINE 1% SDV INJ 30 ML VIAL As Ordered ONE; -TRIAMCINOLONE ACETONIDE SUSP 40 MG/ML VIAL (J3301) As Ordered ONE; -diazePAM 5 MG TAB As Ordered ONE; -oxyCODONE 5MG TAB As Ordered ONE
--- NOTE | 2018-07-15 01:44 | ECWPNPC ---
PATIENT NAME: PATRIZIA DICKEY : [id number] GENDER: FEMALE VISIT DATE: 06/23/2018 DISCHARGE DATE: 06/23/18 1541 VISIT LOCKED DATE TIME: PHYSICIAN: LY ANTUNEZ RESOURCE: LY ANTUNEZ REASON FOR APPOINTMENT 1. POST PROC HISTORY OF PRESENT ILLNESS HISTORY OF PRESENT ILLNESS: HERE FOR F/U OF GENERALIZED JOINT PAIN.RATING PAIN VAS 7/10.PAIN HAS ESCALATED OVER THE PAST 2 MONTHS.WONDERING IF AIMOVIG MAY BE CAUSING GENERALIZED JOINT PAIN.REPORTING LESS FREQUENT HEADACHES AND LESS SEVERE HEADACHE PAIN SINCE STARTING AIMOVIG.SHE IS VERY UPSET ABOUT UNCONTROLLED PAIN AND INABILITY TO DO ACTIVITIES. PAIN THE PATIENT DESCRIBES THE PAIN... FALL RISK SCREENING: SCREENING :NO FALLS REPORTED IN THE LAST YEAR CURRENT MEDICATIONS TAKING SENNA S 8.6-50 MG TABLET 1 TABLET IN THE EVENING NEEDED ORALLY ONCE A DAY NEEDED TAKING MAGNESIUM 400 MG CAPSULE 1 TABLET WITH A MEAL ORALLY ONCE A DAY TAKING FISH OIL 1200 MG CAPSULE 2 CAPSULES ORALLY ONCE A DAY TAKING MULTIVITAMINS OTC TABLET 1 TAB(S) ORALLY DAILY TAKING VITAMIN B COMPLEX OTC TABLET 1 TAB(S) ORALLY DAILY TAKING CALCIUM 500 MG TABLET CHEWABLE 2 TABLET ORALLY ONCE A DAY TAKING VITAMIN D-3 1000 UNITS TABLET 2 CAPSULES ORALLY DAILY TAKING OSTEO COMPLEX CAPSULE 1 CAP(S) ORALLY DAILY TAKING DIAZEPAM 5 MG TABLET 1 TABLET ORALLY ONCE A DAY NEEDED ([facility]) TAKING SYNTHROID 150 MCG TABLET 1 TABLET ON AN EMPTY STOMACH IN THE MORNING ORALLY ONCE A DAY (DR. PABLO) TAKING CLARITIN 10 MG TABLET 1 TABLET ORALLY ONCE A DAY TAKING FLONASE 50 MCG/DOSE INHALER 1 SPRAY IN EACH NOSTRIL NASALLY ONCE A DAY TAKING BENADRYL 25 MG CAPSULE 1 CAPSULE NEEDED ORALLY EVERY 6 HRS TAKING SUDAFED 30 MG TABLET 1 TABLET NEEDED ORALLY EVERY 6 HRS TAKING CLONIDINE HCL 0.1 MG TABLET 1 TABLET ORALLY TWICE A DAY TAKING VITAMIN B2 TAKING CO ENZYME Q-10 TAKING SERTRALINE HCL 100 MG TABLET 1 1/2/ TABLET ORALLY ONCE A DAY TAKING MAY HAVE MEDICAL MARIJUANA DIRECTED, NOTES: CBD PILL 06/06/18 PM TAKING RIZATRIPTAN BENZOATE 10 MG TABLET 1 TABLET NEEDED ONE TIME ORALLY BID PRN MIGRAINE TAKING METHOCARBAMOL 750 MG TABLET 1 TABLET ORALLY Q 6HRS TAKING CARISOPRODOL 350 MG TABLET 1 TABLET NEEDED ORALLY BID PRN SPAM MDD=2 TAKING SUMATRIPTAN SUCCINATE 100 MG TABLET 1 TABLET NEEDED ORALLY TWICE A DAY NEEDED FOR MAX 9 MIGRAINES PER MONTH TAKING AIMOVIG 70 MG/ML SOLUTION AUTO-INJECTOR TWO INJECTIONS SUBCUTANEOUS MONTHLY TAKING NORCO 5-325 MG TABLET 1 TABLET NEEDED ORALLY EVERY 4 HOURS PRN PAIN MDD=4 TAKING ABIGAIL ALLERGY 180 MG TABLET 1 TABLET ORALLY ONCE A DAY PRN NOT-TAKING FLAGYL 500 MG TABLET DIRECTED ORALLY EVERY 8 HRS NOT-TAKING CIPRO 500 MG TABLET 1 TABLET ORALLY EVERY 12 HRS NOT-TAKING TRAZODONE HCL 50 MG TABLET 1 TABLET AT BEDTIME NEEDED ORALLY BEFORE BEDTIME NOT-TAKING FROVATRIPTAN SUCCINATE 2.5 MG TABLET 1 TABLET NEEDED ONE TIME ORALLY ONCE A DAY AT TIME OF MENSES AND WITH MIGRAINES, NOTES: INSURANCE REFUSED MEDICATION LIST REVIEWED AND RECONCILED WITH THE PATIENT PAST MEDICAL HISTORY CERVALGIA- C5-6 DISC HERNIATION WITH C6 IMPINGEMENT-DR DAY/ DR YUSUF- [facility]- HYPOTHYROIDISM 2007- DR PABLO SEASONAL ALLERGY/SINUSITIS ENDOMETRIAL POLYP- DR YBARRA DYSPHAGIA-ENT IN [place]- DR MORATAYA BASAL CELL TO RIGHT NOSE - DR. CASTAÑEDA SACRAL PAIN MIGRAINES ALLERGIES NEURONTIN 300: DEPRESSION - SIDE EFFECTS BACLOFEN: HEAD ACHES - ALLERGY CYCLOBENZAPRINE HCL: DECREASED MENTAL ALERTNESS - ALLERGY TIZANIDINE HCL: HEADACHES - ALLERGY TOPIRAMATE: ALTERED MENTAL STATUS - ALLERGY SURGICAL HISTORY NO PERSONAL OR FHX OF SEVERE REACTION TO ANESTHESIA POLYPECTOMY 2010 ANT CERV2011 C-SPINE FUSION _ 03/2011 SKIN CANCER REMOVED FROM NOSE AUGUST 2015 FAMILY HISTORY FATHER: MOTHER: ALIVE SIBLINGS: ALIVE, DIAGNOSED WITH OTHER 1 SISTER AND 1 BROTHER-HYPOTHYROIDISM. SOCIAL HISTORY GENERAL: TOBACCO USE ARE YOU A:NONSMOKER HIV / HEP-C SCREENING HIV TEST OFFERED TO PATIENT:YES DATE OFFERED:09/21/2017 TEST ACCEPTED:NO REASON:PATIENT DECLINED BROCHURE PROVIDED TO PATIENTNO OTHERS AT HOME: MOM,SISTER. DIET: REGULAR. LANGUAGE LANGUAGES SPOKEN:LITHUANIAN DOMESTIC VIOLENCE DO YOU FEEL SAFE IN YOUR ENVIRONMENT?YES RECREATIONAL DRUG USE DRUG USE?NO PATIENT IS PERSCRIBED MEDICAL MARIJUANA EXERCISE: PHYSICAL THERAPY, WALKS. LEARNING BARRIERS / SPECIAL NEEDS CHANGE FROM LAST VISIT?NO BARRIERS TO LEARNING?NO HEARING IMPAIRED?NO VISION IMPAIRED?YES : CORRECTIVE LENSES COGNITIVELY IMPAIRED?NO READINESS TO LEARN?YES LEARNING PREFERENCES?NO LEARNING CAPABILITIES PRESENT?YES EMOTIONAL BARRIERS?NO SPECIAL DEVICES?NO PAIN CLINIC PFS, CLERGY, PUBLIC HEALTH REFERRALS PFS REFERRAL NEEDED?NO CLERGY REFERRAL NEEDED?NO PUBLIC HEALTH REFERRAL NEEDED?NO WAS THE PROVIDER NOTIFIED OF ANY PERTINENT INFO?NO N/A HAS THE PATIENT BEEN EDUCATED REGARDING HIS/HER PLAN OF CARE?YES HAS THE PATIENT BEEN EDUCATED REGARDING PAIN, THE RISK FOR PAIN, THE IMPORTANCE OF EFFECTIVE PAIN MANAGEMENT, AND THE PAIN ASSESSMENT PROCESS?YES LATEX QUESTIONNAIRE LATEX ALLERGY : HAVE YOU EVER DEVELOPED ANY TYPE OF REACTION AFTER HANDLING LATEX PRODUCTS SUCH RUBBER GLOVES, CONDOMS, DIAPHRAGMS, BALLOONS, SOCKS, OR UNDERWEAR?NO LATEX ALLERGY : HAVE YOU EVER DEVELOPED ANY TYPE OF REACTION DURING OR AFTER DENTAL APPOINTMENT, VAGINAL/RECTAL EXAMINATION, SURGICAL PROCEDURE, OR ANY OTHER EXPOSURE?NO LATEX RISK : HAVE YOU EVER HAD ANY DIFFICULTY BREATHING OR HIVES AFTER EATING OR HANDLING ANY FRUITS, OR VEGETABLES; SUCH KIWI, BANANAS, STONE FRUITS, OR CHESTNUTSNO LATEX RISK : DO YOU HAVE A PREVIOUS PERSONAL HISTORY OF MORE THAN NINE SURGERIES, SPINA BIFIDA, OR REPEATED CATHERTIZATIONS? NO LATEX RISK : ARE YOU FREQUENTLY EXPOSED TO LATEX PRODUCTS IN YOUR OCCUPATION?NO DATE ASKED : 06/07/2018 CAFFEINE CAFFEINE USE?YES HOW OFTEN AND HOW MUCH? DAILY BASIS ADVANCE DIRECTIVE ADVANCE DIRECTIVE DISCUSSED WITH PATIENT:YES HCP SISTER--DUANE CAM [phone] ALSO HAS POA AND LIVING WILL [place] [id number] HOLINESS MARITAL STATUS: SINGLE. ALCOHOL SCREENING DID YOU HAVE A DRINK CONTAINING ALCOHOL IN THE PAST YEAR?NO POINTS0 INTERPRETATIONNEGATIVE SEXUAL HX HAD SEX IN THE LAST 12 MONTHS (VAGINAL, ORAL, OR ANAL)?NO HAVE YOU EVER HAD AN STD?NO LMP:05/2017 REVIEWED 12/19/17 NLREVIEWED WITH PATIENT 02/15/18 1037 JSREVIEWED WITH PT 03/20/18 1208 BVREVIEWED WITH PATIENT 06/07/18 0905 BVREVIEWED WITH PATIENT 06/23/18 1451 JS. HOSPITALIZATION/MAJOR DIAGNOSTIC PROCEDURE SURGERY RELATED REVIEW OF SYSTEMS REVIEWED BY: PROVIDER: LY DALE . CONSTITUTIONAL: ANY CHANGE IN YOUR MEDICAL CONDITION? NO . CHILLS NO . FEVER NO . INFECTION: DO YOU HAVE NEW INFECTIONS? NO . DO YOU HAVE HISTORY OF MRSA? NO . MUSCULOSKELETAL: ANY NEW PATTERNS OF PAIN OR NUMBNESS? YES, STATES ACHY ALL OVER, THINKS IT MAY BE FROM THE AIMOVIG . GASTROENTEROLOGY: ANY NEW CHANGE IN BOWEL CONTROL? NO . GENITOURINARY: ANY NEW CHANGE IN BLADDER CONTROL? NO . IS THERE A CHANCE YOU COULD BE ? NO . HEMATOLOGY/LYMPH: DO YOU TAKE ANY BLOOD THINNERS? (FOR EXAMPLE- COUMADIN, PLAVIX, AGGRENOX, PLATEL, PRADAXA, OR XARELTO) NO . WHEN WAS YOUR LAST DOSE? DATE: TIME: . NEUROLOGY: HAVE YOU FALLEN IN THE PAST 12 MONTHS? NO . ANY NEW EXTREMITY NUMBNESS OR WEAKNESS? NO . CARDIOLOGY: DO YOU HAVE A PACEMAKER OR DEFIBRILLATOR? NO . RESPIRATORY: HAVE YOU BEEN SICK IN THE PAST WEEK? NO . FEVER NO . FLU LIKE SYMPTOMS? NO . COUGH NO . INTEGUMENTARY: DO YOU HAVE ANY RASHES OR OPEN SORES? NO . ALLERGIC/IMMUNO: ARE YOU ALLERGIC TO IV DYE? NO . ANY NEW ALLERGIES? NO . PSYCHIATRIC: DO YOU HAVE THOUGHTS OF HURTING YOURSELF OR SOMEONE ELSE? NO . ARE YOU ABUSED, NEGLECTED, OR IN AN UNSAFE ENVIRONMENT? NO . ENDOCRINOLOGY: ARE YOU DIABETIC? NO . OTHER: DO YOU NEED ANY PRESCRIPTIONS? YES . IF YES, PLEASE LIST: ____VICODIN, POSSIBLY EMGALITY INSTEAD OF AIMOVIG . ANY NEW PROBLEMS WITH YOUR MEDICATIONS? YES, PATIET THINKS THE AIMOVIG IS CAUSING MUSCLE ACHES . WHEN DID YOU LAST EAT? ____ . WHEN DID YOU LAST DRINK? ____ . WHAT DID YOU LAST DRINK? ____ . NAME OF PERSON DRIVING YOU HOME? ____ . DO YOU HAVE ANY OTHER QUESTIONS OR CONCERNS NO . VITAL SIGNS WT 180 LBS, HT 70 IN, BMI 25.82 INDEX, BP 146/67 MM HG, HR 101 /MIN, RR 18 /MIN, TEMP 98.2 F, OXYGEN SAT % 97%, SAFE IN ENV? (Y/N) YES, NA INITIALS SC 14:55, REVIEWED BY: TANJA. EXAMINATION GENERAL EXAMINATION: GENERAL APPEARANCE:AWAKE,ALERT ,PLEAASANT . PSYCHAFFECT NORMAL . HEENT:BILATERAL OCCIPITAL TENDERNESS WITH PALPATION. LUNGS:LUNG ARIAS ARE CLEAR TO AUSCULTATION BILATERALLY. GOOD MOVEMENT OF AIR . HEART:S1, S2 IN A REGULAR RATE AND RHYTHM. NO SIGNIFICANT MURMURS, RUBS OR GALLOPS NOTED . ASSESSMENTS INFLAMMATORY ARTHROPATHY - M19.90 (PRIMARY) BILATERAL OCCIPITAL NEURALGIA - M54.81 TREATMENT INFLAMMATORY ARTHROPATHY CONTINUE CARISOPRODOL TABLET, 350 MG, 1 TABLET NEEDED, ORALLY, BID PRN SPAM MDD=2 CONTINUE METHOCARBAMOL TABLET, 750 MG, 1 TABLET, ORALLY, Q 6HRS STOP NORCO TABLET, 5-325 MG, 1 TABLET NEEDED, ORALLY, EVERY 4 HOURS PRN PAIN MDD=4 START PERCOCET TABLET, 10-325 MG, 1 TABLET NEEDED, ORALLY, EVERY 6 HRS PRN MDD4, 30 DAY(S), 120, REFILLS 0 NOTES: ISTOP REGISTRY REVIEWED AND DEMONSTRATES COMPLLIANCE. BRINGS IN MEDICATIONS WHICH IS APPROPRIATE FOR WHAT WAS DISPENSED. RECENT URINE TOXICOLOGY REVIEWED. NO UNAUTHORIZED MEDICATIONS. NO ILLICIT SUBSTANCES AND PRESCRIBED MEDICATIONS WERE PRESENT. , RISKS AND BENEFITS OF NARCOTIC/OPIOD MEDICATIONS WERE REVIEWED WITH PATIENT - THIS INCLUDES BUT IS NOT LIMITED TO RISK OF DEPENDANCE/DEVELOPMENT OF ADDICTION, MOOD DISTURBANCE AND DEPRESSION, OSTEOPOROSIS, HORMONAL AND LABIDAL CHANGES, RESPIRATORY DEPRESSION AND . PATIENT IS ADVISED NOT TO DRIVE OR DRINK ALCOHOL WHILE ON THESE MEDICATIONSOCCIPITAL NERVE BLOCKS BILAT. REFERRAL TO:[facility] REASON:GENRALIZED JOINT PAIN R/O INFLAMMATORY ARTHROPATHY PREVENTIVE MEDICINE PAIN CLINIC TEACHING: MEDICATIONS PRINTED AND REVIEWED INFORMATION ON NEW MEDICATION, PERCOCET, WITH PATIENT. PATIENT VERBALIZED AN UNDERSTANDING. VIANEY BRUNNER 06/23/2018 3:38:34 PM > . PROCEDURE TEACHING REVIEWED INFORMATION ON OCCIPITAL NERVE BLOCK PROCEDURE WITH PATIENT. ALSO REVIEWED PRE-PROCEDURE INSTRUCTIONS. PATIENT VERBALIZED AN UNDERSTANDING. VIANEY BRUNNER 06/23/2018 3:39:54 PM > . PROCEDURE CODES FA211 ESTABILISHED PATIENT LOCATED WITHIN [facility] CHARGE DISPOSITION & COMMUNICATION FOLLOW UP POST (REASON: OCCIPITAL NERVE BLOCKS BILAT) ELECTRONICALLY SIGNED BY CHITO PETERSON ON 07/12/2018 AT 02:24 PM EDT DISCLAIMER : THIS IS A VISIT SUMMARY EXTRACTED FROM THE [employer] CHART. IT IS NOT A COPY OF THE [employer] PROGRESS NOTE. MTDD
== END ==
LOC: M PAIN 14:15
PROVIDERS: ATTEND Nurse Practitioner Family
DX: M19.90 Unspecified osteoarthritis, unspecified site (principal); M54.81 Occipital neuralgia; E03.9 Hypothyroidism, unspecified; G43.909 Migraine, unspecified, not intractable, without status migrainosus; Z88.8 Allergy status to other drugs, medicaments and biological substances; Z79.899 Other long term (current) drug therapy

== ENCOUNTER → 2018-07-19 | Outpatient (CLI) | payer MEDICARE, MEDICAID ==
[~2018-07-19] MED LIST changes: +BUPIVACAINE HCL 0.25% 10 ML VIAL As Ordered ONE; +BUPIVACAINE HCL 0.25% 30 ML VIAL As Ordered ONE; +TRIAMCINOLONE ACETONIDE SUSP 40 MG/ML VIAL (J3301) As Ordered ONE; +diazePAM 5 MG TAB As Ordered ONE; +oxyCODONE 5MG TAB As Ordered ONE
--- NOTE | 2018-07-21 23:47 | ECWPNPC ---
PATIENT NAME: PATRIZIA DICKEY : [id number] GENDER: FEMALE VISIT DATE: 07/19/2018 DISCHARGE DATE: 07/19/18 09 VISIT LOCKED DATE TIME: PHYSICIAN: KEISHA ENCARNACION MD RESOURCE: KEISHA ENCARNACION MD REASON FOR APPOINTMENT 1. OCCIPITAL NB HISTORY OF PRESENT ILLNESS HISTORY OF PRESENT ILLNESS: PAIN THE PATIENT DESCRIBES THE PAIN... FALL RISK SCREENING: SCREENING :NO FALLS REPORTED IN THE LAST YEAR CURRENT MEDICATIONS TAKING SENNA S 8.6-50 MG TABLET 1 TABLET IN THE EVENING NEEDED ORALLY ONCE A DAY NEEDED, NOTES: 07/18/18 TAKING MAGNESIUM 400 MG CAPSULE 1 TABLET WITH A MEAL ORALLY ONCE A DAY, NOTES: 07/18/18 TAKING FISH OIL 1200 MG CAPSULE 2 CAPSULES ORALLY ONCE A DAY, NOTES: 07/18/18 TAKING MULTIVITAMINS OTC TABLET 1 TAB(S) ORALLY DAILY, NOTES: 07/18/18 TAKING VITAMIN B COMPLEX OTC TABLET 1 TAB(S) ORALLY DAILY, NOTES: 07/18/18 TAKING CALCIUM 500 MG TABLET CHEWABLE 2 TABLET ORALLY ONCE A DAY, NOTES: 07/18/18 TAKING VITAMIN D-3 1000 UNITS TABLET 2 CAPSULES ORALLY DAILY, NOTES: 07/18/18 TAKING OSTEO COMPLEX CAPSULE 1 CAP(S) ORALLY DAILY, NOTES: 07/18/18 TAKING DIAZEPAM 5 MG TABLET 1 TABLET ORALLY ONCE A DAY NEEDED ([facility]), NOTES: 07/16/18 TAKING SYNTHROID 150 MCG TABLET 1 TABLET ON AN EMPTY STOMACH IN THE MORNING ORALLY ONCE A DAY (DR. PABLO), NOTES: 07/19/18 0700 TAKING CLARITIN 10 MG TABLET 1 TABLET ORALLY ONCE A DAY, NOTES: NONE LATELY TAKING FLONASE 50 MCG/DOSE INHALER 1 SPRAY IN EACH NOSTRIL NASALLY ONCE A DAY, NOTES: 07/19/18 0700 TAKING BENADRYL 25 MG CAPSULE 1 CAPSULE NEEDED ORALLY EVERY 6 HRS, NOTES: NONE LATELY TAKING SUDAFED 30 MG TABLET 1 TABLET NEEDED ORALLY EVERY 6 HRS, NOTES: NONE LATELY TAKING CLONIDINE HCL 0.1 MG TABLET 1 TABLET ORALLY TWICE A DAY, NOTES: LAST WEEK TAKING VITAMIN B2 , NOTES: 07/18/18 TAKING CO ENZYME Q-10 , NOTES: 07/18/18 TAKING SERTRALINE HCL 100 MG TABLET 1 1/2/ TABLET ORALLY ONCE A DAY, NOTES: 07/18/18 TAKING MAY HAVE MEDICAL MARIJUANA DIRECTED, NOTES: 07/18/18 TAKING RIZATRIPTAN BENZOATE 10 MG TABLET 1 TABLET NEEDED ONE TIME ORALLY BID PRN MIGRAINE, NOTES: 07/17/18 TAKING SUMATRIPTAN SUCCINATE 100 MG TABLET 1 TABLET NEEDED ORALLY TWICE A DAY NEEDED FOR MAX 9 MIGRAINES PER MONTH, NOTES: 07/17/18 TAKING AIMOVIG 70 MG/ML SOLUTION AUTO-INJECTOR TWO INJECTIONS SUBCUTANEOUS MONTHLY, NOTES: OVER A MONTH TAKING ABIGAIL ALLERGY 180 MG TABLET 1 TABLET ORALLY ONCE A DAY PRN, NOTES: 07/18/18 TAKING CARISOPRODOL 350 MG TABLET 1 TABLET NEEDED ORALLY BID PRN SPAM MDD=2, NOTES: 07/18/18 TAKING METHOCARBAMOL 750 MG TABLET 1 TABLET ORALLY Q 6HRS, NOTES: 07/18/18 TAKING PERCOCET 10-325 MG TABLET 1 TABLET NEEDED ORALLY EVERY 6 HRS PRN MDD4, NOTES: 07/18/18 NOT-TAKING FLAGYL 500 MG TABLET DIRECTED ORALLY EVERY 8 HRS NOT-TAKING CIPRO 500 MG TABLET 1 TABLET ORALLY EVERY 12 HRS NOT-TAKING TRAZODONE HCL 50 MG TABLET 1 TABLET AT BEDTIME NEEDED ORALLY BEFORE BEDTIME NOT-TAKING FROVATRIPTAN SUCCINATE 2.5 MG TABLET 1 TABLET NEEDED ONE TIME ORALLY ONCE A DAY AT TIME OF MENSES AND WITH MIGRAINES, NOTES: INSURANCE REFUSED MEDICATION LIST REVIEWED AND RECONCILED WITH THE PATIENT PAST MEDICAL HISTORY CERVALGIA- C5-6 DISC HERNIATION WITH C6 IMPINGEMENT-DR DAY/ DR YUSUF- [facility]- HYPOTHYROIDISM 2007- DR PABLO SEASONAL ALLERGY/SINUSITIS ENDOMETRIAL POLYP- DR YBARRA DYSPHAGIA-ENT IN [place]- DR MORATAYA BASAL CELL TO RIGHT NOSE - DR. CASTAÑEDA SACRAL PAIN MIGRAINES ALLERGIES NEURONTIN 300: DEPRESSION - SIDE EFFECTS BACLOFEN: HEAD ACHES - ALLERGY CYCLOBENZAPRINE HCL: DECREASED MENTAL ALERTNESS - ALLERGY TIZANIDINE HCL: HEADACHES - ALLERGY TOPIRAMATE: ALTERED MENTAL STATUS - ALLERGY SURGICAL HISTORY NO PERSONAL OR FHX OF SEVERE REACTION TO ANESTHESIA POLYPECTOMY 2010 ANT CERV2011 C-SPINE FUSION _ 03/2011 SKIN CANCER REMOVED FROM NOSE AUGUST 2015 FAMILY HISTORY FATHER: MOTHER: ALIVE SIBLINGS: ALIVE, DIAGNOSED WITH OTHER 1 SISTER AND 1 BROTHER-HYPOTHYROIDISM. SOCIAL HISTORY GENERAL: TOBACCO USE ARE YOU A:NONSMOKER HIV / HEP-C SCREENING HIV TEST OFFERED TO PATIENT:YES DATE OFFERED:09/21/2017 TEST ACCEPTED:NO REASON:PATIENT DECLINED BROCHURE PROVIDED TO PATIENTNO OTHERS AT HOME: MOM,SISTER. DIET: REGULAR. LANGUAGE LANGUAGES SPOKEN:KOSOVAN DOMESTIC VIOLENCE DO YOU FEEL SAFE IN YOUR ENVIRONMENT?YES RECREATIONAL DRUG USE DRUG USE?NO PATIENT IS PERSCRIBED MEDICAL MARIJUANA EXERCISE: PHYSICAL THERAPY, WALKS. LEARNING BARRIERS / SPECIAL NEEDS CHANGE FROM LAST VISIT?NO BARRIERS TO LEARNING?NO HEARING IMPAIRED?NO VISION IMPAIRED?YES COGNITIVELY IMPAIRED?NO : CORRECTIVE LENSES READINESS TO LEARN?YES LEARNING PREFERENCES?NO LEARNING CAPABILITIES PRESENT?YES EMOTIONAL BARRIERS?NO SPECIAL DEVICES?NO PAIN CLINIC PFS, CLERGY, PUBLIC HEALTH REFERRALS PFS REFERRAL NEEDED?NO CLERGY REFERRAL NEEDED?NO PUBLIC HEALTH REFERRAL NEEDED?NO WAS THE PROVIDER NOTIFIED OF ANY PERTINENT INFO?NO N/A HAS THE PATIENT BEEN EDUCATED REGARDING HIS/HER PLAN OF CARE?YES HAS THE PATIENT BEEN EDUCATED REGARDING PAIN, THE RISK FOR PAIN, THE IMPORTANCE OF EFFECTIVE PAIN MANAGEMENT, AND THE PAIN ASSESSMENT PROCESS?YES LATEX QUESTIONNAIRE LATEX ALLERGY : HAVE YOU EVER DEVELOPED ANY TYPE OF REACTION AFTER HANDLING LATEX PRODUCTS SUCH RUBBER GLOVES, CONDOMS, DIAPHRAGMS, BALLOONS, SOCKS, OR UNDERWEAR?NO LATEX ALLERGY : HAVE YOU EVER DEVELOPED ANY TYPE OF REACTION DURING OR AFTER DENTAL APPOINTMENT, VAGINAL/RECTAL EXAMINATION, SURGICAL PROCEDURE, OR ANY OTHER EXPOSURE?NO DATE ASKED : 06/07/2018 LATEX RISK : HAVE YOU EVER HAD ANY DIFFICULTY BREATHING OR HIVES AFTER EATING OR HANDLING ANY FRUITS, OR VEGETABLES; SUCH KIWI, BANANAS, STONE FRUITS, OR CHESTNUTSNO LATEX RISK : DO YOU HAVE A PREVIOUS PERSONAL HISTORY OF MORE THAN NINE SURGERIES, SPINA BIFIDA, OR REPEATED CATHERTIZATIONS? NO LATEX RISK : ARE YOU FREQUENTLY EXPOSED TO LATEX PRODUCTS IN YOUR OCCUPATION?NO CAFFEINE CAFFEINE USE?YES HOW OFTEN AND HOW MUCH? DAILY BASIS ADVANCE DIRECTIVE ADVANCE DIRECTIVE DISCUSSED WITH PATIENT:YES HCP SISTER--DUANE CAM [phone] ALSO HAS POA AND LIVING WILL UATSDIN [id number] MANDAEISM MARITAL STATUS: SINGLE. ALCOHOL SCREENING DID YOU HAVE A DRINK CONTAINING ALCOHOL IN THE PAST YEAR?NO POINTS0 INTERPRETATIONNEGATIVE SEXUAL HX HAD SEX IN THE LAST 12 MONTHS (VAGINAL, ORAL, OR ANAL)?NO LMP:05/2017 HAVE YOU EVER HAD AN STD?NO REVIEWED 12/19/17 NLREVIEWED WITH PATIENT 02/15/18 1037 JSREVIEWED WITH PT 03/20/18 1208 BVREVIEWED WITH PATIENT 06/07/18 0905 BVREVIEWED WITH PATIENT 06/23/18 1451 JS. HOSPITALIZATION/MAJOR DIAGNOSTIC PROCEDURE SURGERY RELATED REVIEW OF SYSTEMS REVIEWED BY: PROVIDER: . CONSTITUTIONAL: ANY CHANGE IN YOUR MEDICAL CONDITION? NO . CHILLS NO . FEVER NO . INFECTION: DO YOU HAVE NEW INFECTIONS? NO . DO YOU HAVE HISTORY OF MRSA? NO . MUSCULOSKELETAL: ANY NEW PATTERNS OF PAIN OR NUMBNESS? NO . GASTROENTEROLOGY: ANY NEW CHANGE IN BOWEL CONTROL? NO . GENITOURINARY: ANY NEW CHANGE IN BLADDER CONTROL? NO . IS THERE A CHANCE YOU COULD BE ? NO . HEMATOLOGY/LYMPH: DO YOU TAKE ANY BLOOD THINNERS? (FOR EXAMPLE- COUMADIN, PLAVIX, AGGRENOX, PLATEL, PRADAXA, OR XARELTO) NO . WHEN WAS YOUR LAST DOSE? DATE: TIME: . NEUROLOGY: HAVE YOU FALLEN IN THE PAST 12 MONTHS? NO . ANY NEW EXTREMITY NUMBNESS OR WEAKNESS? NO . CARDIOLOGY: DO YOU HAVE A PACEMAKER OR DEFIBRILLATOR? NO . RESPIRATORY: HAVE YOU BEEN SICK IN THE PAST WEEK? NO . FEVER NO . FLU LIKE SYMPTOMS? NO . COUGH NO . INTEGUMENTARY: DO YOU HAVE ANY RASHES OR OPEN SORES? NO . ALLERGIC/IMMUNO: ARE YOU ALLERGIC TO IV DYE? NO . ANY NEW ALLERGIES? NO . PSYCHIATRIC: DO YOU HAVE THOUGHTS OF HURTING YOURSELF OR SOMEONE ELSE? NO . ARE YOU ABUSED, NEGLECTED, OR IN AN UNSAFE ENVIRONMENT? NO . ENDOCRINOLOGY: ARE YOU DIABETIC? NO . OTHER: DO YOU NEED ANY PRESCRIPTIONS? NO . IF YES, PLEASE LIST: ____ . ANY NEW PROBLEMS WITH YOUR MEDICATIONS? NO . WHEN DID YOU LAST EAT? 07/18/181999 . WHEN DID YOU LAST DRINK? 07/19/18 0700 . WHAT DID YOU LAST DRINK? WATER . NAME OF PERSON DRIVING YOU HOME? RUSSELL . DO YOU HAVE ANY OTHER QUESTIONS OR CONCERNS NO . VITAL SIGNS WT 183.4 LBS, HT 70 IN, BMI 26.31 INDEX, BP 133/75 MM HG, HR 89 /MIN, RR 18 /MIN, TEMP 97.3 F, OXYGEN SAT % 97, NA INITIALS MP 0839, REVIEWED BY: EM. ASSESSMENTS BILATERAL OCCIPITAL NEURALGIA - M54.81 (PRIMARY) PROCEDURES PN OCCIPITAL NERVE BLOCK GREATER PRE PROCEDURE DIAGNOSIS OCCIPITAL NEURALGIA. POST PROCEDURE DIAGNOSIS OCCIPITAL NEURALGIA. PROCEDURE BILATERAL GREATER OCCIPITAL NERVE BLOCK SURGEON DR. KEISHA ENCARNACION RADIOLOGY NURSE NONE ANESTHESIA LOCAL PRE PROCEDURE NOTE 52 YEAR-OLD PATIENT WITH HISTORY OF CHRONIC OCCIPITAL PAIN. THE PAIN IS LOCATED OVER THE OCCIPITAL AREA WITH RADIATION TOWARDS THE PARIETAL AREA OF THE CRANIUM. I EVALUATED THE PATIENT AND REVIEWED THE CHART. I WENT OVER THE RISKS, ALTERNATIVES, AND BENEFITS ASSOCIATED WITH THIS PROCEDURE. THE PATIENT WOULD LIKE TO PROCEED AND GAVE CONSENT TO PERFORM THE PROCEDURE. THE PATIENT DENIES UNEXPLAINABLE WEIGHT LOSS, FEVER, CHILLS, OR NEW CHANGES IN URINARY OR BOWEL CONTROL. DESCRIPTION OF PROCEDURE THE PATIENT WAS BROUGHT TO THE PROCEDURE ROOM AND PLACED IN THE SITTING POSITION. THE RIGHT AND LEFT OCCIPITAL AREA WAS CLEANED WITH ALCOHOL. THE PROCEDURE WAS DONE USING STERILE TECHNIQUES. I CHECKED LATERALITY AND THE LEVEL WHERE THE PROCEDURE WAS GOING TO BE PERFORMED WITH THE PATIENT AND THE SUPPORTING STAFF AT THE MOMENT OF THE TIME OUT IN THE PROCEDURE ROOM. USING A 25-GAUGE NEEDLE, THE RIGHT AND LEFT OCCIPITAL NERVES WERE INJECTED AT THE NUCHAL LINE, 1-INCH LATERAL OF MIDLINE. I USED A TOTAL OF 15 ML OF BUPIVACAINE 0.25% WITH KENALOG 20 MG AT EACH NERVE. THERE WAS NO EVIDENCE OF BLOOD, PARESTHESIA OR CEREBROSPINAL FLUID DURING THE PROCEDURE. THE PATIENT WAS SENT TO THE RECOVERY ROOM. THE PATIENT WAS MOVING THE EXTREMITIES AND DOING WELL. THERE WAS NO COMPLICATION DURING THE PROCEDURE. POST PROCEDURE NOTE THE PATIENT WILL BE SEEN IN A FOLLOW UP IN THE NEXT FEW WEEKS. INSTRUCTIONS WERE GIVEN, QUESTIONS WERE ANSWERED, AND THE PATIENT EXPRESSED UNDERSTANDING AND AGREED WITH THE PLAN. I, REYES MCBRIDE, DOCUMENTED THE ABOVE INFORMATION ACTING A SCRIBE FOR DR. ENCARNACION. I HAVE REVIEWED THE ABOVE DOCUMENT, WRITTEN BY REYES RENEE AND I VERIFY THAT IT IS ACCURATE. PROCEDURE CODES 59485 N BLOCK INJ OCCIPITAL, MODIFIERS: 50 DISPOSITION & COMMUNICATION FOLLOW UP 3 WEEKS ELECTRONICALLY SIGNED BY KEISHA ENCARNACION MD, MD ON 07/21/2018 AT 05:11 PM EDT DISCLAIMER : THIS IS A VISIT SUMMARY EXTRACTED FROM THE [employer] CHART. IT IS NOT A COPY OF THE [employer] PROGRESS NOTE. [facility]
== END ==
LOC: M PAIN 08:30
PROVIDERS: ATTEND Anesthesiology
DX: M54.81 Occipital neuralgia (principal); M50.222 Other cervical disc displacement at C5-C6 level; E03.9 Hypothyroidism, unspecified; J30.2 Other seasonal allergic rhinitis; R13.10 Dysphagia, unspecified; G43.909 Migraine, unspecified, not intractable, without status migrainosus; Z85.828 Personal history of other malignant neoplasm of skin; Z98.1 Arthrodesis status; Z79.891 Long term (current) use of opiate analgesic; Z79.899 Other long term (current) drug therapy; Z88.8 Allergy status to other drugs, medicaments and biological substances
CPT/HCPCS: 64405; J3301

== ENCOUNTER → 2018-08-03 | Outpatient (CLI) | payer MEDICARE, MEDICAID ==
[~2018-08-03] MED LIST changes: -BUPIVACAINE HCL 0.25% 10 ML VIAL As Ordered ONE; +ISOVUE-M 300 61% 15ML VIAL (Q9967) As Ordered ONE; +LIDOCAINE 1% SDV INJ 30 ML VIAL As Ordered ONE
--- NOTE | 2018-08-03 13:44 | REP ---
Bilateral SI joint series: Five views. History: Bilateral SI joint injection for pain. 19 seconds of fluoroscopy time is reported. Findings: A sequence of five last image hold fluoroscopically obtained spot radiographs of the SI joints bilaterally document various needle positions and contrast injections associated with SI joint injection procedure. Electronically Signed by Luis Vincent MD 08/03/2018 01:36 P
--- NOTE | 2018-08-14 00:12 | ECWPNPC ---
PATIENT NAME: PATRIZIA DICKEY : 1965 GENDER: FEMALE VISIT DATE: 08/03/2018 DISCHARGE DATE: 08/03/18 1302 VISIT LOCKED DATE TIME: PHYSICIAN: KEISHA ENCARNACION MD RESOURCE: KEISHA ENCARNACION MD REASON FOR APPOINTMENT 1. SIJ HISTORY OF PRESENT ILLNESS HISTORY OF PRESENT ILLNESS: PAIN THE PATIENT DESCRIBES THE PAIN... FALL RISK SCREENING: SCREENING :NO FALLS REPORTED IN THE LAST YEAR CURRENT MEDICATIONS TAKING SENNA S 8.6-50 MG TABLET 1 TABLET IN THE EVENING NEEDED ORALLY ONCE A DAY NEEDED, NOTES: 2099 TAKING MAGNESIUM 400 MG CAPSULE 1 TABLET WITH A MEAL ORALLY ONCE A DAY, NOTES: 08-02-18799 TAKING FISH OIL 1200 MG CAPSULE 2 CAPSULES ORALLY ONCE A DAY, NOTES: 799 TAKING MULTIVITAMINS OTC TABLET 1 TAB(S) ORALLY DAILY, NOTES: 08-02-18799 TAKING VITAMIN B COMPLEX OTC TABLET 1 TAB(S) ORALLY DAILY, NOTES: 08-02-18799 TAKING CALCIUM 500 MG TABLET CHEWABLE 2 TABLET ORALLY ONCE A DAY, NOTES: 08-02-18799 TAKING VITAMIN D-3 1000 UNITS TABLET 2 CAPSULES ORALLY DAILY, NOTES: 08-02-18 TAKING OSTEO COMPLEX CAPSULE 1 CAP(S) ORALLY DAILY, NOTES: 07/18/18 TAKING DIAZEPAM 5 MG TABLET 1 TABLET ORALLY ONCE A DAY NEEDED ([facility]), NOTES: 799 TAKING SYNTHROID 150 MCG TABLET 1 TABLET ON AN EMPTY STOMACH IN THE MORNING ORALLY ONCE A DAY (DR. PABLO), NOTES: 08-03-18799 TAKING CLARITIN 10 MG TABLET 1 TABLET ORALLY ONCE A DAY, NOTES: NONE LATELY TAKING FLONASE 50 MCG/DOSE INHALER 1 SPRAY IN EACH NOSTRIL NASALLY ONCE A DAY, NOTES: 08-03-18799 TAKING BENADRYL 25 MG CAPSULE 1 CAPSULE NEEDED ORALLY EVERY 6 HRS, NOTES: NONE LATELY TAKING SUDAFED 30 MG TABLET 1 TABLET NEEDED ORALLY EVERY 6 HRS, NOTES: NOT LATELY TAKING CLONIDINE HCL 0.1 MG TABLET 1 TABLET ORALLY TWICE A DAY, NOTES: 4 DAYS AGO TAKING VITAMIN B2 , NOTES: 08-02-18899 TAKING CO ENZYME Q-10 , NOTES: 08-02-18799 TAKING SERTRALINE HCL 100 MG TABLET 1 1/2/ TABLET ORALLY ONCE A DAY, NOTES: 08-02-182099 TAKING MAY HAVE MEDICAL MARIJUANA DIRECTED, NOTES: 08-03-18399 TAKING SUMATRIPTAN SUCCINATE 100 MG TABLET 1 TABLET NEEDED ORALLY TWICE A DAY NEEDED FOR MAX 9 MIGRAINES PER MONTH, NOTES: 08-03-18799 TAKING ABIGAIL ALLERGY 180 MG TABLET 1 TABLET ORALLY ONCE A DAY PRN, NOTES: 08-02-18899 TAKING METHOCARBAMOL 750 MG TABLET 1 TABLET ORALLY Q 6HRS, NOTES: 08-03-18199 TAKING CARISOPRODOL 350 MG TABLET 1 TABLET NEEDED ORALLY BID PRN SPAM MDD=2, NOTES: A COUPLE DAYS TAKING PERCOCET 10-325 MG TABLET 1 TABLET NEEDED ORALLY EVERY 6 HRS PRN MDD4, NOTES: 08-02-182099 TAKING RIZATRIPTAN BENZOATE 10 MG TABLET 1 TABLET NEEDED ONE TIME ORALLY BID PRN MIGRAINE, NOTES: 3 DAYS AGO NOT-TAKING AIMOVIG 70 MG/ML SOLUTION AUTO-INJECTOR TWO INJECTIONS SUBCUTANEOUS MONTHLY, NOTES: OVER A MONTH NOT-TAKING FLAGYL 500 MG TABLET DIRECTED ORALLY EVERY 8 HRS NOT-TAKING CIPRO 500 MG TABLET 1 TABLET ORALLY EVERY 12 HRS NOT-TAKING TRAZODONE HCL 50 MG TABLET 1 TABLET AT BEDTIME NEEDED ORALLY BEFORE BEDTIME UNKNOWN FROVATRIPTAN SUCCINATE 2.5 MG TABLET 1 TABLET NEEDED ONE TIME ORALLY ONCE A DAY AT TIME OF MENSES AND WITH MIGRAINES, NOTES: INSURANCE REFUSED MEDICATION LIST REVIEWED AND RECONCILED WITH THE PATIENT PAST MEDICAL HISTORY CERVALGIA- C5-6 DISC HERNIATION WITH C6 IMPINGEMENT-DR DAY/ [facility] YUSUF- [facility]- HYPOTHYROIDISM 2007- DR PABLO SEASONAL ALLERGY/SINUSITIS ENDOMETRIAL POLYP- DR YBARRA DYSPHAGIA-ENT IN [place]- DR MORATAYA BASAL CELL TO RIGHT NOSE - DR. CASTAÑEDA SACRAL PAIN MIGRAINES ALLERGIES NEURONTIN 300: DEPRESSION - SIDE EFFECTS BACLOFEN: HEAD ACHES - ALLERGY CYCLOBENZAPRINE HCL: DECREASED MENTAL ALERTNESS - ALLERGY TIZANIDINE HCL: HEADACHES - ALLERGY TOPIRAMATE: ALTERED MENTAL STATUS - ALLERGY SURGICAL HISTORY NO PERSONAL OR FHX OF SEVERE REACTION TO ANESTHESIA POLYPECTOMY 2010 ANT CERVI 2011 C-SPINE FUSION _ 03/2011 SKIN CANCER REMOVED FROM NOSE AUGUST 2015 FAMILY HISTORY FATHER: MOTHER: ALIVE SIBLINGS: ALIVE, DIAGNOSED WITH OTHER 1 SISTER AND 1 BROTHER-HYPOTHYROIDISM. SOCIAL HISTORY GENERAL: TOBACCO USE ARE YOU A:NONSMOKER HIV / HEP-C SCREENING HIV TEST OFFERED TO PATIENT:YES DATE OFFERED:09/21/2017 TEST ACCEPTED:NO REASON:PATIENT DECLINED BROCHURE PROVIDED TO PATIENTNO OTHERS AT HOME: MOM,SISTER. DIET: REGULAR. LANGUAGE LANGUAGES SPOKEN:ESTONIAN DOMESTIC VIOLENCE DO YOU FEEL SAFE IN YOUR ENVIRONMENT?YES RECREATIONAL DRUG USE DRUG USE?NO PATIENT IS PERSCRIBED MEDICAL MARIJUANA EXERCISE: PHYSICAL THERAPY, WALKS. LEARNING BARRIERS / SPECIAL NEEDS CHANGE FROM LAST VISIT?NO BARRIERS TO LEARNING?NO HEARING IMPAIRED?NO VISION IMPAIRED?YES COGNITIVELY IMPAIRED?NO : CORRECTIVE LENSES READINESS TO LEARN?YES LEARNING PREFERENCES?NO LEARNING CAPABILITIES PRESENT?YES EMOTIONAL BARRIERS?NO SPECIAL DEVICES?NO PAIN CLINIC PFS, CLERGY, PUBLIC HEALTH REFERRALS PFS REFERRAL NEEDED?NO CLERGY REFERRAL NEEDED?NO PUBLIC HEALTH REFERRAL NEEDED?NO WAS THE PROVIDER NOTIFIED OF ANY PERTINENT INFO?NO N/A HAS THE PATIENT BEEN EDUCATED REGARDING HIS/HER PLAN OF CARE?YES HAS THE PATIENT BEEN EDUCATED REGARDING PAIN, THE RISK FOR PAIN, THE IMPORTANCE OF EFFECTIVE PAIN MANAGEMENT, AND THE PAIN ASSESSMENT PROCESS?YES LATEX QUESTIONNAIRE LATEX ALLERGY : HAVE YOU EVER DEVELOPED ANY TYPE OF REACTION AFTER HANDLING LATEX PRODUCTS SUCH RUBBER GLOVES, CONDOMS, DIAPHRAGMS, BALLOONS, SOCKS, OR UNDERWEAR?NO LATEX ALLERGY : HAVE YOU EVER DEVELOPED ANY TYPE OF REACTION DURING OR AFTER DENTAL APPOINTMENT, VAGINAL/RECTAL EXAMINATION, SURGICAL PROCEDURE, OR ANY OTHER EXPOSURE?NO DATE ASKED : 06/07/2018 LATEX RISK : HAVE YOU EVER HAD ANY DIFFICULTY BREATHING OR HIVES AFTER EATING OR HANDLING ANY FRUITS, OR VEGETABLES; SUCH KIWI, BANANAS, STONE FRUITS, OR CHESTNUTSNO LATEX RISK : DO YOU HAVE A PREVIOUS PERSONAL HISTORY OF MORE THAN NINE SURGERIES, SPINA BIFIDA, OR REPEATED CATHERTIZATIONS? NO LATEX RISK : ARE YOU FREQUENTLY EXPOSED TO LATEX PRODUCTS IN YOUR OCCUPATION?NO CAFFEINE CAFFEINE USE?YES HOW OFTEN AND HOW MUCH? DAILY BASIS ADVANCE DIRECTIVE ADVANCE DIRECTIVE DISCUSSED WITH PATIENT:YES HCP SISTER--DUANE CAM [phone] ALSO HAS POA AND LIVING WILL CHRISTIAN [id number] QUAKER MARITAL STATUS: SINGLE. ALCOHOL SCREENING DID YOU HAVE A DRINK CONTAINING ALCOHOL IN THE PAST YEAR?NO POINTS0 INTERPRETATIONNEGATIVE SEXUAL HX HAD SEX IN THE LAST 12 MONTHS (VAGINAL, ORAL, OR ANAL)?NO LMP:05/2017 HAVE YOU EVER HAD AN STD?NO REVIEWED 12/19/17 NLREVIEWED WITH PATIENT 02/15/18 1037 JSREVIEWED WITH PT 03/20/18 1208 BVREVIEWED WITH PATIENT 06/07/18 0905 BVREVIEWED WITH PATIENT 06/23/18 1451 JS. HOSPITALIZATION/MAJOR DIAGNOSTIC PROCEDURE SURGERY RELATED REVIEW OF SYSTEMS REVIEWED BY: PROVIDER: . CONSTITUTIONAL: ANY CHANGE IN YOUR MEDICAL CONDITION? NO . CHILLS NO . FEVER NO . INFECTION: DO YOU HAVE NEW INFECTIONS? NO . DO YOU HAVE HISTORY OF MRSA? NO . MUSCULOSKELETAL: ANY NEW PATTERNS OF PAIN OR NUMBNESS? NO . GASTROENTEROLOGY: ANY NEW CHANGE IN BOWEL CONTROL? NO . GENITOURINARY: ANY NEW CHANGE IN BLADDER CONTROL? NO . IS THERE A CHANCE YOU COULD BE ? NO . HEMATOLOGY/LYMPH: DO YOU TAKE ANY BLOOD THINNERS? (FOR EXAMPLE- COUMADIN, PLAVIX, AGGRENOX, PLATEL, PRADAXA, OR XARELTO) NO . WHEN WAS YOUR LAST DOSE? DATE: TIME: . NEUROLOGY: HAVE YOU FALLEN IN THE PAST 12 MONTHS? NO . ANY NEW EXTREMITY NUMBNESS OR WEAKNESS? NO . CARDIOLOGY: DO YOU HAVE A PACEMAKER OR DEFIBRILLATOR? NO . RESPIRATORY: HAVE YOU BEEN SICK IN THE PAST WEEK? NO . FEVER NO . FLU LIKE SYMPTOMS? NO . COUGH NO . INTEGUMENTARY: DO YOU HAVE ANY RASHES OR OPEN SORES? NO . ALLERGIC/IMMUNO: ARE YOU ALLERGIC TO IV DYE? NO . ANY NEW ALLERGIES? NO . PSYCHIATRIC: DO YOU HAVE THOUGHTS OF HURTING YOURSELF OR SOMEONE ELSE? NO . ARE YOU ABUSED, NEGLECTED, OR IN AN UNSAFE ENVIRONMENT? NO . ENDOCRINOLOGY: ARE YOU DIABETIC? NO . OTHER: DO YOU NEED ANY PRESCRIPTIONS? NO . IF YES, PLEASE LIST: ____ . ANY NEW PROBLEMS WITH YOUR MEDICATIONS? NO . WHEN DID YOU LAST EAT? ____0300 THIS AM . WHEN DID YOU LAST DRINK? ____WATER . WHAT DID YOU LAST DRINK? ____830 AM . NAME OF PERSON DRIVING YOU HOME? ____RUSSELL DICKEY . DO YOU HAVE ANY OTHER QUESTIONS OR CONCERNS NO . VITAL SIGNS WT 181.2 LBS, HT 70 IN, BMI 26.00 INDEX, BP 140/80 MM HG, HR 76 /MIN, RR 18 /MIN, TEMP 98.0 F, OXYGEN SAT % 96%, NA INITIALS SC 11:07, REVIEWED BY: KG. ASSESSMENTS SACROILIITIS, NOT ELSEWHERE CLASSIFIED - M46.1 (PRIMARY) TREATMENT SACROILIITIS, NOT ELSEWHERE CLASSIFIED [facility] FLUORO GUIDANCE (PAIN)[id number] PROCEDURES PN SI PRE PROCEDURE DIAGNOSIS SACROILIITIS, SACROILIAC JOINT DYSFUNCTION POST PROCEDURE DIAGNOSIS SACROILIITIS, SACROILIAC JOINT DYSFUNCTION PROCEDURE BILATERAL SACROILIAC JOINT BLOCK SURGEON DR. KEISHA ENCARNACION ELECTRIC RANGE ASSEMBLER NONE ANESTHESIA LOCAL PRE PROCEDURE NOTE PATIENT WITH HISTORY OF CHRONIC LOW BACK PAIN. I EVALUATED THE PATIENT AND REVIEWED THE CHART. I WENT OVER THE RISKS, ALTERNATIVES, AND BENEFITS ASSOCIATED WITH THIS PROCEDURE. THE PATIENT WOULD LIKE TO PROCEED AND GAVE CONSENT TO PERFORM THE PROCEDURE. THE PATIENT DENIES UNEXPLAINABLE WEIGHT LOSS, FEVER, CHILLS, OR NEW CHANGES IN URINARY OR BOWEL CONTROL DESCRIPTION OF PROCEDURE THE PATIENT WAS BROUGHT TO THE PROCEDURE ROOM AND PLACED IN THE PRONE POSITION. THE LUMBOSACRAL AREA WAS CLEANED WITH CHLORAPREP SOLUTION AND DRAPED ASEPTICALLY. THE PROCEDURE WAS DONE UNDER STERILE CONDITIONS. I CHECKED LATERALITY AND THE LEVEL WHERE THE PROCEDURE WAS GOING TO BE PERFORMED WITH THE PATIENT AND THE SUPPORTING STAFF AT THE MOMENT OF THE TIME OUT IN THE PROCEDURE ROOM. UNDER FLUOROSCOPIC GUIDANCE, TARGET POINT WAS SELECTED AT THE LOWER BORDER OF THE RIGHT AND LEFT SACROILIAC JOINT. TARGET POINT WAS SELECTED AFTER MEDIAL ROTATION AND TILT OF THE MAGNIFIER OF THE C-ARM. LIDOCAINE WAS USED TO NUMB THE SKIN AND SUBCUTANEOUS TISSUE BELOW IT. A SPINAL NEEDLE, 22-GAUGE, WAS ADVANCED UNDER FLUOROSCOPIC GUIDANCE AND FOLLOWING PATIENT FEEDBACK UNTIL THE TARGET AREA WAS TOUCHED. THE POSITION OF THE NEEDLE WAS VERIFIED WITH AP AND LATERAL VIEWS. AFTER PROPER POSITION OF THE NEEDLE WAS ACHIEVED, ISOVUE M DYE 30%, 0.25 ML, WAS INJECTED SHOWING SPREAD OF THE DYE. THEN, A SOLUTION OF 20 MG OF KENALOG WAS INJECTED IN RIGHT AND LEFT JOINT WITH 3 ML OF BUPIVACAINE 0.125%. THERE WAS NO EVIDENCE OF BLOOD, PARESTHESIA OR CEREBROSPINAL FLUID DURING THE PROCEDURE. THE PATIENT WAS SENT TO THE RECOVERY ROOM. THE PATIENT WAS MOVING THE EXTREMITIES AND DOING WELL. THERE WAS NO COMPLICATION DURING THE PROCEDURE. FLUOROSCOPY TIME WAS 19 SECONDS POST PROCEDURE NOTE THE PATIENT WILL BE SEEN IN A FOLLOW UP IN THE NEXT FEW WEEKS. INSTRUCTIONS WERE GIVEN, QUESTIONS WERE ANSWERED, AND THE PATIENT EXPRESSED UNDERSTANDING AND AGREED WITH THE PLAN. I, ZAINAB GOTTI, DOCUMENTED THE ABOVE INFORMATION ACTING A SCRIBE FOR DR. ENCARNACION. I HAVE REVIEWED THE ABOVE DOCUMENT, WRITTEN BY ZAINAB GOTTI SCRIBAnnabelle AND I VERIFY THAT IT IS ACCURATE. PROCEDURE CODES 94118 INJECT SACROILIAC JOINT, MODIFIERS: 50 [id number] RADXPS IN END [id number] PXD DISPOSITION & COMMUNICATION FOLLOW UP 3 WEEKS ELECTRONICALLY SIGNED BY KEISHA ENCARNACION MD, MD ON 08/13/2018 AT 07:49 PM EDT DISCLAIMER : THIS IS A VISIT SUMMARY EXTRACTED FROM THE [employer] CHART. IT IS NOT A COPY OF THE [employer] PROGRESS NOTE. MARTA
== END ==
LOC: M PAIN 11:00
PROVIDERS: ATTEND Anesthesiology
DX: M46.1 Sacroiliitis, not elsewhere classified (principal); M50.222 Other cervical disc displacement at C5-C6 level; E03.9 Hypothyroidism, unspecified; J30.2 Other seasonal allergic rhinitis; R13.10 Dysphagia, unspecified; Z85.828 Personal history of other malignant neoplasm of skin; G43.909 Migraine, unspecified, not intractable, without status migrainosus; Z79.891 Long term (current) use of opiate analgesic; Z79.899 Other long term (current) drug therapy; Z88.8 Allergy status to other drugs, medicaments and biological substances
CPT/HCPCS: G0260; J3301; Q9967

== ENCOUNTER → 2018-08-24 | Outpatient (CLI) | payer MEDICARE, MEDICAID ==
[~2018-08-24] MED LIST changes: -BUPIVACAINE HCL 0.25% 30 ML VIAL As Ordered ONE; +FLUO10CA15 PO; -FLUO10CA8 PO; -ISOVUE-M 300 61% 15ML VIAL (Q9967) As Ordered ONE; -LIDOCAINE 1% SDV INJ 30 ML VIAL As Ordered ONE; +METH750T2 PO; -METH75TA PO; -TRIAMCINOLONE ACETONIDE SUSP 40 MG/ML VIAL (J3301) As Ordered ONE; -diazePAM 5 MG TAB As Ordered ONE; -oxyCODONE 5MG TAB As Ordered ONE
--- NOTE | 2018-09-05 00:25 | ECWPNPC ---
PATIENT NAME: PATRIZIA DICKEY : 1965 GENDER: FEMALE VISIT DATE: 08/24/2018 DISCHARGE DATE: 08/24/18 1007 VISIT LOCKED DATE TIME: PHYSICIAN: LY ANTUNEZ RESOURCE: LY ANTUNEZ REASON FOR APPOINTMENT 1. POST PROCEDURE HISTORY OF PRESENT ILLNESS HISTORY OF PRESENT ILLNESS: HERE FOR F/U POST PROCEDURES.HAD BILATERAL GREATER OCCIPITAL NERVE BLOCK ON 07/19/18 AND BILATERAL SIJ ON 08/03/18.HAVING ALMOST DAILY HEADACHE/MIGRAINE.AIMOVIG TRIAL CAUSED INCREASE IN BODY PAIN.CHIEF AREA OF PAIN IS NECK/UPPER BACK.RATING PAIN VAS 6/10. PAIN THE PATIENT DESCRIBES THE PAIN... FALL RISK SCREENING: SCREENING :NO FALLS REPORTED IN THE LAST YEAR CURRENT MEDICATIONS TAKING SENNA S 8.6-50 MG TABLET 1 TABLET IN THE EVENING NEEDED ORALLY ONCE A DAY NEEDED TAKING MAGNESIUM 400 MG CAPSULE 1 TABLET WITH A MEAL ORALLY ONCE A DAY TAKING FISH OIL 1200 MG CAPSULE 2 CAPSULES ORALLY ONCE A DAY TAKING MULTIVITAMINS OTC TABLET 1 TAB(S) ORALLY DAILY TAKING VITAMIN B COMPLEX OTC TABLET 1 TAB(S) ORALLY DAILY TAKING CALCIUM 500 MG TABLET CHEWABLE 2 TABLET ORALLY ONCE A DAY TAKING VITAMIN D-3 1000 UNITS TABLET 2 CAPSULES ORALLY DAILY TAKING OSTEO COMPLEX CAPSULE 1 CAP(S) ORALLY DAILY TAKING DIAZEPAM 5 MG TABLET 1 TABLET ORALLY ONCE A DAY NEEDED ([facility]) TAKING SYNTHROID 150 MCG TABLET 1 TABLET ON AN EMPTY STOMACH IN THE MORNING ORALLY ONCE A DAY (DR. PABLO) TAKING CLARITIN 10 MG TABLET 1 TABLET ORALLY ONCE A DAY TAKING FLONASE 50 MCG/DOSE INHALER 1 SPRAY IN EACH NOSTRIL NASALLY ONCE A DAY TAKING BENADRYL 25 MG CAPSULE 1 CAPSULE NEEDED ORALLY EVERY 6 HRS TAKING SUDAFED 30 MG TABLET 1 TABLET NEEDED ORALLY EVERY 6 HRS TAKING CLONIDINE HCL 0.1 MG TABLET 1 TABLET ORALLY TWICE A DAY TAKING VITAMIN B2 TAKING CO ENZYME Q-10 TAKING SERTRALINE HCL 100 MG TABLET 1 1/2/ TABLET ORALLY ONCE A DAY TAKING MAY HAVE MEDICAL MARIJUANA DIRECTED TAKING SUMATRIPTAN SUCCINATE 100 MG TABLET 1 TABLET NEEDED ORALLY TWICE A DAY NEEDED FOR MAX 9 MIGRAINES PER MONTH TAKING ABIGAIL ALLERGY 180 MG TABLET 1 TABLET ORALLY ONCE A DAY PRN TAKING METHOCARBAMOL 750 MG TABLET 1 TABLET ORALLY Q 6HRS TAKING CARISOPRODOL 350 MG TABLET 1 TABLET NEEDED ORALLY BID PRN SPAM MDD=2 TAKING PERCOCET 10-325 MG TABLET 1 TABLET NEEDED ORALLY EVERY 6 HRS PRN MDD4 TAKING RIZATRIPTAN BENZOATE 10 MG TABLET 1 TABLET NEEDED ONE TIME ORALLY BID PRN MIGRAINE TAKING NORCO 7.5-325 MG TABLET 1 TABLET NEEDED ORALLY EVERY 6 HRS PRN PAIN MDD4 NOT-TAKING AIMOVIG 70 MG/ML SOLUTION AUTO-INJECTOR TWO INJECTIONS SUBCUTANEOUS MONTHLY, NOTES: OVER A MONTH NOT-TAKING FLAGYL 500 MG TABLET DIRECTED ORALLY EVERY 8 HRS NOT-TAKING CIPRO 500 MG TABLET 1 TABLET ORALLY EVERY 12 HRS NOT-TAKING TRAZODONE HCL 50 MG TABLET 1 TABLET AT BEDTIME NEEDED ORALLY BEFORE BEDTIME NOT-TAKING FROVATRIPTAN SUCCINATE 2.5 MG TABLET 1 TABLET NEEDED ONE TIME ORALLY ONCE A DAY AT TIME OF MENSES AND WITH MIGRAINES, NOTES: INSURANCE REFUSED MEDICATION LIST REVIEWED AND RECONCILED WITH THE PATIENT PAST MEDICAL HISTORY CERVALGIA- C5-6 DISC HERNIATION WITH C6 IMPINGEMENT-DR DAY/ DR YUSUF- [facility]- HYPOTHYROIDISM 2007- DR PABLO SEASONAL ALLERGY/SINUSITIS ENDOMETRIAL POLYP- DR YBARRA DYSPHAGIA-ENT IN [place]- DR MORATAYA BASAL CELL TO RIGHT NOSE - DR. CASTAÑEDA SACRAL PAIN MIGRAINES ALLERGIES NEURONTIN 300: DEPRESSION - SIDE EFFECTS BACLOFEN: HEAD ACHES - ALLERGY CYCLOBENZAPRINE HCL: DECREASED MENTAL ALERTNESS - ALLERGY TIZANIDINE HCL: HEADACHES - ALLERGY TOPIRAMATE: ALTERED MENTAL STATUS - ALLERGY SURGICAL HISTORY NO PERSONAL OR FHX OF SEVERE REACTION TO ANESTHESIA POLYPECTOMY 2010 ANT CERVI 2011 C-SPINE FUSION _ 03/2011 SKIN CANCER REMOVED FROM NOSE AUGUST 2015 FAMILY HISTORY FATHER: MOTHER: ALIVE SIBLINGS: ALIVE, DIAGNOSED WITH OTHER 1 SISTER AND 1 BROTHER-HYPOTHYROIDISM. SOCIAL HISTORY GENERAL: TOBACCO USE ARE YOU A:NONSMOKER HIV / HEP-C SCREENING HIV TEST OFFERED TO PATIENT:YES DATE OFFERED:09/21/2017 TEST ACCEPTED:NO REASON:PATIENT DECLINED BROCHURE PROVIDED TO PATIENTNO OTHERS AT HOME: MOM,SISTER. DIET: REGULAR. LANGUAGE LANGUAGES SPOKEN:LUX[place]BOURGISH DOMESTIC VIOLENCE DO YOU FEEL SAFE IN YOUR ENVIRONMENT?YES RECREATIONAL DRUG USE DRUG USE?NO PATIENT IS PERSCRIBED MEDICAL MARIJUANA EXERCISE: PHYSICAL THERAPY, WALKS. LEARNING BARRIERS / SPECIAL NEEDS CHANGE FROM LAST VISIT?NO BARRIERS TO LEARNING?NO HEARING IMPAIRED?NO VISION IMPAIRED?YES COGNITIVELY IMPAIRED?NO : CORRECTIVE LENSES READINESS TO LEARN?YES LEARNING PREFERENCES?NO LEARNING CAPABILITIES PRESENT?YES EMOTIONAL BARRIERS?NO SPECIAL DEVICES?NO PAIN CLINIC PFS, CLERGY, PUBLIC HEALTH REFERRALS PFS REFERRAL NEEDED?NO CLERGY REFERRAL NEEDED?NO PUBLIC HEALTH REFERRAL NEEDED?NO WAS THE PROVIDER NOTIFIED OF ANY PERTINENT INFO?YES N/A HAS THE PATIENT BEEN EDUCATED REGARDING HIS/HER PLAN OF CARE?YES HAS THE PATIENT BEEN EDUCATED REGARDING PAIN, THE RISK FOR PAIN, THE IMPORTANCE OF EFFECTIVE PAIN MANAGEMENT, AND THE PAIN ASSESSMENT PROCESS?YES LATEX QUESTIONNAIRE LATEX ALLERGY : HAVE YOU EVER DEVELOPED ANY TYPE OF REACTION AFTER HANDLING LATEX PRODUCTS SUCH RUBBER GLOVES, CONDOMS, DIAPHRAGMS, BALLOONS, SOCKS, OR UNDERWEAR?NO LATEX ALLERGY : HAVE YOU EVER DEVELOPED ANY TYPE OF REACTION DURING OR AFTER DENTAL APPOINTMENT, VAGINAL/RECTAL EXAMINATION, SURGICAL PROCEDURE, OR ANY OTHER EXPOSURE?NO LATEX RISK : HAVE YOU EVER HAD ANY DIFFICULTY BREATHING OR HIVES AFTER EATING OR HANDLING ANY FRUITS, OR VEGETABLES; SUCH KIWI, BANANAS, STONE FRUITS, OR CHESTNUTSNO LATEX RISK : DO YOU HAVE A PREVIOUS PERSONAL HISTORY OF MORE THAN NINE SURGERIES, SPINA BIFIDA, OR REPEATED CATHERIZATIONS? NO LATEX RISK : ARE YOU FREQUENTLY EXPOSED TO LATEX PRODUCTS IN YOUR OCCUPATION?NO DATE ASKED : 08/24/2018 CAFFEINE CAFFEINE USE?YES HOW OFTEN AND HOW MUCH? 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 ALCOHOL SCREENING DID YOU HAVE A DRINK CONTAINING ALCOHOL IN THE PAST YEAR?NO POINTS0 INTERPRETATIONNEGATIVE SEXUAL HX HAD SEX IN THE LAST 12 MONTHS (VAGINAL, ORAL, OR ANAL)?NO LMP:05/2017 HAVE YOU EVER HAD AN STD?NO REVIEWED 12/19/17 NLREVIEWED WITH PATIENT 02/15/18 1037 JSREVIEWED WITH PT 03/20/18 1208 BVREVIEWED WITH PATIENT 06/07/18 0905 BVREVIEWED WITH PATIENT 06/23/18 1451 JS. HOSPITALIZATION/MAJOR DIAGNOSTIC PROCEDURE SURGERY RELATED REVIEW OF SYSTEMS REVIEWED BY: PROVIDER: LY DALE . CONSTITUTIONAL: ANY CHANGE IN YOUR MEDICAL CONDITION? NO . CHILLS NO . FEVER NO . INFECTION: DO YOU HAVE NEW INFECTIONS? NO . DO YOU HAVE HISTORY OF MRSA? NO . MUSCULOSKELETAL: ANY NEW PATTERNS OF PAIN OR NUMBNESS? NO . GASTROENTEROLOGY: ANY NEW CHANGE IN BOWEL CONTROL? NO . GENITOURINARY: ANY NEW CHANGE IN BLADDER CONTROL? NO . IS THERE A CHANCE YOU COULD BE ? NO . HEMATOLOGY/LYMPH: DO YOU TAKE ANY BLOOD THINNERS? (FOR EXAMPLE- COUMADIN, PLAVIX, AGGRENOX, PLATEL, PRADAXA, OR XARELTO) NO . WHEN WAS YOUR LAST DOSE? DATE: TIME: . NEUROLOGY: HAVE YOU FALLEN IN THE PAST 12 MONTHS? NO . ANY NEW EXTREMITY NUMBNESS OR WEAKNESS? NO . CARDIOLOGY: DO YOU HAVE A PACEMAKER OR DEFIBRILLATOR? NO . RESPIRATORY: HAVE YOU BEEN SICK IN THE PAST WEEK? NO . FEVER NO . FLU LIKE SYMPTOMS? NO . COUGH NO . INTEGUMENTARY: DO YOU HAVE ANY RASHES OR OPEN SORES? NO . ALLERGIC/IMMUNO: ARE YOU ALLERGIC TO IV DYE? NO . ANY NEW ALLERGIES? NO . PSYCHIATRIC: DO YOU HAVE THOUGHTS OF HURTING YOURSELF OR SOMEONE ELSE? NO . ARE YOU ABUSED, NEGLECTED, OR IN AN UNSAFE ENVIRONMENT? NO . ENDOCRINOLOGY: ARE YOU DIABETIC? NO . OTHER: DO YOU NEED ANY PRESCRIPTIONS? HYDROCODONE AND RIZATRIPTAN . IF YES, PLEASE LIST: ____ . ANY NEW PROBLEMS WITH YOUR MEDICATIONS? NO . WHEN DID YOU LAST EAT? ____ . WHEN DID YOU LAST DRINK? ____ . WHAT DID YOU LAST DRINK? ____ . NAME OF PERSON DRIVING YOU HOME? ____ . DO YOU HAVE ANY OTHER QUESTIONS OR CONCERNS NO . VITAL SIGNS WT 178.8 LBS, HT 70 IN, BMI 25.65 INDEX, BP 134/73 MM HG, HR 91 /MIN, RR 18 /MIN, TEMP 97.2 F, OXYGEN SAT % 95%, SAFE IN ENV? (Y/N) Y, NA INITIALS MA 09:18, REVIEWED BY: BERTA. EXAMINATION GENERAL EXAMINATION: GENERAL AWAKE,ALERT ,PLEAASANT . PSYCH AFFECT NORMAL . HEENT: BILATERAL OCCIPITAL TENDERNESS WITH PALPATION. LUNGS: LUNG ARIAS ARE CLEAR TO AUSCULTATION BILATERALLY. GOOD MOVEMENT OF AIR . HEART: S1, S2 IN A REGULAR RATE AND RHYTHM. NO SIGNIFICANT MURMURS, RUBS OR GALLOPS NOTED . CERVICAL DIFFUSE TENDERNESS ALL AREAS OF NECK AND UPPER BACK. ASSESSMENTS CHRONIC MIGRAINE WITHOUT AURA WITHOUT STATUS MIGRAINOSUS, NOT INTRACTABLE - G43.709 (PRIMARY) CERVICAL POST-LAMINECTOMY SYNDROME - M96.1 TREATMENT CHRONIC MIGRAINE WITHOUT AURA WITHOUT STATUS MIGRAINOSUS, NOT INTRACTABLE REFILL NORCO TABLET, 7.5-325 MG, 1 TABLET NEEDED, ORALLY, EVERY 6 HRS PRN PAIN MDD4, 30 DAYS, 120, REFILLS 0 REFILL PERCOCET TABLET, 10-325 MG, 1 TABLET NEEDED, ORALLY, EVERY 6 HRS PRN MDD4, 30 DAY(S), 120, REFILLS 0 REFILL CARISOPRODOL TABLET, 350 MG, 1 TABLET NEEDED, ORALLY, BID PRN SPAM MDD=2, 30 DAYS, 60, REFILLS 2 [facility] MRI SPINE, CERVICAL WITH [id number] NOTES: ISTOP REGISTRY REVIEWED AND DEMONSTRATES COMPLLIANCE. (REF # ) BRINGS IN MEDICATIONS WHICH IS APPROPRIATE FOR WHAT WAS DISPENSED. RECENT URINE TOXICOLOGY REVIEWED. NO UNAUTHORIZED MEDICATIONS. NO ILLICIT SUBSTANCES AND PRESCRIBED MEDICATIONS WERE PRESENT. URINE TOX TODAY, RISKS AND BENEFITS OF NARCOTIC/OPIOD MEDICATIONS WERE REVIEWED WITH PATIENT - THIS INCLUDES BUT IS NOT LIMITED TO RISK OF DEPENDANCE/DEVELOPMENT OF ADDICTION, MOOD DISTURBANCE AND DEPRESSION, OSTEOPOROSIS, HORMONAL AND LABIDAL CHANGES, RESPIRATORY DEPRESSION AND . PATIENT IS ADVISED NOT TO DRIVE OR DRINK ALCOHOL WHILE ON THESE MEDICATIONS. REFERRAL TO:[facility] REASON:INTRACTABLE MIGRAINE PROCEDURE CODES FA211 ESTABILISHED PATIENT [facility] CHARGE DISPOSITION & COMMUNICATION FOLLOW UP 6 WEEKS ELECTRONICALLY SIGNED BY CHITO PETERSON ON 09/04/2018 AT 11:27 AM EDT DISCLAIMER : THIS IS A VISIT SUMMARY EXTRACTED FROM THE [employer] CHART. IT IS NOT A COPY OF THE [employer] PROGRESS NOTE. MARTA
== END ==
LOC: M PAIN 09:15
PROVIDERS: ATTEND Nurse Practitioner Family
DX: G43.709 Chronic migraine without aura, not intractable, without status migrainosus (principal); M96.1 Postlaminectomy syndrome, not elsewhere classified; M50.222 Other cervical disc displacement at C5-C6 level; E03.9 Hypothyroidism, unspecified; R13.10 Dysphagia, unspecified; Z85.828 Personal history of other malignant neoplasm of skin; G43.909 Migraine, unspecified, not intractable, without status migrainosus; M53.3 Sacrococcygeal disorders, not elsewhere classified; Z98.1 Arthrodesis status; Z79.891 Long term (current) use of opiate analgesic; Z79.899 Other long term (current) drug therapy; Z88.8 Allergy status to other drugs, medicaments and biological substances

== ENCOUNTER → 2018-10-06 | Outpatient (CLI) | payer MEDICARE, MEDICAID ==
[~2018-10-06] MED LIST changes: -FLUO10CA15 PO; +FLUO10CA8 PO
[2018-10-06 13:34] LABS: BASO % 0.6 % (0.0-1.0); EOS # 0.1 10^3/uL (0.0-0.50); EOS % 2.8 % (0.0-3.0); HEMATOCRIT 37.8 % (36.0-47.0); HEMOGLOBIN 12.4 g/dl (12.0-15.5); LYMPH # 1.7 10^3/uL (1.5-4.5); LYMPH % 34.9 % (24.0-44.0); MEAN CORPUSCULAR HGB CONC 32.8 g/dl (32.0-36.5); MEAN CORPUSCULAR VOLUME 94.5 fl (80.0-96.0); MONO # 0.4 10^3/uL (0.0-0.8); MONO % 7.6 % (0.0-5.0); NEUTROPHILS # 2.7 10^3/uL (1.8-7.7); NEUTROPHILS % 53.3 % (36.0-66.0); PLATELET COUNT, AUTOMATED 316 10^3/uL (150-450)
[2018-10-06 14:04] LABS: ALBUMIN 3.4 GM/DL (3.2-5.2); ALT/SGPT 31 U/L (12-78); BILIRUBIN,TOTAL 0.3 MG/DL (0.2-1.0); BLOOD UREA NITROGEN 11 MG/DL (7-18); CALCIUM LEVEL 8.9 MG/DL (8.5-10.1); CARBON DIOXIDE LEVEL 31 MEQ/L (21-32); CHLORIDE LEVEL 106 MEQ/L (98-107); GLOMERULAR FILTRATION RATE > 60.0 (>51); GLUCOSE, FASTING 90 MG/DL (70-100); POTASSIUM SERUM 4.8 MEQ/L (3.5-5.1); RHEUMATOID FACTOR QUANT 10.9 IU/ML (<15.0); SODIUM LEVEL 140 MEQ/L (136-145); TOTAL 25(OH) VITAMIN D 28.9 NG/ML (30.0-100.0); TOTAL PROTEIN 7.1 GM/DL (6.4-8.2)
[2018-10-06 14:14] LABS: ERYTHROCYTE SEDIMENTATION RATE 16 mm/hr (0-30)
[2018-10-07 14:55] LABS: ANTINUCLEAR ANTIBODIES DIRECT Negative (Negative)
== END ==
LOC: M LABDRWAD 10:18
PROVIDERS: ATTEND Psychiatry & Neurology Neurology
DX: E03.9 Hypothyroidism, unspecified (principal); G43.901 Migraine, unspecified, not intractable, with status migrainosus; Z13.220 Encounter for screening for lipoid disorders

== ENCOUNTER → 2018-10-06 | Outpatient (CLI) | payer MEDICARE, MEDICAID ==
[2018-10-06 13:53] LABS: CHOLESTEROL RISK RATIO 5.982 (<5); FREE T4 0.99 NG/DL (0.76-1.46); MAGNESIUM LEVEL 2.5 MG/DL (1.8-2.4)
== END ==
LOC: M LABDRWAD 10:22
PROVIDERS: ATTEND Physician Assistant
DX: E03.9 Hypothyroidism, unspecified (principal); G43.901 Migraine, unspecified, not intractable, with status migrainosus; Z13.220 Encounter for screening for lipoid disorders

== ENCOUNTER → 2018-10-17 | Outpatient (CLI) | payer MEDICARE, MEDICAID ==
--- NOTE | 2018-11-01 00:02 | ECWPNPC ---
PATIENT NAME: PATRIZIA DICKEY : 1965 GENDER: FEMALE VISIT DATE: 10/17/2018 DISCHARGE DATE: 10/17/18 1139 VISIT LOCKED DATE TIME: PHYSICIAN: LY ANTUNEZ RESOURCE: LY ANTUNEZ REASON FOR APPOINTMENT 1. INCREASED PAIN OK PER LY HISTORY OF PRESENT ILLNESS HISTORY OF PRESENT ILLNESS: BEING SEEN ON AN URGENT BASIS FOR CHRONIC GENERALIZED PAIN.HAVING SEVERE NECK AND LBP.CHIEF AREA IS COCCYX PAIN.RATING PAIN VAS 10/10.UNABLE TO SIT WITHOUT INCREASED PAIN. PAIN THE PATIENT DESCRIBES THE PAIN... FALL RISK SCREENING: SCREENING :NO FALLS REPORTED IN THE LAST YEAR CURRENT MEDICATIONS TAKING SENNA S 8.6-50 MG TABLET 1 TABLET IN THE EVENING NEEDED ORALLY ONCE A DAY NEEDED TAKING MAGNESIUM 400 MG CAPSULE 1 TABLET WITH A MEAL ORALLY ONCE A DAY TAKING FISH OIL 1200 MG CAPSULE 2 CAPSULES ORALLY ONCE A DAY TAKING MULTIVITAMINS OTC TABLET 1 TAB(S) ORALLY DAILY TAKING VITAMIN B COMPLEX OTC TABLET 1 TAB(S) ORALLY DAILY TAKING CALCIUM 500 MG TABLET CHEWABLE 2 TABLET ORALLY ONCE A DAY TAKING VITAMIN D-3 1000 UNITS TABLET 2 CAPSULES ORALLY DAILY TAKING OSTEO COMPLEX CAPSULE 1 CAP(S) ORALLY DAILY TAKING DIAZEPAM 5 MG TABLET 1 TABLET ORALLY ONCE A DAY NEEDED ([facility]) TAKING SYNTHROID 150 MCG TABLET 1 TABLET ON AN EMPTY STOMACH IN THE MORNING ORALLY ONCE A DAY (DR. PABLO) TAKING CLARITIN 10 MG TABLET 1 TABLET ORALLY ONCE A DAY TAKING FLONASE 50 MCG/DOSE INHALER 1 SPRAY IN EACH NOSTRIL NASALLY ONCE A DAY TAKING BENADRYL 25 MG CAPSULE 1 CAPSULE NEEDED ORALLY EVERY 6 HRS TAKING SUDAFED 30 MG TABLET 1 TABLET NEEDED ORALLY EVERY 6 HRS TAKING CLONIDINE HCL 0.1 MG TABLET 1 TABLET ORALLY TWICE A DAY TAKING VITAMIN B2 TAKING CO ENZYME Q-10 TAKING SERTRALINE HCL 100 MG TABLET 1 1/2/ TABLET ORALLY ONCE A DAY TAKING MAY HAVE MEDICAL MARIJUANA DIRECTED TAKING ABIGAIL ALLERGY 180 MG TABLET 1 TABLET ORALLY ONCE A DAY PRN TAKING METHOCARBAMOL 750 MG TABLET 1 TABLET ORALLY Q 6HRS TAKING RIZATRIPTAN BENZOATE 10 MG TABLET 1 TABLET NEEDED ONE TIME ORALLY BID PRN MIGRAINE TAKING CARISOPRODOL 350 MG TABLET 1 TABLET NEEDED ORALLY BID PRN SPAM MDD=2 TAKING NORCO 7.5-325 MG TABLET 1 TABLET NEEDED ORALLY EVERY 6 HRS PRN PAIN MDD4 TAKING SUMATRIPTAN SUCCINATE 100 MG TABLET 1 TABLET NEEDED ORALLY TWICE A DAY NEEDED FOR MAX 9 MIGRAINES PER MONTH NOT-TAKING PERCOCET 10-325 MG TABLET 1 TABLET NEEDED ORALLY EVERY 6 HRS PRN MDD4 UNKNOWN AIMOVIG 70 MG/ML SOLUTION AUTO-INJECTOR TWO INJECTIONS SUBCUTANEOUS MONTHLY, NOTES: OVER A MONTH UNKNOWN FLAGYL 500 MG TABLET DIRECTED ORALLY EVERY 8 HRS UNKNOWN CIPRO 500 MG TABLET 1 TABLET ORALLY EVERY 12 HRS UNKNOWN TRAZODONE HCL 50 MG TABLET 1 TABLET AT BEDTIME NEEDED ORALLY BEFORE BEDTIME UNKNOWN FROVATRIPTAN SUCCINATE 2.5 MG TABLET 1 TABLET NEEDED ONE TIME ORALLY ONCE A DAY AT TIME OF MENSES AND WITH MIGRAINES, NOTES: INSURANCE REFUSED MEDICATION LIST REVIEWED AND RECONCILED WITH THE PATIENT PAST MEDICAL HISTORY CERVALGIA- C5-6 DISC HERNIATION WITH C6 IMPINGEMENT-DR DAY/ DR YUSUF- [facility]- HYPOTHYROIDISM 2007- DR APBLO SEASONAL ALLERGY/SINUSITIS ENDOMETRIAL POLYP- DR YBARRA DYSPHAGIA-ENT IN [place]- DR MORATAYA BASAL CELL TO RIGHT NOSE - DR. CASTAÑEDA SACRAL PAIN MIGRAINES ALLERGIES NEURONTIN 300: DEPRESSION - SIDE EFFECTS BACLOFEN: HEAD ACHES - ALLERGY CYCLOBENZAPRINE HCL: DECREASED MENTAL ALERTNESS - ALLERGY TIZANIDINE HCL: HEADACHES - ALLERGY TOPIRAMATE: ALTERED MENTAL STATUS - ALLERGY SURGICAL HISTORY NO PERSONAL OR FHX OF SEVERE REACTION TO ANESTHESIA POLYPECTOMY 2010 ANT 2011 C-SPINE FUSION _ 03/2011 SKIN CANCER REMOVED FROM NOSE AUGUST 2015 FAMILY HISTORY FATHER: MOTHER: ALIVE SIBLINGS: ALIVE, DIAGNOSED WITH OTHER SPECIFIED CONDITIONS INFLUENCING HEALTH STATUS 1 SISTER AND 1 BROTHER-HYPOTHYROIDISM. SOCIAL HISTORY GENERAL: TOBACCO USE ARE YOU A:NONSMOKER HIV / HEP-C SCREENING HIV TEST OFFERED TO PATIENT:YES DATE OFFERED:09/21/2017 TEST ACCEPTED:NO REASON:PATIENT DECLINED BROCHURE PROVIDED TO PATIENTNO OTHERS AT HOME: MOM,SISTER. DIET: REGULAR. LANGUAGE LANGUAGES SPOKEN:[place]ATVIAN DOMESTIC VIOLENCE DO YOU FEEL SAFE IN YOUR ENVIRONMENT?YES RECREATIONAL DRUG USE DRUG USE?NO PATIENT IS PERSCRIBED MEDICAL MARIJUANA EXERCISE: PHYSICAL THERAPY, WALKS. LEARNING BARRIERS / SPECIAL NEEDS CHANGE FROM LAST VISIT?NO BARRIERS TO LEARNING?NO HEARING IMPAIRED?NO VISION IMPAIRED?YES COGNITIVELY IMPAIRED?NO : CORRECTIVE LENSES READINESS TO LEARN?YES LEARNING PREFERENCES?NO LEARNING CAPABILITIES PRESENT?YES EMOTIONAL BARRIERS?NO SPECIAL DEVICES?NO PAIN CLINIC PFS, CLERGY, PUBLIC HEALTH REFERRALS PFS REFERRAL NEEDED?NO CLERGY REFERRAL NEEDED?NO PUBLIC HEALTH REFERRAL NEEDED?NO WAS THE PROVIDER NOTIFIED OF ANY PERTINENT INFO?YES N/A HAS THE PATIENT BEEN EDUCATED REGARDING HIS/HER PLAN OF CARE?YES HAS THE PATIENT BEEN EDUCATED REGARDING PAIN, THE RISK FOR PAIN, THE IMPORTANCE OF EFFECTIVE PAIN MANAGEMENT, AND THE PAIN ASSESSMENT PROCESS?YES LATEX QUESTIONNAIRE LATEX ALLERGY : HAVE YOU EVER DEVELOPED ANY TYPE OF REACTION AFTER HANDLING LATEX PRODUCTS SUCH RUBBER GLOVES, CONDOMS, DIAPHRAGMS, BALLOONS, SOCKS, OR UNDERWEAR?NO LATEX ALLERGY : HAVE YOU EVER DEVELOPED ANY TYPE OF REACTION DURING OR AFTER DENTAL APPOINTMENT, VAGINAL/RECTAL EXAMINATION, SURGICAL PROCEDURE, OR ANY OTHER EXPOSURE?NO DATE ASKED : 08/24/2018 LATEX RISK : HAVE YOU EVER HAD ANY DIFFICULTY BREATHING OR HIVES AFTER EATING OR HANDLING ANY FRUITS, OR VEGETABLES; SUCH KIWI, BANANAS, STONE FRUITS, OR CHESTNUTSNO LATEX RISK : DO YOU HAVE A PREVIOUS PERSONAL HISTORY OF MORE THAN NINE SURGERIES, SPINA BIFIDA, OR REPEATED CATHERIZATIONS? NO LATEX RISK : ARE YOU FREQUENTLY EXPOSED TO LATEX PRODUCTS IN YOUR OCCUPATION?NO CAFFEINE CAFFEINE USE?YES HOW OFTEN AND HOW MUCH? DAILY BASIS ADVANCE DIRECTIVE ADVANCE DIRECTIVE DISCUSSED WITH PATIENT:YES HCP SISTER--DUANE CAM [phone] ALSO HAS POA AND LIVING WILL [employer] [id number] [place] MARITAL STATUS: SINGLE. ALCOHOL SCREENING DID YOU HAVE A DRINK CONTAINING ALCOHOL IN THE PAST YEAR?NO POINTS0 INTERPRETATIONNEGATIVE SEXUAL HX HAD SEX IN THE LAST 12 MONTHS (VAGINAL, ORAL, OR ANAL)?NO LMP:05/2017 HAVE YOU EVER HAD AN STD?NO REVIEWED 12/19/17 NLREVIEWED WITH PATIENT 02/15/18 1037 JSREVIEWED WITH PT 03/20/18 1208 BVREVIEWED WITH PATIENT 06/07/18 0905 BVREVIEWED WITH PATIENT 06/23/18 1451 JS. HOSPITALIZATION/MAJOR DIAGNOSTIC PROCEDURE SURGERY RELATED REVIEW OF SYSTEMS REVIEWED BY: PROVIDER: LY DALE . CONSTITUTIONAL: ANY CHANGE IN YOUR MEDICAL CONDITION? NO . CHILLS NO . FEVER NO . INFECTION: DO YOU HAVE NEW INFECTIONS? NO . DO YOU HAVE HISTORY OF MRSA? NO . MUSCULOSKELETAL: ANY NEW PATTERNS OF PAIN OR NUMBNESS? YES . GASTROENTEROLOGY: ANY NEW CHANGE IN BOWEL CONTROL? NO . GENITOURINARY: ANY NEW CHANGE IN BLADDER CONTROL? NO . IS THERE A CHANCE YOU COULD BE ? NO . HEMATOLOGY/LYMPH: DO YOU TAKE ANY BLOOD THINNERS? (FOR EXAMPLE- COUMADIN, PLAVIX, AGGRENOX, PLATEL, PRADAXA, OR XARELTO) NO . WHEN WAS YOUR LAST DOSE? DATE: TIME: . NEUROLOGY: HAVE YOU FALLEN IN THE PAST 12 MONTHS? NO . ANY NEW EXTREMITY NUMBNESS OR WEAKNESS? NO . CARDIOLOGY: DO YOU HAVE A PACEMAKER OR DEFIBRILLATOR? NO . RESPIRATORY: HAVE YOU BEEN SICK IN THE PAST WEEK? NO . FEVER NO . FLU LIKE SYMPTOMS? NO . COUGH NO . INTEGUMENTARY: DO YOU HAVE ANY RASHES OR OPEN SORES? NO . ALLERGIC/IMMUNO: ARE YOU ALLERGIC TO IV DYE? NO . ANY NEW ALLERGIES? NO . PSYCHIATRIC: DO YOU HAVE THOUGHTS OF HURTING YOURSELF OR SOMEONE ELSE? NO . ARE YOU ABUSED, NEGLECTED, OR IN AN UNSAFE ENVIRONMENT? NO . ENDOCRINOLOGY: ARE YOU DIABETIC? NO . OTHER: DO YOU NEED ANY PRESCRIPTIONS? YES METHOCARABANOL, RIZATRIPTAN,GYDROCODONE . IF YES, PLEASE LIST: ____ . ANY NEW PROBLEMS WITH YOUR MEDICATIONS? NO . WHEN DID YOU LAST EAT? ____ . WHEN DID YOU LAST DRINK? ____ . WHAT DID YOU LAST DRINK? ____ . NAME OF PERSON DRIVING YOU HOME? ____ . DO YOU HAVE ANY OTHER QUESTIONS OR CONCERNS YES NEED TAIL BONE INJECTIONS VERY SORE MID AND UPPER BACK . VITAL SIGNS WT 184 LBS, HT 70 IN, BMI 26.40 INDEX, BP 136/83 MM HG, HR 81 /MIN, RR 18 /MIN, TEMP 96.8 F, OXYGEN SAT % 98%, NA INITIALS SC 11:01. EXAMINATION GENERAL EXAMINATION: GENERALAWAKE,ALERT ,PLEAASANT . PSYCHAFFECT NORMAL . LUNGS:LUNG ARIAS ARE CLEAR TO AUSCULTATION BILATERALLY. GOOD MOVEMENT OF AIR . HEART:S1, S2 IN A REGULAR RATE AND RHYTHM. NO SIGNIFICANT MURMURS, RUBS OR GALLOPS NOTED . LUMBAR SACRAL SPINEPALPATION: + FOR PAIN OVER L/S SPINE. + FOR PAIN OVER L/S PARASPINALS SPECIFIC POINT TENDERNESS OVER BILAT. SACROCOCCYGEAL REGION . NEUROLOGIC EXAM:NORMAL SENSATION LIGHT TOUCH BILAT. LOWER EXTREMITIES . ASSESSMENTS COCCYDYNIA - M53.3 (PRIMARY) TREATMENT COCCYDYNIA CONTINUE NORCO TABLET, 7.5-325 MG, 1 TABLET NEEDED, ORALLY, Q4-6HR PRN PAIN MDD4, 30 DAYS, 120, REFILLS 0 NOTES: BILAT COCYGEAL LIGAMENT INJECTION, ISTOP REGISTRY REVIEWED AND DEMONSTRATES COMPLLIANCE. BRINGS IN MEDICATIONS WHICH IS APPROPRIATE FOR WHAT WAS DISPENSED. RECENT URINE TOXICOLOGY REVIEWED. NO UNAUTHORIZED MEDICATIONS. NO ILLICIT SUBSTANCES AND PRESCRIBED MEDICATIONS WERE PRESENT. , RISKS AND BENEFITS OF NARCOTIC/OPIOD MEDICATIONS WERE REVIEWED WITH PATIENT - THIS INCLUDES BUT IS NOT LIMITED TO RISK OF DEPENDANCE/DEVELOPMENT OF ADDICTION, MOOD DISTURBANCE AND DEPRESSION, OSTEOPOROSIS, HORMONAL AND LABIDAL CHANGES, RESPIRATORY DEPRESSION AND . PATIENT IS ADVISED NOT TO DRIVE OR DRINK ALCOHOL WHILE ON THESE MEDICATIONS. REFERRAL [place]:[facility] [place] REASON:CHRONIC GENERALIZED PAIN/MEDICATION AND ALTERNATE AVENUES FOR TREATMENT/RESPONDS WELL TO INJECTION THERAPY-SCHEDULED FOR INJECTIONS PROCEDURE CODES FA211 ESTABILISHED PATIENT [facility] FACILITY CHARGE DISPOSITION & COMMUNICATION FOLLOW UP POST (REASON: BILAT COCYGEAL LIGAMENT INJECTION) ELECTRONICALLY SIGNED BY CHITO PETERSON ON 10/31/2018 AT 03:41 PM EDT DISCLAIMER : THIS IS A VISIT SUMMARY EXTRACTED FROM THE [employer] CHART. IT IS NOT A COPY OF THE [employer] PROGRESS NOTE. MARTA
== END ==
LOC: M PAIN 10:30
PROVIDERS: ATTEND Nurse Practitioner Family
DX: M53.3 Sacrococcygeal disorders, not elsewhere classified (principal); G89.29 Other chronic pain; E03.9 Hypothyroidism, unspecified; G43.909 Migraine, unspecified, not intractable, without status migrainosus; Z88.8 Allergy status to other drugs, medicaments and biological substances; Z79.899 Other long term (current) drug therapy

== ENCOUNTER → 2018-11-07 | Outpatient (CLI) | payer MEDICARE, MEDICAID ==
--- NOTE | 2018-11-07 14:23 | REP ---
Lower Extremity Venous Reflux: Positive reflux is greater than 0.5 seconds. Right Reflux Left Reflux CFV Reflux no no Ant. Acc. GSV Present yes no Reflux no no Greater saph/fem junction 5.4 mm yes 4.8 mm yes Greater saph vein mid thigh 3.3 mm yes 3.8 mm yes Greater saph vein at knee 3.1 mm yes 3.1 mm no SFV PROX no no SFV MID no no SFV DISTAL no no POPLITEAL VEIN no no LSV 1.4 mm no 1.4 mm no Impression: There is no reflux in the deep venous system on the right or the left. There is minimal reflux in the proximal and mid greater saphenous veins bilaterally and in the right greater saphenous vein at the knee. Bilateral lower extremity deep vein duplex ultrasound: The deep veins demonstrate normal compression, normal Doppler color flow and normal Doppler waveforms with respiration and augmentation from the popliteal vein to the common femoral vein. Impression: There is no deep vein thrombus on the right or the left. Electronically Signed by Eric Maciel MD 11/07/2018 02:14 P
== END ==
LOC: M RAD 11:58
PROVIDERS: ATTEND Surgery Vascular Surgery
DX: R22.43 Localized swelling, mass and lump, lower limb, bilateral (principal)
CPT/HCPCS: 93970; G0463

== ENCOUNTER → 2018-11-16 | Outpatient (CLI) | payer MEDICARE, MEDICAID ==
[~2018-11-16] MED LIST changes: +BUPIVACAINE HCL 0.25% 30 ML VIAL As Ordered ONE; +ISOVUE-M 300 61% 15ML VIAL (Q9967) As Ordered ONE; +LIDOCAINE 1% SDV INJ 30 ML VIAL As Ordered ONE; +TRIAMCINOLONE ACETONIDE SUSP 40 MG/ML VIAL (J3301) As Ordered ONE; +diazePAM 5 MG TAB As Ordered ONE; +oxyCODONE 5MG TAB As Ordered ONE
--- NOTE | 2018-11-16 17:20 | REP ---
Partial sacrum and coccyx: Two views. History: Sacral coccygeal ligament injection for pain. 26 seconds of fluoroscopy time is reported. Findings: A sequence of two last image hold fluoroscopically obtained spot radiographs of the coccyx document needle position and contrast injection associated with injection procedure. Electronically Signed by Luis Vincent MD 11/17/2018 08:02 A
== END ==
LOC: M PAIN 13:45
PROVIDERS: ATTEND Anesthesiology
DX: M53.3 Sacrococcygeal disorders, not elsewhere classified (principal); M46.08 Spinal enthesopathy, sacral and sacrococcygeal region; Z79.891 Long term (current) use of opiate analgesic; Z79.899 Other long term (current) drug therapy; Z88.8 Allergy status to other drugs, medicaments and biological substances
CPT/HCPCS: 20550; 77002; J3301; Q9967

== ENCOUNTER → 2018-12-01 | Outpatient (CLI) | payer MEDICARE, MEDICAID ==
[~2018-12-01] MED LIST changes: -BUPIVACAINE HCL 0.25% 30 ML VIAL As Ordered ONE; -ISOVUE-M 300 61% 15ML VIAL (Q9967) As Ordered ONE; -LIDOCAINE 1% SDV INJ 30 ML VIAL As Ordered ONE; -TRIAMCINOLONE ACETONIDE SUSP 40 MG/ML VIAL (J3301) As Ordered ONE; -diazePAM 5 MG TAB As Ordered ONE; -oxyCODONE 5MG TAB As Ordered ONE
--- NOTE | 2018-12-14 01:23 | ECWPNPC ---
PATIENT NAME: PATRIZIA DICKEY : 1965 GENDER: FEMALE VISIT DATE: 12/01/2018 DISCHARGE DATE: 12/01/18 1102 VISIT LOCKED DATE TIME: PHYSICIAN: LY ANTUNEZ RESOURCE: LY ANTUNEZ REASON FOR APPOINTMENT 1. POST PROC HISTORY OF PRESENT ILLNESS HISTORY OF PRESENT ILLNESS: HERE FOR POST PROCEDURE FU.HAD BILAT. SACROCOCCYGEAL LIGAMENT INJECTION ON 11/16/18.REPORTING SIGNIFICANT IMPROVEMENT IN COCCYX AREA PAIN.CHIEF AREAS OF PAIN IS SIJ REGION OF LOW BACK AND NECK AND UPPER BACK.RATING PAIN IN SACRALCOCCYX REGION 2/10.RATING PAIN IN SIJ AND NECK REGION 8/10.DESCRIBES PAIN IN THESES REGIONS CONSTANT,ACHING AND BURNING.STATES MEDICATION IS SOMEWHAT HELPFUL.DENIES SIDE EFFECTS. PAIN THE PATIENT DESCRIBES THE PAIN... FALL RISK SCREENING: SCREENING :NO FALLS REPORTED IN THE LAST YEAR CURRENT MEDICATIONS TAKING SENNA S 8.6-50 MG TABLET 1 TABLET IN THE EVENING NEEDED ORALLY ONCE A DAY NEEDED TAKING MAGNESIUM 400 MG CAPSULE 1 TABLET WITH A MEAL ORALLY ONCE A DAY TAKING FISH OIL 1200 MG CAPSULE 2 CAPSULES ORALLY ONCE A DAY TAKING MULTIVITAMINS OTC TABLET 1 TAB(S) ORALLY DAILY TAKING VITAMIN B COMPLEX OTC TABLET 1 TAB(S) ORALLY DAILY TAKING CALCIUM 500 MG TABLET CHEWABLE 2 TABLET ORALLY ONCE A DAY TAKING VITAMIN D-3 1000 UNITS TABLET 2 CAPSULES ORALLY DAILY TAKING OSTEO COMPLEX CAPSULE 1 CAP(S) ORALLY DAILY TAKING DIAZEPAM 5 MG TABLET 1 TABLET ORALLY ONCE A DAY NEEDED ([facility]) TAKING SYNTHROID 150 MCG TABLET 1 TABLET ON AN EMPTY STOMACH IN THE MORNING ORALLY ONCE A DAY (DR. PABLO) TAKING CLARITIN 10 MG TABLET 1 TABLET ORALLY ONCE A DAY TAKING FLONASE 50 MCG/DOSE INHALER 1 SPRAY IN EACH NOSTRIL NASALLY ONCE A DAY TAKING BENADRYL 25 MG CAPSULE 1 CAPSULE NEEDED ORALLY EVERY 6 HRS TAKING SUDAFED 30 MG TABLET 1 TABLET NEEDED ORALLY EVERY 6 HRS TAKING CLONIDINE HCL 0.1 MG TABLET 1 TABLET ORALLY TWICE A DAY TAKING VITAMIN B2 TAKING CO ENZYME Q-10 TAKING SERTRALINE HCL 100 MG TABLET 1 1/2/ TABLET ORALLY ONCE A DAY TAKING MAY HAVE MEDICAL MARIJUANA DIRECTED TAKING ABIGAIL ALLERGY 180 MG TABLET 1 TABLET ORALLY ONCE A DAY PRN TAKING CARISOPRODOL 350 MG TABLET 1 TABLET NEEDED ORALLY BID PRN SPAM MDD=2 TAKING SUMATRIPTAN SUCCINATE 100 MG TABLET 1 TABLET NEEDED ORALLY TWICE A DAY NEEDED FOR MAX 9 MIGRAINES PER MONTH TAKING METHOCARBAMOL 750 MG TABLET 1 TABLET ORALLY Q 6HRS TAKING RIZATRIPTAN BENZOATE 10 MG TABLET 1 TABLET NEEDED ONE TIME ORALLY BID PRN MIGRAINE TAKING NORCO 7.5-325 MG TABLET 1 TABLET NEEDED ORALLY Q4-6HR PRN PAIN MDD4 MEDICATION LIST REVIEWED AND RECONCILED WITH THE PATIENT PAST MEDICAL HISTORY CERVALGIA- C5-6 DISC HERNIATION WITH C6 IMPINGEMENT-DR DAY/ DR YUSUF- [facility]- HYPOTHYROIDISM 2008- DR PABLO SEASONAL ALLERGY/SINUSITIS ENDOMETRIAL POLYP- DR YBARRA DYSPHAGIA-ENT IN [place]- DR MORATAYA BASAL CELL TO RIGHT NOSE - DR. CASTAÑEDA SACRAL PAIN MIGRAINES ALLERGIES NEURONTIN 300: DEPRESSION - SIDE EFFECTS BACLOFEN: HEAD ACHES - ALLERGY CYCLOBENZAPRINE HCL: DECREASED MENTAL ALERTNESS - ALLERGY TIZANIDINE HCL: HEADACHES - ALLERGY TOPIRAMATE: ALTERED MENTAL STATUS - ALLERGY LYRICA: LEG SWELLING / BRAIN FOG - SIDE EFFECTS SURGICAL HISTORY NO PERSONAL OR FHX OF SEVERE REACTION TO ANESTHESIA POLYPECTOMY 2010 ANT CERVI 2011 C-SPINE FUSION _ 03/2011 SKIN CANCER REMOVED FROM NOSE AUGUST 2015 RIGHT FOOT- BUNION AND LITTLE TOE 2007 FAMILY HISTORY FATHER: MOTHER: ALIVE, SKIN CANCER SIBLINGS: ALIVE, DIAGNOSED WITH OTHER SPECIFIED CONDITIONS INFLUENCING HEALTH STATUS 1 SISTER AND 1 BROTHER-HYPOTHYROIDISM. SOCIAL HISTORY GENERAL: TOBACCO USE ARE YOU A:NONSMOKER HIV / HEP-C SCREENING HIV TEST OFFERED TO PATIENT:YES DATE OFFERED:09/21/2017 TEST ACCEPTED:NO REASON:PATIENT DECLINED BROCHURE PROVIDED TO PATIENTNO OTHERS AT HOME: MOM,SISTER. DIET: REGULAR. LANGUAGE LANGUAGES SPOKEN:[place] DOMESTIC VIOLENCE DO YOU FEEL SAFE IN YOUR ENVIRONMENT?YES RECREATIONAL DRUG USE DRUG USE?NO PATIENT IS PERSCRIBED MEDICAL MARIJUANA- CBD PILL ONCE DAILY EXERCISE: PHYSICAL THERAPY, WALKS. LEARNING BARRIERS / SPECIAL NEEDS CHANGE FROM LAST VISIT?NO BARRIERS TO LEARNING?NO HEARING IMPAIRED?NO VISION IMPAIRED?YES COGNITIVELY IMPAIRED?NO : CORRECTIVE LENSES READINESS TO LEARN?YES LEARNING PREFERENCES?NO LEARNING CAPABILITIES PRESENT?YES EMOTIONAL BARRIERS?NO SPECIAL DEVICES?NO PAIN CLINIC PFS, CLERGY, PUBLIC HEALTH REFERRALS PFS REFERRAL NEEDED?NO CLERGY REFERRAL NEEDED?NO PUBLIC HEALTH REFERRAL NEEDED?NO WAS THE PROVIDER NOTIFIED OF ANY PERTINENT INFO?YES N/A HAS THE PATIENT BEEN EDUCATED REGARDING HIS/HER PLAN OF CARE?YES HAS THE PATIENT BEEN EDUCATED REGARDING PAIN, THE RISK FOR PAIN, THE IMPORTANCE OF EFFECTIVE PAIN MANAGEMENT, AND THE PAIN ASSESSMENT PROCESS?YES LATEX QUESTIONNAIRE LATEX ALLERGY : HAVE YOU EVER DEVELOPED ANY TYPE OF REACTION AFTER HANDLING LATEX PRODUCTS SUCH RUBBER GLOVES, CONDOMS, DIAPHRAGMS, BALLOONS, SOCKS, OR UNDERWEAR?NO LATEX ALLERGY : HAVE YOU EVER DEVELOPED ANY TYPE OF REACTION DURING OR AFTER DENTAL APPOINTMENT, VAGINAL/RECTAL EXAMINATION, SURGICAL PROCEDURE, OR ANY OTHER EXPOSURE?NO DATE ASKED : 11/07/2018 LATEX RISK : HAVE YOU EVER HAD ANY DIFFICULTY BREATHING OR HIVES AFTER EATING OR HANDLING ANY FRUITS, OR VEGETABLES; SUCH KIWI, BANANAS, STONE FRUITS, OR CHESTNUTSNO LATEX RISK : DO YOU HAVE A PREVIOUS PERSONAL HISTORY OF MORE THAN NINE SURGERIES, SPINA BIFIDA, OR REPEATED CATHERIZATIONS? NO LATEX RISK : ARE YOU FREQUENTLY EXPOSED TO LATEX PRODUCTS IN YOUR OCCUPATION?NO CAFFEINE CAFFEINE USE?YES HOW OFTEN AND HOW MUCH? COFFEE- A FEW CUPS DAILY ADVANCE DIRECTIVE ADVANCE DIRECTIVE DISCUSSED WITH PATIENT:YES HCP SISTER--DUANE CAM [phone] ALSO HAS POA AND LIVING WILL LATTER-DAY [id number] [place] MARITAL STATUS: SINGLE. ALCOHOL SCREENING DID YOU HAVE A DRINK CONTAINING ALCOHOL IN THE PAST YEAR?NO POINTS0 INTERPRETATIONNEGATIVE SEXUAL HX HAD SEX IN THE LAST 12 MONTHS (VAGINAL, ORAL, OR ANAL)?NO LMP:05/2017 HAVE YOU EVER HAD AN STD?NO REVIEWED 12/19/17 NLREVIEWED WITH PATIENT 02/15/18 1037 JSREVIEWED WITH PT 03/20/18 1208 BVREVIEWED WITH PATIENT 06/07/18 0905 BVREVIEWED WITH PATIENT 06/23/18 1451 JSREVIEWED WITH PATIENT 11/16/18 1432 BV. HOSPITALIZATION/MAJOR DIAGNOSTIC PROCEDURE SURGERY RELATED REVIEW OF SYSTEMS REVIEWED BY: PROVIDER: LY DALE . CONSTITUTIONAL: ANY CHANGE IN YOUR MEDICAL CONDITION? NO . CHILLS NO . FEVER NO . INFECTION: DO YOU HAVE NEW INFECTIONS? NO . DO YOU HAVE HISTORY OF MRSA? NO . MUSCULOSKELETAL: ANY NEW PATTERNS OF PAIN OR NUMBNESS? NO . GASTROENTEROLOGY: ANY NEW CHANGE IN BOWEL CONTROL? NO . GENITOURINARY: ANY NEW CHANGE IN BLADDER CONTROL? NO . IS THERE A CHANCE YOU COULD BE ? NO . HEMATOLOGY/LYMPH: DO YOU TAKE ANY BLOOD THINNERS? (FOR EXAMPLE- COUMADIN, PLAVIX, AGGRENOX, PLATEL, PRADAXA, OR XARELTO) NO . WHEN WAS YOUR LAST DOSE? DATE: TIME: . NEUROLOGY: HAVE YOU FALLEN IN THE PAST 12 MONTHS? NO . ANY NEW EXTREMITY NUMBNESS OR WEAKNESS? NO . CARDIOLOGY: DO YOU HAVE A PACEMAKER OR DEFIBRILLATOR? NO . RESPIRATORY: HAVE YOU BEEN SICK IN THE PAST WEEK? NO . FEVER NO . FLU LIKE SYMPTOMS? NO . COUGH NO . INTEGUMENTARY: DO YOU HAVE ANY RASHES OR OPEN SORES? NO . ALLERGIC/IMMUNO: ARE YOU ALLERGIC TO IV DYE? NO . ANY NEW ALLERGIES? NO . PSYCHIATRIC: DO YOU HAVE THOUGHTS OF HURTING YOURSELF OR SOMEONE ELSE? NO . ARE YOU ABUSED, NEGLECTED, OR IN AN UNSAFE ENVIRONMENT? NO . ENDOCRINOLOGY: ARE YOU DIABETIC? NO . OTHER: DO YOU NEED ANY PRESCRIPTIONS? NO . IF YES, PLEASE LIST: ____ . ANY NEW PROBLEMS WITH YOUR MEDICATIONS? NO . WHEN DID YOU LAST EAT? ____ . WHEN DID YOU LAST DRINK? ____ . WHAT DID YOU LAST DRINK? ____ . NAME OF PERSON DRIVING YOU HOME? ____ . DO YOU HAVE ANY OTHER QUESTIONS OR CONCERNS NO . VITAL SIGNS WT 187.0 LBS, HT 70 IN, BMI 26.83 INDEX, BP 127/73 MM HG, HR 92 /MIN, RR 18 /MIN, TEMP 97.0 F, OXYGEN SAT % 97%, NA INITIALS AW 1007, REVIEWED BY: EM. EXAMINATION GENERAL EXAMINATION: GENERAL AWAKE,ALERT ,PLEAASANT . PSYCH AFFECT NORMAL . LUNGS: LUNG ARIAS ARE CLEAR TO AUSCULTATION BILATERALLY. GOOD MOVEMENT OF AIR . HEART: S1, S2 IN A REGULAR RATE AND RHYTHM. NO SIGNIFICANT MURMURS, RUBS OR GALLOPS NOTED . LUMBAR SACRAL SPINEPALPATION: + FOR PAIN OVER L/S SPINE. + FOR PAIN OVER L/S PARASPINALS SPECIFIC POINT TENDERNESS OVER BILAT.SIJ REGION. CERVICAL TENDER OVER CERVICAL SPINE AND CERVICAL PARASPINALS. NEUROLOGIC EXAM: NORMAL SENSATION LIGHT TOUCH BILAT. LOWER EXTREMITIES . ASSESSMENTS SACROILIITIS, NOT ELSEWHERE CLASSIFIED - M46.1 (PRIMARY) BILATERAL OCCIPITAL NEURALGIA - M54.81 TREATMENT SACROILIITIS, NOT ELSEWHERE CLASSIFIED NOTES: BILAT SIJ /BILAT. GREATER OCCIPITAL. PROCEDURE CODES FA211 ESTABILISHED PATIENT [facility] FACILITY CHARGE DISPOSITION & COMMUNICATION FOLLOW UP POST (REASON: BILAT SIJ /BILAT. GREATER OCCIPITAL) ELECTRONICALLY SIGNED BY CHITO PETERSON ON 12/13/2018 AT 03:09 PM EDT DISCLAIMER : THIS IS A VISIT SUMMARY EXTRACTED FROM THE [employer] CHART. IT IS NOT A COPY OF THE [employer] PROGRESS NOTE. ACED
== END ==
LOC: M PAIN 10:00
PROVIDERS: ATTEND Nurse Practitioner Family
DX: M46.1 Sacroiliitis, not elsewhere classified (principal); M54.81 Occipital neuralgia; E03.9 Hypothyroidism, unspecified; Z79.891 Long term (current) use of opiate analgesic; Z79.899 Other long term (current) drug therapy; Z88.8 Allergy status to other drugs, medicaments and biological substances

== ENCOUNTER → 2019-02-01 | Outpatient (CLI) | payer MEDICARE, MEDICAID ==
[~2019-02-01] MED LIST changes: +BUPIVACAINE HCL 0.25% 30 ML VIAL As Ordered ONE; +FLUO10CA15 PO; -FLUO10CA8 PO; +ISOVUE-M 300 61% 15ML VIAL (Q9967) As Ordered ONE; +LIDOCAINE 1% SDV INJ 30 ML VIAL As Ordered ONE; +TRIAMCINOLONE ACETONIDE SUSP 40 MG/ML VIAL (J3301) As Ordered ONE; +diazePAM 5 MG TAB As Ordered ONE; +oxyCODONE 5MG TAB As Ordered ONE
--- NOTE | 2019-02-01 12:40 | REP ---
SI joint series: Six views bilateral. History: Injection procedure for pain. 30 seconds of fluoroscopy time is reported. Findings: A sequence of six last image hold fluoroscopically obtained spot radiographs of the SI joints bilaterally document various needle positions and contrast injections associated with SI joint injection procedure. Electronically Signed by Luis Vincent MD 02/01/2019 12:32 P
--- NOTE | 2019-02-11 23:56 | ECWPNPC ---
PATIENT NAME: PATRIZIA DICKEY : [id number] GENDER: FEMALE VISIT DATE: 02/01/2019 DISCHARGE DATE: 02/01/19 1130 VISIT LOCKED DATE TIME: PHYSICIAN: KEISHA ENCARNACION MD RESOURCE: KEISHA ENCARNACION MD REASON FOR APPOINTMENT 1. SACROILIAC JOINT INJECTION HISTORY OF PRESENT ILLNESS HISTORY OF PRESENT ILLNESS: PAIN THE PATIENT DESCRIBES THE PAIN... FALL RISK SCREENING: SCREENING :NO FALLS REPORTED IN THE LAST YEAR CURRENT MEDICATIONS TAKING SENNA S 8.6-50 MG TABLET 1 TABLET IN THE EVENING NEEDED ORALLY ONCE A DAY NEEDED, NOTES: 01/31/192099 TAKING MAGNESIUM 400 MG CAPSULE 1 TABLET WITH A MEAL ORALLY ONCE A DAY, NOTES: 01/31/191199 TAKING FISH OIL 1200 MG CAPSULE 2 CAPSULES ORALLY ONCE A DAY, NOTES: 01/31/191199 TAKING MULTIVITAMINS OTC TABLET 1 TAB(S) ORALLY DAILY, NOTES: 01/31/191199 TAKING VITAMIN B COMPLEX OTC TABLET 1 TAB(S) ORALLY DAILY, NOTES: 01/31/191199 TAKING CALCIUM 500 MG TABLET CHEWABLE 2 TABLET ORALLY ONCE A DAY, NOTES: 01/31/191199 TAKING VITAMIN D-3 1000 UNITS TABLET 2 CAPSULES ORALLY DAILY, NOTES: 01/31/19 1200 TAKING OSTEO COMPLEX CAPSULE 1 CAP(S) ORALLY DAILY, NOTES: 01/31/191199 TAKING DIAZEPAM 5 MG TABLET 1 TABLET ORALLY ONCE A DAY NEEDED ([facility]), NOTES: 01/30/19 TAKING SYNTHROID 150 MCG TABLET 1 TABLET ON AN EMPTY STOMACH IN THE MORNING ORALLY ONCE A DAY (DR. PABLO), NOTES: 02/01/19 0330 TAKING CLARITIN 10 MG TABLET 1 TABLET ORALLY ONCE A DAY, NOTES: 01/31/19 TAKING FLONASE 50 MCG/DOSE INHALER 1 SPRAY IN EACH NOSTRIL NASALLY ONCE A DAY, NOTES: 01/30/19 TAKING BENADRYL 25 MG CAPSULE 1 CAPSULE NEEDED ORALLY EVERY 6 HRS, NOTES: > 1 WEEK TAKING SUDAFED 30 MG TABLET 1 TABLET NEEDED ORALLY EVERY 6 HRS, NOTES: > 1 WEEK TAKING CLONIDINE HCL 0.1 MG TABLET 1 TABLET ORALLY TWICE A DAY NEEDED, NOTES: 01/31/19 2100 TAKING VITAMIN B2 , NOTES: 01/31/19 1200 TAKING CO ENZYME Q-10 , NOTES: 01/31/19 1200 TAKING SERTRALINE HCL 100 MG TABLET 1 1/2/ TABLET ORALLY ONCE A DAY, NOTES: 01/31/19 2100 TAKING MAY HAVE MEDICAL MARIJUANA DIRECTED, NOTES: NONE RECENT TAKING ABIGAIL ALLERGY 180 MG TABLET 1 TABLET ORALLY ONCE A DAY PRN, NOTES: NONE RECENT TAKING CARISOPRODOL 350 MG TABLET 1 TABLET NEEDED ORALLY BID PRN SPAM MDD=2, NOTES: 01/31/19 2100 TAKING SUMATRIPTAN SUCCINATE 100 MG TABLET 1 TABLET NEEDED ORALLY TWICE A DAY NEEDED FOR MAX 9 MIGRAINES PER MONTH, NOTES: 01/30/19 TAKING METHOCARBAMOL 750 MG TABLET 1 TABLET ORALLY Q 6HRS, NOTES: 02/01/19 0330 TAKING RIZATRIPTAN BENZOATE 10 MG TABLET 1 TABLET NEEDED ONE TIME ORALLY BID PRN MIGRAINE, NOTES: 01/31/19 TAKING NORCO 10-325 MG TABLET 1 TABLET NEEDED ORALLY Q4-6HR PRN PAIN MDD4, NOTES: 02/01/19 0330 MEDICATION LIST REVIEWED AND RECONCILED WITH THE PATIENT PAST MEDICAL HISTORY [place]- C5-6 DISC HERNIATION WITH C6 IMPINGEMENT-DR DAY/ DR YUSUF- [facility]- HYPOTHYROIDISM 2007- DR PABLO SEASONAL ALLERGY/SINUSITIS ENDOMETRIAL POLYP- DR YBARRA DYSPHAGIA-ENT IN [place]- DR MORATAYA BASAL CELL TO RIGHT NOSE - DR. CASTAÑEDA SACRAL PAIN MIGRAINES ALLERGIES NEURONTIN 300: DEPRESSION - SIDE EFFECTS BACLOFEN: HEAD ACHES - ALLERGY CYCLOBENZAPRINE HCL: DECREASED MENTAL ALERTNESS - ALLERGY TIZANIDINE HCL: HEADACHES - ALLERGY TOPIRAMATE: ALTERED MENTAL STATUS - ALLERGY LYRICA: LEG SWELLING / BRAIN FOG - SIDE EFFECTS SURGICAL HISTORY NO PERSONAL OR FHX OF SEVERE REACTION TO ANESTHESIA POLYPECTOMY 2010 ANT CERV2011 C-SPINE FUSION _ 03/2011 SKIN CANCER REMOVED FROM NOSE AUGUST 2015 RIGHT FOOT- BUNION AND LITTLE TOE 2007 FAMILY HISTORY FATHER: MOTHER: ALIVE, SKIN CANCER SIBLINGS: ALIVE, DIAGNOSED WITH OTHER SPECIFIED CONDITIONS INFLUENCING HEALTH STATUS 1 SISTER AND 1 BROTHER-HYPOTHYROIDISM. SOCIAL HISTORY GENERAL: TOBACCO USE ARE YOU A:NONSMOKER HIV / HEP-C SCREENING HIV TEST OFFERED TO PATIENT:YES DATE OFFERED:09/21/2017 TEST ACCEPTED:NO REASON:PATIENT DECLINED BROCHURE PROVIDED TO PATIENTNO OTHERS AT HOME: MOM,SISTER. DIET: REGULAR. LANGUAGE LANGUAGES SPOKEN:ERITREAN DOMESTIC VIOLENCE DO YOU FEEL SAFE IN YOUR ENVIRONMENT?YES RECREATIONAL DRUG USE DRUG USE?NO PATIENT IS PERSCRIBED MEDICAL MARIJUANA- CBD PILL ONCE DAILY EXERCISE: PHYSICAL THERAPY, WALKS. LEARNING BARRIERS / SPECIAL NEEDS CHANGE FROM LAST VISIT?NO BARRIERS TO LEARNING?NO HEARING IMPAIRED?NO VISION IMPAIRED?YES COGNITIVELY IMPAIRED?NO : CORRECTIVE LENSES READINESS TO LEARN?YES LEARNING PREFERENCES?NO LEARNING CAPABILITIES PRESENT?YES EMOTIONAL BARRIERS?NO SPECIAL DEVICES?NO PAIN CLINIC PFS, CLERGY, PUBLIC HEALTH REFERRALS PFS REFERRAL NEEDED?NO CLERGY REFERRAL NEEDED?NO PUBLIC HEALTH REFERRAL NEEDED?NO WAS THE PROVIDER NOTIFIED OF ANY PERTINENT INFO?YES N/A HAS THE PATIENT BEEN EDUCATED REGARDING HIS/HER PLAN OF CARE?YES HAS THE PATIENT BEEN EDUCATED REGARDING PAIN, THE RISK FOR PAIN, THE IMPORTANCE OF EFFECTIVE PAIN MANAGEMENT, AND THE PAIN ASSESSMENT PROCESS?YES LATEX QUESTIONNAIRE LATEX ALLERGY : HAVE YOU EVER DEVELOPED ANY TYPE OF REACTION AFTER HANDLING LATEX PRODUCTS SUCH RUBBER GLOVES, CONDOMS, DIAPHRAGMS, BALLOONS, SOCKS, OR UNDERWEAR?NO LATEX ALLERGY : HAVE YOU EVER DEVELOPED ANY TYPE OF REACTION DURING OR AFTER DENTAL APPOINTMENT, VAGINAL/RECTAL EXAMINATION, SURGICAL PROCEDURE, OR ANY OTHER EXPOSURE?NO LATEX RISK : HAVE YOU EVER HAD ANY DIFFICULTY BREATHING OR HIVES AFTER EATING OR HANDLING ANY FRUITS, OR VEGETABLES; SUCH KIWI, BANANAS, STONE FRUITS, OR CHESTNUTSNO LATEX RISK : DO YOU HAVE A PREVIOUS PERSONAL HISTORY OF MORE THAN NINE SURGERIES, SPINA BIFIDA, OR REPEATED CATHERIZATIONS? NO LATEX RISK : ARE YOU FREQUENTLY EXPOSED TO LATEX PRODUCTS IN YOUR OCCUPATION?NO DATE ASKED : 01/25/2019 CAFFEINE CAFFEINE USE?YES HOW OFTEN AND HOW MUCH? COFFEE- A FEW CUPS DAILY ADVANCE DIRECTIVE ADVANCE DIRECTIVE DISCUSSED WITH PATIENT:YES HCP SISTER--DAUNE CAM [phone] ALSO HAS POA AND LIVING WILL [facility] [id number] AMISH MARITAL STATUS: SINGLE. ALCOHOL SCREENING DID YOU HAVE A DRINK CONTAINING ALCOHOL IN THE PAST YEAR?NO POINTS0 INTERPRETATIONNEGATIVE SEXUAL HX HAD SEX IN THE LAST 12 MONTHS (VAGINAL, ORAL, OR ANAL)?NO LMP:05/2017 HAVE YOU EVER HAD AN STD?NO REVIEWED 12/19/17 NLREVIEWED WITH PATIENT 02/15/18 1037 JSREVIEWED WITH PT 03/20/18 1208 BVREVIEWED WITH PATIENT 06/07/18 0905 BVREVIEWED WITH PATIENT 06/23/18 1451 JSREVIEWED WITH PATIENT 11/16/18 1432 BVREVIEWED WITH PATIENT 01/25/19 0920 NLJPRE PROCEDURE TELEPHONE CALL COMPLETED 01/25/19 0930 NLJ. HOSPITALIZATION/MAJOR DIAGNOSTIC PROCEDURE SURGERY RELATED REVIEW OF SYSTEMS REVIEWED BY: PROVIDER: . CONSTITUTIONAL: ANY CHANGE IN YOUR MEDICAL CONDITION? NO . CHILLS NO . FEVER NO . INFECTION: DO YOU HAVE NEW INFECTIONS? RECENT SINUS INFECTION, RESOLVED. ANTIBIOTICS COMPLETED EARLY JANUARY. . DO YOU HAVE HISTORY OF MRSA? NO . MUSCULOSKELETAL: ANY NEW PATTERNS OF PAIN OR NUMBNESS? YES PT REPORTS INCREASED PAIN LEFT HIP . GASTROENTEROLOGY: ANY NEW CHANGE IN BOWEL CONTROL? NO . GENITOURINARY: ANY NEW CHANGE IN BLADDER CONTROL? NO . IS THERE A CHANCE YOU COULD BE ? NO . HEMATOLOGY/LYMPH: DO YOU TAKE ANY BLOOD THINNERS? (FOR EXAMPLE- COUMADIN, PLAVIX, AGGRENOX, PLATEL, PRADAXA, OR XARELTO) NO . WHEN WAS YOUR LAST DOSE? DATE: TIME: . NEUROLOGY: HAVE YOU FALLEN IN THE PAST 12 MONTHS? NO . ANY NEW EXTREMITY NUMBNESS OR WEAKNESS? NO . CARDIOLOGY: DO YOU HAVE A PACEMAKER OR DEFIBRILLATOR? NO . RESPIRATORY: HAVE YOU BEEN SICK IN THE PAST WEEK? NO . FEVER NO . FLU LIKE SYMPTOMS? NO . COUGH NO . INTEGUMENTARY: DO YOU HAVE ANY RASHES OR OPEN SORES? NO . ALLERGIC/IMMUNO: ARE YOU ALLERGIC TO IV DYE? NO . ANY NEW ALLERGIES? NO . PSYCHIATRIC: DO YOU HAVE THOUGHTS OF HURTING YOURSELF OR SOMEONE ELSE? NO . ARE YOU ABUSED, NEGLECTED, OR IN AN UNSAFE ENVIRONMENT? NO . ENDOCRINOLOGY: ARE YOU DIABETIC? NO . OTHER: DO YOU NEED ANY PRESCRIPTIONS? NO . IF YES, PLEASE LIST: ____ . ANY NEW PROBLEMS WITH YOUR MEDICATIONS? NO . WHEN DID YOU LAST EAT? ____01/31/19 1930 . WHEN DID YOU LAST DRINK? ____02/01/19 0700 . WHAT DID YOU LAST DRINK? ____SIP OF WATER . NAME OF PERSON DRIVING YOU HOME? ____RUSSELL DICKEY . DO YOU HAVE ANY OTHER QUESTIONS OR CONCERNS NO . VITAL SIGNS WT 187.4 LBS, HT 70 IN, BMI 26.89 INDEX, BP 140/65 MM HG, HR 79 /MIN, RR 18 /MIN, TEMP 97.9 F, OXYGEN SAT % 97%, SAFE IN ENV? (Y/N) YES, NA INITIALS AW 0914, REVIEWED BY: COLE. 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 KEISHA ENCARNACION SHAPER AND PRESSER NONE ANESTHESIA LOCAL PRE PROCEDURE NOTE PATIENT WITH HISTORY OF CHRONIC LOW BACK PAIN. I EVALUATED THE PATIENT AND REVIEWED THE CHART. I WENT OVER THE RISKS, ALTERNATIVES, AND BENEFITS ASSOCIATED WITH THIS PROCEDURE. THE PATIENT WOULD LIKE TO PROCEED AND GAVE CONSENT TO PERFORM THE PROCEDURE. THE PATIENT DENIES UNEXPLAINABLE WEIGHT LOSS, FEVER, CHILLS, OR NEW CHANGES IN URINARY OR BOWEL CONTROL DESCRIPTION OF PROCEDURE THE PATIENT WAS BROUGHT TO THE PROCEDURE ROOM AND PLACED IN THE PRONE POSITION. THE LUMBOSACRAL AREA WAS CLEANED WITH CHLORAPREP SOLUTION AND DRAPED ASEPTICALLY. THE PROCEDURE WAS DONE UNDER STERILE CONDITIONS. I CHECKED LATERALITY AND THE LEVEL WHERE THE PROCEDURE WAS GOING TO BE PERFORMED WITH THE PATIENT AND THE SUPPORTING STAFF AT THE MOMENT OF THE TIME OUT IN THE PROCEDURE ROOM. UNDER FLUOROSCOPIC GUIDANCE, TARGET POINT WAS SELECTED AT THE LOWER BORDER OF THE RIGHT AND LEFT SACROILIAC JOINT. TARGET POINT WAS SELECTED AFTER MEDIAL ROTATION AND TILT OF THE MAGNIFIER OF THE C-ARM. LIDOCAINE WAS USED TO NUMB THE SKIN AND SUBCUTANEOUS TISSUE BELOW IT. A SPINAL NEEDLE, 22-GAUGE, WAS ADVANCED UNDER FLUOROSCOPIC GUIDANCE AND FOLLOWING PATIENT FEEDBACK UNTIL THE TARGET AREA WAS TOUCHED. THE POSITION OF THE NEEDLE WAS VERIFIED WITH AP AND LATERAL VIEWS. AFTER PROPER POSITION OF THE NEEDLE WAS ACHIEVED, ISOVUE M DYE 30%, 0.25 ML, WAS INJECTED SHOWING SPREAD OF THE DYE. THEN, A SOLUTION OF 30 MG OF KENALOG WAS INJECTED IN RIGHT AND LEFT JOINT WITH 3 ML OF BUPIVACAINE 0.125%. THERE WAS NO EVIDENCE OF BLOOD, PARESTHESIA OR CEREBROSPINAL FLUID DURING THE PROCEDURE. THE PATIENT WAS SENT TO THE RECOVERY ROOM. THE PATIENT WAS MOVING THE EXTREMITIES AND DOING WELL. THERE WAS NO COMPLICATION DURING THE PROCEDURE. FLUOROSCOPY TIME WAS 30 SECONDS POST PROCEDURE NOTE I AM LOOKING FOR LONG LASTING PAIN RELIEF WITH THIS INJECTION. THE PATIENT WILL BE SEEN IN A FOLLOW UP IN THE NEXT FEW WEEKS. INSTRUCTIONS WERE GIVEN, QUESTIONS WERE ANSWERED, AND THE PATIENT EXPRESSED UNDERSTANDING AND AGREED WITH THE PLAN. I, ZAINAB GOTTI, DOCUMENTED THE ABOVE INFORMATION ACTING A SCRIBE FOR DR. ENCARNACION. I HAVE REVIEWED THE ABOVE DOCUMENT, WRITTEN BY ZAINAB RENEE AND I VERIFY THAT IT IS ACCURATE. PROCEDURE CODES 67553 INJECT SACROILIAC JOINT, MODIFIERS: 50 [id number] RADXPS IN END [id number] PXD DISPOSITION & COMMUNICATION FOLLOW UP 3 WEEKS ELECTRONICALLY SIGNED BY KEISHA ENCARNACION MD, MD ON 02/11/2019 AT 12:52 PM EST DISCLAIMER : THIS IS A VISIT SUMMARY EXTRACTED FROM THE [employer] CHART. IT IS NOT A COPY OF THE [employer] PROGRESS NOTE. MTDD
== END ==
LOC: M PAIN 09:15
PROVIDERS: ATTEND Anesthesiology
DX: M46.1 Sacroiliitis, not elsewhere classified (principal)
CPT/HCPCS: G0260; J3301; Q9967